=== PATIENT | male | born 1935 | race Caucasian/White ===

== ENCOUNTER 2016-10-05 11:59 | Inpatient (IN) | payer MEDICARE, BC ==
[2016-10-05] MEDS ORDERED: Albuterol 0.083% 2.5 MG/3 ML Neb Soln NEB ONE (13:28)
--- NOTE | 2016-10-05 13:48 | EDM.PDOC ---
ED HISTORY OF PRESENT ILLNESS - General Chief Complaint: Respiratory Problem Stated Complaint: SHORTNESS OF BREATH Time Seen by Provider: 10/05/16 12:15 Source: Reports: Patient, Family History Limitations: Reports: No limitations, Respiratory distress - History of Present Illness INITIAL COMMENTS - FREE TEXT/NARRATIVE: pt has been very sob with ambulation. He walked accross the back yard and he was bent over with sob. . He has not had chest pain. # days ago he had an episode where he had a brief episode of sob. Timing/Duration: Reports: Getting worse, Other ( Pt saw Dr wilcox a few days ago and a cardiology appt was set up. ) Severity: moderate Location, General: Reports: chest, other ( Marked sob. ) Associated Symptoms: Reports: shortness of breath - Related Data Allergies/ADRs: Allergies Allergy/AdvReac Type Severity Reaction Status Date / Time dye Allergy Hives Uncoded 07/25/16 10:58 Home Meds: Home Meds Aspirin [Alvin Chewable] 81 mg PO DAILY 10/22/13 [History] Hydrochlorothiazide 25 mg PO DAILY 10/22/13 [History] Omeprazole [Prilosec] 20 mg PO DAILY 10/22/13 [History] Potassium Citrate 20 meq PO TID 10/22/13 [History] Pravastatin [Pravachol] 80 mg PO DAILY 10/22/13 [History] Terazosin [Hytrin] 15 mg PO BEDTIME 10/22/13 [History] amLODIPine [Norvasc] 10 mg PO DAILY 10/22/13 [History] Etodolac 400 mg PO BID 04/11/16 [History] oxyCODONE HCl/Acetaminophen [Percocet 5-325 mg Tablet] 2 tab PO Q4H PRN [History] Clopidogrel [Plavix] 75 mg PO DAILY 10/05/16 [History] Isosorbide Mononitrate [Imdur] 30 mg PO BID 10/06/16 [History] Metoprolol Tartrate [Lopressor] 25 mg PO Q12HR 10/06/16 [History] Past Medical History HEENT History: Reports: Hard of hearing, Impaired vision Cardiovascular History: Reports: High cholesterol, Hypertension Respiratory History: Reports: COPD, SOB Gastrointestinal History: Reports: GERD Genitourinary History: Reports: Renal calculus Other Genitourinary History: 6 times Musculoskeletal History: Reports: Arthritis - Infectious Disease History Infectious Disease History: Reports: Chicken pox, Measles, Mumps - Past Surgical History HEENT Surgical History: Reports: Adenoidectomy, Tonsillectomy Cardiovascular Surgical History: Reports: Coronary artery stent GI Surgical History: Reports: Colonoscopy Male Surgical History: Reports: Kidney stone extraction Musculoskeletal Surgical History: Reports: Other (see below) Other Musculoskeletal Surgeries/Procedures:: hand surgery, foot surgery Social & Family History - Tobacco Use Smoking Status *Q: Former Smoker Used Tobacco, but Quit: Yes Month Tobacco Last Used: long time ago Second Hand Smoke Exposure: No - Caffeine Use Caffeine Use: Reports: Coffee - Alcohol Use Days Per Week of Alcohol Use: 7 Number of Drinks Per Day: 2 Total Drinks Per Week: 14 - Recreational Drug Use Recreational Drug Use: No ED ROS GENERAL - Review of Systems Review Of Systems: See Below Constitutional: Reports: no symptoms HEENT: Reports: No symptoms Respiratory: Reports: Shortness of Breath, Other ( Pt is not able to walk any distance. ) Cardiovascular: Reports: Other (pt is feeling very sob but he is not experiencing and chest pain. ) Endocrine: Reports: no symptoms GI/Abdominal: Reports: No symptoms : Reports: no symptoms Musculoskeletal: Reports: no symptoms Skin: Reports: no symptoms Neurological: Reports: No Symptoms ED EXAM, GENERAL - Physical Exam Exam: See Below Free Text/Narrative:: pt has been having episodes of sob with activity. He walked a few feet and he could not go any further. Exam Limited By: No limitations General Appearance: alert, mild distress Ears: normal TMs Nose: normal inspection Throat/Mouth: Normal inspection Head: atraumatic Neck: normal inspection Respiratory/Chest: decreased breath sounds Cardiovascular: regular rate, rhythm GI/Abdominal: soft, non tender (Male) Exam: Deferred Rectal (Males) Exam: Deferred Back Exam: normal inspection Extremities: other ( trace edema. ) Neurological: alert, oriented, normal cognition Psychiatric: normal affect Course - Vital Signs Last Recorded V/S: Last Vital Signs Temp 37.1 C 10/07/16 02:15 Pulse 80 10/07/16 07:15 Resp 20 10/07/16 02:15 BP 99/61 10/07/16 02:15 Pulse Ox 95 10/07/16 06:55 Orthostatic Blood Pressure [ 114/57 Standing] Orthostatic Blood Pressure [ 111/59 Sitting] Orthostatic Blood Pressure [ 129/63 Supine] - Orders/Labs/Meds Orders: Medication Orders Acetaminophen (Tylenol) 650 mg PO Q4H PRN PRN Reason: Pain (Mild 1-3)/fever Albuterol (Proventil Neb Soln) 2.5 mg NEB Q4H PRN PRN Reason: Shortness Of Breath/wheezing Albuterol/Ipratropium (Duoneb 3.0-0.5 Mg/3 Ml) 3 ml NEB QIDRT [facility] Last Admin: 10/07/16 07:14 Dose: 3 ml Admin: 10/06/16 20:02 Dose: 3 ml Admin: 10/06/16 14:56 Dose: 3 ml Admin: 10/06/16 10:49 Dose: 3 ml Admin: 10/06/16 08:37 Dose: Admin: 10/05/16 23:30 Dose: Not Given Admin: 10/05/16 15:59 Dose: 3 ml Amlodipine Besylate (Norvasc) 10 mg PO DAILY [facility] Last Admin: 10/06/16 09:32 Dose: 10 mg Aspirin (Halfprin) 81 mg PO BEDTIME [facility] Last Admin: 10/06/16 20:03 Dose: 81 mg Admin: 10/05/16 20:43 Dose: 81 mg Clopidogrel Bisulfate (Plavix) 75 mg PO DAILY [facility] Last Admin: 10/06/16 11:31 Dose: 75 mg Docusate Sodium (Colace) 100 mg PO BID PRN PRN Reason: Constipation Enoxaparin Sodium (Lovenox) 40 mg SUBCUT DAILY [facility] Last Admin: 10/06/16 14:14 Dose: 40 mg Furosemide (Lasix) 40 mg IVPUSH ONETIME ONE Stop: 10/07/16 08:01 Hydrochlorothiazide (Hydrochlorothiazide) 25 mg PO DAILY [facility] Last Admin: 10/06/16 09:32 Dose: 25 mg Isosorbide Mononitrate (Imdur) 30 mg PO BID@0900,1600 [facility] Last Admin: 10/06/16 17:11 Dose: 30 mg Admin: 10/06/16 11:29 Dose: 30 mg Lorazepam (Ativan) 0.5 mg IVPUSH Q4H PRN PRN Reason: Nausea/Vomiting Last Admin: 10/07/16 00:35 Dose: 0.5 mg Magnesium Hydroxide (Milk Of Magnesia) 30 ml PO Q12H PRN PRN Reason: Constipation Metoprolol Tartrate (Lopressor) 0 mg PO BID@0900,1700 [facility] Last Admin: 10/06/16 17:12 Dose: 25 mg Potassium Citrate [ Potassium Citrate] 10meq Tabs Own Med 20 meq PO TID [facility] Last Admin: 10/06/16 20:04 Dose: 20 meq Admin: 10/06/16 14:13 Dose: 20 meq Admin: 10/06/16 09:32 Dose: 20 meq Admin: 10/05/16 20:44 Dose: 20 meq Pravastatin 40mg (Tabs Own Med ) 0 each PO BEDTIME [facility] Last Admin: 10/06/16 20:05 Dose: 2 each Admin: 10/05/16 20:42 Dose: 2 each Ondansetron HCl (Zofran) 4 mg IV Q4H PRN PRN Reason: Nausea/Vomiting Last Admin: 10/06/16 23:38 Dose: 4 mg Oxycodone/Acetaminophen (Percocet 325-5 Mg) 2 tab PO Q4H PRN PRN Reason: Pain Omeprazole Capsule (20mgPom) 0 each PO ACBREAKFAST [facility] Polyethylene Glycol (Miralax) 17 gm PO DAILY PRN PRN Reason: Constipation Sodium Chloride (Saline Flush) 10 ml FLUSH ASDIRECTED PRN PRN Reason: Keep Vein Open Terazosin HCl (Hytrin) 15 mg PO BEDTIME [facility] Last Admin: 10/06/16 20:06 Dose: 15 mg Admin: 10/05/16 20:42 Dose: 15 mg Labs: Laboratory Tests 10/05/16 10/05/16 10/05/16 Range/Units 12:28 12:28 12:28 WBC 9.1 (4.5-11.0) K/uL RBC 4.33 (4.30-5.90) M/uL Hgb 13.1 (12.0-15.0) g/dL Hct 38.7 L (40.0-54.0) % MCV 89 (80-98) fL MCH 30 (27-31) pg MCHC 34 (32-36) % Plt Count 260 (150-400) K/uL Neut % (Auto) 65 (36-66) % Lymph % (Auto) 23 L (24-44) % [place] % (Auto) 11 H (2-6) % Eos % (Auto) 1 L (2-4) % Baso % (Auto) 0 (0-1) % D-Dimer, Quantitative (0.0-400.0) ng/mL Puncture Site ABG pH (7.350-7.450) ABG pCO2 (35.0-42.0) mmHg ABG pO2 (75.0-100.0) mmHg ABG HCO3 (22.0-26.0) mmol/L ABG Total CO2 (23.0-27.0) mmol/L ABG O2 Saturation (95.0-98.0) % ABG O2 Content (15.0-23.0) %vol ABG Base Excess mm/L ABG Hemoglobin (13.5-18.0) g/dL ABG Oxyhemoglobin % ABG Carboxyhemoglobin (0.0-1.6) % ABG Methemoglobin % Dung Test O2 Delivery Device Sodium 140 (140-148) mmol/L Potassium 4.0 (3.6-5.2) mmol/L Chloride 105 (100-108) mmol/L Carbon Dioxide 27 (21-32) mmol/L Anion Gap 8.4 (5.0-14.0) mmol/L BUN 27 H (7-18) mg/dL Creatinine 1.5 H (0.8-1.3) mg/dL Est Cr Clr Drug Dosing 38.00 mL/min Estimated GFR (MDRD) 45 L (>60) Glucose 93 (74-106) mg/dL Calcium 7.9 L (8.5-10.1) mg/dL Total Bilirubin 0.4 (0.2-1.0) mg/dL AST 17 (15-37) U/L ALT 13 (12-78) U/L Alkaline Phosphatase 69 (46-116) U/L Troponin I < 0.017 (0.000-0.056) ng/mL [id number] Pept (5-450) pg/mL Total Protein 6.2 L (6.4-8.2) g/dL Albumin 3.3 L (3.4-5.0) g/dL Globulin 2.9 (2.3-3.5) g/dL Albumin/Globulin Ratio 1.1 L (1.2-2.2) 10/05/16 10/05/16 10/05/16 Range/Units 12:28 13:08 14:09 WBC (4.5-11.0) K/uL RBC (4.30-5.90) M/uL Hgb (12.0-15.0) g/dL Hct (40.0-54.0) % MCV (80-98) fL MCH (27-31) pg MCHC (32-36) % Plt Count (150-400) K/uL Neut % (Auto) (36-66) % Lymph % (Auto) (24-44) % [place] % (Auto) (2-6) % Eos % (Auto) (2-4) % Baso % (Auto) (0-1) % D-Dimer, Quantitative 701 H (0.0-400.0) ng/mL Puncture Site Rt radial ABG pH 7.469 H (7.350-7.450) ABG pCO2 29.6 L (35.0-42.0) mmHg ABG pO2 55.4 L (75.0-100.0) mmHg ABG HCO3 21.2 L (22.0-26.0) mmol/L ABG Total CO2 18.7 L (23.0-27.0) mmol/L ABG O2 Saturation 89.8 L (95.0-98.0) % ABG O2 Content 16.3 (15.0-23.0) %vol ABG Base Excess -1.0 mm/L ABG Hemoglobin 13.1 L (13.5-18.0) g/dL ABG Oxyhemoglobin 88.2 % ABG Carboxyhemoglobin 1.0 (0.0-1.6) % ABG Methemoglobin 0.8 % Dung Test Passed O2 Delivery Device Room air Sodium (140-148) mmol/L Potassium (3.6-5.2) mmol/L Chloride (100-108) mmol/L Carbon Dioxide (21-32) mmol/L Anion Gap (5.0-14.0) mmol/L BUN (7-18) mg/dL Creatinine (0.8-1.3) mg/dL Est Cr Clr Drug Dosing mL/min Estimated GFR (MDRD) (>60) Glucose (74-106) mg/dL Calcium (8.5-10.1) mg/dL Total Bilirubin (0.2-1.0) mg/dL AST (15-37) U/L ALT (12-78) U/L Alkaline Phosphatase (46-116) U/L Troponin I (0.000-0.056) ng/mL [id number] Pept 338 (5-450) pg/mL Total Protein (6.4-8.2) g/dL Albumin (3.4-5.0) g/dL Globulin (2.3-3.5) g/dL Albumin/Globulin Ratio (1.2-2.2) Meds: Medications Generic Name Dose Route Start Last Admin Trade Name Freq PRN Reason Stop Dose Admin Acetaminophen 650 mg 10/05/16 15:30 Tylenol PO Q4H PRN Pain (Mild 1-3)/fever Albuterol 2.5 mg 10/05/16 15:30 Proventil Neb Soln NEB Q4H PRN Shortness Of Breath/wheezing Albuterol/Ipratropium 3 ml 10/05/16 15:00 10/07/16 07:14 Duoneb 3.0-0.5 Mg/3 Ml NEB 3 ml QIDRT [facility]YDER Administration Amlodipine Besylate 10 mg 10/06/16 09:00 10/06/16 09:32 Norvasc PO 10 mg DAILY R[facility]DER Administration Aspirin 81 mg 10/05/16 21:00 10/06/16 20:03 Halfprin PO 81 mg BEDTIME RYDER Administration Clopidogrel Bisulfate 75 mg 10/06/16 11:00 10/06/16 11:31 Plavix PO 75 mg DAILY R[facility]DER Administration Docusate Sodium 100 mg 10/05/16 15:30 Colace PO BID PRN Constipation Enoxaparin Sodium 40 mg 10/06/16 09:00 10/06/16 14:14 Lovenox SUBCUT 40 mg DAILY [facility]DER Administration Furosemide 40 mg 10/07/16 08:00 Lasix IVPUSH 10/07/16 08:01 ONETIME ONE Hydrochlorothiazide 25 mg 10/06/16 09:00 10/06/16 09:32 Hydrochlorothiazide PO 25 mg DAILY [facility]DER Administration Isosorbide Mononitrate 30 mg 10/06/16 11:00 10/06/16 17:11 Imdur PO 30 mg BID@0900,1600 [facility] Administration Lorazepam 0.5 mg 10/07/16 00:16 10/07/16 00:35 Ativan IVPUSH 0.5 mg Q4H PRN Administration Nausea/Vomiting Magnesium Hydroxide 30 ml 10/05/16 15:30 Milk Of Magnesia PO Q12H PRN Constipation Metoprolol Tartrate 0 mg 10/06/16 17:15 10/06/16 17:12 Lopressor PO 25 mg BID@0900,1700 R[facility]DER Administration Potassium Citrate [ 20 meq 10/05/16 21:00 10/06/16 20:04 Potassium Citrate] PO 20 meq 10meq Tabs Own TID RYDER Administration Med Pravastatin 40mg 0 each 10/05/16 21:00 10/06/16 20:05 Tabs Own Med PO 2 each BEDTIME RYDER Administration Ondansetron HCl 4 mg 10/05/16 15:30 10/06/16 23:38 Zofran IV 4 mg Q4H PRN Administration Nausea/Vomiting Oxycodone/Acetaminophen 2 tab 10/05/16 16:30 Percocet 325-5 Mg PO Q4H PRN Pain Omeprazole Capsule 0 each 10/07/16 07:30 20mgPom PO ACBREAKFAST R[facility]DER Polyethylene Glycol 17 gm 10/05/16 15:30 Miralax PO DAILY PRN Constipation Sodium Chloride 10 ml 10/05/16 15:30 Saline Flush FLUSH ASDIRECTED PRN Keep Vein Open Terazosin HCl 15 mg 10/05/16 21:00 10/06/16 20:06 Hytrin PO 15 mg BEDTIME [facility]DER Administration Discontinued Medications Generic Name Dose Route Start Last Admin Trade Name Freq PRN Reason Stop Dose Admin Albuterol 2.5 mg 10/05/16 13:28 10/05/16 13:43 Proventil Neb Soln NEB 10/05/16 13:29 2.5 mg ONETIME ONE Administration Diphenhydramine HCl 25 mg 10/06/16 08:00 10/06/16 07:26 Benadryl IVPUSH 10/06/16 08:01 25 mg ONETIME ONE Administration Furosemide 40 mg 10/06/16 11:00 10/06/16 11:35 Lasix IVPUSH 10/06/16 11:01 40 mg NOW ONE Administration Sodium Chloride 1,000 mls @ 400 mls/hr 10/05/16 14:00 10/05/16 14:08 Normal Saline IV 400 mls/hr ASDIRECTED RYDER Administration Sodium Chloride 1,000 mls @ 100 mls/hr 10/05/16 15:30 10/06/16 05:09 Normal Saline IV 100 mls/hr ASDIRECTED RYDER Administration Sodium Chloride 100 mls @ 4 mls/sec 10/06/16 07:15 10/06/16 07:59 Normal Saline IV 4 mls/sec ASDIRECTED RYDER Administration Magnesium Sulfate 2 gm/ Premix 50 mls @ 12.5 mls/hr 10/06/16 11:00 10/06/16 22:13 IV 10/07/16 02:59 12.5 mls/hr Q6H RYDER Administration Iopamidol 100 ml 10/06/16 07:15 10/06/16 07:59 Isovue-370 (76%) IV 100 ml . DIRECTED RYDER Administration Methylprednisolone Sodium Succinate 40 mg 10/06/16 08:00 10/06/16 07:26 Solu-Medrol IVPUSH 10/06/16 08:01 40 mg ONETIME ONE Administration Metoprolol Tartrate 0 mg 10/06/16 11:00 10/06/16 11:30 Lopressor PO 25 mg BID RYDER Administration Oxycodone/Acetaminophen 2 tab 10/05/16 15:30 10/05/16 16:44 Percocet 325-5 Mg PO Not Given Q4H RYDER Pantoprazole Sodium 40 mg 10/06/16 07:30 10/06/16 09:44 Protonix PO Not Given ACBREAKFAST RYDER Sodium Chloride 10 ml 10/06/16 07:08 10/06/16 07:59 Saline Flush FLUSH 10/06/16 07:09 10 ml ONETIME ONE Administration - Re-Assessments/Exams Free Text/Narrative Re-Assessment/Exam: 10/05/16 14:07 pt had a chest xray which did not reveal effusions or infiltrate, His blood gases show borderline oxgenation, . He had a normal bnp and a normal trop. He did not have acute changes on his ekg. Departure - Departure Time of Disposition: 02:15 Disposition: Admitted As Inpatient 66 Condition: fair Clinical Impression: Shortness of breath on exertion
[2016-10-05] MEDS ORDERED: Sodium Chloride 0.9% 1,000 ML IV SCH (14:00)
--- NOTE | 2016-10-05 15:18 | PCM.HP ---
H&P History of Present Illness - General Date of Service: 10/05/16 Admit Problem/Dx: Admission Diagnosis/Problem Admission Diagnosis/Problem Hypoxia Source of Information: Patient, Family, Old records, Provider, RN notes reviewed History Limitations: Reports: No limitations - History of Present Illness Initial Comments - Free Text/Narative: Mr. Damian is an 80-year-old gentleman who is admitted through the emergency department because of hypoxic respiratory failure. He has had progressive difficulty with shortness of breath over the past 6 months. To this point has undergone fairly extensive evaluation without specific etiology having been identified. Echocardiogram obtained in May showed preserved left ventricular function, no significant elevation in right-sided pressures or other significant abnormalities to explain symptoms of dyspnea. The of known history of coronary artery disease he did undergo an angiogram in May, he did have one area of significant blockage that was treated with angioplasty and a stent. He gives a history of previous pulmonary function studies but I am unable to find a report on review of records from both this facility as well as the clinic. Followup angiogram was performed 2 months ago because of persistent symptoms and showed no new areas of blockage or lesions that were felt to require intervention. At that time a CT angiogram of the chest was obtained, this did show some evidence of COPD, there were no other significant abnormalities appreciated including no pulmonary emboli. He is had recent sleep study, that showed no evidence of significant sleep apnea. Intensive become significantly worse over the past few days and he is noted to have hypoxia on initial presentation. Arterial blood gases document hypoxia and respiratory alkalosis. - Related Data Allergies/Adverse Reactions: Allergies Allergy/AdvReac Type Severity Reaction Status Date / Time dye Allergy Hives Uncoded 07/25/16 10:58 Home Medications: Home Meds Aspirin [Alvin Chewable] 81 mg PO DAILY 10/22/13 [History] Hydrochlorothiazide 25 mg PO DAILY 10/22/13 [History] Omeprazole [Prilosec] 20 mg PO DAILY 10/22/13 [History] Potassium Citrate 20 meq PO TID 10/22/13 [History] Pravastatin [Pravachol] 80 mg PO DAILY 10/22/13 [History] Terazosin [Hytrin] 15 mg PO BEDTIME 10/22/13 [History] amLODIPine [Norvasc] 10 mg PO DAILY 10/22/13 [History] Etodolac 400 mg PO BID 04/11/16 [History] oxyCODONE HCl/Acetaminophen [Percocet 5-325 mg Tablet] 2 tab PO Q4H 05/06/16 [ History] Past Medical History HEENT History: Reports: Hard of hearing, Impaired vision Cardiovascular History: Reports: High cholesterol, Hypertension Respiratory History: Reports: COPD, SOB Gastrointestinal History: Reports: GERD Genitourinary History: Reports: Renal calculus Other Genitourinary History: 6 times Musculoskeletal History: Reports: Arthritis - Infectious Disease History Infectious Disease History: Reports: Chicken pox, Measles, Mumps - Past Surgical History HEENT Surgical History: Reports: Adenoidectomy, Tonsillectomy Cardiovascular Surgical History: Reports: Coronary artery stent GI Surgical History: Reports: Colonoscopy Male Surgical History: Reports: Kidney stone extraction Musculoskeletal Surgical History: Reports: Other (see below) Other Musculoskeletal Surgeries/Procedures:: hand surgery, foot surgery Social & Family History - Tobacco Use Smoking Status *Q: Former Smoker Used Tobacco, but Quit: Yes Month Tobacco Last Used: long time ago Second Hand Smoke Exposure: No - Caffeine Use Caffeine Use: Reports: Coffee - Alcohol Use Days Per Week of Alcohol Use: 7 Number of Drinks Per Day: 2 Total Drinks Per Week: 14 - Recreational Drug Use Recreational Drug Use: No H&P Review of Systems - Review of Systems: Review Of Systems: See Below General: Reports: weakness, fatigue. Denies: fever, chills, night sweats, diaphoresis HEENT: Reports: no symptoms Pulmonary: Reports: Shortness of Breath, Cough. Denies: Wheezing, Pleuritic Chest Pain, Sputum, Hemoptysis Cardiovascular: Reports: dyspnea on exertion. Denies: chest pain, palpitations , orthopnea, PND, edema, lightheadedness, syncope Gastrointestinal: Reports: No symptoms Genitourinary: Reports: no symptoms Musculoskeletal: Reports: back pain Skin: Reports: no symptoms Psychiatric: Reports: no symptoms Neurological: Reports: No Symptoms Hematologic/Lymphatic: Reports: no symptoms Immunologic: Reports: no symptoms Exam - Exam Exam: See Below - Vital Signs Vital Signs: Last Vital Signs Temp 97.1 F 10/05/16 12:13 Pulse 78 10/05/16 14:27 Resp 20 10/05/16 12:13 BP 114/57 L 10/05/16 14:27 Pulse Ox 97 10/05/16 14:27 Orthostatic Blood Pressure [ 114/57 Standing] Orthostatic Blood Pressure [ 111/59 Sitting] Orthostatic Blood Pressure [ 129/63 Supine] Weight: 193 lb 12.581 oz - Exam Quality Assessment: supplemental oxygen, DVT prophylaxis General: alert, oriented, cooperative, moderate distress HEENT: Conjunctiva clear, Hearing intact, Mucosa moist & pink, Nares patent, Normal nasal septum, Posterior pharynx clear, Pupils equal, Pupils reactive, TMs clear Neck: supple, trachea midline, +2 carotid pulse wo bruit Lungs: Decreased breath sounds. No: Crackles, Rales, Rhonchi, Rub, Stridor, Wheezing Cardiovascular: regular rate, regular rhythm, normal S1, normal S2. No: irregular rhythm, bradycardia, tachycardia, systolic murmur, diastolic murmur Abdomen: normal bowel sounds, soft Back Exam: full range of motion, vertebral tenderness Extremities: normal inspection Skin: warm, dry, intact Neurological: cranial nerves intact, strength equal bilateral, normal speech, normal tone, sensation intact. No: focal deficit Neuro Extensive - Mental Status: alert, oriented x3, normal mood/affect, normal cognition, memory intact - Patient Data Lab Results last 24 hrs: Laboratory Results - last 24 hr 10/05/16 10/05/16 10/05/16 Range/Units 12:28 12:28 12:28 WBC 9.1 (4.5-11.0) K/uL RBC 4.33 (4.30-5.90) M/uL Hgb 13.1 (12.0-15.0) g/dL Hct 38.7 L (40.0-54.0) % MCV 89 (80-98) fL MCH 30 (27-31) pg MCHC 34 (32-36) % Plt Count 260 (150-400) K/uL Neut % (Auto) 65 (36-66) % Lymph % (Auto) 23 L (24-44) % [place] % (Auto) 11 H (2-6) % Eos % (Auto) 1 L (2-4) % Baso % (Auto) 0 (0-1) % Puncture Site ABG pH (7.350-7.450) ABG pCO2 (35.0-42.0) mmHg ABG pO2 (75.0-100.0) mmHg ABG HCO3 (22.0-26.0) mmol/L ABG Total CO2 (23.0-27.0) mmol/L ABG O2 Saturation (95.0-98.0) % ABG O2 Content (15.0-23.0) %vol ABG Base Excess mm/L ABG Hemoglobin (13.5-18.0) g/dL ABG Oxyhemoglobin % ABG Carboxyhemoglobin (0.0-1.6) % ABG Methemoglobin % Dung Test O2 Delivery Device Sodium 140 (140-148) mmol/L Potassium 4.0 (3.6-5.2) mmol/L Chloride 105 (100-108) mmol/L Carbon Dioxide 27 (21-32) mmol/L Anion Gap 8.4 (5.0-14.0) mmol/L BUN 27 H (7-18) mg/dL Creatinine 1.5 H (0.8-1.3) mg/dL Est Cr Clr Drug Dosing 38.00 mL/min Estimated GFR (MDRD) 45 L (>60) Glucose 93 (74-106) mg/dL Calcium 7.9 L (8.5-10.1) mg/dL Total Bilirubin 0.4 (0.2-1.0) mg/dL AST 17 (15-37) U/L ALT 13 (12-78) U/L Alkaline Phosphatase 69 (46-116) U/L Troponin I < 0.017 (0.000-0.056) ng/mL Cpb-X-Fucmwlmllpq Pept (5-450) pg/mL Total Protein 6.2 L (6.4-8.2) g/dL Albumin 3.3 L (3.4-5.0) g/dL Globulin 2.9 (2.3-3.5) g/dL Albumin/Globulin Ratio 1.1 L (1.2-2.2) 10/05/16 10/05/16 Range/Units 12:28 13:08 WBC (4.5-11.0) K/uL RBC (4.30-5.90) M/uL Hgb (12.0-15.0) g/dL Hct (40.0-54.0) % MCV (80-98) fL MCH (27-31) pg MCHC (32-36) % Plt Count (150-400) K/uL Neut % (Auto) (36-66) % Lymph % (Auto) (24-44) % [place] % (Auto) (2-6) % Eos % (Auto) (2-4) % Baso % (Auto) (0-1) % Puncture Site Rt radial ABG pH 7.469 H (7.350-7.450) ABG pCO2 29.6 L (35.0-42.0) mmHg ABG pO2 55.4 L (75.0-100.0) mmHg ABG HCO3 21.2 L (22.0-26.0) mmol/L ABG Total CO2 18.7 L (23.0-27.0) mmol/L ABG O2 Saturation 89.8 L (95.0-98.0) % ABG O2 Content 16.3 (15.0-23.0) %vol ABG Base Excess -1.0 mm/L ABG Hemoglobin 13.1 L (13.5-18.0) g/dL ABG Oxyhemoglobin 88.2 % ABG Carboxyhemoglobin 1.0 (0.0-1.6) % ABG Methemoglobin 0.8 % Dung Test Passed O2 Delivery Device Room air Sodium (140-148) mmol/L Potassium (3.6-5.2) mmol/L Chloride (100-108) mmol/L Carbon Dioxide (21-32) mmol/L Anion Gap (5.0-14.0) mmol/L BUN (7-18) mg/dL Creatinine (0.8-1.3) mg/dL Est Cr Clr Drug Dosing mL/min Estimated GFR (MDRD) (>60) Glucose (74-106) mg/dL Calcium (8.5-10.1) mg/dL Total Bilirubin (0.2-1.0) mg/dL AST (15-37) U/L ALT (12-78) U/L Alkaline Phosphatase (46-116) U/L Troponin I (0.000-0.056) ng/mL Wen-O-Fdypiamizfz Pept 338 (5-450) pg/mL Total Protein (6.4-8.2) g/dL Albumin (3.4-5.0) g/dL Globulin (2.3-3.5) g/dL Albumin/Globulin Ratio (1.2-2.2) Result Diagrams: 10/05/16 12:28 10/05/16 12:28 *Q Meaningful Use (ADM) - VTE *Q VTE Criteria *Q: - VTE Risk Assess *Q Each Risk Factor Represents 1 Point: Abnormal Pulmonary Function (COPD) Total Score 1 Point Risk Factors: 1 Each Risk Factor Represents 2 Points: None Total Score 2 Point Risk Factors: 0 Each Risk Factor Represents 3 Points: Age 75 Years or Greater Total Score 3 Point Risk Factors: 3 Each Risk Factor Represents 5 Points: None Total Score 5 Point Risk Factors: 0 Venous Thromboembolism Risk Factor Score *Q: 4 - Stroke *Q Stroke Criteria *Q: - AMI *Q AMI Criteria *Q: Problem List Initiated/Reviewed/Updated: Yes Orders Last 24hrs: Active Orders 24 hr Category Date Time Status Patient Status Manage Transfer [TRANSFER] Routine ADT 10/05/16 14:57 Ordered Cardiac Monitoring [RC] .As Directed Care 10/05/16 14:57 Ordered EKG Documentation Completion [RC] ASDIRECTED Care 10/05/16 12:23 Active Orthostatic Vital Signs [RC] ASDIRECTED Care 10/05/16 13:29 Active RT Aerosol Therapy [RC] ASDIRECTED Care 10/05/16 13:28 Active Chest 1V Frontal [CR] Stat Exams 10/05/16 12:23 Taken D Dimer [D-DIMER QUANTITATIVE] [COAG] Stat Lab 10/05/16 14:09 Ordered Sodium Chloride 0.9% [Normal Saline] 1,000 ml Med 10/05/16 14:00 Active IV ASDIRECTED Resuscitation Status Routine Resus Stat 10/05/16 14:59 Ordered EKG 12 Lead [EK] Routine Ther 10/05/16 12:23 Ordered Medication Orders Sodium Chloride (Normal Saline) 1,000 mls @ 400 mls/hr IV ASDIRECTED RYDER Last Admin: 10/05/16 14:08 Dose: 400 mls/hr Assessment/Plan Comment:: ASSESSMENT AND PLAN HYPOXIC RESPIRATORY FAILURE-symptoms have been present for 6 months, gradually worse, significantly worse over the past few days. Evaluation to this point has included echocardiogram, 2 cardiac angiograms, laboratory studies, CT angiogram of the chest, and a sleep study. He does have known COPD, I am unable to find documented pulmonary function studies as to the underlying severity of his lung disease. -IV fluids for hydration -CT scan PE protocol in a.m. after hydration -Premedicate prior to CT scan with Solu-Medrol and Benadryl -Pulmonary function studies with DLCO -Echocardiogram to reassess left ventricular function -Supplemental oxygen as needed -Nebulizer therapy with albuterol and duo nebs -Patient already has followup with cardiology scheduled for , October 09 -TSH in a.m. CORONARY ARTERY DISEASE-status post angiogram with angioplasty and stent placement in May, followup angiogram in July showed no new or acute findings -Continue outpatient medical management COPD -PFT's as above CHRONIC KIDNEY DISEASE STAGE III -Closely monitor urine output and renal function during hospital stay MAINTENANCE ISSUES -DVT prophylaxis; Lovenox 40 mg subcutaneous daily -GI prophylaxis; continue outpatient PPI therapy -Yeager catheter; not indicated -Nutrition; regular diet -Nicotine dependence; not required CODE STATUS-FULL CODE ADMISSION STATUS-patient will be admitted to inpatient status, expect at least a 2 night hospital stay for evaluation and management of problems as outlined above. At the time of this admission I do not reasonably expected evaluation and management of this problem will require more than a 96 hour hospital stay. DISPOSITION-anticipate discharge to home after the hospital stay. PRIMARY CARE PROVIDER-Dr. Jarquin
[2016-10-05] MEDS ORDERED: Polyethylene Glycol 3350 Powder 17 GM Packet PO PRN (15:30)
[2016-10-05] MEDS ORDERED: Ondansetron 4 MG/2 ML SDV IV PRN (15:30)
[2016-10-05] MEDS ORDERED: Sodium Chloride 0.9% 10 ML Syringe FLUSH PRN (15:30)
[2016-10-05] MEDS ORDERED: Albuterol 0.083% 2.5 MG/3 ML Neb Soln NEB PRN (15:30)
[2016-10-05] MEDS ORDERED: Acetaminophen/oxyCODONE 325-5 MG Tab PO SCH (15:30)
[2016-10-05] MEDS ORDERED: Magnesium Hydroxide 400 MG/5 ML Susp 30 ML Cup PO PRN (15:30)
[2016-10-05] MEDS ORDERED: Acetaminophen 325 MG Tab PO PRN (15:30)
[2016-10-05] MEDS: Albuterol/Ipratropium 3.0-0.5 MG/3 ML Neb Soln NEB SCH ×2 (15:59→23:30)
[2016-10-05] MEDS ORDERED: Acetaminophen/oxyCODONE 325-5 MG Tab PO PRN (16:30)
[2016-10-05] MEDS: Sodium Chloride 0.9% 1,000 ML IV SCH (19:29)
[2016-10-05] MEDS: PRAVASTATIN 40 MG PO SCH (20:42)
[2016-10-05] MEDS: TERAZOSIN 5 MG PO SCH (20:42)
[2016-10-05] MEDS: ASPIRIN 81 MG PO SCH (20:43)
[2016-10-05] MEDS: POTASSIUM CITRATE 10 MEQ PO SCH (20:44)
[2016-10-06] MEDS: Sodium Chloride 0.9% 1,000 ML IV SCH (05:09)
[2016-10-06] MEDS ORDERED: Sodium Chloride 0.9% 10 ML Syringe FLUSH ONE (07:08)
[2016-10-06] MEDS ORDERED: Iopamidol 755 Mg/ML 100 ML Bottle IV SCH (07:15)
[2016-10-06] MEDS ORDERED: Sodium Chloride 0.9% 100 ML IV SCH (07:15)
[2016-10-06] MEDS ORDERED: methylPREDNISolone Sodium Succinate 40 MG/1 ML SDV IVPUSH ONE (08:00)
[2016-10-06] MEDS ORDERED: diphenhydrAMINE 50 MG/ML SDV IVPUSH ONE (08:00)
[2016-10-06] MEDS: Albuterol/Ipratropium 3.0-0.5 MG/3 ML Neb Soln NEB SCH ×4 (08:37→20:02)
--- NOTE | 2016-10-06 09:26 | CT ---
Ang Chest HISTORY: Hypoxia COMPARISON: None TECHNIQUE: Intravenous contrast was administered, followed by axial imaging from the lung apices ext ending through the hemidiaphragms. 3D Coronal and/or sagittal MIP reconstructions were obtained and reviewed. Total DLP: 422. FINDINGS: The central and segmental pulmonary arteries are well-opacified. There are no filling defe cts. There is no vessel truncation. There are no findings of pulmonary embolism. There is cardiomegaly. There is a small pericardial effusion. There is pulmonary vascular engorgemen t. There is a mild prominence of the basilar interstitial markings. There are no significant effusio ns. Limited evaluation of the upper abdomen demonstrates no acute findings. There are degenerative findi ngs throughout the thoracic spine. Impression: 1. Mild CHF. 2. Negative pulmonary embolism.
[2016-10-06] MEDS: Pantoprazole 40 MG Tab.CR PO SCH ×3 (09:31→09:44)
[2016-10-06] MEDS: POTASSIUM CITRATE 10 MEQ PO SCH ×3 (09:32→20:04)
[2016-10-06] MEDS: Enoxaparin 40 MG/0.4 ML Syringe SUBCUT SCH ×2 (09:32→14:14)
[2016-10-06] MEDS: amLODIPine 10 MG Tab**POM PO SCH (09:32)
[2016-10-06] MEDS: HYDROCHLOROTHIAZIDE 25 MG PO SCH (09:32)
--- NOTE | 2016-10-06 10:16 | CR ---
Chest 1V Frontal FINDINGS: The heart and vascular structures are normal in appearance. No infiltrates or effusions ar e demonstrated. The skeletal structures are unremarkable. IMPRESSION: Negative exam.
[2016-10-06] MEDS ORDERED: METOPROLOL TARTRATE 50 MG PO SCH (11:00)
[2016-10-06] MEDS ORDERED: Furosemide 40 MG/4 ML VIAL IVPUSH ONE (11:00)
[2016-10-06] MEDS: ISOSORBIDE MONONITRATE 30 MG PO SCH ×2 (11:29→17:11)
[2016-10-06] MEDS: Clopidogrel 75 MG Tab**POM PO SCH (11:31)
[2016-10-06] MEDS: Magnesium Sulfate/Water 2 GM in Premix Bag 1 BAG IV SCH ×3 (11:43→22:13)
--- NOTE | 2016-10-06 11:57 | PCM.PN ---
- General Info Date of Service: 10/06/16 Functional Status: Reports: pain controlled, ambulating - Review of Systems Pulmonary: Reports: shortness of breath Cardiovascular: Denies: Chest Pain Systems Review Comment:: No acute events overnight. Doesn't feel much different today than yesterday. Mild shortness of breath at rest and moderate shortness of breath with any exertion. No complaints of chest pain or palpitations. No orthopnea. CT scan this morning did not show any evidence for pulmonary embolism but did show some pulmonary vascular congestion and pulmonary edema. This was relatively mild. No fevers. Nebulizers to make him feel any better. - Patient Data Vitals - most recent: Last Vital Signs Temp 36.7 C 10/06/16 11:12 Pulse 68 10/06/16 11:30 Resp 20 10/06/16 11:12 BP 120/64 10/06/16 11:35 Pulse Ox 95 10/06/16 11:12 Weight - most recent: 87.997 kg I&O - last 24 hours: Intake & Output 10/05/16 10/06/16 10/06/16 22:59 06:59 14:59 Intake Total 360 2092 470 Output Total 400 1675 525 Balance -40 417 -55 Lab Results last 24 hrs: Laboratory Results - last 24 hr 10/06/16 10/06/16 10/06/16 Range/Units 05:44 05:44 05:44 WBC 8.3 (4.5-11.0) K/uL RBC 4.10 L (4.30-5.90) M/uL Hgb 12.4 (12.0-15.0) g/dL Hct 37.0 L (40.0-54.0) % MCV 90 (80-98) fL MCH 30 (27-31) pg MCHC 34 (32-36) % Plt Count 246 (150-400) K/uL Neut % (Auto) 53 (36-66) % Lymph % (Auto) 32 (24-44) % [place] % (Auto) 14 H (2-6) % Eos % (Auto) 1 L (2-4) % Baso % (Auto) 1 (0-1) % Sodium 143 (140-148) mmol/L Potassium 4.1 (3.6-5.2) mmol/L Chloride 109 H (100-108) mmol/L Carbon Dioxide 26 (21-32) mmol/L Anion Gap 12.1 (5.0-14.0) mmol/L BUN 17 (7-18) mg/dL Creatinine 1.3 (0.8-1.3) mg/dL Est Cr Clr Drug Dosing 43.85 mL/min Estimated GFR (MDRD) 53 L (>60) Glucose 102 (74-106) mg/dL Calcium 7.7 L (8.5-10.1) mg/dL Magnesium 1.3 L (1.8-2.4) mg/dL TSH, Ultra Sensitive 1.255 (0.358-3.740) uIU/mL Med Orders - Current: Current Medications Acetaminophen (Tylenol) 650 mg PO Q4H PRN PRN Reason: Pain (Mild 1-3)/fever Albuterol (Proventil Neb Soln) 2.5 mg NEB Q4H PRN PRN Reason: Shortness Of Breath/wheezing Albuterol/Ipratropium (Duoneb 3.0-0.5 Mg/3 Ml) 3 ml NEB QIDRT [facility] Last Admin: 10/06/16 10:49 Dose: 3 ml Amlodipine Besylate (Norvasc) 10 mg PO DAILY [facility] Last Admin: 10/06/16 09:32 Dose: 10 mg Aspirin (Halfprin) 81 mg PO BEDTIME [facility] Last Admin: 10/05/16 20:43 Dose: 81 mg Clopidogrel Bisulfate (Plavix) 75 mg PO DAILY [facility] Last Admin: 10/06/16 11:31 Dose: 75 mg Docusate Sodium (Colace) 100 mg PO BID PRN PRN Reason: Constipation Enoxaparin Sodium (Lovenox) 40 mg SUBCUT DAILY [facility] Hydrochlorothiazide (Hydrochlorothiazide) 25 mg PO DAILY [facility] Last Admin: 10/06/16 09:32 Dose: 25 mg Sodium Chloride (Normal Saline) 1,000 mls @ 100 mls/hr IV ASDIRECTED [facility] Last Admin: 10/06/16 05:09 Dose: 100 mls/hr Magnesium Sulfate 2 gm/ Premix 50 mls @ 12.5 mls/hr IV Q6H [facility] Stop: 10/07/16 02:59 Last Admin: 10/06/16 11:43 Dose: 12.5 mls/hr Iopamidol (Isovue-370 (76%)) 100 ml IV . DIRECTED [facility] Last Admin: 10/06/16 07:59 Dose: 100 ml Isosorbide Mononitrate (Imdur) 30 mg PO BID@0900,1600 [facility] Last Admin: 10/06/16 11:29 Dose: 30 mg Magnesium Hydroxide (Milk Of Magnesia) 30 ml PO Q12H PRN PRN Reason: Constipation Metoprolol Tartrate (Lopressor) 0 mg PO BID [facility] Last Admin: 10/06/16 11:30 Dose: 25 mg Potassium Citrate [ Potassium Citrate] 10meq Tabs Own Med 20 meq PO TID [facility] Last Admin: 10/06/16 09:32 Dose: 20 meq Pravastatin 40mg (Tabs Own Med ) 0 each PO BEDTIME [facility] Last Admin: 10/05/16 20:42 Dose: 2 each Ondansetron HCl (Zofran) 4 mg IV Q4H PRN PRN Reason: Nausea/Vomiting Oxycodone/Acetaminophen (Percocet 325-5 Mg) 2 tab PO Q4H PRN PRN Reason: Pain Omeprazole Capsule (20mgPom) 0 each PO ACBREAKFAST [facility] Polyethylene Glycol (Miralax) 17 gm PO DAILY PRN PRN Reason: Constipation Sodium Chloride (Saline Flush) 10 ml FLUSH ASDIRECTED PRN PRN Reason: Keep Vein Open Terazosin HCl (Hytrin) 15 mg PO BEDTIME [facility] Last Admin: 10/05/16 20:42 Dose: 15 mg Discontinued Medications Albuterol (Proventil Neb Soln) 2.5 mg NEB ONETIME ONE Stop: 10/05/16 13:29 Last Admin: 10/05/16 13:43 Dose: 2.5 mg Diphenhydramine HCl (Benadryl) 25 mg IVPUSH ONETIME ONE Stop: 10/06/16 08:01 Last Admin: 10/06/16 07:26 Dose: 25 mg Furosemide (Lasix) 40 mg IVPUSH NOW ONE Stop: 10/06/16 11:01 Last Admin: 10/06/16 11:35 Dose: 40 mg Sodium Chloride (Normal Saline) 1,000 mls @ 400 mls/hr IV ASDIRECTED [facility] Last Admin: 10/05/16 14:08 Dose: 400 mls/hr Sodium Chloride (Normal Saline) 100 mls @ 4 mls/sec IV ASDIRECTED [facility] Last Admin: 10/06/16 07:59 Dose: 4 mls/sec Methylprednisolone Sodium Succinate (Solu-Medrol) 40 mg IVPUSH ONETIME ONE Stop: 10/06/16 08:01 Last Admin: 10/06/16 07:26 Dose: 40 mg Oxycodone/Acetaminophen (Percocet 325-5 Mg) 2 tab PO Q4H [facility] Last Admin: 10/05/16 16:44 Dose: Not Given Pantoprazole Sodium (Protonix) 40 mg PO ACBREAKFAST [facility] Last Admin: 10/06/16 09:44 Dose: Not Given Sodium Chloride (Saline Flush) 10 ml FLUSH ONETIME ONE Stop: 10/06/16 07:09 Last Admin: 10/06/16 07:59 Dose: 10 ml - Exam Quality Assessment: supplemental oxygen General: alert, oriented, cooperative, no acute distress Neck: supple Lungs: Normal respiratory effort, Decreased breath sounds (mild at bases), Wheezing (mild exp wheezing diffusely ) Cardiovascular: Regular Rate, Regular Rhythm. No: Murmurs Abdomen: soft, no distension Extremities: no edema, no cyanosis Skin: warm, dry Psy/Mental Status: alert, normal affect - Problem List Review Problem List Initiated/Reviewed/Updated: Yes - My Orders Last 24 Hours: My Active Orders 10/06/16 10:14 Convert IV to Saline Lock [OM.PC] Routine 10/06/16 11:00 Clopidogrel [Plavix] 75 mg PO DAILY Isosorbide Mononitrate [Imdur] 30 mg PO BID@0900,1600 Magnesium Sulfate/Water [Magnesium Sulfate 2 GM in Water 50 ML] 2 gm Premix Bag 1 bag IV Q6H Metoprolol Tartrate [Lopressor] 0 mg PO BID - Plan Plan:: ASSESSMENT AND PLAN HYPOXIC RESPIRATORY FAILURE - subacute symptoms with more rapid decline recently. CT scan this morning was suggestive of pulmonary edema and pulmonary vascular congestion. Most recent echocardiogram showed normal left ventricular function and only mild diastolic dysfunction. Formal echocardiogram read is pending at this time but I don't appreciate any wall motion abnormalities or valvular abnormalities and his function appears normal. -Trial of furosemide and reassess this afternoon -Followup Echocardiogram -Supplemental oxygen as needed -Nebulizer therapy with albuterol and duo nebs -Patient already has followup with cardiology scheduled for , October 09 CORONARY ARTERY DISEASE - status post angiogram with angioplasty and stent placement in May, followup angiogram in July showed no new findings and only mild to moderate disease. 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 -Followup PFT's CHRONIC KIDNEY DISEASE STAGE III -Closely monitor urine output and renal function during hospital stay MAINTENANCE ISSUES -DVT prophylaxis; Lovenox 40 mg subcutaneous daily -GI prophylaxis; continue outpatient PPI therapy -Yeager catheter; not indicated -Nutrition; regular diet -Nicotine dependence; not required since DISPOSITION - anticipate discharge to home after the hospital stay. Hayder Gutierrez M.D.
[2016-10-06] MEDS: METOPROLOL TARTRATE 50 MG PO SCH (17:12)
[2016-10-06] MEDS: ASPIRIN 81 MG PO SCH (20:03)
[2016-10-06] MEDS: PRAVASTATIN 40 MG PO SCH (20:05)
[2016-10-06] MEDS: TERAZOSIN 5 MG PO SCH (20:06)
[2016-10-07] MEDS ORDERED: LORazepam 2 MG/ML MDV IVPUSH PRN (00:16)
[2016-10-07] MEDS: Albuterol/Ipratropium 3.0-0.5 MG/3 ML Neb Soln NEB SCH ×4 (07:14→20:37)
[2016-10-07] MEDS: OMEPRAZOLE 20 MG PO SCH (07:54)
[2016-10-07] MEDS ORDERED: Furosemide 40 MG/4 ML VIAL IVPUSH ONE ×2 (08:00→14:01)
[2016-10-07] MEDS: Enoxaparin 40 MG/0.4 ML Syringe SUBCUT SCH (09:18)
[2016-10-07] MEDS: Clopidogrel 75 MG Tab**POM PO SCH (09:19)
[2016-10-07] MEDS: HYDROCHLOROTHIAZIDE 25 MG PO SCH (09:20)
[2016-10-07] MEDS: amLODIPine 10 MG Tab**POM PO SCH (09:21)
[2016-10-07] MEDS: ISOSORBIDE MONONITRATE 30 MG PO SCH ×2 (09:21→15:49)
[2016-10-07] MEDS: METOPROLOL TARTRATE 50 MG PO SCH ×2 (09:23→17:53)
[2016-10-07] MEDS: POTASSIUM CITRATE 10 MEQ PO SCH ×3 (09:27→20:43)
--- NOTE | 2016-10-07 11:44 | US ---
Renal ultrasound The right kidney measures 12.2 x 5.3 x 5.1 cm. The left kidney measures 13.4 x 5.5 x 4.8 cm. There i s no hydronephrosis. There is a complex septated cyst of the lateral mid right kidney. There are ass ociated calcifications with the lesion. This complex cyst is also demonstrated on a CT exam from . The cyst measures 3.5 x 3.7 cm. There is no color flow. There is a 2.0 cm cyst of the lower pole right kidney. There is a 2.2 cm cyst of the lower pole left kidney. There are no solid renal lesions . There is a echogenic focus in the lower pole left kidney which may reflect a 6 mm stone. The bladd er is unremarkable. Impression: 1. Bilateral renal cysts. No solid renal lesions. Partially calcified complex cyst of the right kidn ey is also demonstrated on a [address] CT.
[2016-10-07] MEDS: Docusate Sodium 100 MG Cap PO PRN (13:24)
[2016-10-07] MEDS ORDERED: Zolpidem 5 MG Tab PO PRN (14:02)
--- NOTE | 2016-10-07 17:30 | PCM.PN ---
- General Info Date of Service: 10/07/16 Functional Status: Reports: pain controlled, tolerating diet, ambulating - Review of Systems Pulmonary: Reports: shortness of breath Cardiovascular: Denies: Edema Systems Review Comment:: no acute events overnight. Had trouble falling asleep. Thinks his breathing is little better today. He is on supplemental oxygen. No episodes of chest pain. He did have some trouble with nausea yesterday evening that resolved after a dose of lorazepam. No nausea today. No fevers. - Patient Data Vitals - most recent: Last Vital Signs Temp 36.8 C 10/07/16 15:11 Pulse 79 10/07/16 15:11 Resp 18 10/07/16 10:34 BP 103/67 10/07/16 15:49 Pulse Ox 94 L 10/07/16 15:11 Weight - most recent: 88.677 kg I&O - last 24 hours: Intake & Output 10/07/16 10/07/16 10/07/16 06:59 14:59 22:59 Intake Total 600 360 Output Total 1325 525 Balance 600 -965 -525 Lab Results last 24 hrs: Laboratory Results - last 24 hr 10/07/16 Range/Units 11:47 Urine Color Yellow Urine Appearance Clear Urine pH 5.0 (4.5-8.0) Ur Specific [place] 1.015 (1.008-1.030) Urine Protein Negative (NEGATIVE) mg/dL Urine Glucose (UA) Normal (NEGATIVE) mg/dL Urine Ketones Negative (NEGATIVE) mg/dL Urine Occult Blood Negative (NEGATIVE) Urine Nitrite Negative (NEGAITVE) Urine Bilirubin Negative (NEGATIVE) Urine Urobilinogen Normal (NORMAL) mg/dL Ur Leukocyte Esterase Negative (NEGATIVE) Urine RBC Not seen (0-5) Urine WBC Not seen (0-5) Ur Epithelial Cells Rare Amorphous Sediment Not seen Urine Bacteria Not seen Urine Mucus Not seen Med Orders - Current: Current Medications Acetaminophen (Tylenol) 650 mg PO Q4H PRN PRN Reason: Pain (Mild 1-3)/fever Albuterol (Proventil Neb Soln) 2.5 mg NEB Q4H PRN PRN Reason: Shortness Of Breath/wheezing Albuterol/Ipratropium (Duoneb 3.0-0.5 Mg/3 Ml) 3 ml NEB QIDRT [facility] Last Admin: 10/07/16 14:35 Dose: 3 ml Amlodipine Besylate (Norvasc) 10 mg PO DAILY [facility] Last Admin: 10/07/16 09:21 Dose: 10 mg Aspirin (Halfprin) 81 mg PO BEDTIME [facility] Last Admin: 10/06/16 20:03 Dose: 81 mg Clopidogrel Bisulfate (Plavix) 75 mg PO DAILY [facility] Last Admin: 10/07/16 09:19 Dose: 75 mg Docusate Sodium (Colace) 100 mg PO BID PRN PRN Reason: Constipation Last Admin: 10/07/16 13:24 Dose: 100 mg Enoxaparin Sodium (Lovenox) 40 mg SUBCUT DAILY [facility] Last Admin: 10/07/16 09:18 Dose: 40 mg Furosemide (Lasix) 40 mg PO DAILY [facility] Hydrochlorothiazide (Hydrochlorothiazide) 25 mg PO DAILY [facility] Last Admin: 10/07/16 09:20 Dose: 25 mg Isosorbide Mononitrate (Imdur) 30 mg PO BID@0900,1600 [facility] Last Admin: 10/07/16 15:49 Dose: 30 mg Lorazepam (Ativan) 0.5 mg IVPUSH Q4H PRN PRN Reason: Nausea/Vomiting Last Admin: 10/07/16 00:35 Dose: 0.5 mg Magnesium Hydroxide (Milk Of Magnesia) 30 ml PO Q12H PRN PRN Reason: Constipation Metoprolol Tartrate (Lopressor) 0 mg PO BID@0900,1700 [facility] Last Admin: 10/07/16 09:23 Dose: 25 mg Potassium Citrate [ Potassium Citrate] 10meq Tabs Own Med 20 meq PO TID [facility] Last Admin: 10/07/16 13:41 Dose: Not Given Pravastatin 40mg (Tabs Own Med ) 0 each PO BEDTIME [facility] Last Admin: 10/06/16 20:05 Dose: 2 each Ondansetron HCl (Zofran) 4 mg IV Q4H PRN PRN Reason: Nausea/Vomiting Last Admin: 10/06/16 23:38 Dose: 4 mg Oxycodone/Acetaminophen (Percocet 325-5 Mg) 2 tab PO Q4H PRN PRN Reason: Pain Omeprazole Capsule (20mgPom) 0 each PO ACBREAKFAST [facility] Last Admin: 10/07/16 07:54 Dose: 1 each Polyethylene Glycol (Miralax) 17 gm PO DAILY PRN PRN Reason: Constipation Sodium Chloride (Saline Flush) 10 ml FLUSH ASDIRECTED PRN PRN Reason: Keep Vein Open Terazosin HCl (Hytrin) 15 mg PO BEDTIME [facility] Last Admin: 10/06/16 20:06 Dose: 15 mg Zolpidem Tartrate (Ambien) 5 mg PO BEDTIME PRN PRN Reason: Sleep Discontinued Medications Albuterol (Proventil Neb Soln) 2.5 mg NEB ONETIME ONE Stop: 10/05/16 13:29 Last Admin: 10/05/16 13:43 Dose: 2.5 mg Diphenhydramine HCl (Benadryl) 25 mg IVPUSH ONETIME ONE Stop: 10/06/16 08:01 Last Admin: 10/06/16 07:26 Dose: 25 mg Furosemide (Lasix) 40 mg IVPUSH NOW ONE Stop: 10/06/16 11:01 Last Admin: 10/06/16 11:35 Dose: 40 mg Furosemide (Lasix) 40 mg IVPUSH ONETIME ONE Stop: 10/07/16 08:01 Last Admin: 10/07/16 09:14 Dose: 40 mg Furosemide (Lasix) 40 mg IVPUSH ONETIME ONE Stop: 10/07/16 14:02 Last Admin: 10/07/16 14:14 Dose: 40 mg Sodium Chloride (Normal Saline) 1,000 mls @ 400 mls/hr IV ASDIRECTED [facility] Last Admin: 10/05/16 14:08 Dose: 400 mls/hr Sodium Chloride (Normal Saline) 1,000 mls @ 100 mls/hr IV ASDIRECTED [facility] Last Admin: 10/06/16 05:09 Dose: 100 mls/hr Sodium Chloride (Normal Saline) 100 mls @ 4 mls/sec IV ASDIRECTED [facility] Last Admin: 10/06/16 07:59 Dose: 4 mls/sec Magnesium Sulfate 2 gm/ Premix 50 mls @ 12.5 mls/hr IV Q6H [facility] Stop: 10/07/16 02:59 Last Admin: 10/06/16 22:13 Dose: 12.5 mls/hr Iopamidol (Isovue-370 (76%)) 100 ml IV . DIRECTED [facility] Last Admin: 10/06/16 07:59 Dose: 100 ml Methylprednisolone Sodium Succinate (Solu-Medrol) 40 mg IVPUSH ONETIME ONE Stop: 10/06/16 08:01 Last Admin: 10/06/16 07:26 Dose: 40 mg Metoprolol Tartrate (Lopressor) 0 mg PO BID [facility] Last Admin: 10/06/16 11:30 Dose: 25 mg Oxycodone/Acetaminophen (Percocet 325-5 Mg) 2 tab PO Q4H [facility] Last Admin: 10/05/16 16:44 Dose: Not Given Pantoprazole Sodium (Protonix) 40 mg PO ACBREAKFAST [facility] Last Admin: 10/06/16 09:44 Dose: Not Given Sodium Chloride (Saline Flush) 10 ml FLUSH ONETIME ONE Stop: 10/06/16 07:09 Last Admin: 10/06/16 07:59 Dose: 10 ml - Exam Quality Assessment: No: supplemental oxygen General: alert, oriented, cooperative, no acute distress Neck: supple Lungs: Clear to auscultation, Normal respiratory effort Cardiovascular: Regular Rate, Regular Rhythm. No: Murmurs, Gallops Abdomen: soft, no tenderness, no distension Extremities: no edema, no cyanosis Skin: warm, dry Psy/Mental Status: alert, normal affect - Problem List Review Problem List Initiated/Reviewed/Updated: Yes - My Orders Last 24 Hours: My Active Orders 10/06/16 17:15 Metoprolol Tartrate [Lopressor] 0 mg PO BID@0900,1700 10/07/16 00:16 LORazepam [Ativan] 0.5 mg IVPUSH Q4H PRN 10/07/16 14:02 Zolpidem [Ambien] 5 mg PO BEDTIME PRN 10/08/16 09:00 Furosemide [Lasix] 40 mg PO DAILY - Plan Plan:: ASSESSMENT AND PLAN HYPOXIC RESPIRATORY FAILURE - suspect slow progression of mild chronic diastolic congestive heart failure. Feeling better and clinically improving with diuresis. Echocardiogram showed only grade 1 diastolic dysfunction. -2 doses of IV furosemide today than start oral diuretics tomorrow -Supplemental oxygen as needed -Nebulizer therapy with albuterol and duo nebs CORONARY ARTERY DISEASE - status post angiogram with angioplasty and stent placement in May, followup angiogram in July showed no new findings and only mild to moderate disease. 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 It has not changed in size and appears similar to previous. This is very reassuring. 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 -Followup PFT's CHRONIC KIDNEY DISEASE STAGE III -Closely monitor urine output and renal function during hospital stay MAINTENANCE ISSUES -DVT prophylaxis; Lovenox 40 mg subcutaneous daily -GI prophylaxis; continue outpatient PPI therapy -Yeager catheter; not indicated -Nutrition; regular diet DISPOSITION - anticipate discharge to home after the hospital stay, probably tomorrow if stable overnight Hayder Gutierrez M.D.
[2016-10-07] MEDS: ASPIRIN 81 MG PO SCH (20:38)
[2016-10-07] MEDS: TERAZOSIN 5 MG PO SCH (20:42)
[2016-10-07] MEDS: PRAVASTATIN 40 MG PO SCH (20:42)
[2016-10-08] MEDS: Albuterol/Ipratropium 3.0-0.5 MG/3 ML Neb Soln NEB SCH ×2 (07:14→10:55)
[2016-10-08 07:33] VITALS: BP 98/73
[2016-10-08] MEDS: OMEPRAZOLE 20 MG PO SCH (07:34)
[2016-10-08] MEDS: Enoxaparin 40 MG/0.4 ML Syringe SUBCUT SCH (08:09)
[2016-10-08] MEDS: HYDROCHLOROTHIAZIDE 25 MG PO SCH (08:11)
[2016-10-08] MEDS: ISOSORBIDE MONONITRATE 30 MG PO SCH (08:11)
[2016-10-08] MEDS: amLODIPine 10 MG Tab**POM PO SCH (08:11)
[2016-10-08] MEDS: Docusate Sodium 100 MG Cap PO PRN (08:11)
[2016-10-08] MEDS: Clopidogrel 75 MG Tab**POM PO SCH (08:12)
[2016-10-08] MEDS: METOPROLOL TARTRATE 50 MG PO SCH (08:14)
[2016-10-08] MEDS: POTASSIUM CITRATE 10 MEQ PO SCH (08:15)
[2016-10-08] MEDS ORDERED: Furosemide 40 MG Tab PO SCH (09:00)
--- NOTE | 2016-10-08 11:04 | PCM.DCSUM1 ---
Discharge Summary - Hospital Course Brief History: 80-year-old male with history of very mild emphysema and coronary artery disease who presented with progressive dyspnea on exertion. He was admitted for expedited workup with mild hypoxia noted at presentation. - Discharge Data Discharge Date: 10/08/16 Discharge Disposition: Home, Self-Care 01 Condition: Fair - Discharge Diagnosis/Problem(s) (1) Diastolic congestive heart failure, NYHA class 2 SNOMED Code(s): 700936373, 054528223, 308959958 ICD Code: I50.30 - UNSPECIFIED DIASTOLIC (CONGESTIVE) HEART FAILURE Status : Acute (2) Shortness of breath on exertion SNOMED Code(s): 07879604 ICD Code: R06.02 - SHORTNESS OF BREATH Status: Acute (3) CAD (coronary artery disease) SNOMED Code(s): 85411895 ICD Code: I25.10 - ATHSCL HEART DISEASE OF [place] CORONARY ARTERY W/O ANG PCTRS Status: Chronic Qualifiers: Coronary Disease-Associated Artery/Lesion type: [place] artery [place] vs. transplanted heart: [place] heart Associated angina: without angina Qualified Code(s): I25.10 - Atherosclerotic heart disease of [place] coronary artery without angina pectoris - Patient Summary/Data Consults: Consultations 10/05/16 15:30 PT Evaluation and Treatment [CONS] Routine Please Evaluate and Treat. PT Reason for Consult: Strengthening This query below is only for informational purposes and is not editable. Hospital Course: Nguyễn presented to the emergency room with acute on chronic shortness of breath and dyspnea on exertion. Workup in the emergency room revealed hypoxia but no other obvious cause for his symptoms. He was admitted to the hospital and provided gentle hydration overnight with the hope that a repeat CT pulmonary angiogram can be completed. He required supplemental oxygen throughout the first part of the hospital stay. The morning after admission he did have a CT angiogram. This revealed no evidence for pulmonary embolism, infiltrate or mass. He did have some diffuse interstitial edema consistent with pulmonary edema. Pulmonary vascular congestion was also noted. At this point we elected to give him a trial of furosemide and he did show some albeit mild clinical improvement. An echocardiogram was completed the day after admission and this showed a normal ejection fraction normal valves and no significant wall motion abnormalities. He did have mild diastolic dysfunction noted but no evidence for pulmonary hypertension. Because he did show some improvement with the diuresis we elected to provide 2 more doses of IV diuresis. We're able to wean him off his supplemental oxygen following diuresis of more than 2 L. Clinically he is feeling better and able to walk further with less shortness of breath. He does still get short of breath with exertion but feels quite a bit better than he has in some time. Do not find any other explanation for his dyspnea on exertion other than what I suspect is a chronic and mildly progressive diastolic dysfunction with slow buildup of pulmonary edema. He has had recent cardiology evaluation and they did not feel that additional stenting would be beneficial based on his current level of stenosis. He does have very mild emphysema noted on imaging up pulmonary function tests were acceptable. With his clinical improvement following diuresis we have elected to leave him on long-term diuretics which she will be taking once a day. I did also switch his metoprolol from the tartrate to the succinate formulation. Because his inhalers are providing no relief I think it is reasonable for him to stop using them and monitor his respiratory status. We did review monitoring his weight at home to help CT is retaining fluid. He was instructed to utilize an extra dose of furosemide if he starts to gain weight. He'll need close clinical followup with Dr. Jarquin and would also benefit from repeat cardiology evaluation down the road. - Patient Instructions Diet: Heart Healthy Diet Activity: As Tolerated Driving: May Drive Today Showering/Bathing: May Shower Notify Provider of: Fever, Increased Pain, Nausea and/or Vomiting Other/Special Instructions: 1. You were in the hospital for management of presumed diastolic congestive heart failure that led to shortness of breath with exertion. This condition happens because your heart does not relax fully and does not fill efficiently with blood. We treat this condition by using a water pill called furosemide ( Lasix ). I would recommend that you keep track of your weight each morning. If you are gaining more than one to 2 pounds per day this is very likely fluid. If you are gaining weight you should take an extra dose of your furosemide in the afternoon. 2. Stop taking the isosorbide mononitrate (Imdur) and you could consider stopping your inhalers since they're likely providing minimal if any benefit at this time. 3. Please followup with Dr. Jarquin next week to reassess your respiratory status. 4. Please seek medical attention if you develop a fever greater than 101, have worsening of your shortness of breath, develop chest pain or have a weight gain of more than several pounds over a couple of days. - Discharge Plan Prescriptions/Med Rec: Furosemide [Lasix] 40 mg PO DAILY #30 tablet Metoprolol Succinate 50 mg PO DAILY #90 tab.er.24h Home Medications: Home Meds Aspirin [Alvin Chewable Aspirin] 81 mg PO DAILY 10/22/13 [History] Hydrochlorothiazide 25 mg PO DAILY 10/22/13 [History] Omeprazole [Prilosec] 20 mg PO DAILY 10/22/13 [History] Potassium Citrate 20 meq PO TID 10/22/13 [History] Pravastatin [Pravachol] 80 mg PO DAILY 10/22/13 [History] Terazosin [Hytrin] 15 mg PO BEDTIME 10/22/13 [History] amLODIPine [Norvasc] 10 mg PO DAILY 10/22/13 [History] Etodolac 400 mg PO BID 04/11/16 [History] oxyCODONE HCl/Acetaminophen [Percocet 5-325 mg Tablet] 2 tab PO Q4H PRN [History] Clopidogrel [Plavix] 75 mg PO DAILY 10/05/16 [History] Furosemide [Lasix] 40 mg PO DAILY #30 tablet 10/08/16 [Rx] Metoprolol Succinate 50 mg PO DAILY #90 tab.er.24h 10/08/16 [Rx] Patient Handouts: Heart Failure, Furosemide tablets Referrals: Low Jarquin MD [Physician] - (1 week - f/u next week - f/u hospital stay for probable diastolic heart failure ) - Discharge Summary/Plan Comment DC Time >30 min.: No (25) - Patient Data Vitals - Most Recent: Last Vital Signs Temp 37.4 C 10/08/16 07:31 Pulse 79 10/08/16 07:31 Resp 20 10/08/16 07:31 BP 98/73 10/08/16 08:11 Pulse Ox 93 L 10/08/16 07:31 Weight - Most Recent: 88.677 kg I&O - Last 24 hours: Intake & Output 10/07/16 10/08/16 10/08/16 22:59 06:59 14:59 Intake Total 300 720 Output Total 825 900 Balance -525 -180 Lab Results - Last 24 hrs: Laboratory Results - last 24 hr 10/07/16 Range/Units 11:47 Urine Color Yellow Urine Appearance Clear Urine pH 5.0 (4.5-8.0) Ur Specific [place] 1.015 (1.008-1.030) Urine Protein Negative (NEGATIVE) mg/dL Urine Glucose (UA) Normal (NEGATIVE) mg/dL Urine Ketones Negative (NEGATIVE) mg/dL Urine Occult Blood Negative (NEGATIVE) Urine Nitrite Negative (NEGAITVE) Urine Bilirubin Negative (NEGATIVE) Urine Urobilinogen Normal (NORMAL) mg/dL Ur Leukocyte Esterase Negative (NEGATIVE) Urine RBC Not seen (0-5) Urine WBC Not seen (0-5) Ur Epithelial Cells Rare Amorphous Sediment Not seen Urine Bacteria Not seen Urine Mucus Not seen Med Orders - Current: Current Medications Acetaminophen (Tylenol) 650 mg PO Q4H PRN PRN Reason: Pain (Mild 1-3)/fever Albuterol (Proventil Neb Soln) 2.5 mg NEB Q4H PRN PRN Reason: Shortness Of Breath/wheezing Albuterol/Ipratropium (Duoneb 3.0-0.5 Mg/3 Ml) 3 ml NEB QIDRT [facility] Last Admin: 10/08/16 10:55 Dose: Not Given Amlodipine Besylate (Norvasc) 10 mg PO DAILY [facility] Aspirin (Halfprin) 81 mg PO BEDTIME [facility] Clopidogrel Bisulfate (Plavix) 75 mg PO DAILY [facility] Docusate Sodium (Colace) 100 mg PO BID PRN PRN Reason: Constipation Last Admin: 10/08/16 08:11 Dose: 100 mg Enoxaparin Sodium (Lovenox) 40 mg SUBCUT DAILY [facility] Last Admin: 10/08/16 08:09 Dose: 40 mg Furosemide (Lasix) 40 mg PO DAILY [facility] Last Admin: 10/08/16 09:21 Dose: 40 mg Hydrochlorothiazide (Hydrochlorothiazide) 25 mg PO DAILY [facility] Isosorbide Mononitrate (Imdur) 30 mg PO BID@0900,1600 [facility] Last Admin: 10/08/16 08:11 Dose: 30 mg Lorazepam (Ativan) 0.5 mg IVPUSH Q4H PRN PRN Reason: Nausea/Vomiting Last Admin: 10/07/16 00:35 Dose: 0.5 mg Magnesium Hydroxide (Milk Of Magnesia) 30 ml PO Q12H PRN PRN Reason: Constipation Metoprolol Tartrate (Lopressor) 25 mg PO BID@0900,1700 [facility] Potassium Citrate [ Potassium Citrate] 10meq Tabs Own Med 20 meq PO TID [facility] Last Admin: 10/08/16 08:15 Dose: Not Given Ondansetron HCl (Zofran) 4 mg IV Q4H PRN PRN Reason: Nausea/Vomiting Last Admin: 10/06/16 23:38 Dose: 4 mg Oxycodone/Acetaminophen (Percocet 325-5 Mg) 2 tab PO Q4H PRN PRN Reason: Pain Omeprazole Capsule (20mgPom) 0 each PO ACBREAKFAST [facility] Last Admin: 10/08/16 07:34 Dose: 1 each Polyethylene Glycol (Miralax) 17 gm PO DAILY PRN PRN Reason: Constipation Pravastatin Sodium (Pravachol) 40 mg PO BEDTIME [facility] Sodium Chloride (Saline Flush) 10 ml FLUSH ASDIRECTED PRN PRN Reason: Keep Vein Open Terazosin HCl (Hytrin) 15 mg PO BEDTIME [facility] Zolpidem Tartrate (Ambien) 5 mg PO BEDTIME PRN PRN Reason: Sleep Last Admin: 10/07/16 20:43 Dose: 5 mg Discontinued Medications Albuterol (Proventil Neb Soln) 2.5 mg NEB ONETIME ONE Stop: 10/05/16 13:29 Last Admin: 10/05/16 13:43 Dose: 2.5 mg Amlodipine Besylate (Norvasc) 10 mg PO DAILY [facility] Last Admin: 10/08/16 08:11 Dose: 10 mg Aspirin (Halfprin) 81 mg PO BEDTIME [facility] Last Admin: 10/07/16 20:38 Dose: 81 mg Clopidogrel Bisulfate (Plavix) 75 mg PO DAILY [facility] Last Admin: 10/08/16 08:12 Dose: 75 mg Diphenhydramine HCl (Benadryl) 25 mg IVPUSH ONETIME ONE Stop: 10/06/16 08:01 Last Admin: 10/06/16 07:26 Dose: 25 mg Furosemide (Lasix) 40 mg IVPUSH NOW ONE Stop: 10/06/16 11:01 Last Admin: 10/06/16 11:35 Dose: 40 mg Furosemide (Lasix) 40 mg IVPUSH ONETIME ONE Stop: 10/07/16 08:01 Last Admin: 10/07/16 09:14 Dose: 40 mg Furosemide (Lasix) 40 mg IVPUSH ONETIME ONE Stop: 10/07/16 14:02 Last Admin: 10/07/16 14:14 Dose: 40 mg Hydrochlorothiazide (Hydrochlorothiazide) 25 mg PO DAILY [facility] Last Admin: 10/08/16 08:11 Dose: 25 mg Sodium Chloride (Normal Saline) 1,000 mls @ 400 mls/hr IV ASDIRECTED [facility] Last Admin: 10/05/16 14:08 Dose: 400 mls/hr Sodium Chloride (Normal Saline) 1,000 mls @ 100 mls/hr IV ASDIRECTED [facility] Last Admin: 10/06/16 05:09 Dose: 100 mls/hr Sodium Chloride (Normal Saline) 100 mls @ 4 mls/sec IV ASDIRECTED [facility] Last Admin: 10/06/16 07:59 Dose: 4 mls/sec Magnesium Sulfate 2 gm/ Premix 50 mls @ 12.5 mls/hr IV Q6H [facility] Stop: 10/07/16 02:59 Last Admin: 10/06/16 22:13 Dose: 12.5 mls/hr Iopamidol (Isovue-370 (76%)) 100 ml IV . DIRECTED [facility] Last Admin: 10/06/16 07:59 Dose: 100 ml Methylprednisolone Sodium Succinate (Solu-Medrol) 40 mg IVPUSH ONETIME ONE Stop: 10/06/16 08:01 Last Admin: 10/06/16 07:26 Dose: 40 mg Metoprolol Tartrate (Lopressor) 0 mg PO BID [facility] Last Admin: 10/06/16 11:30 Dose: 25 mg Metoprolol Tartrate (Lopressor) 0 mg PO BID@0900,1700 [facility] Last Admin: 10/08/16 08:14 Dose: 25 mg Pravastatin 40mg (Tabs Own Med ) 0 each PO BEDTIME [facility] Last Admin: 10/07/16 20:42 Dose: 2 each Oxycodone/Acetaminophen (Percocet 325-5 Mg) 2 tab PO Q4H [facility] Last Admin: 10/05/16 16:44 Dose: Not Given Pantoprazole Sodium (Protonix) 40 mg PO ACBREAKFAST [facility] Last Admin: 10/06/16 09:44 Dose: Not Given Sodium Chloride (Saline Flush) 10 ml FLUSH ONETIME ONE Stop: 10/06/16 07:09 Last Admin: 10/06/16 07:59 Dose: 10 ml Terazosin HCl (Hytrin) 15 mg PO BEDTIME [facility] Last Admin: 10/07/16 20:42 Dose: 15 mg *Q Meaningful Use (DIS) - VTE *Q VTE Criteria *Q: - Stroke *Q Stroke Criteria *Q: - AMI *Q AMI Criteria *Q:
[2016-10-08] MEDS ORDERED: Metoprolol Tartrate 25 MG Tab PO SCH (17:00)
[2016-10-08] MEDS ORDERED: Pravastatin 20 MG Tab PO SCH (21:00)
[2016-10-08] MEDS ORDERED: Terazosin 5 MG Cap PO SCH (21:00)
[2016-10-08] MEDS ORDERED: Aspirin 81 MG Tab.EC PO SCH (21:00)
[2016-10-09] MEDS ORDERED: Hydrochlorothiazide 25 MG Tab PO SCH (09:00)
[2016-10-09] MEDS ORDERED: Clopidogrel 75 MG Tab PO SCH (09:00)
[2016-10-09] MEDS ORDERED: amLODIPine 10 MG Tab PO SCH (09:00)
== END 2016-10-08 11:40 | disposition home or self-care (01) | DRG 291 ==
LOC: JP.ED 11:59 → JP.MS 14:57
PROVIDERS: ADMIT Hospitalist; ATTEND Internal Medicine
DX: I13.0 Hypertensive heart and chronic kidney disease with heart failure and stage 1 through stage 4 chronic kidney disease, or unspecified chronic kidney disease (principal); J96.21 Acute and chronic respiratory failure with hypoxia; I50.32 Chronic diastolic (congestive) heart failure; E87.3 Alkalosis; J44.9 Chronic obstructive pulmonary disease, unspecified; N18.3 Chronic kidney disease, stage 3 (moderate); Z87.891 Personal history of nicotine dependence; N28.89 Other specified disorders of kidney and ureter; I25.10 Atherosclerotic heart disease of native coronary artery without angina pectoris; M19.90 Unspecified osteoarthritis, unspecified site; K21.9 Gastro-esophageal reflux disease without esophagitis; E78.00 Pure hypercholesterolemia, unspecified; H54.7 Unspecified visual loss; H91.90 Unspecified hearing loss, unspecified ear; Z95.5 Presence of coronary angioplasty implant and graft; Z91.041 Radiographic dye allergy status; Z79.82 Long term (current) use of aspirin
CPT/HCPCS: 36415; 36600; 71010 ×2; 80053; 82803; 83880; 84484; 85025; 85379; 93005; 96360; 99285; J7040; 71275; 71275-26; 76775-26; 76775-50; 80048; 81001; 83735; 84443; 93010; 93306; 94060; 94640-76; 94729; 97110-GP; 97162-GP; 97530-GP; 99284; A9270-GY; J1200; J1650; J1940; J2060; J2405; J2920; J3475; J7030; J7050; J7620; Q9967

== ENCOUNTER 2017-01-02 12:08 | Observation (INO) | payer MEDICARE, BC ==
[2017-01-02] MEDS ORDERED: Aspirin 81 MG Tab.Chew ONE (12:13)
[2017-01-02] MEDS ORDERED: Aspirin 81 MG Tab.Chew PO ONE (12:18)
[2017-01-02] MEDS ORDERED: Nitroglycerin 0.4 MG Tab.SL SL ONE (12:44)
[2017-01-02] MEDS ORDERED: Nitroglycerin/D5W 25 MG/250 ML BOTTLE IV SCH ×2 (12:45→13:00)
--- NOTE | 2017-01-02 12:52 | CR ---
Mild cardiomegaly. Pulmonary vasculature within normal limits. No focal consolidation.
[2017-01-02] MEDS ORDERED: Sodium Chloride 0.9% 1,000 ML IV SCH (13:45)
--- NOTE | 2017-01-02 13:45 | EDM.PDOC ---
ED HPI GENERAL MEDICAL PROBLEM - General Chief Complaint: Chest Pain Stated Complaint: CHEST PAIN SHORTNESS OF BREATH Time Seen by Provider: 01/02/17 13:40 Source of Information: Reports: Patient, Family History Limitations: Reports: No Limitations - History of Present Illness INITIAL COMMENTS - FREE TEXT/NARRATIVE: pt arrived after having an episode of chest pain. He states the pain was a a 5. He took 2 nitros and by the time he got here he was pretty much pain free. Onset: Today Duration: Minutes:, Other (pt got relief with the 2 nitros. ) Location: Reports: Chest Associated Symptoms: Reports: Chest Pain, Shortness of Breath, Other ( Pt has ahistory of chronic sob. ) - Related Data Allergies Allergy/AdvReac Type Severity Reaction Status Date / Time dye Allergy Hives Uncoded 07/25/16 10:58 Home Meds: Home Meds Aspirin [Alvin Chewable Aspirin] 81 mg PO DAILY 10/22/13 [History] Omeprazole [Prilosec] 20 mg PO DAILY 10/22/13 [History] Potassium Citrate 20 meq PO TID 10/22/13 [History] Pravastatin [Pravachol] 80 mg PO DAILY 10/22/13 [History] Terazosin [Hytrin] 15 mg PO BEDTIME 10/22/13 [History] amLODIPine [Norvasc] 10 mg PO DAILY 10/22/13 [History] Clopidogrel [Plavix] 75 mg PO DAILY 10/05/16 [History] Furosemide [Lasix] 40 mg PO DAILY #30 tablet 10/08/16 [Rx] Metoprolol Succinate 50 mg PO DAILY #90 tab.er.24h 10/08/16 [Rx] Isosorbide Mononitrate [Imdur] 30 mg PO DAILY 01/02/17 [History] Past Medical History HEENT History: Reports: Hard of Hearing, Impaired Vision Cardiovascular History: Reports: High Cholesterol, Hypertension Other Cardiovascular History: stress test indicated stent placement Respiratory History: Reports: COPD, SOB Gastrointestinal History: Reports: GERD Genitourinary History: Reports: Renal Calculus Other Genitourinary History: 6 times Musculoskeletal History: Reports: Arthritis - Infectious Disease History Infectious Disease History: Reports: Chicken Pox, Measles, Mumps - Past Surgical History Cardiovascular Surgical History: Reports: Coronary Artery Stent GI Surgical History: Reports: Colonoscopy Male Surgical History: Reports: Kidney Stone Extraction Musculoskeletal Surgical History: Reports: Other (See Below) Social & Family History - Tobacco Use Smoking Status *Q: Never Smoker Years of Tobacco use: 30 Used Tobacco, but Quit: Yes Month Tobacco Last Used: long time ago Second Hand Smoke Exposure: No - Caffeine Use Caffeine Use: Reports: Coffee Caffeine Use Comment: 3 cups in am - Alcohol Use Days Per Week of Alcohol Use: 7 Number of Drinks Per Day: 2 Total Drinks Per Week: 14 - Recreational Drug Use Recreational Drug Use: No ED ROS GENERAL - Review of Systems Review Of Systems: See Below Constitutional: Reports: No Symptoms HEENT: Reports: No Symptoms Respiratory: Reports: No Symptoms Cardiovascular: Reports: Chest Pain Endocrine: Reports: No Symptoms GI/Abdominal: Reports: No Symptoms, Other (pt was not belch or nauseated. ) : Reports: No Symptoms Musculoskeletal: Reports: No Symptoms Skin: Reports: No Symptoms Neurological: Reports: No Symptoms Psychiatric: Reports: Anxiety, Other (pt was shaking like he had the chills but his temp was normal. ) ED EXAM, GENERAL - Physical Exam Exam: See Below Free Text/Narrative:: pt arrived with chest pain on the left. He had complete relief with 2 nitros. Exam Limited By: No Limitations General Appearance: Alert, Anxious, Other (pt was very shakey) Ears: Normal TMs Nose: Normal Inspection Throat/Mouth: Normal Inspection Head: Atraumatic Neck: Normal Inspection Respiratory/Chest: Other (pt was breathing rapidly on arrival and he was quite shakey) Cardiovascular: Regular Rate, Rhythm GI/Abdominal: Soft, Non-Tender (Male) Exam: Deferred Rectal (Males) Exam: Deferred Back Exam: Normal Inspection Extremities: Normal Inspection Neurological: Alert, Oriented, Normal Cognition Psychiatric: Normal Affect Course - Vital Signs Last Recorded V/S: Last Vital Signs Temp 36.6 C 01/03/17 08:00 Pulse 57 L 01/03/17 08:00 Resp 18 01/03/17 08:00 BP 110/70 01/03/17 09:11 Pulse Ox 94 L 01/03/17 08:00 - Orders/Labs/Meds Labs: Laboratory Tests 01/02/17 01/02/17 01/02/17 Range/Units 12:15 12:15 12:15 WBC 8.7 (4.5-11.0) K/uL RBC 4.60 (4.30-5.90) M/uL Hgb 13.9 (12.0-15.0) g/dL Hct 40.2 (40.0-54.0) % MCV 87 (80-98) fL MCH 30 (27-31) pg MCHC 35 (32-36) % Plt Count 279 (150-400) K/uL Neut % (Auto) 59 (36-66) % Lymph % (Auto) 27 (24-44) % [place] % (Auto) 12 H (2-6) % Eos % (Auto) 1 L (2-4) % Baso % (Auto) 1 (0-1) % APTT (27.0-36.0) sec Sodium 139 L (140-148) mmol/L Potassium 3.4 L (3.6-5.2) mmol/L Chloride 102 (100-108) mmol/L Carbon Dioxide 30 (21-32) mmol/L Anion Gap 10.4 (5.0-14.0) mmol/L BUN 29 H D (7-18) mg/dL Creatinine 1.9 H (0.8-1.3) mg/dL Est Cr Clr Drug Dosing 28.51 mL/min Estimated GFR (MDRD) 34 L (>60) Glucose 136 H (74-106) mg/dL Calcium 8.6 (8.5-10.1) mg/dL Total Bilirubin 0.5 (0.2-1.0) mg/dL AST 17 (15-37) U/L ALT 13 (12-78) U/L Alkaline Phosphatase 73 (46-116) U/L Creatine Kinase 37 L (39-308) U/L Troponin I < 0.017 (0.000-0.056) ng/mL Total Protein 6.7 (6.4-8.2) g/dL Albumin 3.3 L (3.4-5.0) g/dL Globulin 3.4 (2.3-3.5) g/dL Albumin/Globulin Ratio 1.0 L (1.2-2.2) 01/02/17 Range/Units 12:15 WBC (4.5-11.0) K/uL RBC (4.30-5.90) M/uL Hgb (12.0-15.0) g/dL Hct (40.0-54.0) % MCV (80-98) fL MCH (27-31) pg MCHC (32-36) % Plt Count (150-400) K/uL Neut % (Auto) (36-66) % Lymph % (Auto) (24-44) % [place] % (Auto) (2-6) % Eos % (Auto) (2-4) % Baso % (Auto) (0-1) % APTT 25.5 L (27.0-36.0) sec Sodium (140-148) mmol/L Potassium (3.6-5.2) mmol/L Chloride (100-108) mmol/L Carbon Dioxide (21-32) mmol/L Anion Gap (5.0-14.0) mmol/L BUN (7-18) mg/dL Creatinine (0.8-1.3) mg/dL Est Cr Clr Drug Dosing mL/min Estimated GFR (MDRD) (>60) Glucose (74-106) mg/dL Calcium (8.5-10.1) mg/dL Total Bilirubin (0.2-1.0) mg/dL AST (15-37) U/L ALT (12-78) U/L Alkaline Phosphatase (46-116) U/L Creatine Kinase (39-308) U/L Troponin I (0.000-0.056) ng/mL Total Protein (6.4-8.2) g/dL Albumin (3.4-5.0) g/dL Globulin (2.3-3.5) g/dL Albumin/Globulin Ratio (1.2-2.2) Meds: Medications Discontinued Medications Generic Name Dose Route Start Last Admin Trade Name Freq PRN Reason Stop Dose Admin Acetaminophen 650 mg 01/02/17 17:52 Tylenol PO Q4H PRN Pain (Mild 1-3)/fever Amlodipine Besylate 10 mg 01/03/17 09:00 01/03/17 09:11 Norvasc PO 10 mg DAILY RYDER Administration Aspirin 324 mg 01/02/17 12:18 01/02/17 12:14 Aspirin PO 01/02/17 12:19 324 mg ONETIME ONE Administration Aspirin 81 mg 01/03/17 09:00 01/03/17 09:08 Aspirin PO 81 mg DAILY RYDER Administration Aspirin Confirm 01/02/17 12:13 Aspirin Administered 01/02/17 12:14 Dose 324 mg .ROUTE .STK-MED ONE Clopidogrel Bisulfate 75 mg 01/03/17 09:00 01/03/17 09:12 Plavix PO 75 mg DAILY RYDER Administration Hydrochlorothiazide 25 mg 01/03/17 09:00 01/03/17 09:08 Hydrochlorothiazide PO 25 mg DAILY RYDER Administration Nitroglycerin/Dextrose 25 mg in 250 mls @ 6 mls/hr 01/02/17 13:00 Nitroglycerin 25 Mg/D5w 250 Ml IV TITRATE RYDER Protocol 10 MCG/MIN Sodium Chloride 1,000 mls @ 250 mls/hr 01/02/17 13:45 01/02/17 13:15 Normal Saline IV 250 mls/hr ASDIRECTED RYDER Administration Potassium Chloride/Sodium Chloride 1,000 mls @ 125 mls/hr 01/02/17 17:52 10/15 02:16 Normal Saline With 20 Meq Kcl IV 125 mls/hr ASDIRECTED RYDER Administration Isosorbide Mononitrate 30 mg 01/03/17 09:00 01/03/17 09:10 Imdur PO 30 mg DAILY RYDER Administration Nitroglycerin 0.4 mg 01/02/17 12:44 Nitrostat SL 01/02/17 12:45 ONETIME ONE Ondansetron HCl 4 mg 01/02/17 17:52 Zofran Odt PO Q6H PRN Nausea able to take PO Pravastatin 40mg ( 0 each 01/03/17 21:00 Ptom) PO BEDTIME RYDER Urocit-K 10meq Tab ( 0 each 01/03/17 08:45 01/03/17 09:06 Ptom) PO 1 each TIDMEALS RYDER Administration Metoprolol Xl 100mg 0 each 01/03/17 09:00 01/03/17 09:13 (Ptom) PO 1 each DAILY RYDER Administration Omeprazole 20mg ( 0 each 01/03/17 08:45 01/03/17 09:05 Ptom) PO 1 each ACBREAKFAST RYDER Administration Polyethylene Glycol 17 gm 01/02/17 17:52 Miralax PO DAILY PRN Constipation Potassium Chloride 40 meq 01/02/17 17:52 01/02/17 18:25 Klor-Con M20 PO 01/02/17 17:53 40 meq ONETIME ONE Administration Terazosin HCl 15 mg 01/02/17 21:00 01/02/17 21:56 Hytrin PO Not Given BEDTIME RYDER - Re-Assessments/Exams Free Text/Narrative Re-Assessment/Exam: 01/02/17 14:07 cardiac enzymes are normal. His ekg has poor R progression. He remains pain free. His bp was 104 on arrival and dropped to 88. His food bagging machine operator was contacted and felt he should be admitted, hydrated, a second set of enzymes should be obtained. His renal funtion should be followed. He is scheduled for a angiogram for Thursday. Departure - Departure Time of Disposition: 14:11 Disposition: Admitted As Inpatient 66 Reason for Transfer *Q: Primary PCI Indicated Condition: Fair Clinical Impression: Angina at rest, SOB (shortness of breath), Renal insufficiency
--- NOTE | 2017-01-02 17:08 | PCM.HP ---
H&P History of Present Illness - General Date of Service: 01/02/17 Admit Problem/Dx: Admission Diagnosis/Problem Admission Diagnosis/Problem Chest pain Source of Information: Patient, Family, Provider History Limitations: Reports: No Limitations - History of Present Illness Initial Comments - Free Text/Narative: Nguyễn presented to the emergency room substernal chest pressure that started this afternoon while he was watching television. This was moderate intensity pain that radiated to the left side of his chest into the arm but only for a few seconds. This was associated with shortness of breath though not dramatically worse than baseline. No associated nausea or diaphoresis. He is pain-free at this time. He has not had any recent difficulties with fevers or cough. No orthopnea or lower extremity edema. He does continue to struggle with dyspnea on more than minimal exertion. He doesn't think the dyspnea is any worse but it definitely is not getting better. He does note that his weight was up a couple of pounds yesterday and he took an extra dose of furosemide. No change in bowel or bladder habits. Appetite has been okay. Workup in the emergency room revealed a creatinine of 1.9 which is up from his baseline. EKG was unchanged from baseline and his troponin level was undetectable. Vital signs have been stable. His typewriter operator automatic was contacted and admission for hydration and chest pain rule out was recommended. - Related Data Allergies/Adverse Reactions: Allergies Allergy/AdvReac Type Severity Reaction Status Date / Time dye Allergy Hives Uncoded 07/25/16 10:58 Home Medications: Home Meds Aspirin [Alvin Chewable Aspirin] 81 mg PO DAILY 10/22/13 [History] Hydrochlorothiazide 25 mg PO DAILY 10/22/13 [History] Omeprazole [Prilosec] 20 mg PO DAILY 10/22/13 [History] Potassium Citrate 20 meq PO TID 10/22/13 [History] Pravastatin [Pravachol] 80 mg PO DAILY 10/22/13 [History] Terazosin [Hytrin] 15 mg PO BEDTIME 10/22/13 [History] amLODIPine [Norvasc] 10 mg PO DAILY 10/22/13 [History] Clopidogrel [Plavix] 75 mg PO DAILY 10/05/16 [History] Furosemide [Lasix] 40 mg PO DAILY #30 tablet 10/08/16 [Rx] Metoprolol Succinate 50 mg PO DAILY #90 tab.er.24h 10/08/16 [Rx] Isosorbide Mononitrate [Imdur] 30 mg PO DAILY 01/02/17 [History] Past Medical History HEENT History: Reports: Hard of Hearing, Impaired Vision Cardiovascular History: Reports: High Cholesterol, Hypertension Other Cardiovascular History: stress test indicated stent placement Respiratory History: Reports: COPD, SOB Gastrointestinal History: Reports: GERD Genitourinary History: Reports: Renal Calculus Other Genitourinary History: 6 times Musculoskeletal History: Reports: Arthritis - Infectious Disease History Infectious Disease History: Reports: Chicken Pox, Measles, Mumps - Past Surgical History Cardiovascular Surgical History: Reports: Coronary Artery Stent GI Surgical History: Reports: Colonoscopy Male Surgical History: Reports: Kidney Stone Extraction Musculoskeletal Surgical History: Reports: Other (See Below) Social & Family History - Family History Cardiac: Denies: CAD - Tobacco Use Smoking Status *Q: Never Smoker Years of Tobacco use: 30 Used Tobacco, but Quit: Yes Month Tobacco Last Used: long time ago Second Hand Smoke Exposure: No - Caffeine Use Caffeine Use: Reports: Coffee Caffeine Use Comment: 3 cups in am - Alcohol Use Days Per Week of Alcohol Use: 7 Number of Drinks Per Day: 2 Total Drinks Per Week: 14 - Recreational Drug Use Recreational Drug Use: No H&P Review of Systems - Review of Systems: Review Of Systems: See Below Free Text/Narrative: A complete 12 point review of systems was obtained. Pertinent positives and negatives are noted in the history of present illness. All other systems were reviewed and were negative except as noted. Exam - Exam Exam: See Below - Vital Signs Vital Signs: Last Vital Signs Temp 36.5 C 01/02/17 14:35 Pulse 58 L 01/02/17 14:35 Resp 14 01/02/17 14:35 BP 127/66 01/02/17 14:35 Pulse Ox 95 01/02/17 14:35 Weight: 86.183 kg - Exam Quality Assessment: No: Supplemental Oxygen General: Alert, Oriented, Cooperative. No: Mild Distress HEENT: Conjunctiva Clear. No: Mucosa Moist & [place] (dry), Scleral Icterus Neck: Supple, Trachea Midline. No: Lymphadenopathy Lungs: Clear to Auscultation, Normal Respiratory Effort. No: Rales, Wheezing Cardiovascular: Regular Rate, Regular Rhythm. No: Systolic Murmur GI/Abdominal Exam: Normal Bowel Sounds, Soft, Non-Tender, No Distention Back Exam: Normal Inspection, Full Range of Motion Extremities: Normal Inspection, No Pedal Edema. No: Increased Warmth Peripheral Pulses: 2+: Dorsalis Pedis (L), Dorsalis Pedis (R) Skin: Warm, Dry. No: Rash Neuro Extensive - Mental Status: Alert, Oriented x3, Nl Response to Commands Neuro Extensive - Motor, Sensory, Reflexes: CN II-XII Intact. No: Dysarthria, Abnormal Motor, Tremor Psychiatric: Alert, Normal Affect - Patient Data Lab Results Last 24 hrs: Laboratory Results - last 24 hr 01/02/17 01/02/17 01/02/17 Range/Units 12:15 12:15 12:15 WBC 8.7 (4.5-11.0) K/uL RBC 4.60 (4.30-5.90) M/uL Hgb 13.9 (12.0-15.0) g/dL Hct 40.2 (40.0-54.0) % MCV 87 (80-98) fL MCH 30 (27-31) pg MCHC 35 (32-36) % Plt Count 279 (150-400) K/uL Neut % (Auto) 59 (36-66) % Lymph % (Auto) 27 (24-44) % [place] % (Auto) 12 H (2-6) % Eos % (Auto) 1 L (2-4) % Baso % (Auto) 1 (0-1) % APTT (27.0-36.0) sec Sodium 139 L (140-148) mmol/L Potassium 3.4 L (3.6-5.2) mmol/L Chloride 102 (100-108) mmol/L Carbon Dioxide 30 (21-32) mmol/L Anion Gap 10.4 (5.0-14.0) mmol/L BUN 29 H D (7-18) mg/dL Creatinine 1.9 H (0.8-1.3) mg/dL Est Cr Clr Drug Dosing 28.51 mL/min Estimated GFR (MDRD) 34 L (>60) Glucose 136 H (74-106) mg/dL Calcium 8.6 (8.5-10.1) mg/dL Total Bilirubin 0.5 (0.2-1.0) mg/dL AST 17 (15-37) U/L ALT 13 (12-78) U/L Alkaline Phosphatase 73 (46-116) U/L Creatine Kinase 37 L (39-308) U/L Troponin I < 0.017 (0.000-0.056) ng/mL Total Protein 6.7 (6.4-8.2) g/dL Albumin 3.3 L (3.4-5.0) g/dL Globulin 3.4 (2.3-3.5) g/dL Albumin/Globulin Ratio 1.0 L (1.2-2.2) 01/02/17 Range/Units 12:15 WBC (4.5-11.0) K/uL RBC (4.30-5.90) M/uL Hgb (12.0-15.0) g/dL Hct (40.0-54.0) % MCV (80-98) fL MCH (27-31) pg MCHC (32-36) % Plt Count (150-400) K/uL Neut % (Auto) (36-66) % Lymph % (Auto) (24-44) % [place] % (Auto) (2-6) % Eos % (Auto) (2-4) % Baso % (Auto) (0-1) % APTT 25.5 L (27.0-36.0) sec Sodium (140-148) mmol/L Potassium (3.6-5.2) mmol/L Chloride (100-108) mmol/L Carbon Dioxide (21-32) mmol/L Anion Gap (5.0-14.0) mmol/L BUN (7-18) mg/dL Creatinine (0.8-1.3) mg/dL Est Cr Clr Drug Dosing mL/min Estimated GFR (MDRD) (>60) Glucose (74-106) mg/dL Calcium (8.5-10.1) mg/dL Total Bilirubin (0.2-1.0) mg/dL AST (15-37) U/L ALT (12-78) U/L Alkaline Phosphatase (46-116) U/L Creatine Kinase (39-308) U/L Troponin I (0.000-0.056) ng/mL Total Protein (6.4-8.2) g/dL Albumin (3.4-5.0) g/dL Globulin (2.3-3.5) g/dL Albumin/Globulin Ratio (1.2-2.2) Result Diagrams: 01/02/17 12:15 01/02/17 12:15 Imaging Impressions Last 24 hrs: CXR - images personally reviewed - lungs are clear with no mass, infiltrate or effusion. heart size is normal EKG INTERPRETATION EKG Date: 01/02/17 Rhythm: NSR Rate (Beats/Min): 65 [place]: Normal P-Wave: Present QRS: Normal ST-T: Normal QT: Normal WV/PQ Interval: 1st degree av block *Q Meaningful Use (ADM) - VTE *Q VTE Criteria *Q: - VTE Risk Assess *Q Each Risk Factor Represents 1 Point: Abnormal Pulmonary Function (COPD) Total Score 1 Point Risk Factors: 1 Each Risk Factor Represents 2 Points: None Total Score 2 Point Risk Factors: 0 Each Risk Factor Represents 3 Points: Age 75 Years or Greater Total Score 3 Point Risk Factors: 3 Each Risk Factor Represents 5 Points: None Total Score 5 Point Risk Factors: 0 Venous Thromboembolism Risk Factor Score *Q: 4 - Stroke *Q Stroke Criteria *Q: - AMI *Q AMI Criteria *Q: Problem List Initiated/Reviewed/Updated: Yes Orders Last 24hrs: Active Orders 24 hr Category Date Time Status Patient Status Manage Transfer [TRANSFER] Routine ADT 01/02/17 16:56 Ordered EKG Documentation Completion [RC] ASDIRECTED Care 01/02/17 12:18 Active UA W/MICROSCOPIC [URIN] Urgent Lab 01/02/17 12:17 Uncollected Nitroglycerin/D5W [Nitroglycerin 25 MG/D5W 250 ML] Med 01/02/17 13:00 Active 25 mg in 250 ml IV TITRATE Sodium Chloride 0.9% [Normal Saline] 1,000 ml Med 01/02/17 13:45 Active IV ASDIRECTED Resuscitation Status Routine Resus Stat 01/02/17 17:00 Ordered EKG 12 Lead [EK] Routine Ther 01/02/17 12:18 Ordered Medication Orders Nitroglycerin/Dextrose (Nitroglycerin 25 Mg/D5w 250 Ml) 25 mg in 250 mls @ 6 mls/hr IV TITRATE RYDER; 10 MCG/MIN PRN Reason: Protocol Sodium Chloride (Normal Saline) 1,000 mls @ 250 mls/hr IV ASDIRECTED RYDER Last Admin: 01/02/17 13:15 Dose: 250 mls/hr Assessment/Plan Comment:: Assessment and plan - Atypical chest pain - this occurred at rest, did not worsen with exertion but he does have a known history of coronary artery disease. I do not think this represents acute coronary syndrome with reassuring workup so far. exact cause for the pain is not entirely clear but clinically he feels well at this point. -Serial troponins -Cardiac monitoring -Medical management as below acute kidney injury - creatinine elevated from baseline, probably secondary to dehydration with excess diuretic intake. -IV fluids -Labs in the morning diastolic congestive heart failure - well compensated at this time and probably a little bit on the dry side with recent increase in his diuretics. -Hold furosemide -Continue other home medications chronic dyspnea on exertion - extensive workup and no definitive diagnosis has been reached. He does have mild COPD based on pulmonary function testing. He has some nonobstructive coronary disease based on his angiogram back in July. He continues to have symptoms that significantly limit his activities of daily life. No evidence for infection. Does have an upcoming consultation with the [facility]. Maintenance issues - - DVT prophylaxis - mechanical - GI prophylaxis - PPI - Nutrition - heart healthy diet - Yeager catheter - not indicated CODE STATUS - full code Admission justification - patient will be referred to observation status for serial troponins and hydration Disposition - anticipate discharge to home tomorrow Primary care - Dr Britton Gutierrez M.D.
[2017-01-02] MEDS ORDERED: Polyethylene Glycol 3350 Powder 17 GM Packet PO PRN (17:52)
[2017-01-02] MEDS ORDERED: Potassium Chloride 20 MEQ Tab.ER PO ONE (17:52)
[2017-01-02] MEDS ORDERED: Acetaminophen 325 MG Tab PO PRN (17:52)
[2017-01-02] MEDS ORDERED: Ondansetron 4 MG Tab.DIS PO PRN (17:52)
[2017-01-02] MEDS: NS + KCl 20mEq/L 1,000 ML IV SCH (18:31)
[2017-01-02] MEDS ORDERED: POTASSIUM CITRATE 20 MEQ PO SCH (21:00)
[2017-01-02] MEDS ORDERED: Terazosin 5 MG Cap (PTOM) PO SCH (21:00)
[2017-01-03] MEDS: NS + KCl 20mEq/L 1,000 ML IV SCH (02:16)
[2017-01-03] MEDS ORDERED: Pantoprazole 40 MG Tab.CR PO SCH ×2 (07:30→09:00)
[2017-01-03] MEDS ORDERED: Potassium Chloride 20 MEQ Tab.ER PO SCH (08:00)
[2017-01-03] MEDS ORDERED: UROCIT K 10 MEQ PO SCH (08:45)
[2017-01-03] MEDS ORDERED: OMEPRAZOLE 20MG (PTOM) PO SCH (08:45)
[2017-01-03] MEDS ORDERED: Metoprolol Succinate 50 MG Tab.ER PO SCH (09:00)
[2017-01-03] MEDS ORDERED: METOPROLOL 100 MG PO SCH (09:00)
[2017-01-03] MEDS ORDERED: Pravastatin 20 MG Tab PO SCH (09:00)
[2017-01-03] MEDS ORDERED: amLODIPine 10 MG Tab (PTOM) PO SCH (09:00)
[2017-01-03] MEDS ORDERED: Hydrochlorothiazide 25 MG Tab (PTOM) PO SCH (09:00)
[2017-01-03] MEDS ORDERED: Clopidogrel 75 MG Tab (PTOM) PO SCH (09:00)
[2017-01-03] MEDS ORDERED: Aspirin 81 MG Tab.Chew PO SCH (09:00)
[2017-01-03] MEDS ORDERED: Isosorbide Mononitrate 30 MG Tab.ER PO SCH (09:00)
--- NOTE | 2017-01-03 09:47 | PCM.DCSUM1 ---
Discharge Summary - Hospital Course Brief History: 81-year-old male with history of coronary artery disease, stage III chronic kidney disease and recent difficulty with dyspnea on exertion who presented with atypical chest pain. He was admitted for chest pain rule out and observation. - Discharge Data Discharge Date: 01/03/17 Discharge Disposition: Home, Self-Care 01 Condition: Good - Discharge Diagnosis/Problem(s) (1) Atypical chest pain SNOMED Code(s): 906163184 ICD Code: R07.89 - OTHER CHEST PAIN Status: Acute (2) Shortness of breath on exertion SNOMED Code(s): 29606483 ICD Code: R06.02 - SHORTNESS OF BREATH Status: Acute (3) Diastolic congestive heart failure, NYHA class 2 SNOMED Code(s): 601694330, 338369410, 448873436 ICD Code: I50.30 - UNSPECIFIED DIASTOLIC (CONGESTIVE) HEART FAILURE Status : Acute Qualifiers: Congestive heart failure chronicity: chronic Qualified Code(s): I50.32 - Chronic diastolic (congestive) heart failure (4) CKD (chronic kidney disease), stage III SNOMED Code(s): 735472187 ICD Code: N18.3 - CHRONIC KIDNEY DISEASE, STAGE 3 (MODERATE) Status: Chronic (5) CAD (coronary artery disease) SNOMED Code(s): 75131973 ICD Code: I25.10 - ATHSCL HEART DISEASE OF [place] CORONARY ARTERY W/O ANG PCTRS Status: Chronic Qualifiers: Coronary Disease-Associated Artery/Lesion type: [place] artery [place] vs. transplanted heart: [place] heart Associated angina: without angina Qualified Code(s): I25.10 - Atherosclerotic heart disease of [place] coronary artery without angina pectoris - Patient Summary/Data Hospital Course: Nguyễn presented to the emergency room yesterday with atypical chest pain. Workup in the emergency room was reassuring but he was admitted for serial troponins and some hydration after his creatinine was noted to be elevated from baseline. Overnight the were no abnormalities noted on telemetry. Serial troponin levels were undetectable. He has not had a recurrence of the chest pain. He continues to have some dyspnea on exertion which is his baseline as of late. His kidney function has improved but has not quite normalized with hydration overnight. I suspect that the elevated creatinine level is related to dual diuretic use. He has been running low normal blood pressures with systolic pressures around 100. I have elected to discontinue his hydrochlorothiazide. His furosemide will be changed to as needed for weight gain or lower extremity edema. He does not drink much water and I think that the risks of the diuretics outweigh the benefits at this point. He has had an extensive workup for his dyspnea and does have an upcoming evaluation with the [facility]. He did have an angiogram planned for Thursday but I think that the risks of this outweigh the potential benefits at this point, especially with an upcoming extensive evaluation at the [facility]. He feels like he is back to his usual self the morning after admission. The plan is for discharge home with his outpatient follow-up in 10 days. I did discontinue his hydrochlorothiazide and change the furosemide as above. We also moved his metoprolol from the morning to the evening and he will be taking his first evening dose tomorrow night. - Patient Instructions Diet: Heart Healthy Diet Activity: As Tolerated Driving: May Drive Today Showering/Bathing: May Shower Notify Provider of: Fever, Increased Pain, Nausea and/or Vomiting Other/Special Instructions: 1. You were in the hospital for evaluation and workup of atypical chest pain. The exact cause for this pain was not entirely clear but there is no evidence that you had a heart attack. Based on your description of the pain I do not think this pain is coming from your heart. We did see evidence for dehydration based on laboratory testing and I believe that you are on too many diuretic medications as discussed below. 2. Your blood pressure was on the low side of normal during the hospital stay so I recommend the following medication changes: -Stop taking hydrochlorothiazide. -Use furosemide only as needed if your weight rises or you develop lower extremity swelling. -Start taking isosorbide mononitrate (Imdur) on Thursday morning. - Start taking your metoprolol succinate at bedtime. You may do this by skipping tomorrow morning's dose and starting to take this medication at bedtime tomorrow night. 3. Continue your other medications as previously prescribed. 4. At this time I feel the potential benefits of the angiogram scheduled for Thursday are outweighed by the risks. I will contact the cardiology folks in [place] and let them know that they can cancel this procedure. 5. Please follow- up as scheduled with the [facility] for your evaluation. 6. Please seek medical attention if you develop fever greater than 101, have return of your chest pain or your shortness of breath worsens. - Discharge Plan Home Medications: Home Meds Aspirin [Alvin Chewable Aspirin] 81 mg PO DAILY 10/22/13 [History] Omeprazole [Prilosec] 20 mg PO DAILY 10/22/13 [History] Potassium Citrate 20 meq PO TID 10/22/13 [History] Pravastatin [Pravachol] 80 mg PO DAILY 10/22/13 [History] Terazosin [Hytrin] 15 mg PO BEDTIME 10/22/13 [History] amLODIPine [Norvasc] 10 mg PO DAILY 10/22/13 [History] Clopidogrel [Plavix] 75 mg PO DAILY 10/05/16 [History] Furosemide [Lasix] 40 mg PO DAILY #30 tablet 10/08/16 [Rx] Metoprolol Succinate 50 mg PO DAILY #90 tab.er.24h 10/08/16 [Rx] Isosorbide Mononitrate [Imdur] 30 mg PO DAILY 01/02/17 [History] Patient Handouts: Nonspecific Chest Pain, Isosorbide Mononitrate tablets Referrals: Low Jarquin MD [Primary Care Provider] - (Follow-up as needed after your evaluation at the [facility]) - Discharge Summary/Plan Comment DC Time >30 min.: No (25) - Patient Data Vitals - Most Recent: Last Vital Signs Temp 36.4 C 01/03/17 00:00 Pulse 58 L 01/02/17 17:52 Resp 14 01/03/17 06:00 BP 110/70 01/03/17 09:11 Pulse Ox 95 01/03/17 06:00 Weight - Most Recent: 86.183 kg I&O - Last 24 hours: Intake & Output 01/02/17 01/03/17 01/03/17 22:59 06:59 14:59 Intake Total 1472 Output Total 200 750 Balance -200 722 Lab Results - Last 24 hrs: Laboratory Results - last 24 hr 01/02/17 01/02/17 01/03/17 Range/Units 17:05 19:09 04:48 Sodium 141 (140-148) mmol/L Potassium 4.1 (3.6-5.2) mmol/L Chloride 108 (100-108) mmol/L Carbon Dioxide 28 (21-32) mmol/L Anion Gap 5.3 (5.0-14.0) mmol/L BUN 22 H (7-18) mg/dL Creatinine 1.6 H (0.8-1.3) mg/dL Est Cr Clr Drug Dosing 44.14 mL/min Estimated GFR (MDRD) 42 L (>60) Glucose 106 (74-106) mg/dL Calcium 7.9 L (8.5-10.1) mg/dL Troponin I < 0.017 (0.000-0.056) ng/mL Urine Color Yellow Urine Appearance Clear Urine pH 6.5 (4.5-8.0) Ur Specific [place] 1.010 (1.008-1.030) Urine Protein Negative (NEGATIVE) mg/dL Urine Glucose (UA) Normal (NEGATIVE) mg/dL Urine Ketones Negative (NEGATIVE) mg/dL Urine Occult Blood Negative (NEGATIVE) Urine Nitrite Negative (NEGAITVE) Urine Bilirubin Negative (NEGATIVE) Urine Urobilinogen Normal (NORMAL) mg/dL Ur Leukocyte Esterase Negative (NEGATIVE) Urine RBC 0-5 (0-5) Urine WBC 0-5 (0-5) Ur Epithelial Cells Not seen Amorphous Sediment Rare Urine Bacteria Not seen Urine Mucus Not seen Med Orders - Current: Current Medications Acetaminophen (Tylenol) 650 mg PO Q4H PRN PRN Reason: Pain (Mild 1-3)/fever Amlodipine Besylate (Norvasc) 10 mg PO DAILY [facility] Last Admin: 01/03/17 09:11 Dose: 10 mg Aspirin (Aspirin) 81 mg PO DAILY [facility] Last Admin: 01/03/17 09:08 Dose: 81 mg Clopidogrel Bisulfate (Plavix) 75 mg PO DAILY [facility] Last Admin: 01/03/17 09:12 Dose: 75 mg Hydrochlorothiazide (Hydrochlorothiazide) 25 mg PO DAILY [facility] Last Admin: 01/03/17 09:08 Dose: 25 mg Potassium Chloride/Sodium Chloride (Normal Saline With 20 Meq Kcl) 1,000 mls @ 125 mls/hr IV ASDIRECTED [facility] Last Admin: 01/03/17 02:16 Dose: 125 mls/hr Isosorbide Mononitrate (Imdur) 30 mg PO DAILY [facility] Last Admin: 01/03/17 09:10 Dose: 30 mg Ondansetron HCl (Zofran Odt) 4 mg PO Q6H PRN PRN Reason: Nausea able to take PO Pravastatin 40mg ( (Ptom)) 0 each PO BEDTIME RYDER Urocit-K 10meq Tab ( (Ptom)) 0 each PO TIDMEALS [facility] Last Admin: 01/03/17 09:06 Dose: 1 each Metoprolol Xl 100mg ((Ptom)) 0 each PO DAILY [facility] Last Admin: 01/03/17 09:13 Dose: 1 each Omeprazole 20mg ( (Ptom)) 0 each PO ACBREAKFAST [facility] Last Admin: 01/03/17 09:05 Dose: 1 each Polyethylene Glycol (Miralax) 17 gm PO DAILY PRN PRN Reason: Constipation Terazosin HCl (Hytrin) 15 mg PO BEDTIME [facility] Last Admin: 01/02/17 21:56 Dose: Not Given Discontinued Medications Aspirin (Aspirin) 324 mg PO ONETIME ONE Stop: 01/02/17 12:19 Last Admin: 01/02/17 12:14 Dose: 324 mg Aspirin (Aspirin) Confirm Administered Dose 324 mg .ROUTE .STK-MED ONE Stop: 01/02/17 12:14 Nitroglycerin/Dextrose (Nitroglycerin 25 Mg/D5w 250 Ml) 25 mg in 250 mls @ 6 mls/hr IV TITRATE RYDER; 10 MCG/MIN PRN Reason: Protocol Sodium Chloride (Normal Saline) 1,000 mls @ 250 mls/hr IV ASDIRECTED [facility] Last Admin: 01/02/17 13:15 Dose: 250 mls/hr Nitroglycerin (Nitrostat) 0.4 mg SL ONETIME ONE Stop: 01/02/17 12:45 Potassium Chloride (Klor-Con M20) 40 meq PO ONETIME ONE Stop: 01/02/17 17:53 Last Admin: 01/02/17 18:25 Dose: 40 meq *Q Meaningful Use (DIS) - VTE *Q VTE Criteria *Q: - Stroke *Q Stroke Criteria *Q: - AMI *Q AMI Criteria *Q:
[2017-01-03 10:02] VITALS: BP 129/81
[2017-01-03] MEDS ORDERED: PRAVASTATIN 40 MG PO SCH (21:00)
== END 2017-01-03 10:18 | disposition home or self-care (01) ==
LOC: JP.ED 12:08 → JP.ICU 16:56
PROVIDERS: ADMIT Internal Medicine; ATTEND Internal Medicine
DX: R07.89 Other chest pain (principal); R06.02 Shortness of breath; I25.10 Atherosclerotic heart disease of native coronary artery without angina pectoris; N17.9 Acute kidney failure, unspecified; I13.0 Hypertensive heart and chronic kidney disease with heart failure and stage 1 through stage 4 chronic kidney disease, or unspecified chronic kidney disease; I50.32 Chronic diastolic (congestive) heart failure; N18.3 Chronic kidney disease, stage 3 (moderate); E86.0 Dehydration; E78.00 Pure hypercholesterolemia, unspecified; J44.9 Chronic obstructive pulmonary disease, unspecified; K21.9 Gastro-esophageal reflux disease without esophagitis; Z95.5 Presence of coronary angioplasty implant and graft; Z98.890 Other specified postprocedural states; Z79.82 Long term (current) use of aspirin; Z79.899 Other long term (current) drug therapy; Z82.49 Family history of ischemic heart disease and other diseases of the circulatory system
CPT/HCPCS: 36415; 71010; 80048; 80053; 81001; 82550; 84484; 85025; 85730; 93005; 96360; 96361; 99285; A9270; J3480; J7040; 93010; G0378

== ENCOUNTER 2017-06-04 14:31 | Emergency (ER) | payer MEDICARE, BC ==
[2017-06-04 15:07] VITALS: BP 117/67
--- NOTE | 2017-06-04 16:13 | EDM.PDOC ---
ED HPI GENERAL MEDICAL PROBLEM - General Chief Complaint: Cardiovascular Problem Stated Complaint: DIZZINESS,CHF Time Seen by Provider: 06/04/17 15:30 Source of Information: Reports: Patient, Old Records, Provider, RN Notes Reviewed History Limitations: Reports: No Limitations - History of Present Illness INITIAL COMMENTS - FREE TEXT/NARRATIVE: Received a call from clinic provider Sarah Morris DNP. Stating she had a patient who was in heart failure needed be admitted to hospital, Mr. Damian'lorenzo complaints are dizziness when he stands up and fatigue he cannot recall any recent blood pressure medications he does have his pills with review of blood pressure medications since he is on care Hytrin 50 mg at night, amlodipine 10 mg daily metoprolol tartrate 50 mg once a day and Imdur 30 mg once a day he states he has no chest pain and is not short of breath he did have lab work done in the clinic which has a normal BNP CBC and CMP are unremarkable and chest x-ray showed no acute process. - Related Data Allergies Allergy/AdvReac Type Severity Reaction Status Date / Time dye Allergy Hives Uncoded 07/25/16 10:58 Home Meds: Home Meds Aspirin [Alvin Chewable Aspirin] 81 mg PO DAILY 10/22/13 [History] Omeprazole [Prilosec] 20 mg PO DAILY 10/22/13 [History] Potassium Citrate 20 meq PO TID 10/22/13 [History] Pravastatin [Pravachol] 80 mg PO DAILY 10/22/13 [History] Terazosin [Hytrin] 15 mg PO BEDTIME 10/22/13 [History] amLODIPine [Norvasc] 10 mg PO DAILY 10/22/13 [History] Clopidogrel [Plavix] 75 mg PO DAILY 10/05/16 [History] Isosorbide Mononitrate [Imdur] 30 mg PO DAILY 01/02/17 [History] Furosemide [Lasix] 80 mg PO DAILY 06/04/17 [History] Magnesium Oxide [Magnesium] 400 mg PO BID 06/04/17 [History] Metoprolol Succinate 25 mg PO BID 06/04/17 [History] Nitroglycerin [Nitrostat] 0.4 mg PO ASDIRECTED PRN 06/04/17 [History] Venlafaxine [Effexor XR] 75 mg PO DAILY 06/04/17 [History] Past Medical History HEENT History: Reports: Hard of Hearing, Impaired Vision Cardiovascular History: Reports: CAD, Heart Failure, High Cholesterol, Hypertension Other Cardiovascular History: stress test indicated stent placement Respiratory History: Reports: COPD, SOB Gastrointestinal History: Reports: GERD Genitourinary History: Reports: Renal Calculus Other Genitourinary History: 6 times Musculoskeletal History: Reports: Arthritis - Infectious Disease History Infectious Disease History: Reports: Chicken Pox, Measles, Mumps - Past Surgical History Cardiovascular Surgical History: Reports: Coronary Artery Stent GI Surgical History: Reports: Colonoscopy Male Surgical History: Reports: Kidney Stone Extraction Musculoskeletal Surgical History: Reports: Other (See Below) Social & Family History - Tobacco Use Smoking Status *Q: Never Smoker Years of Tobacco use: 30 Used Tobacco, but Quit: Yes Month Tobacco Last Used: long time ago Second Hand Smoke Exposure: No - Caffeine Use Caffeine Use: Reports: None Caffeine Use Comment: 3 cups in am - Alcohol Use Days Per Week of Alcohol Use: 7 Number of Drinks Per Day: 2 Total Drinks Per Week: 14 - Recreational Drug Use Recreational Drug Use: No ED ROS GENERAL - Review of Systems Review Of Systems: See Below Constitutional: Reports: Fatigue Respiratory: Reports: No Symptoms Cardiovascular: Reports: Lightheadedness. Denies: Chest Pain GI/Abdominal: Reports: No Symptoms : Reports: No Symptoms ED EXAM, GENERAL - Physical Exam Exam: See Below Free Text/Narrative:: General: Elderly male, not in any distress, alert and oriented x3 HEENT: head is atraumatic normocephalic, eyes pupils equal round reactive to light, sclera clear no conjunctivitis appreciated. Ears tympanic membranes clear and denise landmarks and light reflex are present bilaterally canals are clear. Nose no septal deviation, nares are clear, no blood present. Mouth mucosa is moist and pink no erythema or exudate noted in soft palate, tongue is midline uvula is midline, dentition is intact. Neck: Supple no thyromegaly no tracheal deviation. Nodes: Cervical nodes subclavicular nodes nontender no palpable lymphadenopathy noted. Lungs: clear to auscultation bilaterally with symmetrical respirations, no adventitious noise appreciated. CV: Regular rate and rhythm S1 and S2 appreciated no murmurs rubs or gallops noted. Abdomen: Soft, nontender, no palpable masses or organomegaly appreciated, no distention no guarding bowel sounds are present, . Neuro: Cranial nerves II through XII grossly intact Skin: Warm and dry, intact Extremities: No lower extremity edema appreciated, Course - Vital Signs Last Recorded V/S: Last Vital Signs Temp 96.1 F 06/04/17 15:11 Pulse 73 06/04/17 15:11 Resp 20 06/04/17 15:11 BP 117/67 06/04/17 15:11 Pulse Ox 96 06/04/17 15:11 Orthostatic Blood Pressure [ 78/48 Standing] Orthostatic Blood Pressure [ 91/53 Sitting] Orthostatic Blood Pressure [ 111/64 Supine] Departure - Departure Time of Disposition: 16:12 Disposition: Home, Self-Care 01 Condition: Good Clinical Impression: Hypotension Qualifiers: Hypotension type: hypotension due to drug Qualified Code(s): I95.2 - Hypotension due to drugs Referrals: Low Jarquin MD [Primary Care Provider] - Additional Instructions: Reduce your Hytrin from 15 mg at night to 10 mg at night, if your urinary symptoms and your blood pressure are stable recommend decrease your amlodipine from 10 mg daily to 5 mg daily, keep your follow-up appointment with your primary care provider on the of this month, call return to the emergency department worsening of symptoms - Assessment/Plan Plan: Assessment Acuity = acute Site and laterality = dizziness, again the patient with known history of congestive heart failure as well as coronary artery disease hypotension on for blood pressure medications Etiology = probably related to blood pressure medications Manifestations = none Location of injury = Home Lab values = none Plan Elected to cut his Hytrin back from 15 mg at night to 10 mg at night he states he is most dizzy in the morning suspicion this is the contributing cause, next is going to cut his amlodipine down from 10 mg to 5 mg daily to help increase his blood pressure he does have orthostatic changes combination of low blood pressures probably contributing to that fact as well as his symptomatic feeling. He has a follow-up appointments primary care provider on the for reevaluation of medications This note was dictated using [employer] voice recognition software please call with any questions on syntax or laury.
== END 2017-06-04 16:31 | disposition home or self-care (01) ==
LOC: JP.ED 14:31
DX: I95.2 Hypotension due to drugs (principal); T44.6X5A Adverse effect of alpha-adrenoreceptor antagonists, initial encounter; T46.1X5A Adverse effect of calcium-channel blockers, initial encounter; I11.0 Hypertensive heart disease with heart failure; I50.9 Heart failure, unspecified; I25.10 Atherosclerotic heart disease of native coronary artery without angina pectoris; E78.00 Pure hypercholesterolemia, unspecified; Z95.5 Presence of coronary angioplasty implant and graft; Z79.82 Long term (current) use of aspirin; Z79.899 Other long term (current) drug therapy; Z91.048 Other nonmedicinal substance allergy status
CPT/HCPCS: 99284

== ENCOUNTER 2017-06-28 18:33 | Inpatient (IN) | payer MEDICARE, BC ==
[2017-06-28] MEDS ORDERED: Sodium Chloride 0.9% 10 ML Syringe FLUSH PRN (19:11)
--- NOTE | 2017-06-28 20:20 | EDM.PDOC ---
ED HPI GENERAL MEDICAL PROBLEM - General Chief Complaint: Syncope Stated Complaint: DIZZINESS, PASSED OUT Time Seen by Provider: 06/28/17 18:50 Source of Information: Reports: Patient, Family History Limitations: Reports: No Limitations - History of Present Illness INITIAL COMMENTS - FREE TEXT/NARRATIVE: pt fell and was not reponding for a period of time. He was confused on the way in to the hosp. This incident happened about 45 minutes prior to arrival. He is answering questions at this time. He had a recent urology procedure. Onset: Today Duration: Other ( The incident where he hit the back of his head was about 1 hour ago. ) Location: Reports: Head, Other (Pt has been passing out frequently. He passed out in [facility] yesterday. ) Associated Symptoms: Reports: Confusion, Syncope - Related Data Allergies Allergy/AdvReac Type Severity Reaction Status Date / Time dye Allergy Hives Uncoded 06/28/17 18:46 Home Meds: Home Meds Aspirin [Alvin Chewable Aspirin] 81 mg PO DAILY 10/22/13 [History] Omeprazole [Prilosec] 20 mg PO DAILY 10/22/13 [History] Potassium Citrate 20 meq PO TID 10/22/13 [History] Pravastatin [Pravachol] 80 mg PO DAILY 10/22/13 [History] Terazosin [Hytrin] 15 mg PO BEDTIME 10/22/13 [History] Clopidogrel [Plavix] 75 mg PO DAILY 10/05/16 [History] Isosorbide Mononitrate [Imdur] 30 mg PO DAILY 01/02/17 [History] Furosemide [Lasix] 80 mg PO DAILY 06/04/17 [History] Magnesium Oxide [Magnesium] 400 mg PO BID 06/04/17 [History] Metoprolol Succinate 25 mg PO BID 06/04/17 [History] Nitroglycerin [Nitrostat] 0.4 mg PO ASDIRECTED PRN 06/04/17 [History] Venlafaxine [Effexor XR] 75 mg PO DAILY 06/04/17 [History] Past Medical History HEENT History: Reports: Hard of Hearing, Impaired Vision Cardiovascular History: Reports: CAD, Heart Failure, High Cholesterol, Hypertension, Stents Other Cardiovascular History: stress test indicated stent placement Respiratory History: Reports: COPD, SOB Gastrointestinal History: Reports: Colon Polyp, GERD Genitourinary History: Reports: Prostate Disorder, Renal Calculus Other Genitourinary History: 6 times Musculoskeletal History: Reports: Arthritis Psychiatric History: Reports: Depression - Infectious Disease History Infectious Disease History: Reports: Chicken Pox, Measles, Mumps - Past Surgical History Cardiovascular Surgical History: Reports: Coronary Artery Stent GI Surgical History: Reports: Colonoscopy, Polypectomy Male Surgical History: Reports: Kidney Stone Extraction Musculoskeletal Surgical History: Reports: Other (See Below) Other Musculoskeletal Surgeries/Procedures:: left foot surgery Social & Family History - Tobacco Use Smoking Status *Q: Never Smoker Years of Tobacco use: 30 Used Tobacco, but Quit: Yes Month Tobacco Last Used: long time ago Second Hand Smoke Exposure: No - Caffeine Use Caffeine Use: Reports: None Caffeine Use Comment: 3 cups in am - Alcohol Use Days Per Week of Alcohol Use: 7 Number of Drinks Per Day: 2 Total Drinks Per Week: 14 Date of Last Drink: 06/28/17 - Recreational Drug Use Recreational Drug Use: No ED ROS GENERAL - Review of Systems Review Of Systems: See Below Constitutional: Reports: Other ( syncope. Sleepy after a blow to the back of the head) HEENT: Reports: No Symptoms Respiratory: Reports: No Symptoms Cardiovascular: Reports: Syncope Endocrine: Reports: No Symptoms GI/Abdominal: Reports: No Symptoms : Reports: No Symptoms - Physical Exam Exam: See Below Text/Narrative:: pt has had 3 syncopal episodes this week and the last 2 in less than 24 hours. Exam Limited By: No Limitations General Appearance: Alert, Anxious, Other (pupils are equal and reactive. ) Ears: Normal TMs Nose: Normal Inspection Throat/Mouth: Normal Inspection Head Exam: Atraumatic Neck: Other (pt has no tenderness. ) Respiratory/Chest: No Respiratory Distress Cardiovascular: Regular Rate, Rhythm GI/Abdominal: Soft, Non-Tender (Male) Exam: Deferred Rectal (Males) Exam: Deferred Neuro Exam (Abbreviated): Alert, Oriented Back Exam: Normal Inspection Extremities: Normal Inspection Psychiatric: Anxious Course - Vital Signs Last Recorded V/S: Last Vital Signs Temp 35.3 C 06/28/17 18:48 Pulse 67 06/28/17 21:30 Resp 14 06/28/17 21:30 BP 111/65 06/28/17 21:30 Pulse Ox 97 06/28/17 21:30 Orthostatic Blood Pressure [ 114/67 Supine] Orthostatic Blood Pressure [ 114/68 Sitting] Orthostatic Blood Pressure [ 96/58 Standing] - Orders/Labs/Meds Orders: Active Orders 24 hr Category Date Time Status Cardiac Monitoring [RC] .As Directed Care 06/28/17 20:14 Active EKG Documentation Completion [RC] ASDIRECTED Care 06/28/17 20:13 Active Orthostatic Vital Signs [RC] ASDIRECTED Care 06/28/17 19:55 Active Head wo Cont [CT] Stat Exams 06/28/17 19:09 Ordered TROPONIN I [CHEM] Stat Lab 06/28/17 21:46 Ordered Sodium Chloride 0.9% [Normal Saline] 1,000 ml Med 06/28/17 20:30 Active IV ASDIRECTED Sodium Chloride 0.9% [Saline Flush] Med 06/28/17 19:11 Active 10 ml FLUSH ASDIRECTED PRN Saline Lock Insert [OM.PC] Routine Oth 06/28/17 19:11 Ordered EKG 12 Lead [EK] Routine Ther 06/28/17 20:13 Ordered Medication Orders Sodium Chloride (Normal Saline) 1,000 mls @ 250 mls/hr IV ASDIRECTED RYDER Last Admin: 06/28/17 20:50 Dose: 250 mls/hr Sodium Chloride (Saline Flush) 10 ml FLUSH ASDIRECTED PRN PRN Reason: Keep Vein Open Last Admin: 06/28/17 20:49 Dose: 10 ml Labs: Laboratory Tests 06/28/17 06/28/17 06/28/17 Range/Units 19:40 19:40 20:40 WBC 9.2 (4.5-11.0) K/uL RBC 4.53 (4.30-5.90) M/uL Hgb 13.8 (12.0-15.0) g/dL Hct 40.9 (40.0-54.0) % MCV 90 (80-98) fL MCH 31 (27-31) pg MCHC 34 (32-36) % Plt Count 282 (150-400) K/uL Neut % (Auto) 59 (36-66) % Lymph % (Auto) 27 (24-44) % [place] % (Auto) 12 H (2-6) % Eos % (Auto) 1 L (2-4) % Baso % (Auto) 0 (0-1) % Sodium 140 (140-148) mmol/L Potassium 3.4 L (3.6-5.2) mmol/L Chloride 105 (100-108) mmol/L Carbon Dioxide 24 (21-32) mmol/L Anion Gap 14.4 H (5.0-14.0) mmol/L BUN 22 H (7-18) mg/dL Creatinine 1.7 H (0.8-1.3) mg/dL Est Cr Clr Drug Dosing 32.97 mL/min Estimated GFR (MDRD) 39 L (>60) Glucose 105 (74-106) mg/dL Calcium 8.6 (8.5-10.1) mg/dL Total Bilirubin 0.4 (0.2-1.0) mg/dL AST 16 (15-37) U/L ALT 13 (12-78) U/L Alkaline Phosphatase 67 (46-116) U/L Total Protein 5.7 L (6.4-8.2) g/dL Albumin 3.2 L (3.4-5.0) g/dL Globulin 2.5 (2.3-3.5) g/dL Albumin/Globulin Ratio 1.3 (1.2-2.2) Urine Color Yellow Urine Appearance Clear Urine pH 5.0 (4.5-8.0) Ur Specific [place] 1.010 (1.008-1.030) Urine Protein Negative (NEGATIVE) mg/dL Urine Glucose (UA) Normal (NEGATIVE) mg/dL Urine Ketones Negative (NEGATIVE) mg/dL Urine Occult Blood Negative (NEGATIVE) Urine Nitrite Negative (NEGAITVE) Urine Bilirubin Negative (NEGATIVE) Urine Urobilinogen Normal (NORMAL) mg/dL Ur Leukocyte Esterase Negative (NEGATIVE) Urine RBC 0-5 (0-5) Urine WBC 0-5 (0-5) Ur Epithelial Cells Rare Amorphous Sediment Few Urine Bacteria Not seen Urine Mucus Few Meds: Medications Generic Name Dose Route Start Last Admin Trade Name Freq PRN Reason Stop Dose Admin Sodium Chloride 1,000 mls @ 250 mls/hr 06/28/17 20:30 06/28/17 20:50 Normal Saline IV 250 mls/hr ASDIRECTED RYDER Administration Sodium Chloride 10 ml 06/28/17 19:11 06/28/17 20:49 Saline Flush FLUSH 10 ml ASDIRECTED PRN Administration Keep Vein Open - Re-Assessments/Exams Free Text/Narrative Re-Assessment/Exam: 06/28/17 21:48 pt had normal cat scan of the head. His labs indicate he is mildly dry. He iis being switched to flomax. His bp has dropped sig when he stands up. Departure - Departure Time of Disposition: 21:50 Disposition: Admitted As Inpatient 66 Condition: Fair Clinical Impression: Syncope - Discharge Information Referrals: PCP,None [Primary Care Provider] - Forms: ED Department Discharge Care Plan Goals: admit to Dr Islas - My Orders Last 24 Hours: My Active Orders 06/28/17 19:09 Head wo Cont [CT] Stat 06/28/17 19:11 Sodium Chloride 0.9% [Saline Flush] 10 ml FLUSH ASDIRECTED PRN Saline Lock Insert [OM.PC] Routine 06/28/17 19:55 Orthostatic Vital Signs [RC] ASDIRECTED 06/28/17 20:13 EKG Documentation Completion [RC] ASDIRECTED EKG 12 Lead [EK] Routine 06/28/17 20:14 Cardiac Monitoring [RC] .As Directed 06/28/17 20:30 Sodium Chloride 0.9% [Normal Saline] 1,000 ml IV ASDIRECTED 06/28/17 21:46 TROPONIN I [CHEM] Stat - Assessment/Plan Last 24 Hours: My Active Orders 06/28/17 19:09 Head wo Cont [CT] Stat 06/28/17 19:11 Sodium Chloride 0.9% [Saline Flush] 10 ml FLUSH ASDIRECTED PRN Saline Lock Insert [OM.PC] Routine 06/28/17 19:55 Orthostatic Vital Signs [RC] ASDIRECTED 06/28/17 20:13 EKG Documentation Completion [RC] ASDIRECTED EKG 12 Lead [EK] Routine 06/28/17 20:14 Cardiac Monitoring [RC] .As Directed 06/28/17 20:30 Sodium Chloride 0.9% [Normal Saline] 1,000 ml IV ASDIRECTED 06/28/17 21:46 TROPONIN I [CHEM] Stat
[2017-06-28] MEDS ORDERED: Sodium Chloride 0.9% 1,000 ML IV SCH ×2 (20:30→22:15)
[2017-06-28] MEDS ORDERED: Acetaminophen 325 MG Tab PO PRN (22:59)
[2017-06-29] MEDS: Magnesium Oxide 400 MG Tab PO SCH ×2 (00:35→09:16)
[2017-06-29] MEDS: Potassium Chloride 20 MEQ Tab.ER PO SCH ×2 (00:36→09:16)
--- NOTE | 2017-06-29 05:48 | HP ---
IDENTIFYING DATA: Ray Damian is an 81-year-old male from [place]. CHIEF COMPLAINT: Syncope. HISTORY OF PRESENT ILLNESS: This elderly gentleman notes that he had just finished supper this evening. He was rising and walking through the kitchen when he had sudden syncopal episode witnessed by his . She assisted him to the floor. He had a several minute period of unresponsiveness followed by gradual arousal and general confusion and listlessness with mentation generally clearing. On arrival in the emergency room, he remains somewhat sluggish though had continued improvement in his sensorium and has now had clearing of his memory with the exception of amnesia surrounding the events of his episode. On questioning, he has had 2 other similar episodes including an episode while walking through [employer] yesterday. This episode was brief of a few seconds duration. He was assisted to a chair and had rapid recovery. He had a similar transient episode at home within the last 2 weeks. He has had no chest pain, palpitations, or seizure-like activity. He does have noted history of ischemic heart disease with previous interventional therapy and stent placement. He remains on anti-platelet therapies. He has no history of stroke. Denies diabetes. He does have hypertension, currently managed with use of metoprolol and previously had been on amlodipine. This medication was discontinued for reasons of recurring complaints of dizziness. Additionally, he has noted history of BPH, had been on terazosin. He was weaned from this product and recently placed on tamsulosin. PREVIOUS SURGERIES: Include angioplasty and cardiac stenting. He has had a previous colonoscopy, cystoscopic renal stone extraction and left bunion surgery. HABITS: Remote history of tobacco use abstaining for 30 years time. Infrequent use of caffeinated beverages, less than 1 drink per day. Alcohol use is a predictable 2 drinks per day. IMMUNIZATIONS: Notes influenza pneumococcal vaccines are current, having been received at the [facility]. ALLERGIES: REPORTED TO CONTRAST DYE. MEDICATIONS: 1. Aspirin 81 mg daily. 2. Omeprazole 20 mg daily. 3. Potassium citrate 20 mEq t.i.d. 4. Pravastatin 80 mg daily. 5. Terazosin now discontinued. 6. Tamsulosin 0.4 mg daily. 7. Clopidogrel 75 mg daily. 8. Isosorbide mononitrate 30 mg daily. 9. Furosemide 80 mg daily. 10.Magnesium oxide 400 mg b.i.d. 11.Metoprolol succinate 25 mg b.i.d. 12.Sublingual nitroglycerin p.r.n. angina. 13.Venlafaxine extended release 75 mg daily. SOCIAL HISTORY: Retired, largely sedentary. Does attempt to walk about the house routinely and performs ADLs independently. Does drive. FAMILY HISTORY: No recent acute upper respiratory infections. REVIEW OF SYSTEMS: NEUROLOGIC: No history of stroke, seizures, or focal weakness. Has had some recent gradual slowly progressive visual deterioration. Follow up with eye care provider is pending. Additionally, he has bilateral hearing loss with hearing aids. CARDIAC: As above. No history of rheumatic fever, congenital heart disease or murmurs. RESPIRATORY: Notes a history of mild underlying obstructive pulmonary disease, not requiring pharmacologic therapy. Remote history of tobacco use. No recent acute URIs. GASTROINTESTINAL: Dyspeptic symptoms managed with omeprazole. No history of hepatitis, jaundice, gallbladder disease, constipation, diarrhea, melena, or hematochezia. : Chronic renal insufficiency, history of ureteral stones, recent cystoscopy for reasons of gross hematuria. Did not reveal evidence of urethral or bladder pathology. MUSCULOSKELETAL: Mild arthralgias of the hands, otherwise unremarkable. PHYSICAL EXAMINATION: GENERAL: Appearance is that of an adult male in no acute distress. VITAL SIGNS: On admission, temperature 35.3 degrees centigrade, pulse 67 sinus rhythm, respiratory rate 14, blood pressure 111/65, O2 saturations 97% on room air. HEENT: Diminished auditory acuity. Canals and TMs are normal. Pupils reactive. Extraocular eye movements are intact without nystagmus. No diplopia or visual field losses. No facial asymmetry. Speech is clear. No oropharyngeal lesions. NECK: Brisk carotid pulses. No bruits or JVD. LUNGS: Symmetrical, clear, resonant, non-tachypneic. HEART: Regular in rhythm and rate. Sinus rhythm by cardiac monitoring, prolonged [place] interval, first-degree block. ABDOMEN: Benign. No organomegaly. Active sounds. Good femoral pulses. No abdominal bruits. No CVA pain. AND RECTAL: Omitted. EXTREMITIES: Good radial and posterior tibial pulses. No pitting edema. No ischemic skin changes. Brisk capillary refill. Symmetrical strength. DIAGNOSTIC DATA: Labs on admission; hemoglobin 13.8, hematocrit 40.9, WBC 9.2, platelet count 282,000. Sodium 140, potassium 3.4, BUN 22, creatinine 1.7, glucose 105, calcium 8.6, alkaline phosphatase 67, AST 16. CT of the head obtained in the emergency department showed no evidence of acute intracranial changes. IMPRESSION: 1. Recurrent syncopal episodes. Consider orthostasis versus cardiac dysrhythmia. 2. History of ischemic heart disease, status post single-vessel stenting. 3. Hypertension. 4. Hyperlipidemia. 5. Mild obstructive pulmonary disease. 6. Stage III renal insufficiency. 7. Benign prostatic hyperplasia with bladder outlet obstruction. PLAN: The patient was admitted to telemetry for continued monitoring. Followup studies will include cardiac telemetry and echocardiography to assess the patient's overall cardiac function. Consider need for 30 day event recorder if no abnormalities are identified. We will maintain on antianginal therapies including low-dose metoprolol and isosorbide as well as clopidogrel and aspirin. If recurrent orthostasis is noted, may need to consider holding tamsulosin. Recently, it is noted that amlodipine and terazosin were discontinued. Full code status will be implemented. Allow activity as tolerated with standby assistance to monitor for recurrent orthostasis or loss of consciousness. Cardiac diet will be provided. Anticipate stay of less than 48 hours. Solitario Islas MD /[id number]
[2017-06-29] MEDS ORDERED: Pantoprazole 40 MG Tab.CR PO SCH (07:30)
[2017-06-29] MEDS ORDERED: Magnesium Oxide 400 MG Tab PO SCH (09:00)
[2017-06-29] MEDS ORDERED: Clopidogrel 75 MG Tab PO SCH (09:00)
[2017-06-29] MEDS ORDERED: Isosorbide Mononitrate 30 MG Tab.ER PO SCH (09:00)
[2017-06-29] MEDS ORDERED: Venlafaxine 75 MG Cap.ER PO SCH (09:00)
[2017-06-29] MEDS ORDERED: Metoprolol Succinate 25 MG Tab.ER PO SCH ×3 (09:00)
[2017-06-29] MEDS ORDERED: Aspirin 81 MG Tab.EC PO SCH (09:00)
[2017-06-29] MEDS ORDERED: POTASSIUM CITRATE 20 MEQ PO SCH ×2 (09:00)
[2017-06-29 11:23] VITALS: BP 126/59
[2017-06-29] MEDS ORDERED: Pravastatin 20 MG Tab PO SCH ×2 (21:00)
--- NOTE | 2017-06-30 03:47 | DISCH ---
REASON FOR ADMISSION: An 81-year-old adult male with a history of ischemic heart disease with previous cardiac coronary artery stenting was admitted following a syncopal episode witnessed by his at home with a several minute period of unresponsiveness. He has had 3 recent episodes of syncope within the last 2 weeks. The initial 2 of brief duration. He has had no seizure-like activity. No history of documented stroke. He does have an accompanying history of hypertension and prostatic hypertrophy managed with pharmacologic therapy though with complaints of dizziness. His antihypertensive medications have recently been decreased in dosing schedules. PHYSICAL EXAMINATION: VITAL SIGNS: On admission, temperature 35.3 degrees centigrade, pulse 67, with sinus rhythm by cardiac monitoring, respiratory rate 14, blood pressure 111/65, O2 sats 97% on room air. GENERAL: Currently comfortable and oriented. HEENT: Diminished hearing, chronic in nature, otherwise remarkable. No facial asymmetries. NECK: Brisk carotid pulses without bruits or JVD. LUNGS: Symmetrical and clear. HEART: Regular in rhythm and rate. First degree AV block noted by a 12-lead EKG. No other concerning dysrhythmias. ABDOMEN: Benign extremities intact pulses symmetrical strength. LABORATORY DATA: On admission, hemoglobin 13.8, hematocrit 40.9, WBC 9.2. Sodium 140, potassium 3.4, BUN 22, creatinine 1.7, glucose 105, calcium 8.6, alkaline phosphatase 67, AST 16. CT of the head obtained during hospital ER evaluation revealed no acute changes. HOSPITAL COURSE: Mr. Damian was admitted with syncopal episode of unknown etiology thought to be potentially secondary to cardiac dysrhythmia versus orthostasis. He did have orthostatic drops in blood pressure documented by nursing staff during hospital stay with systolics falling from 114 when seated in supine to 96 when standing. He had no recurrent episodes of dizziness, lightheadedness, or syncope noted during hospital stay and maintained a cardiac rhythm of normal sinus with first-degree block with occasional PACs. He had no evidence of sustained dysrhythmias. The following morning, his cardiac status was stable. Plans for discharge in outpatient followup were made. DISCHARGE INSTRUCTIONS: Discharge to home on 06/29/2017. CONDITION: Stable. ACTIVITY: 1. Up as tolerated. Advised against driving until cardiac evaluation is completed. 2. Cardiac diet. 3. Follow up with primary caregiver in 1 to 2 weeks time. 4. Echocardiogram to be obtained prior to hospital discharge. Request 30-day event recorder to be completed in the near future as an outpatient. DISCHARGE MEDICATIONS: Aspirin 81 mg daily, omeprazole 20 mg daily, potassium citrate 20 mEq t.i.d., pravastatin 80 mg daily, Clopidogrel 75 mg daily, isosorbide mononitrate 30 mg daily, magnesium oxide 400 mg b.i.d., metoprolol succinate decreased to 25 mg once daily, sublingual nitroglycerin p.r.n. angina, venlafaxine extended release 75 mg daily. Previously prescribed terazosin, tamsulosin, and furosemide are currently held in light of his orthostatic symptoms. ADMITTING DIAGNOSES: 1. Syncope with orthostasis identified during hospital stay. 2. Chronic ischemic heart disease with previous coronary artery stenting. 3. Hypertension. 4. Hyperlipidemia. 5. Reported mild obstructive pulmonary disease. 6. Stage III renal insufficiency. 7. Benign prostatic hyperplasia. DISCHARGE DIAGNOSES: 1. Syncope with orthostasis identified during hospital stay. 2. Chronic ischemic heart disease with previous coronary artery stenting. 3. Hypertension. 4. Hyperlipidemia. 5. Reported mild obstructive pulmonary disease. 6. Stage III renal insufficiency. 7. Benign prostatic hyperplasia.
== END 2017-06-29 13:25 | disposition home or self-care (01) | DRG 312 ==
LOC: JP.ED 18:33 → JP.MS 21:50
PROVIDERS: ADMIT Family Medicine; ATTEND Family Medicine
DX: R55 Syncope and collapse (principal); I95.1 Orthostatic hypotension; I12.9 Hypertensive chronic kidney disease with stage 1 through stage 4 chronic kidney disease, or unspecified chronic kidney disease; N18.3 Chronic kidney disease, stage 3 (moderate); I25.9 Chronic ischemic heart disease, unspecified; Z87.891 Personal history of nicotine dependence; Z91.81 History of falling; R41.0 Disorientation, unspecified; W19.XXXD Unspecified fall, subsequent encounter; J44.9 Chronic obstructive pulmonary disease, unspecified; N40.0 Benign prostatic hyperplasia without lower urinary tract symptoms; M19.90 Unspecified osteoarthritis, unspecified site; F32.9 Major depressive disorder, single episode, unspecified; K21.9 Gastro-esophageal reflux disease without esophagitis; Z95.5 Presence of coronary angioplasty implant and graft; E78.5 Hyperlipidemia, unspecified; H54.7 Unspecified visual loss; H91.90 Unspecified hearing loss, unspecified ear; Z79.82 Long term (current) use of aspirin; Z91.041 Radiographic dye allergy status
CPT/HCPCS: 36415; 70450; 80053; 81001; 84484; 85025; 93005; J7040; J7050; 80048; 83735; 93010; 93270; 93271; 93306; 96360; 99285; 99285-25; A9270-GY; J7030

== ENCOUNTER 2017-07-08 14:14 | Emergency (ER) | payer MEDICARE, BC ==
[2017-07-08 14:29] VITALS: BP 118/64
--- NOTE | 2017-07-08 15:10 | EDM.PDOC ---
ED HPI GENERAL MEDICAL PROBLEM - General Chief Complaint: Cardiovascular Problem Stated Complaint: SHORT OF BREATH HAS HEART MONITOR ON Time Seen by Provider: 07/08/17 14:45 Source of Information: Reports: Patient, Family History Limitations: Reports: No Limitations - History of Present Illness INITIAL COMMENTS - FREE TEXT/NARRATIVE: 81-year-old male was having difficulty spells, is on an event monitor that recorded frequent PVCs. They called him and told him to come and get checked. He feels fine. No chest pain or significant shortness of breath, he's had a few episodes of mild dizziness where he pushed his event monitor but no syncope. He was hospitalized overnight 7 days ago for syncope where workup was obtained including a head CT. He was on cardiac monitoring overnight. He has an appointment tomorrow with his primary provider. Onset: Unknown/Unsure Severity: Mild Associated Symptoms: Reports: Malaise, Syncope, Weakness - Related Data Allergies Allergy/AdvReac Type Severity Reaction Status Date / Time dye Allergy Hives Uncoded 07/08/17 14:29 Home Meds: Home Meds Aspirin [Alvin Chewable Aspirin] 81 mg PO DAILY 10/22/13 [History] Omeprazole [Prilosec] 20 mg PO DAILY 10/22/13 [History] Potassium Citrate 20 meq PO BID 10/22/13 [History] Pravastatin [Pravachol] 80 mg PO DAILY 10/22/13 [History] Clopidogrel [Plavix] 75 mg PO DAILY 10/05/16 [History] Isosorbide Mononitrate [Imdur] 30 mg PO DAILY 01/02/17 [History] Furosemide [Lasix] 80 mg PO DAILY 06/04/17 [History] Magnesium Oxide [Magnesium] 400 mg PO BID 06/04/17 [History] Nitroglycerin [Nitrostat] 0.4 mg PO ASDIRECTED PRN 06/04/17 [History] Venlafaxine [Effexor XR] 75 mg PO DAILY 06/04/17 [History] Acetaminophen [Tylenol] 650 mg PO Q4H PRN tablet 06/29/17 [Rx] Metoprolol Succinate [Toprol XL] 25 mg PO DAILY tab.er 06/29/17 [Rx] amLODIPine Besylate [Amlodipine Besylate] 10 mg PO DAILY 07/08/17 [History] Past Medical History HEENT History: Reports: Cataract, Hard of Hearing, Impaired Vision Cardiovascular History: Reports: Angina, CAD, Heart Failure, High Cholesterol, Hypertension, SOB on Exertion, Stents Other Cardiovascular History: stress test indicated stent placement Respiratory History: Reports: COPD, SOB Gastrointestinal History: Reports: Colon Polyp, GERD Genitourinary History: Reports: BPH, Prostate Disorder, Renal Calculus Other Genitourinary History: 6 times Musculoskeletal History: Reports: Arthritis Neurological History: Reports: TIA Psychiatric History: Reports: Depression Endocrine/Metabolic History: Reports: Other (See Below) Other Endocrine/Metabolic History: prediabetic Hematologic History: Reports: Anticoagulation Therapy - Infectious Disease History Infectious Disease History: Reports: Chicken Pox, Measles, Mumps - Past Surgical History HEENT Surgical History: Reports: None Cardiovascular Surgical History: Reports: Coronary Artery Stent Other Cardiovascular Surgeries/Procedures: 2016 stent Respiratory Surgical History: Reports: None GI Surgical History: Reports: Colonoscopy, Polypectomy Male Surgical History: Reports: Kidney Stone Extraction Endocrine Surgical History: Reports: None Neurological Surgical History: Reports: None Musculoskeletal Surgical History: Reports: Other (See Below) Other Musculoskeletal Surgeries/Procedures:: left foot surgery Dermatological Surgical History: Reports: Skin Biopsy Social & Family History - Tobacco Use Smoking Status *Q: Former Smoker Years of Tobacco use: 30 Used Tobacco, but Quit: Yes Month Tobacco Last Used: 30 years ago Second Hand Smoke Exposure: No - Caffeine Use Caffeine Use: Reports: Coffee Caffeine Use Comment: rare coffee use - Alcohol Use Days Per Week of Alcohol Use: 7 Number of Drinks Per Day: 2 Total Drinks Per Week: 14 - Recreational Drug Use Recreational Drug Use: No ED ROS GENERAL - Review of Systems Review Of Systems: See Below Constitutional: Reports: Malaise, Weakness. Denies: Fever, Chills HEENT: Reports: No Symptoms Respiratory: Denies: Shortness of Breath Cardiovascular: Reports: Lightheadedness. Denies: Chest Pain GI/Abdominal: Denies: Nausea, Vomiting Neurological: Reports: Dizziness, Weakness. Denies: Headache ED EXAM, GENERAL - Physical Exam Exam: See Below Exam Limited By: No Limitations General Appearance: Alert, No Apparent Distress Eye Exam: Bilateral Eye: Normal Inspection Respiratory/Chest: No Respiratory Distress, Lungs Clear Cardiovascular: Regular Rate, Rhythm, Extra Beats (Occasional ectopics are heard ) Extremities: Normal Inspection. No: Pedal Edema Neurological: Alert, Oriented Psychiatric: Normal Affect, Normal Mood Skin Exam: Warm, Dry Course - Vital Signs Last Recorded V/S: Last Vital Signs Temp 96.4 F 07/08/17 14:27 Pulse 65 07/08/17 14:27 Resp 18 07/08/17 14:27 BP 118/64 07/08/17 14:27 Pulse Ox 96 07/08/17 14:27 - Re-Assessments/Exams Free Text/Narrative Re-Assessment/Exam: 07/08/17 15:08 Patient was monitored for over 30 minutes and displaying very rare PVCs. His vitals remained stable. We reviewed his recent hospitalization and a thorough evaluation and workup was done at that time. I discussed his situation with Dr. Jarquin, his primary provider who he has an appointment with tomorrow and we agreed that no treatment needs to be done until he speaks with Dr. Jarquin tomorrow. Patient can return if worsening such as full syncope episode, chest pain, shortness of breath or worsening symptoms. Departure - Departure Time of Disposition: 15:28 Disposition: Home, Self-Care 01 Condition: Good Clinical Impression: Frequent PVCs, Orthostatic dizziness Instructions: Premature Ventricular Contraction Referrals: Low Jarquin MD [Primary Care Provider] - Forms: ED Department Discharge Care Plan Goals: Continue your current medications and event monitor as instructed. See Dr. Jarquin tomorrow as planned. Return to the emergency room if worsening such as chest pain, shortness of breath or fainting.
== END 2017-07-08 15:29 | disposition home or self-care (01) ==
LOC: JP.ED 14:14
DX: I49.3 Ventricular premature depolarization (principal); I11.0 Hypertensive heart disease with heart failure; I50.9 Heart failure, unspecified; I25.10 Atherosclerotic heart disease of native coronary artery without angina pectoris; J44.9 Chronic obstructive pulmonary disease, unspecified; K21.9 Gastro-esophageal reflux disease without esophagitis; F32.9 Major depressive disorder, single episode, unspecified; Z95.5 Presence of coronary angioplasty implant and graft; Z79.01 Long term (current) use of anticoagulants; Z87.891 Personal history of nicotine dependence; Z79.82 Long term (current) use of aspirin; Z79.02 Long term (current) use of antithrombotics/antiplatelets; Z91.09 Other allergy status, other than to drugs and biological substances; Z79.899 Other long term (current) drug therapy
CPT/HCPCS: 99283; 99284

== ENCOUNTER 2017-07-11 13:01 | Emergency (ER) | payer MEDICARE, BC ==
[2017-07-11] MEDS ORDERED: Aspirin 81 MG Tab.Chew PO ONE (13:20)
[2017-07-11 13:28] VITALS: BP 111/63
--- NOTE | 2017-07-11 15:04 | EDM.PDOC ---
ED HPI GENERAL MEDICAL PROBLEM - General Chief Complaint: Cardiovascular Problem Stated Complaint: CHEST PAIN TAKEN TWO NIRTO Time Seen by Provider: 07/11/17 13:20 Source of Information: Reports: Patient, Family History Limitations: Reports: No Limitations - History of Present Illness INITIAL COMMENTS - FREE TEXT/NARRATIVE: pt had 2 or 3 sharp stabbing chest pain. These were brief no lasting more than a minute. He Did not get sweaty. He was not sob. He has had a monitor which has a battery and he is concerned about that. Onset: Today Duration: Minutes:, Other (pt was pain free on arrival. ) Location: Reports: Chest Associated Symptoms: Reports: Chest Pain, Other (Pt has had syncope in the recent past. ) - Related Data Allergies Allergy/AdvReac Type Severity Reaction Status Date / Time dye Allergy Hives Uncoded 07/08/17 14:29 Home Meds: Home Meds Aspirin [Alvin Chewable Aspirin] 81 mg PO DAILY 10/22/13 [History] Omeprazole [Prilosec] 20 mg PO DAILY 10/22/13 [History] Potassium Citrate 20 meq PO BID 10/22/13 [History] Pravastatin [Pravachol] 80 mg PO DAILY 10/22/13 [History] Clopidogrel [Plavix] 75 mg PO DAILY 10/05/16 [History] Isosorbide Mononitrate [Imdur] 30 mg PO DAILY 01/02/17 [History] Furosemide [Lasix] 80 mg PO DAILY 06/04/17 [History] Magnesium Oxide [Magnesium] 400 mg PO BID 06/04/17 [History] Nitroglycerin [Nitrostat] 0.4 mg PO ASDIRECTED PRN 06/04/17 [History] Venlafaxine [Effexor XR] 75 mg PO DAILY 06/04/17 [History] Acetaminophen [Tylenol] 650 mg PO Q4H PRN tablet 06/29/17 [Rx] Metoprolol Succinate [Toprol XL] 25 mg PO DAILY tab.er 06/29/17 [Rx] amLODIPine Besylate [Amlodipine Besylate] 10 mg PO DAILY 07/08/17 [History] Past Medical History HEENT History: Reports: Cataract, Hard of Hearing, Impaired Vision Cardiovascular History: Reports: Angina, CAD, Heart Failure, High Cholesterol, Hypertension, SOB on Exertion, Stents Other Cardiovascular History: stress test indicated stent placement Respiratory History: Reports: COPD, SOB Gastrointestinal History: Reports: Colon Polyp, GERD Genitourinary History: Reports: BPH, Prostate Disorder, Renal Calculus Other Genitourinary History: 6 times Musculoskeletal History: Reports: Arthritis Neurological History: Reports: TIA Psychiatric History: Reports: Depression Endocrine/Metabolic History: Reports: Other (See Below) Other Endocrine/Metabolic History: prediabetic Hematologic History: Reports: Anticoagulation Therapy - Infectious Disease History Infectious Disease History: Reports: Chicken Pox, Measles, Mumps - Past Surgical History HEENT Surgical History: Reports: None Cardiovascular Surgical History: Reports: Coronary Artery Stent Other Cardiovascular Surgeries/Procedures: 2016 stent Respiratory Surgical History: Reports: None GI Surgical History: Reports: Colonoscopy, Polypectomy Male Surgical History: Reports: Kidney Stone Extraction Endocrine Surgical History: Reports: None Neurological Surgical History: Reports: None Musculoskeletal Surgical History: Reports: Other (See Below) Other Musculoskeletal Surgeries/Procedures:: left foot surgery Dermatological Surgical History: Reports: Skin Biopsy Social & Family History - Tobacco Use Smoking Status *Q: Former Smoker Years of Tobacco use: 30 Used Tobacco, but Quit: Yes Month Tobacco Last Used: 30 years ago Second Hand Smoke Exposure: No - Caffeine Use Caffeine Use: Reports: Coffee Caffeine Use Comment: rare coffee use - Alcohol Use Days Per Week of Alcohol Use: 7 Number of Drinks Per Day: 2 Total Drinks Per Week: 14 - Recreational Drug Use Recreational Drug Use: No ED ROS GENERAL - Review of Systems Review Of Systems: See Below Constitutional: Reports: No Symptoms HEENT: Reports: No Symptoms Respiratory: Reports: No Symptoms Cardiovascular: Reports: Chest Pain, Other (pt has had some syncope in the distant past. ) Endocrine: Reports: No Symptoms GI/Abdominal: Reports: No Symptoms : Reports: No Symptoms ED EXAM, GENERAL - Physical Exam Exam: See Below Free Text/Narrative:: pt arrived after having 2 episodes of sharp chest pain that last less than a minute. Exam Limited By: No Limitations General Appearance: Alert, No Apparent Distress, Anxious Ears: Normal TMs Nose: Normal Inspection Throat/Mouth: Normal Inspection Head: Atraumatic Neck: Normal Inspection Respiratory/Chest: No Respiratory Distress Cardiovascular: Regular Rate, Rhythm GI/Abdominal: Soft, Non-Tender (Male) Exam: Normal Inspection Rectal (Males) Exam: Deferred Back Exam: Normal Inspection Extremities: Normal Inspection, Other (no sig edema. ) Course - Vital Signs Last Recorded V/S: Last Vital Signs Temp 35.9 C 07/11/17 13:11 Pulse 62 07/11/17 13:11 Resp 20 07/11/17 13:11 BP 111/63 07/11/17 13:11 Pulse Ox 98 07/11/17 13:11 - Orders/Labs/Meds Labs: Laboratory Tests 07/11/17 07/11/17 07/11/17 Range/Units 13:32 13:32 13:32 WBC 9.4 (4.5-11.0) K/uL RBC 4.51 (4.30-5.90) M/uL Hgb 13.8 (12.0-15.0) g/dL Hct 41.3 (40.0-54.0) % MCV 92 (80-98) fL MCH 31 (27-31) pg MCHC 33 (32-36) % Plt Count 306 (150-400) K/uL Neut % (Auto) 65 (36-66) % Lymph % (Auto) 24 (24-44) % Garza % (Auto) 9 H (2-6) % Eos % (Auto) 2 (2-4) % Baso % (Auto) 0 (0-1) % Sodium 143 (140-148) mmol/L Potassium 4.4 (3.6-5.2) mmol/L Chloride 106 (100-108) mmol/L Carbon Dioxide 29 (21-32) mmol/L Anion Gap 7.6 (5.0-14.0) mmol/L BUN 23 H (7-18) mg/dL Creatinine 1.6 H (0.8-1.3) mg/dL Est Cr Clr Drug Dosing 35.03 mL/min Estimated GFR (MDRD) 42 L (>60) Glucose 146 H (74-106) mg/dL Calcium 8.6 (8.5-10.1) mg/dL Total Bilirubin 0.5 (0.2-1.0) mg/dL AST 15 (15-37) U/L ALT 16 (12-78) U/L Alkaline Phosphatase 67 (46-116) U/L Creatine Kinase 24 L (39-308) U/L Troponin I < 0.017 (0.000-0.056) ng/mL Total Protein 5.8 L (6.4-8.2) g/dL Albumin 3.3 L (3.4-5.0) g/dL Globulin 2.5 (2.3-3.5) g/dL Albumin/Globulin Ratio 1.3 (1.2-2.2) Urine Color Urine Appearance Urine pH (4.5-8.0) Ur Specific [place] (1.008-1.030) Urine Protein (NEGATIVE) mg/dL Urine Glucose (UA) (NEGATIVE) mg/dL Urine Ketones (NEGATIVE) mg/dL Urine Occult Blood (NEGATIVE) Urine Nitrite (NEGAITVE) Urine Bilirubin (NEGATIVE) Urine Urobilinogen (NORMAL) mg/dL Ur Leukocyte Esterase (NEGATIVE) Urine RBC (0-5) Urine WBC (0-5) Ur Epithelial Cells Amorphous Sediment Urine Bacteria Urine Mucus Urine Other 07/11/17 Range/Units 14:32 WBC (4.5-11.0) K/uL RBC (4.30-5.90) M/uL Hgb (12.0-15.0) g/dL Hct (40.0-54.0) % MCV (80-98) fL MCH (27-31) pg MCHC (32-36) % Plt Count (150-400) K/uL Neut % (Auto) (36-66) % Lymph % (Auto) (24-44) % Garza % (Auto) (2-6) % Eos % (Auto) (2-4) % Baso % (Auto) (0-1) % Sodium (140-148) mmol/L Potassium (3.6-5.2) mmol/L Chloride (100-108) mmol/L Carbon Dioxide (21-32) mmol/L Anion Gap (5.0-14.0) mmol/L BUN (7-18) mg/dL Creatinine (0.8-1.3) mg/dL Est Cr Clr Drug Dosing mL/min Estimated GFR (MDRD) (>60) Glucose (74-106) mg/dL Calcium (8.5-10.1) mg/dL Total Bilirubin (0.2-1.0) mg/dL AST (15-37) U/L ALT (12-78) U/L Alkaline Phosphatase (46-116) U/L Creatine Kinase (39-308) U/L Troponin I (0.000-0.056) ng/mL Total Protein (6.4-8.2) g/dL Albumin (3.4-5.0) g/dL Globulin (2.3-3.5) g/dL Albumin/Globulin Ratio (1.2-2.2) Urine Color Yellow Urine Appearance Clear Urine pH 6.5 (4.5-8.0) Ur Specific [place] 1.010 (1.008-1.030) Urine Protein Negative (NEGATIVE) mg/dL Urine Glucose (UA) Normal (NEGATIVE) mg/dL Urine Ketones Negative (NEGATIVE) mg/dL Urine Occult Blood Negative (NEGATIVE) Urine Nitrite Negative (NEGAITVE) Urine Bilirubin Negative (NEGATIVE) Urine Urobilinogen Normal (NORMAL) mg/dL Ur Leukocyte Esterase Small (NEGATIVE) Urine RBC 0-5 (0-5) Urine WBC 0-5 (0-5) Ur Epithelial Cells Rare Amorphous Sediment Few Urine Bacteria Not seen Urine Mucus Few Urine Other See note Meds: Medications Discontinued Medications Generic Name Dose Route Start Last Admin Trade Name Freq PRN Reason Stop Dose Admin Aspirin 324 mg 07/11/17 13:20 07/11/17 13:24 Aspirin PO 07/11/17 13:21 324 mg ONETIME ONE Administration - Re-Assessments/Exams Free Text/Narrative Re-Assessment/Exam: 07/11/17 15:03 resp therapy did come up and did get a new battery for his monitor he is wearing. 07/11/17 15:04 lab work was normal except the borderline renal funtion He does have sig tenderness in the chest wall. He is struggling when he gets up and down so the muscles may be strained. We did talk about a lift chair as a possibility. He will continue to wear the monitor. 07/12/17 07:35 Departure - Departure Time of Disposition: 15:05 Disposition: Home, Self-Care 01 Condition: Fair Clinical Impression: Atypical chest pain, History of syncope Instructions: Nonspecific Chest Pain, [id number], Syncope, [id number] Referrals: Low Jarquin MD [Primary Care Provider] - Forms: ED Department Discharge Care Plan Goals: cont monitor rtc if further sig chest pain. keep working on getting the appt with Dr Meeks in [place].
== END 2017-07-11 15:14 | disposition home or self-care (01) ==
LOC: JP.ED 13:01
DX: R07.89 Other chest pain (principal); R55 Syncope and collapse; Z91.041 Radiographic dye allergy status; Z79.82 Long term (current) use of aspirin; Z79.899 Other long term (current) drug therapy; I11.0 Hypertensive heart disease with heart failure; I50.9 Heart failure, unspecified; I25.10 Atherosclerotic heart disease of native coronary artery without angina pectoris; Z87.891 Personal history of nicotine dependence; Z95.5 Presence of coronary angioplasty implant and graft
CPT/HCPCS: 36415; 80053; 81001; 82550; 84484; 85025; 99285; A9270; 99284

== ENCOUNTER 2017-07-13 11:54 | Emergency (ER) | payer MEDICARE, BC ==
[2017-07-13 12:39] VITALS: BP 135/75
--- NOTE | 2017-07-13 12:50 | EDM.PDOC ---
ED HPI GENERAL MEDICAL PROBLEM - General Chief Complaint: ENT Problem Stated Complaint: BLOODY NOSE Time Seen by Provider: 07/13/17 12:30 Source of Information: Reports: Patient History Limitations: Reports: No Limitations - History of Present Illness INITIAL COMMENTS - FREE TEXT/NARRATIVE: 81-year-old male with 2 episodes of epistaxis on the right side in the last 12 hours. He was having trouble getting it stopped this last episode, it was bleeding for almost one hour so he came in. There is no active bleeding at this time. Location: Reports: Other (Right nares) Associated Symptoms: Reports: No Other Symptoms - Related Data Allergies Allergy/AdvReac Type Severity Reaction Status Date / Time dye Allergy Hives Uncoded 07/13/17 12:44 Home Meds: Home Meds Aspirin [Alvin Chewable Aspirin] 81 mg PO DAILY 10/22/13 [History] Omeprazole [Prilosec] 20 mg PO DAILY 10/22/13 [History] Potassium Citrate 20 meq PO BID 10/22/13 [History] Pravastatin [Pravachol] 80 mg PO DAILY 10/22/13 [History] Clopidogrel [Plavix] 75 mg PO DAILY 10/05/16 [History] Isosorbide Mononitrate [Imdur] 30 mg PO DAILY 01/02/17 [History] Furosemide [Lasix] 80 mg PO DAILY 06/04/17 [History] Magnesium Oxide [Magnesium] 400 mg PO BID 06/04/17 [History] Nitroglycerin [Nitrostat] 0.4 mg PO ASDIRECTED PRN 06/04/17 [History] Venlafaxine [Effexor XR] 75 mg PO DAILY 06/04/17 [History] Acetaminophen [Tylenol] 650 mg PO Q4H PRN tablet 06/29/17 [Rx] Metoprolol Succinate [Toprol XL] 25 mg PO DAILY tab.er 06/29/17 [Rx] amLODIPine Besylate [Amlodipine Besylate] 10 mg PO DAILY 07/08/17 [History] Past Medical History HEENT History: Reports: Cataract, Hard of Hearing, Impaired Vision Cardiovascular History: Reports: Angina, CAD, Heart Failure, High Cholesterol, Hypertension, SOB on Exertion, Stents Other Cardiovascular History: stress test indicated stent placement Respiratory History: Reports: COPD, SOB Gastrointestinal History: Reports: Colon Polyp, GERD Genitourinary History: Reports: BPH, Prostate Disorder, Renal Calculus Other Genitourinary History: 6 times Musculoskeletal History: Reports: Arthritis Neurological History: Reports: TIA Psychiatric History: Reports: Depression Endocrine/Metabolic History: Reports: Other (See Below) Other Endocrine/Metabolic History: prediabetic Hematologic History: Reports: Anticoagulation Therapy - Infectious Disease History Infectious Disease History: Reports: Chicken Pox, Measles, Mumps - Past Surgical History HEENT Surgical History: Reports: None Cardiovascular Surgical History: Reports: Coronary Artery Stent Other Cardiovascular Surgeries/Procedures: 2016 stent Respiratory Surgical History: Reports: None GI Surgical History: Reports: Colonoscopy, Polypectomy Male Surgical History: Reports: Kidney Stone Extraction Endocrine Surgical History: Reports: None Neurological Surgical History: Reports: None Musculoskeletal Surgical History: Reports: Other (See Below) Other Musculoskeletal Surgeries/Procedures:: left foot surgery Dermatological Surgical History: Reports: Skin Biopsy Social & Family History - Tobacco Use Smoking Status *Q: Former Smoker Years of Tobacco use: 30 Used Tobacco, but Quit: Yes Month Tobacco Last Used: 30 years ago Second Hand Smoke Exposure: No - Caffeine Use Caffeine Use: Reports: Coffee Caffeine Use Comment: rare coffee use - Alcohol Use Days Per Week of Alcohol Use: 7 Number of Drinks Per Day: 2 Total Drinks Per Week: 14 - Recreational Drug Use Recreational Drug Use: No ED ROS ENT - Review of Systems Review Of Systems: See Below Constitutional: Denies: Fever HEENT: Denies: Rhinitis Respiratory: Denies: Shortness of Breath, Cough Cardiovascular: Denies: Chest Pain GI/Abdominal: Denies: Nausea, Vomiting Skin: Reports: No Symptoms Neurological: Denies: Headache ED EXAM, ENT - Physical Exam Exam: See Below Exam Limited By: No Limitations General Appearance: Alert, No Apparent Distress Nose: Other (Some dried blood in the nares but no active bleeding) Respiratory/Chest: No Respiratory Distress Course - Vital Signs Last Recorded V/S: Last Vital Signs Temp 97.5 F 07/13/17 12:37 Pulse 56 L 07/13/17 12:37 Resp 18 07/13/17 12:37 BP 135/75 07/13/17 12:37 Pulse Ox 96 07/13/17 12:37 - Re-Assessments/Exams Free Text/Narrative Re-Assessment/Exam: 07/13/17 12:48 Patient elected to just conservatively watch for any recurring bleeding, and was given an external nasal pincer for pressure. We will place a rapid Rhino if he has to return if bleeding recurs. Departure - Departure Time of Disposition: 12:57 Disposition: Home, Self-Care 01 Condition: Good Clinical Impression: Epistaxis - Discharge Information Instructions: Nosebleed, [id number] Referrals: Low Jarquin MD [Primary Care Provider] - Forms: ED Department Discharge Care Plan Goals: If bleeding recurs try external pressure, and return to ER if you cannot get bleeding controlled.
== END 2017-07-13 13:06 | disposition home or self-care (01) ==
LOC: JP.ED 11:54
DX: R04.0 Epistaxis (principal); I11.0 Hypertensive heart disease with heart failure; I50.9 Heart failure, unspecified; K21.9 Gastro-esophageal reflux disease without esophagitis; Z91.041 Radiographic dye allergy status; Z79.82 Long term (current) use of aspirin; Z79.899 Other long term (current) drug therapy; Z87.891 Personal history of nicotine dependence
CPT/HCPCS: 99283

== ENCOUNTER 2017-08-06 06:01 | Emergency (ER) | payer MEDICARE, BC ==
[2017-08-06] MEDS ORDERED: Sodium Chloride 0.9% 10 ML Syringe FLUSH PRN (06:13)
[2017-08-06] MEDS ORDERED: Aspirin 81 MG Tab.Chew PO ONE (06:13)
[2017-08-06] MEDS ORDERED: Nitroglycerin/D5W 25 MG/250 ML BOTTLE IV SCH (06:15)
--- NOTE | 2017-08-06 06:18 | EDM.PDOC ---
ED HPI GENERAL MEDICAL PROBLEM - General Chief Complaint: Chest Pain Stated Complaint: JAW/CHEST PAIN Time Seen by Provider: 08/06/17 06:12 Source of Information: Reports: Patient, Family, RN Notes Reviewed History Limitations: Reports: No Limitations - History of Present Illness INITIAL COMMENTS - FREE TEXT/NARRATIVE: 81-year-old gentleman presents to the emergency department today with complaint of chest pain, he states his had chest pain for the last 3 hours rates it 5 out of 10 it does radiate up into his jaw he feels short of breath no nausea no diaphoresis does have a history of coronary artery disease with stenting last 3 years ago Chest Pain Score (Numeric/FACES): 2 - Related Data Allergies Allergy/AdvReac Type Severity Reaction Status Date / Time dye Allergy Hives Uncoded 08/06/17 06:19 Home Meds: Home Meds Aspirin [Alvin Chewable Aspirin] 81 mg PO DAILY 10/22/13 [History] Omeprazole [Prilosec] 20 mg PO DAILY 10/22/13 [History] Potassium Citrate 20 meq PO BID 10/22/13 [History] Pravastatin [Pravachol] 80 mg PO DAILY 10/22/13 [History] Clopidogrel [Plavix] 75 mg PO DAILY 10/05/16 [History] Furosemide [Lasix] 80 mg PO DAILY 06/04/17 [History] Magnesium Oxide [Magnesium] 400 mg PO BID 06/04/17 [History] Nitroglycerin [Nitrostat] 0.4 mg PO ASDIRECTED PRN 06/04/17 [History] Venlafaxine [Effexor XR] 75 mg PO DAILY 06/04/17 [History] Acetaminophen [Tylenol] 650 mg PO Q4H PRN tablet 06/29/17 [Rx] Metoprolol Succinate [Toprol XL] 25 mg PO BID 08/06/17 [History] Past Medical History HEENT History: Reports: Cataract, Hard of Hearing, Impaired Vision Cardiovascular History: Reports: Angina, CAD, Heart Failure, High Cholesterol, Hypertension, SOB on Exertion, Stents Other Cardiovascular History: stress test indicated stent placement Respiratory History: Reports: COPD, SOB Gastrointestinal History: Reports: Colon Polyp, GERD Genitourinary History: Reports: BPH, Prostate Disorder, Renal Calculus Other Genitourinary History: 6 times Musculoskeletal History: Reports: Arthritis Neurological History: Reports: TIA Psychiatric History: Reports: Depression Endocrine/Metabolic History: Reports: Other (See Below) Other Endocrine/Metabolic History: prediabetic Hematologic History: Reports: Anticoagulation Therapy - Infectious Disease History Infectious Disease History: Reports: Chicken Pox, Measles, Mumps - Past Surgical History HEENT Surgical History: Reports: None Cardiovascular Surgical History: Reports: Coronary Artery Stent Other Cardiovascular Surgeries/Procedures: 2016 stent Respiratory Surgical History: Reports: None GI Surgical History: Reports: Colonoscopy, Polypectomy Male Surgical History: Reports: Kidney Stone Extraction Endocrine Surgical History: Reports: None Neurological Surgical History: Reports: None Musculoskeletal Surgical History: Reports: Other (See Below) Other Musculoskeletal Surgeries/Procedures:: left foot surgery Dermatological Surgical History: Reports: Skin Biopsy Social & Family History - Tobacco Use Smoking Status *Q: Former Smoker Years of Tobacco use: 30 Used Tobacco, but Quit: Yes Month Tobacco Last Used: 30 years ago Second Hand Smoke Exposure: No - Caffeine Use Caffeine Use: Reports: Coffee Caffeine Use Comment: rare coffee use - Alcohol Use Days Per Week of Alcohol Use: 7 Number of Drinks Per Day: 2 Total Drinks Per Week: 14 - Recreational Drug Use Recreational Drug Use: No ED ROS GENERAL - Review of Systems Review Of Systems: See Below Constitutional: Reports: No Symptoms HEENT: Reports: No Symptoms Respiratory: Reports: Shortness of Breath Cardiovascular: Reports: Chest Pain GI/Abdominal: Reports: No Symptoms : Reports: No Symptoms Musculoskeletal: Reports: No Symptoms Skin: Reports: No Symptoms Neurological: Reports: No Symptoms ED EXAM, GENERAL - Physical Exam Exam: See Below Exam Limited By: No Limitations General Appearance: Alert, WD/WN, No Apparent Distress Neck: Normal Inspection, Supple, Non-Tender, Full Range of Motion Respiratory/Chest: No Respiratory Distress, Lungs Clear, Normal Breath Sounds, No Accessory Muscle Use Cardiovascular: Regular Rate, Rhythm, No Murmur GI/Abdominal: Soft, Non-Tender Extremities: Normal Inspection, Non-Tender, No Pedal Edema Course - Vital Signs Last Recorded V/S: Last Vital Signs Temp 97.6 F 08/06/17 06:05 Pulse 96 08/06/17 06:05 Resp 18 08/06/17 06:05 BP 153/79 H 08/06/17 06:46 Pulse Ox 96 08/06/17 06:05 - Orders/Labs/Meds Orders: Active Orders 24 hr Category Date Time Status Cardiac Monitoring [RC] .As Directed Care 08/06/17 06:13 Active EKG Documentation Completion [RC] ASDIRECTED Care 08/06/17 06:15 Active Peripheral IV Care [RC] . DIRECTED Care 08/06/17 06:14 Active Chest 1V Frontal [CR] Stat Exams 08/06/17 06:15 Taken Heparin Sodium/D5W [Heparin 25,000 Units in D5W 500 ML] Med 08/06/17 07:30 Ordered 25,000 units in 500 ml IV TITRATE Morphine Med 08/06/17 06:13 Active 4 mg IVPUSH Q10M PRN Nitroglycerin/D5W [Nitroglycerin 25 MG/D5W 250 ML] Med 08/06/17 06:15 Active 25 mg in 250 ml IV TITRATE Sodium Chloride 0.9% [Saline Flush] Med 08/06/17 06:13 Active 10 ml FLUSH ASDIRECTED PRN Peripheral IV Insertion Adult [OM.PC] Stat Oth 08/06/17 06:13 Ordered Saline Lock Insert [OM.PC] Stat Oth 08/06/17 06:13 Ordered EKG 12 Lead [EK] Stat Ther 08/06/17 06:14 Ordered Medication Orders Nitroglycerin/Dextrose (Nitroglycerin 25 Mg/D5w 250 Ml) 25 mg in 250 mls @ 6 mls/hr IV TITRATE RYDER; 10 MCG/MIN PRN Reason: Protocol Last Titration: 08/06/17 07:28 Dose: 15 mcg/min, 9 mls/hr Admin: 08/06/17 06:46 Dose: 10 mcg/min, 6 mls/hr Heparin Sodium/Dextrose (Heparin 25,000 Units In D5w 500 Ml) 25,000 units in 500 mls @ 19.595 mls/hr IV TITRATE RYDER; 12 UNITS/KG/HR PRN Reason: Protocol Morphine Sulfate (Morphine) 4 mg IVPUSH Q10M PRN PRN Reason: Chest Pain Stop: 08/07/17 06:14 Last Admin: 08/06/17 06:47 Dose: 4 mg Admin: 08/06/17 06:19 Dose: 4 mg Sodium Chloride (Saline Flush) 10 ml FLUSH ASDIRECTED PRN PRN Reason: Keep Vein Open Labs: Laboratory Tests 08/06/17 08/06/17 08/06/17 Range/Units 06:27 06:27 06:27 WBC 9.8 (4.5-11.0) K/uL RBC 4.56 (4.30-5.90) M/uL Hgb 14.2 (12.0-15.0) g/dL Hct 41.6 (40.0-54.0) % MCV 91 (80-98) fL MCH 31 (27-31) pg MCHC 34 (32-36) % Plt Count 262 (150-400) K/uL Neut % (Auto) 56 (36-66) % Lymph % (Auto) 29 (24-44) % [place] % (Auto) 13 H (2-6) % Eos % (Auto) 2 (2-4) % Baso % (Auto) 0 (0-1) % PT 10.5 (9.5-12.0) sec INR 0.98 (0.80-1.20) Sodium 145 (140-148) mmol/L Potassium 3.9 (3.6-5.2) mmol/L Chloride 106 (100-108) mmol/L Carbon Dioxide 30 (21-32) mmol/L Anion Gap 9.5 (5.0-14.0) mmol/L BUN 28 H (7-18) mg/dL Creatinine 1.6 H (0.8-1.3) mg/dL Est Cr Clr Drug Dosing 35.03 mL/min Estimated GFR (MDRD) 42 L (>60) Glucose 123 H (74-106) mg/dL Calcium 8.7 (8.5-10.1) mg/dL Total Bilirubin 0.4 (0.2-1.0) mg/dL AST 19 (15-37) U/L ALT 15 (12-78) U/L Alkaline Phosphatase 71 (46-116) U/L CK-MB (CK-2) 0.6 (0-3.6) mg/mL Troponin I < 0.017 (0.000-0.056) ng/mL NT-Pro-B Natriuret Pep 293 (5-450) pg/mL Total Protein 6.1 L (6.4-8.2) g/dL Albumin 3.3 L (3.4-5.0) g/dL Globulin 2.8 (2.3-3.5) g/dL Albumin/Globulin Ratio 1.2 (1.2-2.2) Meds: Medications Generic Name Dose Route Start Last Admin Trade Name Freq PRN Reason Stop Dose Admin Nitroglycerin/Dextrose 25 mg in 250 mls @ 6 mls/hr 08/06/17 06:15 08/06/17 07 :28 Nitroglycerin 25 Mg/D5w 250 Ml IV 15 mcg/min TITRATE RYDER 9 mls/hr Protocol Titration 10 MCG/MIN Heparin Sodium/Dextrose 25,000 units in 500 mls @ 19.595 mls/hr 08/06/17 07: 30 Heparin 25,000 Units In D5w 500 Ml IV TITRATE RYDER Protocol 12 UNITS/KG/HR Morphine Sulfate 4 mg 08/06/17 06:13 08/06/17 06:47 Morphine IVPUSH 08/07/17 06:14 4 mg Q10M PRN Administration Chest Pain Sodium Chloride 10 ml 08/06/17 06:13 Saline Flush FLUSH ASDIRECTED PRN Keep Vein Open Discontinued Medications Generic Name Dose Route Start Last Admin Trade Name Freq PRN Reason Stop Dose Admin Aspirin 324 mg 08/06/17 06:13 08/06/17 06:19 Aspirin PO 08/06/17 06:14 324 mg ONETIME ONE Administration Heparin Sodium (Porcine) 4,000 units 08/06/17 07:29 Heparin Sodium IVPUSH 08/06/17 07:30 ONETIME ONE Departure - Departure Time of Disposition: 07:36 Disposition: DC/Tfer to Acute Hospital 02 Reason for Transfer *Q: Other Condition: Fair Clinical Impression: Chest pain Qualifiers: Chest pain type: unspecified Qualified Code(s): R07.9 - Chest pain, unspecified Referrals: Low Jarquin MD [Primary Care Provider] - Forms: ED Department Discharge - My Orders Last 24 Hours: My Active Orders 08/06/17 06:13 Cardiac Monitoring [RC] .As Directed Morphine 4 mg IVPUSH Q10M PRN Sodium Chloride 0.9% [Saline Flush] 10 ml FLUSH ASDIRECTED PRN Peripheral IV Insertion Adult [OM.PC] Stat Saline Lock Insert [OM.PC] Stat 08/06/17 06:14 Peripheral IV Care [RC] . DIRECTED EKG 12 Lead [EK] Stat 08/06/17 06:15 EKG Documentation Completion [RC] ASDIRECTED Chest 1V Frontal [CR] Stat Nitroglycerin/D5W [Nitroglycerin 25 MG/D5W 250 ML] 25 mg in 250 ml IV TITRATE 08/06/17 07:30 Heparin Sodium/D5W [Heparin 25,000 Units in D5W 500 ML] 25,000 units in 500 ml IV TITRATE - Assessment/Plan Last 24 Hours: My Active Orders 08/06/17 06:13 Cardiac Monitoring [RC] .As Directed Morphine 4 mg IVPUSH Q10M PRN Sodium Chloride 0.9% [Saline Flush] 10 ml FLUSH ASDIRECTED PRN Peripheral IV Insertion Adult [OM.PC] Stat Saline Lock Insert [OM.PC] Stat 08/06/17 06:14 Peripheral IV Care [RC] . DIRECTED EKG 12 Lead [EK] Stat 08/06/17 06:15 EKG Documentation Completion [RC] ASDIRECTED Chest 1V Frontal [CR] Stat Nitroglycerin/D5W [Nitroglycerin 25 MG/D5W 250 ML] 25 mg in 250 ml IV TITRATE 08/06/17 07:30 Heparin Sodium/D5W [Heparin 25,000 Units in D5W 500 ML] 25,000 units in 500 ml IV TITRATE Plan: Assessment Acuity = acute Site and laterality = chest pain complicated patient with known history of coronary artery disease and chronic obstructive pulmonary disease on Plavix with a heart score of 6 Etiology = concern for cardiac involvement Manifestations = none Location of injury = Home Lab values = creatinine elevated at 1.6 consistent with chronic renal failure stage G IIIB albumin low at 2.3 consistent with hypoalbuminemia, CBC unremarkable chest x-ray I did review films myself I cannot appreciate any acute process, the official read from radiology is pending, EKG demonstrates sinus rhythm there are Q waves in the inferior leads no ST elevations or depressions are appreciated when necessary umbrellas prolonged Plan Called discussed case with Dr. Bill hospitalist financial institution president at kindly accepted the patient in transport he continues to have chest pain despite the nitro drip and morphine will add heparin in route he did receive 4000 unit bolus of heparin while in the emergency department as well as appropriate aspirin dosage. This note was dictated using [email or web address] voice recognition software please call with any questions on syntax or laury.
[2017-08-06] MEDS: Morphine 4 MG/ML Syringe IVPUSH PRN ×3 (06:19→07:36)
[2017-08-06] MEDS ORDERED: Heparin Sodium 5,000 Units/ML Vial IVPUSH ONE (07:29)
[2017-08-06] MEDS ORDERED: Heparin Sodium/D5W 25,000 UNITS/500 ML BAG IV SCH (07:30)
[2017-08-06 07:47] VITALS: BP 123/81
--- NOTE | 2017-08-06 09:02 | CR ---
CHEST: AP portable CLINICAL HISTORY:Chest pain and syncope COMPARISON:2017 FINDINGS: The heart is mildly enlarged. There are atherosclerotic changes in the aorta. Lung buck are free of infiltrates. Pulmonary vascularity is normal . IMPRESSION: Mild cardiomegaly. No acute cardiopulmonary process or significant interval change
== END 2017-08-06 08:06 ==
LOC: JP.ED 06:01
DX: R07.9 Chest pain, unspecified (principal); I50.9 Heart failure, unspecified; I11.0 Hypertensive heart disease with heart failure; K21.9 Gastro-esophageal reflux disease without esophagitis; J44.9 Chronic obstructive pulmonary disease, unspecified; Z91.041 Radiographic dye allergy status; Z79.82 Long term (current) use of aspirin; Z79.899 Other long term (current) drug therapy; Z87.891 Personal history of nicotine dependence
CPT/HCPCS: 36415; 71045; 80053; 82553; 83880; 84484; 85025; 85610; 93005; 96374; 96375; 99285; A9270; J1644; J2270; 93010

== ENCOUNTER 2017-08-18 13:23 | Emergency (ER) | payer MEDICARE, BC ==
[2017-08-18] MEDS ORDERED: Acetaminophen 325 MG Tab PO ONE (14:40)
--- NOTE | 2017-08-18 14:45 | EDM.PDOC ---
ED HPI GENERAL MEDICAL PROBLEM - General Chief Complaint: Neurological Problem Stated Complaint: CONFUSED/HEACHACHE Time Seen by Provider: 08/18/17 14:31 Source of Information: Reports: Patient, Family, RN Notes Reviewed History Limitations: Reports: No Limitations - History of Present Illness INITIAL COMMENTS - FREE TEXT/NARRATIVE: 81-year-old gentleman presents to the emergency department today complaint of headache and confusion he states that really over the last 12 hours or so he is gotten more confused he knows ways that week recall details he just is having problems with the date and some orientation aspects. He also admits to problems with urination some of his medications have been changed so he has some decrease in flow and hesitancy. Denies any dysuria or frequency. No shortness of breath or chest pain, this is not the worst headache of his life, he is not taking any medications for it. - Related Data Allergies Allergy/AdvReac Type Severity Reaction Status Date / Time dye Allergy Hives Uncoded 08/18/17 14:25 Home Meds: Home Meds Aspirin [Alvin Chewable Aspirin] 81 mg PO DAILY 10/22/13 [History] Omeprazole [Prilosec] 20 mg PO DAILY 10/22/13 [History] Potassium Citrate 20 meq PO BID 10/22/13 [History] Pravastatin [Pravachol] 80 mg PO DAILY 10/22/13 [History] Clopidogrel [Plavix] 75 mg PO DAILY 10/05/16 [History] Furosemide [Lasix] 80 mg PO DAILY 06/04/17 [History] Magnesium Oxide [Magnesium] 400 mg PO BID 06/04/17 [History] Nitroglycerin [Nitrostat] 0.4 mg PO ASDIRECTED PRN 06/04/17 [History] Venlafaxine [Effexor XR] 75 mg PO DAILY 06/04/17 [History] Acetaminophen [Tylenol] 650 mg PO Q4H PRN tablet 06/29/17 [Rx] Metoprolol Succinate [Toprol XL] 25 mg PO BID 08/06/17 [History] Past Medical History HEENT History: Reports: Cataract, Hard of Hearing, Impaired Vision Cardiovascular History: Reports: Angina, CAD, Heart Failure, High Cholesterol, Hypertension, SOB on Exertion, Stents Other Cardiovascular History: stress test indicated stent placement Respiratory History: Reports: COPD, SOB Gastrointestinal History: Reports: Colon Polyp, GERD Genitourinary History: Reports: BPH, Prostate Disorder, Renal Calculus Other Genitourinary History: 6 times Musculoskeletal History: Reports: Arthritis Neurological History: Reports: TIA Psychiatric History: Reports: Depression Endocrine/Metabolic History: Reports: Other (See Below) Other Endocrine/Metabolic History: prediabetic Hematologic History: Reports: Anticoagulation Therapy - Infectious Disease History Infectious Disease History: Reports: Chicken Pox, Measles, Mumps - Past Surgical History Cardiovascular Surgical History: Reports: Coronary Artery Stent Other Cardiovascular Surgeries/Procedures: 2016 stent GI Surgical History: Reports: Colonoscopy, Polypectomy Male Surgical History: Reports: Kidney Stone Extraction Musculoskeletal Surgical History: Reports: Other (See Below) Other Musculoskeletal Surgeries/Procedures:: left foot surgery Dermatological Surgical History: Reports: Skin Biopsy Social & Family History - Tobacco Use Smoking Status *Q: Never Smoker Years of Tobacco use: 30 Used Tobacco, but Quit: Yes Month/Year Tobacco Last Used: 30 years ago Second Hand Smoke Exposure: No - Caffeine Use Caffeine Use: Reports: Coffee Caffeine Use Comment: rare coffee use - Alcohol Use Days Per Week of Alcohol Use: 7 Number of Drinks Per Day: 2 Total Drinks Per Week: 14 - Recreational Drug Use Recreational Drug Use: No ED ROS GENERAL - Review of Systems Review Of Systems: See Below Constitutional: Reports: Weakness, Other (Confusion). Denies: Fever, Chills HEENT: Reports: No Symptoms Respiratory: Reports: No Symptoms Cardiovascular: Reports: No Symptoms GI/Abdominal: Reports: No Symptoms : Reports: Urinary Retention Musculoskeletal: Reports: No Symptoms Skin: Reports: No Symptoms Neurological: Reports: No Symptoms ED EXAM, GENERAL - Physical Exam Exam: See Below Free Text/Narrative:: General: Male, not in any distress, alert and oriented x3 HEENT: head is atraumatic normocephalic, eyes pupils equal round reactive to light, sclera clear no conjunctivitis appreciated, extraocular eye movements intact. Ears hearing aids in place bilaterally. Nose no septal deviation, nares are clear, no blood present. Mouth mucosa is moist and pink no erythema or exudate noted in soft palate, tongue is midline uvula is midline, dentition is intact. Neck: Supple no thyromegaly no tracheal deviation. Nodes: Cervical nodes subclavicular nodes nontender no palpable lymphadenopathy noted. Lungs: clear to auscultation bilaterally with symmetrical respirations, no adventitious noise appreciated. CV: Regular rate and rhythm S1 and S2 appreciated no murmurs rubs or gallops noted. Abdomen: Soft, nontender, no palpable masses or organomegaly appreciated, no distention no guarding bowel sounds are present, . Neuro: Cranial nerves II through XII grossly intact Skin: Warm and dry, intact Extremities: No lower extremity edema appreciated, Course - Vital Signs Last Recorded V/S: Last Vital Signs Temp 94.8 F L 08/18/17 15:36 Pulse 67 08/18/17 15:36 Resp 18 08/18/17 15:36 BP 145/76 H 08/18/17 15:36 Pulse Ox 96 08/18/17 15:36 - Orders/Labs/Meds Labs: Laboratory Tests 08/18/17 08/18/17 08/18/17 Range/Units 14:47 14:47 14:47 WBC 9.1 (4.5-11.0) K/uL RBC 4.30 (4.30-5.90) M/uL Hgb 13.2 (12.0-15.0) g/dL Hct 39.6 L (40.0-54.0) % MCV 92 (80-98) fL MCH 31 (27-31) pg MCHC 33 (32-36) % Plt Count 330 (150-400) K/uL Neut % (Auto) 66 (36-66) % Lymph % (Auto) 22 L (24-44) % [place] % (Auto) 10 H (2-6) % Eos % (Auto) 1 L (2-4) % Baso % (Auto) 0 (0-1) % Sodium 141 (140-148) mmol/L Potassium 4.3 (3.6-5.2) mmol/L Chloride 104 (100-108) mmol/L Carbon Dioxide 28 (21-32) mmol/L Anion Gap 8.6 (5.0-14.0) mmol/L BUN 27 H (7-18) mg/dL Creatinine 1.7 H (0.8-1.3) mg/dL Est Cr Clr Drug Dosing 32.97 mL/min Estimated GFR (MDRD) 39 L (>60) Glucose 97 (74-106) mg/dL Lactic Acid 1.5 (0.4-2.0) mmol/L Calcium 8.6 (8.5-10.1) mg/dL Total Bilirubin 0.6 (0.2-1.0) mg/dL AST 16 (15-37) U/L ALT 18 (12-78) U/L Alkaline Phosphatase 67 (46-116) U/L Troponin I < 0.017 (0.000-0.056) ng/mL C-Reactive Protein (0.0-0.3) mg/dL Total Protein 6.0 L (6.4-8.2) g/dL Albumin 2.7 L (3.4-5.0) g/dL Globulin 3.3 (2.3-3.5) g/dL Albumin/Globulin Ratio 0.8 L (1.2-2.2) Urine Color Urine Appearance Urine pH (4.5-8.0) Ur Specific [place] (1.008-1.030) Urine Protein (NEGATIVE) mg/dL Urine Glucose (UA) (NEGATIVE) mg/dL Urine Ketones (NEGATIVE) mg/dL Urine Occult Blood (NEGATIVE) Urine Nitrite (NEGAITVE) Urine Bilirubin (NEGATIVE) Urine Urobilinogen (NORMAL) mg/dL Ur Leukocyte Esterase (NEGATIVE) Urine RBC (0-5) Urine WBC (0-5) Ur Epithelial Cells Amorphous Sediment Urine Bacteria Urine Mucus 08/18/17 08/18/17 Range/Units 14:47 15:36 WBC (4.5-11.0) K/uL RBC (4.30-5.90) M/uL Hgb (12.0-15.0) g/dL Hct (40.0-54.0) % MCV (80-98) fL MCH (27-31) pg MCHC (32-36) % Plt Count (150-400) K/uL Neut % (Auto) (36-66) % Lymph % (Auto) (24-44) % [place] % (Auto) (2-6) % Eos % (Auto) (2-4) % Baso % (Auto) (0-1) % Sodium (140-148) mmol/L Potassium (3.6-5.2) mmol/L Chloride (100-108) mmol/L Carbon Dioxide (21-32) mmol/L Anion Gap (5.0-14.0) mmol/L BUN (7-18) mg/dL Creatinine (0.8-1.3) mg/dL Est Cr Clr Drug Dosing mL/min Estimated GFR (MDRD) (>60) Glucose (74-106) mg/dL Lactic Acid (0.4-2.0) mmol/L Calcium (8.5-10.1) mg/dL Total Bilirubin (0.2-1.0) mg/dL AST (15-37) U/L ALT (12-78) U/L Alkaline Phosphatase (46-116) U/L Troponin I (0.000-0.056) ng/mL C-Reactive Protein 0.17 (0.0-0.3) mg/dL Total Protein (6.4-8.2) g/dL Albumin (3.4-5.0) g/dL Globulin (2.3-3.5) g/dL Albumin/Globulin Ratio (1.2-2.2) Urine Color Yellow Urine Appearance Slightly cloudy Urine pH 7.0 (4.5-8.0) Ur Specific [place] 1.005 L (1.008-1.030) Urine Protein Negative (NEGATIVE) mg/dL Urine Glucose (UA) Normal (NEGATIVE) mg/dL Urine Ketones Negative (NEGATIVE) mg/dL Urine Occult Blood Negative (NEGATIVE) Urine Nitrite Negative (NEGAITVE) Urine Bilirubin Negative (NEGATIVE) Urine Urobilinogen Normal (NORMAL) mg/dL Ur Leukocyte Esterase Small (NEGATIVE) Urine RBC Not seen (0-5) Urine WBC 0-5 (0-5) Ur Epithelial Cells Rare Amorphous Sediment Not seen Urine Bacteria Rare Urine Mucus Not seen Meds: Medications Discontinued Medications Generic Name Dose Route Start Last Admin Trade Name Vj PRN Reason Stop Dose Admin Acetaminophen 650 mg 08/18/17 14:40 08/18/17 15:21 Tylenol PO 08/18/17 14:41 650 mg NOW ONE Administration Departure - Departure Time of Disposition: 16:25 Disposition: Home, Self-Care 01 Condition: Good Clinical Impression: Confusion - Discharge Information Referrals: Low Jarquin MD [Primary Care Provider] - Forms: ED Department Discharge Additional Instructions: Continue your regular medications, keep your follow-up appointment with your primary care tomorrow - Assessment/Plan Plan: Assessment Acuity = acute Site and laterality = confusion headache now resolved Etiology = unclear etiology Manifestations = none Location of injury = Home Lab values = CBC unremarkable, creatinine elevated 1.7 consistent chronic renal failure stage G IIIB, troponin negative, lactic acid normal 1.5 CRP normal at 0.17 albumin low at 2.7 consistent hypoalbuminemia, urinalysis unremarkable Plan He was provided 650 mg Tylenol 1 had good resolution of his headache no symptoms of confusion at this time he does have follow-up appointment with his primary care tomorrow This note was dictated using [employer] voice recognition software please call with any questions on syntax or laury.
[2017-08-18 15:36] VITALS: BP 145/76
== END 2017-08-18 16:35 | disposition home or self-care (01) ==
LOC: JP.ED 13:23
DX: R41.0 Disorientation, unspecified (principal); R51 Headache; Z87.891 Personal history of nicotine dependence; I11.0 Hypertensive heart disease with heart failure; I50.9 Heart failure, unspecified; J44.9 Chronic obstructive pulmonary disease, unspecified; I25.10 Atherosclerotic heart disease of native coronary artery without angina pectoris; Z79.899 Other long term (current) drug therapy; Z79.01 Long term (current) use of anticoagulants; Z79.82 Long term (current) use of aspirin
CPT/HCPCS: 36415; 80053; 81001; 83605; 84484; 85025; 86140; 99284; A9270; 99282

== ENCOUNTER 2017-09-09 10:04 | Emergency (ER) | payer MEDICARE, BC ==
--- NOTE | 2017-09-09 10:43 | EDM.PDOC ---
ED HPI GENERAL MEDICAL PROBLEM - General Chief Complaint: Chest Pain Stated Complaint: CHEST PAIN Time Seen by Provider: 09/09/17 10:43 Source of Information: Reports: Patient History Limitations: Reports: No Limitations - History of Present Illness INITIAL COMMENTS - FREE TEXT/NARRATIVE: yesterday pt had blurred vision for about 1 hr. During the nite he had some chest pain which lasted a few seconds and this am he had a similar episode. He is painfree at this time. He is not sweaty. He does not have a headache. He was supposed to be in cardiac rehap. He has recently had a coronary stent placed. Onset: Today, Other ( Pt had a very brief episode last nite. ) Duration: Minutes: Location: Reports: Chest, Other (pt also had blurred vision) Associated Symptoms: Reports: Chest Pain, Other ( blurred vision. ) - Related Data Allergies Allergy/AdvReac Type Severity Reaction Status Date / Time Iodinated Contrast- Oral and Allergy Hives Verified 09/09/17 10:48 IV Dye Home Meds: Home Meds Aspirin [Alvin Chewable Aspirin] 81 mg PO DAILY 10/22/13 [History] Omeprazole [Prilosec] 20 mg PO DAILY 10/22/13 [History] Potassium Citrate 20 meq PO BID 10/22/13 [History] Pravastatin [Pravachol] 80 mg PO DAILY 10/22/13 [History] Clopidogrel [Plavix] 75 mg PO DAILY 10/05/16 [History] Furosemide [Lasix] 80 mg PO DAILY 06/04/17 [History] Magnesium Oxide [Magnesium] 400 mg PO BID 06/04/17 [History] Nitroglycerin [Nitrostat] 0.4 mg PO ASDIRECTED PRN 06/04/17 [History] Venlafaxine [Effexor XR] 75 mg PO DAILY 06/04/17 [History] Acetaminophen [Tylenol] 650 mg PO Q4H PRN tablet 06/29/17 [Rx] Metoprolol Succinate [Toprol XL] 25 mg PO BID 08/06/17 [History] Past Medical History HEENT History: Reports: Cataract, Hard of Hearing, Impaired Vision Cardiovascular History: Reports: Angina, CAD, Heart Failure, High Cholesterol, Hypertension, SOB on Exertion, Stents Other Cardiovascular History: stress test indicated stent placement Respiratory History: Reports: COPD, SOB Gastrointestinal History: Reports: Colon Polyp, GERD Genitourinary History: Reports: BPH, Prostate Disorder, Renal Calculus Other Genitourinary History: 6 times Musculoskeletal History: Reports: Arthritis Neurological History: Reports: TIA Psychiatric History: Reports: Depression Endocrine/Metabolic History: Reports: Other (See Below) Other Endocrine/Metabolic History: prediabetic Hematologic History: Reports: Anticoagulation Therapy - Infectious Disease History Infectious Disease History: Reports: Chicken Pox, Measles, Mumps - Past Surgical History Cardiovascular Surgical History: Reports: Coronary Artery Stent Other Cardiovascular Surgeries/Procedures: 2016 stent GI Surgical History: Reports: Colonoscopy, Polypectomy Male Surgical History: Reports: Kidney Stone Extraction Musculoskeletal Surgical History: Reports: Other (See Below) Other Musculoskeletal Surgeries/Procedures:: left foot surgery Dermatological Surgical History: Reports: Skin Biopsy Social & Family History - Tobacco Use Smoking Status *Q: Never Smoker Years of Tobacco use: 30 Used Tobacco, but Quit: Yes Month/Year Tobacco Last Used: 30 years ago Second Hand Smoke Exposure: No - Caffeine Use Caffeine Use: Reports: Coffee Caffeine Use Comment: rare coffee use - Alcohol Use Days Per Week of Alcohol Use: 7 Number of Drinks Per Day: 1 Total Drinks Per Week: 7 - Recreational Drug Use Recreational Drug Use: No ED ROS GENERAL - Review of Systems Review Of Systems: See Below Constitutional: Reports: No Symptoms HEENT: Reports: Vision Change Respiratory: Reports: No Symptoms Cardiovascular: Reports: No Symptoms Endocrine: Reports: No Symptoms GI/Abdominal: Reports: No Symptoms : Reports: No Symptoms Musculoskeletal: Reports: No Symptoms Skin: Reports: No Symptoms ED EXAM, GENERAL - Physical Exam Exam: See Below Free Text/Narrative:: pt had blurred vision yesterday. He had a very brief episode of chest pain. The pain was during the nite and a few seconds this am. l Exam Limited By: No Limitations General Appearance: Alert, No Apparent Distress, Anxious Ears: Normal TMs Nose: Normal Inspection Throat/Mouth: Normal Inspection Head: Atraumatic Neck: Normal Inspection Respiratory/Chest: No Respiratory Distress Cardiovascular: Regular Rate, Rhythm, Other (pt is painfree at this time. ) GI/Abdominal: Soft, Non-Tender (Male) Exam: Deferred Rectal (Males) Exam: Deferred Back Exam: Normal Inspection Extremities: Normal Inspection Neurological: Alert, Oriented, Normal Cognition Psychiatric: Normal Affect Course - Vital Signs Last Recorded V/S: Last Vital Signs Temp 36.1 C 04/11/18 10:28 Pulse 59 L 09/09/17 10:28 Resp 15 09/09/17 11:30 BP 137/74 09/09/17 11:30 Pulse Ox 95 09/09/17 11:30 - Orders/Labs/Meds Orders: Active Orders 24 hr Category Date Time Status EKG Documentation Completion [RC] ASDIRECTED Care 09/09/17 10:43 Active EKG 12 Lead [EK] Routine Ther 09/09/17 10:43 Ordered Labs: Laboratory Tests 09/09/17 09/09/17 09/09/17 Range/Units 10:50 10:50 10:50 WBC 8.8 (4.5-11.0) K/uL RBC 4.65 (4.30-5.90) M/uL Hgb 14.0 (12.0-15.0) g/dL Hct 42.6 (40.0-54.0) % MCV 92 (80-98) fL MCH 30 (27-31) pg MCHC 33 (32-36) % Plt Count 287 (150-400) K/uL Neut % (Auto) 65 (36-66) % Lymph % (Auto) 23 L (24-44) % [place] % (Auto) 11 H (2-6) % Eos % (Auto) 1 L (2-4) % Baso % (Auto) 0 (0-1) % Sodium 144 (140-148) mmol/L Potassium 4.5 (3.6-5.2) mmol/L Chloride 106 (100-108) mmol/L Carbon Dioxide 31 (21-32) mmol/L Anion Gap 6.8 (5.0-14.0) mmol/L BUN 22 H (7-18) mg/dL Creatinine 1.6 H (0.8-1.3) mg/dL Est Cr Clr Drug Dosing 35.03 mL/min Estimated GFR (MDRD) 42 L (>60) Glucose 99 (74-106) mg/dL Calcium 8.7 (8.5-10.1) mg/dL Total Bilirubin 0.4 (0.2-1.0) mg/dL AST 16 (15-37) U/L ALT 15 (12-78) U/L Alkaline Phosphatase 77 (46-116) U/L Creatine Kinase 22 L (39-308) U/L Troponin I < 0.017 (0.000-0.056) ng/mL Total Protein 6.3 L (6.4-8.2) g/dL Albumin 3.3 L (3.4-5.0) g/dL Globulin 3.0 (2.3-3.5) g/dL Albumin/Globulin Ratio 1.1 L (1.2-2.2) Meds: Medications Discontinued Medications Generic Name Dose Route Start Last Admin Trade Name Vj PRN Reason Stop Dose Admin Aspirin 243 mg 09/09/17 10:44 09/09/17 10:51 Aspirin PO 09/09/17 10:45 243 mg ONETIME ONE Administration - Re-Assessments/Exams Free Text/Narrative Re-Assessment/Exam: 09/09/17 12:28 pt had a normal cat scan of the head and he will have a eye exam the first part of the week. He had a normal trop and a unchanged ekg. Departure - Departure Time of Disposition: 12:28 Disposition: Home, Self-Care 01 Condition: Fair Clinical Impression: Chest wall pain, Visual changes, History of coronary artery stent placement Referrals: Low Jarquin MD [Primary Care Provider] - Forms: ED Department Discharge Care Plan Goals: pt may resume cardiac rehab. cont same meds, keep appt for eye exam. - My Orders Last 24 Hours: My Active Orders 09/09/17 10:43 EKG Documentation Completion [RC] ASDIRECTED EKG 12 Lead [EK] Routine - Assessment/Plan Last 24 Hours: My Active Orders 09/09/17 10:43 EKG Documentation Completion [RC] ASDIRECTED EKG 12 Lead [EK] Routine
[2017-09-09] MEDS ORDERED: Aspirin 81 MG Tab.Chew PO ONE (10:44)
--- NOTE | 2017-09-09 11:20 | CT ---
Head wo Cont INDICATION: blurred vision for about 1 hr yesterday. Total DLP 777 COMPARISON: CT head 06/28/2017. FINDINGS: No acute intracranial hemorrhage, mass, or edema. Generalized cerebral and cerebellar volum e loss. Patchy low attenuation in the periventricular and subcortical deep white matter is nonspecifi c, but most compatible with chronic small-vessel ischemic changes. Incomplete fusion of the posterior ring of C1, normal variant. Stable tiny lucencies in the calvaria, nonspecific. Remainder unremarkab le. IMPRESSION: No acute intracranial abnormality.
[2017-09-09 12:20] VITALS: BP 115/80
== END 2017-09-09 12:43 | disposition home or self-care (01) ==
LOC: JP.ED 10:04
DX: R07.89 Other chest pain (principal); H53.9 Unspecified visual disturbance; I11.0 Hypertensive heart disease with heart failure; I50.9 Heart failure, unspecified; J44.9 Chronic obstructive pulmonary disease, unspecified; K21.9 Gastro-esophageal reflux disease without esophagitis; Z91.041 Radiographic dye allergy status; Z79.899 Other long term (current) drug therapy; Z79.82 Long term (current) use of aspirin; Z87.891 Personal history of nicotine dependence; Z95.5 Presence of coronary angioplasty implant and graft
CPT/HCPCS: 36415; 70450; 80053; 82550; 84484; 85025; 93005; 99285; A9270

== ENCOUNTER 2017-11-03 18:58 | Emergency (ER) | payer MEDICARE, BC ==
[2017-11-03] MEDS ORDERED: HYDROmorphone 0.5 MG/0.5 ML Syringe IVPUSH ONE (20:15)
[2017-11-03] MEDS ORDERED: Ondansetron 4 MG/2 ML SDV ONE (20:24)
--- NOTE | 2017-11-03 20:36 | EDM.PDOC ---
ED HPI GENERAL MEDICAL PROBLEM - General Chief Complaint: Neurological Problem Stated Complaint: HEADACHE COULD NOT GET UP Time Seen by Provider: 11/03/17 19:05 Source of Information: Reports: Patient History Limitations: Reports: No Limitations - History of Present Illness INITIAL COMMENTS - FREE TEXT/NARRATIVE: Pt arrived with a history of increased confusion and a very severe frontal headache, He developed the headache at about 5 thirty. He is also feeling sick to his stomach. He does not have a fever. He has not had a tick exposure. He was recently seen by neurology at [facility]--Dr Cherry. Onset: Today, Sudden Duration: Hour(s): Location: Reports: Head, Generalized, Other (Pt was not able to walk this pm. ) Associated Symptoms: Reports: Loss of Appetite, Nausea/Vomiting Anterior Headache Pain Score (Numeric/FACES): 8 - Related Data Allergies Allergy/AdvReac Type Severity Reaction Status Date / Time Iodinated Contrast- Oral and Allergy Hives Verified 09/09/17 10:48 IV Dye Home Meds: Home Meds Aspirin [Alvin Chewable Aspirin] 81 mg PO DAILY 10/22/13 [History] Potassium Citrate 20 meq PO BID 10/22/13 [History] Clopidogrel [Plavix] 75 mg PO DAILY 10/05/16 [History] Furosemide [Lasix] 40 mg PO DAILY 06/04/17 [History] Magnesium Oxide [Magnesium] 400 mg PO BID 06/04/17 [History] Nitroglycerin [Nitrostat] 0.4 mg PO ASDIRECTED PRN 06/04/17 [History] Venlafaxine [Effexor XR] 75 mg PO DAILY 06/04/17 [History] Acetaminophen [Tylenol] 650 mg PO Q4H PRN tablet 06/29/17 [Rx] Metoprolol Tartrate 25 mg PO BID 11/03/17 [History] Pantoprazole Sodium [Protonix] 40 mg PO DAILY 11/03/17 [History] Tamsulosin [Flomax] 0.4 mg PO DAILY 11/03/17 [History] Past Medical History HEENT History: Reports: Cataract, Hard of Hearing, Impaired Vision Cardiovascular History: Reports: Angina, CAD, Heart Failure, High Cholesterol, Hypertension, SOB on Exertion, Stents Other Cardiovascular History: stress test indicated stent placement Respiratory History: Reports: COPD, SOB Gastrointestinal History: Reports: Colon Polyp, GERD Genitourinary History: Reports: BPH, Prostate Disorder, Renal Calculus Other Genitourinary History: 6 times Musculoskeletal History: Reports: Arthritis Neurological History: Reports: TIA Psychiatric History: Reports: Depression Endocrine/Metabolic History: Reports: Other (See Below) Other Endocrine/Metabolic History: prediabetic Hematologic History: Reports: Anticoagulation Therapy - Infectious Disease History Infectious Disease History: Reports: Chicken Pox, Measles, Mumps - Past Surgical History Cardiovascular Surgical History: Reports: Coronary Artery Stent Other Cardiovascular Surgeries/Procedures: 2016 stent GI Surgical History: Reports: Colonoscopy, Polypectomy Male Surgical History: Reports: Kidney Stone Extraction Musculoskeletal Surgical History: Reports: Other (See Below) Other Musculoskeletal Surgeries/Procedures:: left foot surgery Dermatological Surgical History: Reports: Skin Biopsy Social & Family History - Tobacco Use Smoking Status *Q: Never Smoker - Caffeine Use Caffeine Use: Reports: Coffee, Soda Caffeine Use Comment: rare coffee use - Recreational Drug Use Recreational Drug Use: No ED ROS GENERAL - Review of Systems Review Of Systems: See Below Constitutional: Reports: Weakness, Other ( confusion) HEENT: Reports: No Symptoms Respiratory: Reports: No Symptoms Cardiovascular: Reports: No Symptoms Endocrine: Reports: No Symptoms GI/Abdominal: Reports: No Symptoms : Reports: No Symptoms Musculoskeletal: Reports: Other (marked weakness, he was not able to walk. ) Skin: Reports: No Symptoms ED EXAM, NEURO - Physical Exam Exam: See Below Text/Narrative:: Pt arrived with a severe frontal headache and nausea. He states this started about 5 thirty and he became very confused. He had an episode at aboutt 10 am when he was very confused and he cleared and was ok the rest of the day. Exam Limited By: Altered Mental Status General Appearance: Alert, Other (confused. pupils are reactive and equal. ) Ears: Normal TMs Nose: Normal Inspection Throat/Mouth: Normal Inspection Head Exam: Atraumatic Neck: Normal Inspection Respiratory/Chest: No Respiratory Distress Cardiovascular: Regular Rate, Rhythm GI/Abdominal: Soft, Non-Tender (Male) Exam: Deferred Rectal (Males) Exam: Deferred Neurological: Alert, Other (not oriented at first . Pt was not able to walk at home. He could stand but did not know what to do with his feet. ) Back Exam: Normal Inspection Extremities: Normal Inspection Psychiatric: Anxious Course - Vital Signs Last Recorded V/S: Last Vital Signs Temp 36.4 C 11/03/17 20:32 Pulse 64 11/03/17 20:39 Resp 12 11/03/17 20:39 BP 157/78 H 11/03/17 20:39 Pulse Ox 96 11/03/17 20:39 - Orders/Labs/Meds Orders: Active Orders 24 hr Category Date Time Status EKG Documentation Completion [RC] ASDIRECTED Care 11/03/17 19:18 Active Chest 1V Frontal [CR] Stat Exams 11/03/17 20:32 Ordered Head wo Cont [CT] Stat Exams 11/03/17 19:17 Taken UA W/MICROSCOPIC [URIN] Urgent Lab 11/03/17 19:33 Ordered Ondansetron [Zofran] Med 11/03/17 20:49 Once 4 mg IVPUSH ONETIME ONE Sodium Chloride 0.9% [Normal Saline] 1,000 ml Med 11/03/17 21:00 Ordered IV ASDIRECTED EKG 12 Lead [EK] Routine Ther 11/03/17 19:18 Ordered Medication Orders Sodium Chloride (Normal Saline) 1,000 mls @ 100 mls/hr IV ASDIRECTED RYDER Labs: Laboratory Tests 11/03/17 11/03/17 11/03/17 Range/Units 19:00 19:00 19:33 WBC 9.0 (4.5-11.0) K/uL RBC 4.51 (4.30-5.90) M/uL Hgb 13.5 (12.0-15.0) g/dL Hct 40.1 (40.0-54.0) % MCV 89 (80-98) fL MCH 30 (27-31) pg MCHC 34 (32-36) % Plt Count 322 (150-400) K/uL Neut % (Auto) 55 (36-66) % Lymph % (Auto) 30 (24-44) % [place] % (Auto) 13 H (2-6) % Eos % (Auto) 1 L (2-4) % Baso % (Auto) 0 (0-1) % Sodium 136 L (140-148) mmol/L Potassium 4.0 (3.6-5.2) mmol/L Chloride 102 (100-108) mmol/L Carbon Dioxide 26 (21-32) mmol/L Anion Gap 12.0 (5.0-14.0) mmol/L BUN 24 H (7-18) mg/dL Creatinine 1.6 H (0.8-1.3) mg/dL Est Cr Clr Drug Dosing 35.03 mL/min Estimated GFR (MDRD) 42 L (>60) Glucose 92 (74-106) mg/dL Calcium 8.4 L (8.5-10.1) mg/dL Total Bilirubin 0.4 (0.2-1.0) mg/dL AST 16 (15-37) U/L ALT 15 (12-78) U/L Alkaline Phosphatase 71 (46-116) U/L Total Protein 6.1 L (6.4-8.2) g/dL Albumin 3.0 L (3.4-5.0) g/dL Globulin 3.1 (2.3-3.5) g/dL Albumin/Globulin Ratio 1.0 L (1.2-2.2) Urine Color Yellow Urine Appearance Clear Urine pH 8.0 (4.5-8.0) Ur Specific [place] 1.015 (1.008-1.030) Urine Protein Negative (NEGATIVE) mg/dL Urine Glucose (UA) Normal (NEGATIVE) mg/dL Urine Ketones Negative (NEGATIVE) mg/dL Urine Occult Blood Negative (NEGATIVE) Urine Nitrite Negative (NEGAITVE) Urine Bilirubin Negative (NEGATIVE) Urine Urobilinogen Normal (NORMAL) mg/dL Ur Leukocyte Esterase Negative (NEGATIVE) Urine RBC Not seen (0-5) Urine WBC 0-5 (0-5) Ur Epithelial Cells Rare Amorphous Sediment Not seen Urine Bacteria Rare Urine Mucus Not seen Meds: Medications Generic Name Dose Route Start Last Admin Trade Name Freq PRN Reason Stop Dose Admin Sodium Chloride 1,000 mls @ 100 mls/hr 11/03/17 21:00 Normal Saline IV ASDIRECTED RYDER Discontinued Medications Generic Name Dose Route Start Last Admin Trade Name Freq PRN Reason Stop Dose Admin Hydromorphone HCl 0.5 mg 11/03/17 20:15 11/03/17 20:21 Dilaudid IVPUSH 11/03/17 20:16 0.5 mg ONETIME ONE Administration Ondansetron HCl Confirm 11/03/17 20:24 Zofran Administered 11/03/17 20:25 Dose 4 mg .ROUTE .STK-MED ONE - Re-Assessments/Exams Free Text/Narrative Re-Assessment/Exam: 11/03/17 20:47 Pt did become more oriented oin er. He continued to have a severe headache. He had a cat scan of the head which was normal. His lab work looked good except for borderline renal funtion which is chronic for him. His urine is clear. Departure - Departure Time of Disposition: 20:50 Disposition: Home, Self-Care 01 Condition: Fair Clinical Impression: Severe headache, Confusion - Discharge Information Referrals: Low Jarquin MD [Primary Care Provider] - Forms: ED Department Discharge Care Plan Goals: transfer to [facility] ER. - My Orders Last 24 Hours: My Active Orders 11/03/17 19:17 Head wo Cont [CT] Stat 11/03/17 19:18 EKG Documentation Completion [RC] ASDIRECTED EKG 12 Lead [EK] Routine 11/03/17 19:33 UA W/MICROSCOPIC [URIN] Urgent 11/03/17 20:32 Chest 1V Frontal [CR] Stat 11/03/17 20:49 Ondansetron [Zofran] 4 mg IVPUSH ONETIME ONE 11/03/17 21:00 Sodium Chloride 0.9% [Normal Saline] 1,000 ml IV ASDIRECTED - Assessment/Plan Last 24 Hours: My Active Orders 11/03/17 19:17 Head wo Cont [CT] Stat 11/03/17 19:18 EKG Documentation Completion [RC] ASDIRECTED EKG 12 Lead [EK] Routine 11/03/17 19:33 UA W/MICROSCOPIC [URIN] Urgent 11/03/17 20:32 Chest 1V Frontal [CR] Stat 11/03/17 20:49 Ondansetron [Zofran] 4 mg IVPUSH ONETIME ONE 11/03/17 21:00 Sodium Chloride 0.9% [Normal Saline] 1,000 ml IV ASDIRECTED
[2017-11-03] MEDS ORDERED: Ondansetron 4 MG/2 ML SDV IVPUSH ONE (20:49)
[2017-11-03] MEDS ORDERED: Sodium Chloride 0.9% 1,000 ML IV SCH (21:00)
[2017-11-03 21:09] VITALS: BP 152/78
--- NOTE | 2017-11-04 08:56 | CR ---
CHEST: Portable CLINICAL HISTORY:Confusion COMPARISON:08/06/2017 FINDINGS: The heart is mildly enlarged. Pulmonary vascularity is normal. There are atherosclerotic c hanges in the aorta.. IMPRESSION: Mild cardiomegaly No acute cardiopulmonary process or significant change from prior study
== END 2017-11-03 22:09 | disposition home or self-care (01) ==
LOC: JP.ED 18:58
DX: R51 Headache (principal); R41.0 Disorientation, unspecified; I11.0 Hypertensive heart disease with heart failure; I50.9 Heart failure, unspecified; K21.9 Gastro-esophageal reflux disease without esophagitis; E78.00 Pure hypercholesterolemia, unspecified; Z91.041 Radiographic dye allergy status; Z79.82 Long term (current) use of aspirin; Z79.899 Other long term (current) drug therapy
CPT/HCPCS: 36415; 70450; 71045; 71045-26; 80053; 81001; 85025; 93005; 96361; 96374; 96375; 99285-25; J1170; J2405; J7030

== ENCOUNTER 2018-06-11 07:40 | Inpatient (IN) | payer MEDICARE, BC ==
[2018-06-11] MEDS: Dextrose 5%-Lactated Ringers 1,000 ML IV SCH (08:21)
[2018-06-11] MEDS ORDERED: fentaNYL 100 MCG/2 ML SDV ONE (09:33)
[2018-06-11] MEDS ORDERED: Propofol 200 MG/20 ML SDV ONE (09:33)
[2018-06-11] MEDS ORDERED: Dextrose 5%-Lactated Ringers 1,000 ML IV SCH (11:15)
[2018-06-11] MEDS ORDERED: Acetaminophen 325 MG Tab PO PRN (11:17)
--- NOTE | 2018-06-11 16:21 | PCM.CONS ---
H&P History of Present Illness - General Date of Service: 06/11/18 Admit Problem/Dx: Admission Diagnosis/Problem Admission Diagnosis/Problem Bleeding from anus Source of Information: Patient, Family, Provider, RN Notes Reviewed History Limitations: Reports: No Limitations - History of Present Illness Initial Comments - Free Text/Narative: Mr. Damian is an 82-year-old gentleman who I been asked to see by Dr. Carter for a hospitalist consult and preoperative assessment prior to undergoing general anesthesia and partial colon resection tomorrow. He reports a history of generalized weakness over the past year with change in his bowel habits over the last 6 months. More recently he has noted blood in the stool which he reported to Dr. Jarquin. Colonoscopy was scheduled today with Dr. Carter and he was found to have a left colon mass consistent with colon cancer. He has been admitted to the hospital for IV hydration and monitoring prior to undergoing surgery. He does have a known history of coronary artery disease and is status post angioplasty and stent placement almost 1 year ago. He remains on antiplatelet therapy with Plavix, which he takes daily. He denies any recent symptoms of anginal pain or increased shortness of breath. There is been no fevers, chills, or sweats. He has had general anesthetic on one previous occasion and denies any adverse events, there is no family history of adverse reaction to general anesthetic. He denies any previous history of deep vein thrombosis or pulmonary embolism. - Related Data Allergies/Adverse Reactions: Allergies Allergy/AdvReac Type Severity Reaction Status Date / Time Iodinated Contrast- Oral and Allergy Hives Verified 09/09/17 10:48 IV Dye Home Medications: Home Meds Aspirin [Alvin Chewable Aspirin] 81 mg PO DAILY 10/22/13 [History] Clopidogrel [Plavix] 75 mg PO DAILY 10/05/16 [History] Furosemide [Lasix] 40 mg PO ASDIRECTED PRN 06/04/17 [History] Magnesium Oxide [Magnesium] 400 mg PO BID 06/04/17 [History] Nitroglycerin [Nitrostat] 0.4 mg PO ASDIRECTED PRN 06/04/17 [History] Acetaminophen [Tylenol] 650 mg PO Q4H PRN tablet 06/29/17 [Rx] Metoprolol Tartrate 12.5 mg PO BID 11/03/17 [History] Pantoprazole Sodium [Protonix] 80 mg PO BEDTIME 11/03/17 [History] Tamsulosin [Flomax] 0.4 mg PO DAILY 11/03/17 [History] Past Medical History HEENT History: Reports: Cataract, Hard of Hearing, Impaired Vision Cardiovascular History: Reports: Angina, CAD, Heart Failure, High Cholesterol, Hypertension, SOB on Exertion, Stents Other Cardiovascular History: stress test indicated stent placement Respiratory History: Reports: COPD, SOB Gastrointestinal History: Reports: Colon Polyp, GERD Genitourinary History: Reports: BPH, Prostate Disorder, Renal Calculus Other Genitourinary History: 6 times Musculoskeletal History: Reports: Arthritis, Back Pain, Chronic Neurological History: Reports: TIA, Vertigo Psychiatric History: Reports: Depression Endocrine/Metabolic History: Reports: Other (See Below) Other Endocrine/Metabolic History: prediabetic Hematologic History: Reports: Anticoagulation Therapy - Infectious Disease History Infectious Disease History: Reports: Chicken Pox, Measles, Mumps - Past Surgical History HEENT Surgical History: Reports: Cataract Surgery, Tonsillectomy Cardiovascular Surgical History: Reports: Coronary Artery Stent Other Cardiovascular Surgeries/Procedures: 2016 stent Respiratory Surgical History: Reports: None GI Surgical History: Reports: Colonoscopy, Polypectomy Male Surgical History: Reports: Kidney Stone Extraction Neurological Surgical History: Reports: None Musculoskeletal Surgical History: Reports: Other (See Below) Other Musculoskeletal Surgeries/Procedures:: left foot surgery Dermatological Surgical History: Reports: Skin Biopsy Social & Family History - Family History Family Medical History: Noncontributory - Tobacco Use Smoking Status *Q: Former Smoker Used Tobacco, but Quit: Yes Month/Year Tobacco Last Used: 30 years ago - Caffeine Use Caffeine Use: Reports: Coffee Caffeine Use Comment: rare coffee use - Alcohol Use Days Per Week of Alcohol Use: 7 Number of Drinks Per Day: 1 Total Drinks Per Week: 7 Date of Last Drink: 06/09/18 - Recreational Drug Use Recreational Drug Use: No H&P Review of Systems - Review of Systems: Review Of Systems: See Below General: Reports: Weakness. Denies: Fever, Chills HEENT: Reports: No Symptoms Pulmonary: Reports: No Symptoms Cardiovascular: Reports: No Symptoms Gastrointestinal: Reports: Bloody Stool, Diarrhea. Denies: Abdominal Pain, Constipation, Difficulty Swallowing, Distension, Nausea, Vomiting Genitourinary: Reports: No Symptoms Musculoskeletal: Reports: No Symptoms Skin: Reports: No Symptoms Psychiatric: Reports: No Symptoms Neurological: Reports: No Symptoms Hematologic/Lymphatic: Reports: No Symptoms Immunologic: Reports: No Symptoms Exam - Exam Exam: See Below - Vital Signs Vital Signs: Last Vital Signs Temp 97.7 F 06/11/18 10:53 Pulse 56 L 06/11/18 11:23 Resp 16 06/11/18 11:23 BP 158/81 H 06/11/18 11:23 Pulse Ox 94 L 06/11/18 10:30 Weight: 185 lb - Exam Quality Assessment: DVT Prophylaxis General: Alert, Oriented, Cooperative HEENT: Conjunctiva Clear, Hearing Intact, Mucosa Moist & [place], Normal Nasal Septum, Posterior Pharynx Clear, Pupils Equal Neck: Supple, Trachea Midline, +2 Carotid Pulse wo Bruit Lungs: Clear to Auscultation, Normal Respiratory Effort, Decreased Breath Sounds. No: Rales, Rhonchi, Wheezing Cardiovascular: Regular Rate, Regular Rhythm, Normal S1, Normal S2. No: Systolic Murmur, Diastolic Murmur GI/Abdominal Exam: Soft, Non-Tender, No Organomegaly, No Distention Back Exam: Normal Inspection, Full Range of Motion Extremities: Non-Tender, No Pedal Edema Skin: Warm, Dry, Intact Neurological: Cranial Nerves Intact, Strength Equal Bilateral, Normal Speech, Normal Tone, Sensation Intact. No: Focal Deficit Neuro Extensive - Mental Status: Alert, Oriented x3, Normal Mood/Affect, Normal Cognition, Memory Intact - Patient Data Lab Results Last 24 hrs: Laboratory Results - last 24 hr 06/10/18 06/11/18 06/11/18 Range/Units 08:04 08:04 11:00 WBC 7.5 (4.5-11.0) K/uL RBC 4.85 (4.30-5.90) M/uL Hgb 14.2 (12.0-15.0) g/dL Hct 43.0 (40.0-54.0) % MCV 89 (80-98) fL MCH 29 (27-31) pg MCHC 33 (32-36) % Plt Count 314 (150-400) K/uL PT 10.7 (9.5-12.0) sec INR 0.97 (0.80-1.20) APTT Cancelled Sodium (140-148) mmol/L Potassium (3.6-5.2) mmol/L Chloride (100-108) mmol/L Carbon Dioxide (21-32) mmol/L Anion Gap (5.0-14.0) mmol/L BUN (7-18) mg/dL Creatinine (0.8-1.3) mg/dL Est Cr Clr Drug Dosing mL/min Estimated GFR (MDRD) (>60) Glucose (74-106) mg/dL Calcium (8.5-10.1) mg/dL Phosphorus (2.5-4.9) mg/dL Magnesium (1.8-2.4) mg/dL Total Bilirubin (0.2-1.0) mg/dL AST (15-37) U/L ALT (12-78) U/L Alkaline Phosphatase (46-116) U/L NT-Pro-B Natriuret Pep (5-450) pg/mL Total Protein (6.4-8.2) g/dL Albumin (3.4-5.0) g/dL Globulin (2.3-3.5) g/dL Albumin/Globulin Ratio (1.2-2.2) Blood Type Gel Antibody Screen Crossmatch 06/11/18 06/11/18 06/11/18 Range/Units 11:00 11:00 11:05 WBC (4.5-11.0) K/uL RBC (4.30-5.90) M/uL Hgb (12.0-15.0) g/dL Hct (40.0-54.0) % MCV (80-98) fL MCH (27-31) pg MCHC (32-36) % Plt Count (150-400) K/uL PT (9.5-12.0) sec INR (0.80-1.20) APTT 28.7 Sodium 143 (140-148) mmol/L Potassium 4.1 (3.6-5.2) mmol/L Chloride 106 (100-108) mmol/L Carbon Dioxide 27 (21-32) mmol/L Anion Gap 9.9 (5.0-14.0) mmol/L BUN 12 (7-18) mg/dL Creatinine 1.3 (0.8-1.3) mg/dL Est Cr Clr Drug Dosing 42.38 mL/min Estimated GFR (MDRD) 53 L (>60) Glucose 116 H (74-106) mg/dL Calcium 9.1 (8.5-10.1) mg/dL Phosphorus 3.6 (2.5-4.9) mg/dL Magnesium 1.9 (1.8-2.4) mg/dL Total Bilirubin 0.5 (0.2-1.0) mg/dL AST 18 (15-37) U/L ALT 16 (12-78) U/L Alkaline Phosphatase 78 (46-116) U/L NT-Pro-B Natriuret Pep 709 H (5-450) pg/mL Total Protein 6.2 L (6.4-8.2) g/dL Albumin 3.4 (3.4-5.0) g/dL Globulin 2.8 (2.3-3.5) g/dL Albumin/Globulin Ratio 1.2 (1.2-2.2) Blood Type A POSITIVE Gel Antibody Screen Negative Crossmatch See Detail Result Diagrams: 06/11/18 08:04 06/11/18 11:00 Consult PN Assessment/Plan Procedures: Procedures AIRWAY INHALATION TREATMENT (10/05/16) ASSAY OF CK (CPK) (09/09/17) ASSAY OF LACTIC ACID (08/18/17) ASSAY OF MAGNESIUM (06/28/17) ASSAY OF NATRIURETIC PEPTIDE (08/06/17) ASSAY OF TROPONIN QUANT (03/30/18) ASSAY THYROID STIM HORMONE (10/05/16) BLOOD GASES ANY COMBINATION (10/05/16) C-REACTIVE PROTEIN (08/18/17) CARDIAC REHAB/MONITOR (11/02/17) CARDIOVASCULAR STRESS TEST (04/14/16) CARDIOVASCULAR STRESS TEST (04/14/16) CHEST X-RAY 1 VIEW FRONTAL (01/02/17) CHEST X-RAY 2VW FRONTAL&LATL (02/02/16) CO/MEMBANE DIFFUSE CAPACITY (10/05/16) COMPLETE CBC AUTOMATED (04/26/18) COMPLETE CBC W/AUTO DIFF WBC (11/03/17) COMPREHEN METABOLIC PANEL (11/03/17) CREATINE MB FRACTION (08/06/17) CT ABD & PELVIS W/O CONTRAST (05/03/16) CT ANGIOGRAPHY CHEST (10/05/16) CT HEAD/BRAIN W/O DYE (11/03/17) ECG/MONITORING AND ANALYSIS (06/28/17) ELECTROCARDIOGRAM REPORT (10/22/13) ELECTROCARDIOGRAM TRACING (11/03/17) EMERGENCY DEPT VISIT (04/26/18) EMERGENCY DEPT VISIT (11/03/17) EMERGENCY DEPT VISIT (08/18/17) EMERGENCY DEPT VISIT (08/06/17) EMERGENCY DEPT VISIT (07/13/17) EMERGENCY DEPT VISIT (07/11/17) EMERGENCY DEPT VISIT (07/08/17) EMERGENCY DEPT VISIT (07/08/17) EMERGENCY DEPT VISIT (01/02/17) EMERGENCY DEPT VISIT (05/06/16) EMERGENCY DEPT VISIT (09/15/15) EMERGENCY DEPT VISIT (09/15/15) EMERGENCY DEPT VISIT (10/22/13) EMERGENCY DEPT VISIT (10/22/13) EVALUATION OF WHEEZING (10/05/16) FIBRIN DEGRADATION QUANT (10/05/16) HT MUSCLE IMAGE SPECT MULT (04/14/16) HYDRATE IV INFUSION ADD-ON (11/03/17) HYDRATION IV INFUSION INIT (01/02/17) METABOLIC PANEL TOTAL CA (04/26/18) MRI BRAIN STEM W/O DYE (10/21/17) MRI LOWER EXTREMITY W/O DYE (03/13/15) POLYSOM 6/> YRS 4/> CORNELIUS (09/21/16) PROTHROMBIN TIME (08/06/17) PT EVAL MOD COMPLEX 30 MIN (10/05/16) RBC SED RATE NONAUTOMATED (10/22/13) REMOTE 30 DAY ECG REV/REPORT (06/28/17) ROUTINE VENIPUNCTURE (04/26/18) THER/PROPH/DIAG INJ IV PUSH (11/03/17) THER/PROPH/DIAG INJ SC/IM (05/06/16) THER/PROPH/DIAG IV INF INIT (10/22/13) THERAPEUTIC ACTIVITIES (10/05/16) THERAPEUTIC EXERCISES (10/05/16) THROMBOPLASTIN TIME PARTIAL (01/02/17) TTE W/DOPPLER COMPLETE (06/28/17) TX/PRO/DX INJ NEW DRUG ADDON (11/03/17) URINALYSIS AUTO W/SCOPE (11/03/17) US EXAM ABDO BACK WALL COMP (01/29/18) US EXAM ABDO BACK WALL RICO (10/05/16) WITHDRAWAL OF ARTERIAL BLOOD (10/05/16) X-RAY EXAM CHEST 1 VIEW (11/03/17) Problem List Initiated/Reviewed/Updated: Yes Plan: ASSESSMENT AND RECOMMENDATIONS LEFT COLON MASS-history of red blood in stool over the past month or 2, identified to have a left colon mass on colonoscopy today. Plan is to proceed with surgical resection in a.m. He does have multiple other underlying medical problems which at the present time seem to be well controlled and compensated. He is currently treated with Plavix and is only 12 months out from angioplasty and stent placement in the coronary artery. He understands that ongoing therapy with Plavix does place him at increased risk for bleeding with surgery. Because of his underlying medical problems he is at moderately increased risk for general anesthesia and surgery. -Surgical management per Dr. Carter CORONARY ARTERY DISEASE-denies current symptoms of angina at rest or with exertion -Resume oral medications as soon as possible after surgery -Beta shorty before surgery in a.m. CHRONIC KIDNEY DISEASE STAGE III -Closely monitor renal function and urine output during the postoperative course CONGESTIVE HEART FAILURE-well compensated on current therapy -Monitor closely for fluid overload during the postoperative course -Resume oral medications as soon as possible after surgery COPD-mild, no evidence of current exacerbation -Monitor closely for evidence of respiratory compromise after surgery -Consider early use of noninvasive positive pressure ventilation -Scheduled duo nebs 4 times daily -As needed albuterol nebs -Vigorous pulmonary toilet after surgery Requesting Provider: JENN Date Consult Requested: 06/11/18 Reason for Consult: Preoperative assessment, management of medical problems Patient History Reviewed: Yes
[2018-06-11] MEDS ORDERED: Albuterol 0.083% 2.5 MG/3 ML Neb Soln NEB PRN (16:32)
[2018-06-11] MEDS ORDERED: Metoprolol Tartrate 25 MG Tab PO SCH (21:00)
[2018-06-11] MEDS ORDERED: Melatonin 3 MG Tab PO SCH (21:00)
[2018-06-11] MEDS: Albuterol/Ipratropium 3.0-0.5 MG/3 ML Neb Soln NEB SCH (21:21)
[2018-06-11] MEDS: Tamsulosin 0.4 MG Cap.ER PO SCH (21:22)
[2018-06-11] MEDS: Pantoprazole 40 MG Tab.CR PO SCH (21:22)
[2018-06-12] MEDS: Dextrose 5%-Lactated Ringers 1,000 ML IV SCH (01:08)
[2018-06-12] MEDS ORDERED: Metoprolol Tartrate 25 MG Tab PO ONE (06:00)
[2018-06-12] MEDS ORDERED: Naloxone 0.4 MG/ML SDV IVPUSH PRN (06:41)
[2018-06-12] MEDS: Albuterol/Ipratropium 3.0-0.5 MG/3 ML Neb Soln NEB SCH (07:13)
[2018-06-12] MEDS: HYDROmorphone/Normal Saline 15 MG/30 ML PCA IV PRN ×2 (07:19→11:16)
[2018-06-12] MEDS ORDERED: Succinylcholine 200 MG/10 ML MDV ONE (07:44)
[2018-06-12] MEDS ORDERED: fentaNYL 250 MCG/5 ML SDV ONE ×3 (07:44→09:26)
[2018-06-12] MEDS ORDERED: Neostigmine Methylsulfate 1 MG/ML 5 ML Syringe ONE (07:44)
[2018-06-12] MEDS ORDERED: Glycopyrrolate 0.2 MG/ML 5 ML MDV ONE (07:44)
[2018-06-12] MEDS ORDERED: Ondansetron 4 MG/2 ML SDV ONE (07:44)
[2018-06-12] MEDS ORDERED: Rocuronium 50 MG/5 ML Vial ONE ×2 (07:44→08:18)
[2018-06-12] MEDS ORDERED: Propofol 200 MG/20 ML SDV ONE (07:44)
[2018-06-12] MEDS ORDERED: Dexamethasone 4 MG/ML SDV ONE (07:44)
[2018-06-12] MEDS ORDERED: cefOXitin 2 GM in Sodium Chloride 0.9% 50 ML IV ONE (08:00)
[2018-06-12] MEDS ORDERED: Ropivacaine 41 ML, Dexamethasone 8 MG, EPINEPHrine 0.4 MG, Sodium Chloride 0.9% 36.6 ML NERVRT SCH ×4 (08:00)
[2018-06-12] MEDS ORDERED: Labetalol 20 MG/4 ML Syringe ONE (08:24)
[2018-06-12] MEDS: Meropenem 500 MG SDV ONE ×2 (09:00→09:20)
[2018-06-12] MEDS: Metoprolol Tartrate 5 MG/5 ML SDV IV SCH ×2 (10:44→18:21)
[2018-06-12] MEDS ORDERED: Dextrose 5%-Lactated Ringers 1,000 ML IV SCH ×2 (10:45→22:30)
[2018-06-12] MEDS ORDERED: hydrOXYzine HCl 100 MG/2 ML SDV IM PRN (10:50)
[2018-06-12] MEDS ORDERED: Scopolamine 1.5 MG Transdermal Patch TOP SCH (11:00)
[2018-06-12] MEDS: Ampicillin/Sulbactam Na 3 GM in Sodium Chloride 0.9% 100 ML IV SCH ×2 (11:15→17:35)
[2018-06-12] MEDS: Clopidogrel 75 MG Tab PO SCH (12:13)
[2018-06-12] MEDS: Acetaminophen 500 MG Tab PO SCH ×2 (12:16→18:22)
[2018-06-12] MEDS: Aspirin 81 MG Tab.EC PO SCH (12:16)
[2018-06-12] MEDS: Pantoprazole 40 MG Tab.CR PO SCH (12:19)
--- NOTE | 2018-06-12 12:25 | PCM.CONSN ---
- General Info Date of Service: 06/12/18 Subjective Update: Mr. Damian is status post partial colon resection done this morning by Dr. Carter. He has been stable during the initial postoperative period with good vital signs and adequate oxygenation on supplemental oxygen. - Review of Systems General: Denies: Fever, Chills Pulmonary: Reports: No Symptoms Cardiovascular: Reports: No Symptoms Gastrointestinal: Reports: Abdominal Pain. Denies: Nausea, Vomiting - Patient Data Vitals - Most Recent: Last Vital Signs Temp 98.1 F 06/12/18 12:00 Pulse 62 06/12/18 11:00 Resp 8 L 06/12/18 12:15 BP 171/80 H 06/12/18 12:15 Pulse Ox 96 06/12/18 12:15 Weight - Most Recent: 185 lb I&O - Last 24 Hours: Intake & Output 06/11/18 06/12/18 06/12/18 22:59 06:59 14:59 Intake Total 1830 Output Total 400 230 Balance 1430 -230 Lab Results Last 24 Hours: Laboratory Results - last 24 hr 06/10/18 06/11/18 06/11/18 Range/Units 08:04 11:00 11:13 APTT Cancelled 28.7 Carcinoembryonic Ag 2.2 (0.0-4.7) ng/mL Med Orders - Current: Current Medications Acetaminophen (Tylenol Extra Strength) 1,000 mg PO Q6H [facility] Last Admin: 06/12/18 12:16 Dose: 1,000 mg Alvimopan (Entereg) 12 mg PO Q12H [facility] Stop: 06/19/18 11:01 Last Admin: 06/12/18 12:16 Dose: 12 mg Aspirin (Halfprin) 81 mg PO DAILY [facility] Last Admin: 06/12/18 12:16 Dose: 81 mg Clopidogrel Bisulfate (Plavix) 75 mg PO DAILY [facility] Last Admin: 06/12/18 12:13 Dose: Not Given Hydromorphone HCl (Dilaudid Operations Forester 15 Mg In Ns 30 Ml) 0 mg IV ASDIRECTED PRN; Protocol PRN Reason: Pain Last Admin: 06/12/18 07:19 Dose: 15 mg Hydroxyzine HCl (Vistaril) 100 mg IM Q4H PRN PRN Reason: PAIN Dextrose/Lactated Ringer's (Dextrose 5%-Lactated Ringers) 1,000 mls @ 150 mls/ hr IV ASDIRECTED [facility] Last Admin: 06/12/18 11:05 Dose: 150 mls/hr Ampicillin Sodium/Sulbactam (Sodium 3 gm/ Sodium Chloride) 100 mls @ 200 mls/ hr IV Q6H [facility] Stop: 06/14/18 06:29 Last Admin: 06/12/18 11:15 Dose: 200 mls/hr Aztreonam/Dextrose 1 gm/ (Premix) 50 mls @ 100 mls/hr IV Q8H [facility] Stop: 06/14/18 06:29 Metoclopramide HCl (Reglan) 10 mg IVPUSH Q8H [facility] Metoprolol Tartrate (Lopressor) 5 mg IV Q8H [facility] Last Admin: 06/12/18 10:44 Dose: 5 mg Naloxone HCl (Narcan) 0.4 mg IVPUSH Q2M PRN PRN Reason: Respiratory Distress Transderm Patch (Check Daily) 0 each TOP DAILY [facility] Ondansetron HCl (Zofran) 4 mg IVPUSH Q4H PRN PRN Reason: Nausea Pantoprazole Sodium (Protonix Iv) 40 mg IVPUSH BID [facility] Scopolamine (Transderm-Scop) 1.5 mg TOP Q72H [facility] Last Admin: 06/12/18 10:59 Dose: 1.5 mg Tamsulosin HCl (Flomax) 0.4 mg PO BEDTIME [facility] Last Admin: 06/11/18 21:22 Dose: 0.4 mg Discontinued Medications Acetaminophen (Tylenol) 650 mg PO Q4H PRN PRN Reason: MILD PAIN Albuterol (Proventil Neb Soln) 2.5 mg NEB Q4H PRN PRN Reason: Dyspnea Albuterol/Ipratropium (Duoneb 3.0-0.5 Mg/3 Ml) 3 ml NEB QIDRT [facility] Last Admin: 06/12/18 07:13 Dose: 3 ml Alvimopan (Entereg) 12 mg PO ONETIME ONE Stop: 06/12/18 06:01 Last Admin: 06/12/18 06:09 Dose: 12 mg Ropivacaine 41 ml/Dexamethasone 8 mg/Epinephrine HCl 0.4 mg/ Sodium Chloride 36.6 ml 0 ml NERVRT ASDIRECTED [facility] Last Admin: 06/12/18 08:30 Dose: 80 syringe Dexamethasone (Dexamethasone) Confirm Administered Dose 4 mg .ROUTE .[facility] ONE Stop: 06/12/18 07:45 Fentanyl (Sublimaze) Confirm Administered Dose 100 mcg .ROUTE .[facility] ONE Stop: 06/11/18 09:34 Fentanyl (Sublimaze) Confirm Administered Dose 250 mcg .ROUTE .[facility] ONE Stop: 06/12/18 07:45 Fentanyl (Sublimaze) Confirm Administered Dose 250 mcg .ROUTE .[facility] ONE Stop: 06/12/18 08:19 Fentanyl (Sublimaze) Confirm Administered Dose 250 mcg .ROUTE .[facility] ONE Stop: 06/12/18 09:27 Glycopyrrolate (Robinul) Confirm Administered Dose 1 mg .ROUTE .[facility] ONE Stop: 06/12/18 07:45 Dextrose/Lactated Ringer's (Dextrose 5%-Lactated Ringers) 1,000 mls @ 100 mls/ hr IV ASDIRECTED [facility] Last Admin: 06/12/18 01:08 Dose: 100 mls/hr Cefoxitin Sodium 2 gm/ Sodium (Chloride) 50 mls @ 100 mls/hr IV ONETIME ONE Stop: 06/12/18 08:29 Last Admin: 06/12/18 07:40 Dose: 100 mls/hr Labetalol HCl (Normodyne) Confirm Administered Dose 20 mg .ROUTE .[facility] ONE Stop: 06/12/18 08:25 Melatonin (Melatonin) 9 mg PO BEDTIME [facility] Last Admin: 06/11/18 21:21 Dose: 9 mg Meropenem (Merrem) Confirm Administered Dose 500 mg .ROUTE .[facility] ONE Stop: 06/12/18 07:06 Last Admin: 06/12/18 09:20 Dose: 500 mg Metoprolol Tartrate (Lopressor) 12.5 mg PO BID [facility] Stop: 06/11/18 23:59 Last Admin: 06/11/18 21:21 Dose: 12.5 mg Metoprolol Tartrate (Lopressor) 12.5 mg PO ONETIME ONE Stop: 06/12/18 06:01 Last Admin: 06/12/18 06:08 Dose: 12.5 mg Neostigmine Methylsulfate (Neostigmine) Confirm Administered Dose 5 mg .ROUTE .[facility] ONE Stop: 06/12/18 07:45 Ondansetron HCl (Zofran) Confirm Administered Dose 4 mg .ROUTE .[facility] ONE Stop: 06/12/18 07:45 Pantoprazole Sodium (Protonix) 40 mg PO BID [facility] Last Admin: 06/12/18 12:19 Dose: Not Given Propofol (Diprivan 20 Ml) Confirm Administered Dose 200 mg .ROUTE .[facility]-MED ONE Stop: 06/11/18 09:34 Propofol (Diprivan 20 Ml) Confirm Administered Dose 200 mg .ROUTE .[facility]-MED ONE Stop: 06/12/18 07:45 Rocuronium [place] (Zemuron) Confirm Administered Dose 50 mg .ROUTE .[facility]-MED ONE Stop: 06/12/18 07:45 Rocuronium [place] (Zemuron) Confirm Administered Dose 50 mg .ROUTE .[facility]-MED ONE Stop: 06/12/18 08:19 Succinylcholine Chloride (Quelicin) Confirm Administered Dose 200 mg .ROUTE .[facility] -MED ONE Stop: 06/12/18 07:45 - Exam General: Cooperative, Moderate Distress, Sedated, Lethargic Lungs: Clear to Auscultation, Normal Respiratory Effort Cardiovascular: Regular Rate, Regular Rhythm, No Murmurs GI/Abdominal Exam: Soft, No Organomegaly, Tender. No: Distended, Guarding, Rigid, Rebound Extremities: Non-Tender, No Pedal Edema Consult PN Assessment/Plan Procedures: Procedures AIRWAY INHALATION TREATMENT (10/05/16) ASSAY OF CK (CPK) (09/09/17) ASSAY OF LACTIC ACID (08/18/17) ASSAY OF MAGNESIUM (06/28/17) ASSAY OF NATRIURETIC PEPTIDE (08/06/17) ASSAY OF TROPONIN QUANT (03/30/18) ASSAY THYROID STIM HORMONE (10/05/16) BLOOD GASES ANY COMBINATION (10/05/16) C-REACTIVE PROTEIN (08/18/17) CARDIAC REHAB/MONITOR (11/02/17) CARDIOVASCULAR STRESS TEST (04/14/16) CARDIOVASCULAR STRESS TEST (04/14/16) CHEST X-RAY 1 VIEW FRONTAL (01/02/17) CHEST X-RAY 2VW FRONTAL&LATL (02/02/16) CO/MEMBANE DIFFUSE CAPACITY (10/05/16) COMPLETE CBC AUTOMATED (04/26/18) COMPLETE CBC W/AUTO DIFF WBC (11/03/17) COMPREHEN METABOLIC PANEL (11/03/17) CREATINE MB FRACTION (08/06/17) CT ABD & PELVIS W/O CONTRAST (05/03/16) CT ANGIOGRAPHY CHEST (10/05/16) CT HEAD/BRAIN W/O DYE (11/03/17) ECG/MONITORING AND ANALYSIS (06/28/17) ELECTROCARDIOGRAM REPORT (10/22/13) ELECTROCARDIOGRAM TRACING (11/03/17) EMERGENCY DEPT VISIT (04/26/18) EMERGENCY DEPT VISIT (11/03/17) EMERGENCY DEPT VISIT (08/18/17) EMERGENCY DEPT VISIT (08/06/17) EMERGENCY DEPT VISIT (07/13/17) EMERGENCY DEPT VISIT (07/11/17) EMERGENCY DEPT VISIT (07/08/17) EMERGENCY DEPT VISIT (07/08/17) EMERGENCY DEPT VISIT (01/02/17) EMERGENCY DEPT VISIT (05/06/16) EMERGENCY DEPT VISIT (09/15/15) EMERGENCY DEPT VISIT (09/15/15) EMERGENCY DEPT VISIT (10/22/13) EMERGENCY DEPT VISIT (10/22/13) EVALUATION OF WHEEZING (10/05/16) FIBRIN DEGRADATION QUANT (10/05/16) HT MUSCLE IMAGE SPECT MULT (04/14/16) HYDRATE IV INFUSION ADD-ON (11/03/17) HYDRATION IV INFUSION INIT (01/02/17) METABOLIC PANEL TOTAL CA (04/26/18) MRI BRAIN STEM W/O DYE (10/21/17) MRI LOWER EXTREMITY W/O DYE (03/13/15) POLYSOM 6/> YRS 4/> CORNELIUS (09/21/16) PROTHROMBIN TIME (08/06/17) PT EVAL MOD COMPLEX 30 MIN (10/05/16) RBC SED RATE NONAUTOMATED (10/22/13) REMOTE 30 DAY ECG REV/REPORT (06/28/17) ROUTINE VENIPUNCTURE (04/26/18) THER/PROPH/DIAG INJ IV PUSH (11/03/17) THER/PROPH/DIAG INJ SC/IM (05/06/16) THER/PROPH/DIAG IV INF INIT (10/22/13) THERAPEUTIC ACTIVITIES (10/05/16) THERAPEUTIC EXERCISES (10/05/16) THROMBOPLASTIN TIME PARTIAL (01/02/17) TTE W/DOPPLER COMPLETE (06/28/17) TX/PRO/DX INJ NEW DRUG ADDON (11/03/17) URINALYSIS AUTO W/SCOPE (11/03/17) US EXAM ABDO BACK WALL COMP (01/29/18) US EXAM ABDO BACK WALL RICO (10/05/16) WITHDRAWAL OF ARTERIAL BLOOD (10/05/16) X-RAY EXAM CHEST 1 VIEW (11/03/17) Problem List Initiated/Reviewed/Updated: Yes My Orders Last 24 Hours: My Active Orders 06/11/18 16:32 RT Aerosol Therapy [RC] ASDIRECTED Plan: ASSESSMENT AND RECOMMENDATIONS STATUS POST PARTIAL COLECTOMY AND RESECTION OF LEFT COLON MASS-stable during the initial postoperative period -Surgical management per Dr. Carter CORONARY ARTERY DISEASE-denies current symptoms of angina at rest or with exertion -Resume oral medications as soon as possible after surgery -Beta shorty before surgery in a.m. CHRONIC KIDNEY DISEASE STAGE III -Closely monitor renal function and urine output during the postoperative course CONGESTIVE HEART FAILURE-well compensated on current therapy -Monitor closely for fluid overload during the postoperative course -Resume oral medications as soon as possible after surgery COPD-mild, no evidence of current exacerbation -Monitor closely for evidence of respiratory compromise after surgery -Consider early use of noninvasive positive pressure ventilation -Scheduled duo nebs 4 times daily -As needed albuterol nebs -Vigorous pulmonary toilet after surgery
[2018-06-12] MEDS: Aztreonam/Dextrose-Water 1 GM in Premix Bag 1 BAG IV SCH ×2 (14:09→21:44)
[2018-06-12] MEDS: Metoclopramide 10 MG/2 ML SDV IVPUSH SCH ×2 (14:13→21:44)
[2018-06-12] MEDS ORDERED: Labetalol 100 MG/20 ML MDV IVPUSH PRN (17:11)
[2018-06-12] MEDS ORDERED: Lactated Ringers 500 ML IV SCH (17:30)
[2018-06-12] MEDS ORDERED: Metoprolol Tartrate 25 MG Tab PO SCH (21:00)
[2018-06-12] MEDS: Pantoprazole 40 MG Vial IVPUSH SCH (21:04)
[2018-06-12] MEDS: Labetalol 20 MG/4 ML Syringe IVPUSH PRN (21:04)
[2018-06-12] MEDS: Tamsulosin 0.4 MG Cap.ER PO SCH (21:04)
[2018-06-12] MEDS ORDERED: Sodium Chloride 0.9% 500 ML IV ONE (21:24)
[2018-06-12] MEDS: Albuterol/Ipratropium 3.0-0.5 MG/3 ML Neb Soln NEB PRN (22:40)
[2018-06-13] MEDS: Ampicillin/Sulbactam Na 3 GM in Sodium Chloride 0.9% 100 ML IV SCH ×5 (00:05→23:55)
[2018-06-13] MEDS: Acetaminophen 500 MG Tab PO SCH ×5 (00:06→23:08)
[2018-06-13] MEDS: Ondansetron 4 MG/2 ML SDV IVPUSH PRN (02:39)
[2018-06-13] MEDS: Metoprolol Tartrate 5 MG/5 ML SDV IV SCH ×3 (02:46→19:23)
[2018-06-13] MEDS: Dextrose 5%-Lactated Ringers 1,000 ML IV SCH ×3 (03:19→23:06)
[2018-06-13] MEDS: Labetalol 20 MG/4 ML Syringe IVPUSH PRN ×2 (03:24→20:43)
[2018-06-13] MEDS: Aztreonam/Dextrose-Water 1 GM in Premix Bag 1 BAG IV SCH ×3 (06:04→21:31)
[2018-06-13] MEDS: Metoclopramide 10 MG/2 ML SDV IVPUSH SCH ×3 (07:28→21:31)
[2018-06-13] MEDS: Furosemide 20 MG/2 ML VIAL IVPUSH SCH ×2 (08:00→19:23)
[2018-06-13] MEDS: Aspirin 81 MG Tab.EC PO SCH (08:01)
[2018-06-13] MEDS: [UNRECOGNIZED DRUG - REMARK] TOP SCH (08:10)
--- NOTE | 2018-06-13 09:41 | PCM.CONSN ---
- General Info Date of Service: 06/13/18 Subjective Update: Mr. Damian has been fairly stable since surgery yesterday. He did require increased fluids through the night because of diminished urine output. Urine output has improved after he received the extra fluids. He is sedated and fairly lethargic this morning. Respiratory status has been stable thus far. - Review of Systems General: Reports: Weakness. Denies: Fever, Chills Pulmonary: Reports: No Symptoms Cardiovascular: Reports: No Symptoms Gastrointestinal: Reports: Abdominal Pain. Denies: Difficulty Swallowing, Nausea, Vomiting - Patient Data Vitals - Most Recent: Last Vital Signs Temp 98.4 F 06/13/18 09:00 Pulse 75 06/13/18 09:00 Resp 16 06/13/18 09:00 BP 175/76 H 06/13/18 09:00 Pulse Ox 96 06/13/18 09:00 Weight - Most Recent: 185 lb I&O - Last 24 Hours: Intake & Output 06/12/18 06/13/18 06/13/18 22:59 06:59 14:59 Intake Total 2258 2086 Output Total 327 532 100 Balance 1931 1554 -100 Lab Results Last 24 Hours: Laboratory Results - last 24 hr 06/13/18 06/13/18 Range/Units 04:34 04:34 WBC 16.6 H (4.5-11.0) K/uL RBC 4.25 L (4.30-5.90) M/uL Hgb 12.8 (12.0-15.0) g/dL Hct 38.2 L (40.0-54.0) % MCV 90 (80-98) fL MCH 30 (27-31) pg MCHC 34 (32-36) % Plt Count 280 (150-400) K/uL Sodium 140 (140-148) mmol/L Potassium 4.1 (3.6-5.2) mmol/L Chloride 105 (100-108) mmol/L Carbon Dioxide 24 (21-32) mmol/L Anion Gap 10.8 (5.0-14.0) mmol/L BUN 11 (7-18) mg/dL Creatinine 1.4 H (0.8-1.3) mg/dL Est Cr Clr Drug Dosing 39.36 mL/min Estimated GFR (MDRD) 49 L (>60) Glucose 212 H (74-106) mg/dL Calcium 8.5 (8.5-10.1) mg/dL Phosphorus 2.5 (2.5-4.9) mg/dL Magnesium 1.5 L (1.8-2.4) mg/dL Total Bilirubin 0.5 (0.2-1.0) mg/dL AST 16 (15-37) U/L ALT 13 (12-78) U/L Alkaline Phosphatase 58 (46-116) U/L NT-Pro-B Natriuret Pep 1899 H (5-450) pg/mL Total Protein 5.6 L (6.4-8.2) g/dL Albumin 2.7 L (3.4-5.0) g/dL Globulin 2.9 (2.3-3.5) g/dL Albumin/Globulin Ratio 0.9 L (1.2-2.2) Med Orders - Current: Current Medications Acetaminophen (Tylenol Extra Strength) 1,000 mg PO Q6H [facility] Last Admin: 06/13/18 06:04 Dose: 1,000 mg Albuterol/Ipratropium (Duoneb 3.0-0.5 Mg/3 Ml) 3 ml NEB Q4H PRN PRN Reason: Shortness of Breath Last Admin: 06/12/18 22:40 Dose: 3 ml Alvimopan (Entereg) 12 mg PO Q12H [facility] Stop: 06/19/18 11:01 Last Admin: 06/12/18 22:53 Dose: 12 mg Aspirin (Halfprin) 81 mg PO DAILY [facility] Last Admin: 06/13/18 08:01 Dose: 81 mg Clopidogrel Bisulfate (Plavix) 75 mg PO DAILY [facility] Last Admin: 06/12/18 12:13 Dose: Not Given Ropivacaine 42 ml/Dexamethasone 8 mg/Epinephrine HCl 0.4 mg/ Sodium Chloride 35.6 ml 0 ml NERVRT ASDIRECTED [facility] Furosemide (Lasix) 10 mg IVPUSH Q12H [facility] Stop: 06/13/18 20:01 Last Admin: 06/13/18 08:00 Dose: 10 mg Hydromorphone HCl (Dilaudid Panel Flow Machine Operator 15 Mg In Ns 30 Ml) 0 mg IV ASDIRECTED PRN; Protocol PRN Reason: Pain Last Admin: 06/12/18 07:19 Dose: 15 mg Hydroxyzine HCl (Vistaril) 100 mg IM Q4H PRN PRN Reason: PAIN Last Admin: 06/13/18 02:42 Dose: 100 mg Ampicillin Sodium/Sulbactam (Sodium 3 gm/ Sodium Chloride) 100 mls @ 200 mls/ hr IV Q6H [facility] Stop: 06/14/18 06:29 Last Admin: 06/13/18 05:33 Dose: 200 mls/hr Aztreonam/Dextrose 1 gm/ (Premix) 50 mls @ 100 mls/hr IV Q8H [facility] Stop: 06/14/18 06:29 Last Admin: 06/13/18 06:04 Dose: 100 mls/hr Dextrose/Lactated Ringer's (Dextrose 5%-Lactated Ringers) 1,000 mls @ 125 mls/ hr IV ASDIRECTED [facility] Last Admin: 06/13/18 03:19 Dose: 125 mls/hr Magnesium Sulfate 2 gm/ Premix 50 mls @ 25 mls/hr IV Q6H [facility] Stop: 06/13/18 23:44 Labetalol HCl (Normodyne) 10 mg IVPUSH Q4H PRN; Protocol PRN Reason: Hypertension Last Admin: 06/13/18 03:24 Dose: 10 mg Metoclopramide HCl (Reglan) 10 mg IVPUSH Q8H [facility] Last Admin: 06/13/18 07:28 Dose: 10 mg Metoprolol Tartrate (Lopressor) 5 mg IV Q8H [facility] Last Admin: 06/13/18 02:46 Dose: 5 mg Naloxone HCl (Narcan) 0.4 mg IVPUSH Q2M PRN PRN Reason: Respiratory Distress Transderm Patch (Check Daily) 0 each TOP DAILY [facility] Last Admin: 06/13/18 08:10 Dose: Not Given Ondansetron HCl (Zofran) 4 mg IVPUSH Q4H PRN PRN Reason: Nausea Last Admin: 06/13/18 02:39 Dose: 4 mg Pantoprazole Sodium (Protonix Iv) 40 mg IVPUSH BID [facility] Last Admin: 06/12/18 21:04 Dose: 40 mg Scopolamine (Transderm-Scop) 1.5 mg TOP Q72H [facility] Last Admin: 06/12/18 10:59 Dose: 1.5 mg Tamsulosin HCl (Flomax) 0.4 mg PO BEDTIME [facility] Last Admin: 06/12/18 21:04 Dose: 0.4 mg Discontinued Medications Acetaminophen (Tylenol) 650 mg PO Q4H PRN PRN Reason: MILD PAIN Albuterol (Proventil Neb Soln) 2.5 mg NEB Q4H PRN PRN Reason: Dyspnea Albuterol/Ipratropium (Duoneb 3.0-0.5 Mg/3 Ml) 3 ml NEB QIDRT [facility] Last Admin: 06/12/18 07:13 Dose: 3 ml Alvimopan (Entereg) 12 mg PO ONETIME ONE Stop: 06/12/18 06:01 Last Admin: 06/12/18 06:09 Dose: 12 mg Ropivacaine 41 ml/Dexamethasone 8 mg/Epinephrine HCl 0.4 mg/ Sodium Chloride 36.6 ml 0 ml [facility] Last Admin: 06/12/18 08:30 Dose: 80 syringe Dexamethasone (Dexamethasone) Confirm Administered Dose 4 mg .ROUTE .STK-MED ONE Stop: 06/12/18 07:45 Fentanyl (Sublimaze) Confirm Administered Dose 100 mcg .ROUTE .STK-MED ONE Stop: 06/11/18 09:34 Fentanyl (Sublimaze) Confirm Administered Dose 250 mcg .ROUTE .STK-MED ONE Stop: 06/12/18 07:45 Fentanyl (Sublimaze) Confirm Administered Dose 250 mcg .ROUTE .STK-MED ONE Stop: 06/12/18 08:19 Fentanyl (Sublimaze) Confirm Administered Dose 250 mcg .ROUTE .STK-MED ONE Stop: 06/12/18 09:27 Glycopyrrolate (Robinul) Confirm Administered Dose 1 mg .ROUTE .STK-MED ONE Stop: 06/12/18 07:45 Dextrose/Lactated Ringer's (Dextrose 5%-Lactated Ringers) 1,000 mls @ 100 mls/ hr [facility] Last Admin: 06/12/18 01:08 Dose: 100 mls/hr Cefoxitin Sodium 2 gm/ Sodium (Chloride) 50 mls @ 100 mls/hr IV ONETIME ONE Stop: 06/12/18 08:29 Last Admin: 06/12/18 07:40 Dose: 100 mls/hr Dextrose/Lactated Ringer's (Dextrose 5%-Lactated Ringers) 1,000 mls @ 150 mls/ hr IV ASDIRECTED [facility] Last Admin: 06/12/18 11:05 Dose: 150 mls/hr Lactated Ringer's (Ringers, Lactated) 500 mls @ 500 mls/hr IV .BOLUS [facility] Last Admin: 06/12/18 17:33 Dose: 500 mls/hr Sodium Chloride (Normal Saline) 500 mls @ 500 mls/hr IV ONETIME ONE Stop: 06/12/18 22:23 Last Admin: 06/12/18 21:45 Dose: 500 mls/hr Dextrose/Lactated Ringer's (Dextrose 5%-Lactated Ringers) 1,000 mls @ 250 mls/ hr IV ASDIRECTED [facility] Stop: 06/13/18 02:29 Last Admin: 06/12/18 22:42 Dose: 250 mls/hr Labetalol HCl (Normodyne) Confirm Administered Dose 20 mg .ROUTE .STK-MED ONE Stop: 06/12/18 08:25 Labetalol HCl (Normodyne) 10 mg IVPUSH Q4H PRN; Protocol PRN Reason: Hypertension Melatonin (Melatonin) 9 mg PO BEDTIME [facility] Last Admin: 06/11/18 21:21 Dose: 9 mg Meropenem (Merrem) Confirm Administered Dose 500 mg .ROUTE .[facility]-MED ONE Stop: 06/12/18 07:06 Last Admin: 06/12/18 09:20 Dose: 500 mg Metoprolol Tartrate (Lopressor) 12.5 mg PO BID [facility] Stop: 06/11/18 23:59 Last Admin: 06/11/18 21:21 Dose: 12.5 mg Metoprolol Tartrate (Lopressor) 12.5 mg PO ONETIME ONE Stop: 06/12/18 06:01 Last Admin: 06/12/18 06:08 Dose: 12.5 mg Neostigmine Methylsulfate (Neostigmine) Confirm Administered Dose 5 mg .ROUTE .[facility]-MED ONE Stop: 06/12/18 07:45 Ondansetron HCl (Zofran) Confirm Administered Dose 4 mg .ROUTE .STK-MED ONE Stop: 06/12/18 07:45 Pantoprazole Sodium (Protonix) 40 mg PO BID [facility] Last Admin: 06/12/18 12:19 Dose: Not Given Propofol (Diprivan 20 Ml) Confirm Administered Dose 200 mg .ROUTE .STK-MED ONE Stop: 06/11/18 09:34 Propofol (Diprivan 20 Ml) Confirm Administered Dose 200 mg .ROUTE .STK-MED ONE Stop: 06/12/18 07:45 Rocuronium [place] (Zemuron) Confirm Administered Dose 50 mg .ROUTE .STK-MED ONE Stop: 06/12/18 07:45 Rocuronium [place] (Zemuron) Confirm Administered Dose 50 mg .ROUTE .STK-MED ONE Stop: 06/12/18 08:19 Succinylcholine Chloride (Quelicin) Confirm Administered Dose 200 mg .ROUTE .STK -MED ONE Stop: 06/12/18 07:45 - Exam Quality Assessment: Urine Catheter, DVT Prophylaxis General: Moderate Distress, Sedated, Lethargic Lungs: Clear to Auscultation, Normal Respiratory Effort, Decreased Breath Sounds Cardiovascular: Regular Rate, Regular Rhythm, No Murmurs GI/Abdominal Exam: Soft, No Organomegaly, Tender. No: Distended, Guarding, Rigid, Rebound Consult PN Assessment/Plan Procedures: Procedures AIRWAY INHALATION TREATMENT (10/05/16) ASSAY OF CK (CPK) (09/09/17) ASSAY OF LACTIC ACID (08/18/17) ASSAY OF MAGNESIUM (06/28/17) ASSAY OF NATRIURETIC PEPTIDE (08/06/17) ASSAY OF TROPONIN QUANT (03/30/18) ASSAY THYROID STIM HORMONE (10/05/16) BLOOD GASES ANY COMBINATION (10/05/16) C-REACTIVE PROTEIN (08/18/17) CARDIAC REHAB/MONITOR (11/02/17) CARDIOVASCULAR STRESS TEST (04/14/16) CARDIOVASCULAR STRESS TEST (04/14/16) CHEST X-RAY 1 VIEW FRONTAL (01/02/17) CHEST X-RAY 2VW FRONTAL&LATL (02/02/16) CO/MEMBANE DIFFUSE CAPACITY (10/05/16) COMPLETE CBC AUTOMATED (04/26/18) COMPLETE CBC W/AUTO DIFF WBC (11/03/17) COMPREHEN METABOLIC PANEL (11/03/17) CREATINE MB FRACTION (08/06/17) CT ABD & PELVIS W/O CONTRAST (05/03/16) CT ANGIOGRAPHY CHEST (10/05/16) CT HEAD/BRAIN W/O DYE (11/03/17) ECG/MONITORING AND ANALYSIS (06/28/17) ELECTROCARDIOGRAM REPORT (10/22/13) ELECTROCARDIOGRAM TRACING (11/03/17) EMERGENCY DEPT VISIT (04/26/18) EMERGENCY DEPT VISIT (11/03/17) EMERGENCY DEPT VISIT (08/18/17) EMERGENCY DEPT VISIT (08/06/17) EMERGENCY DEPT VISIT (07/13/17) EMERGENCY DEPT VISIT (07/11/17) EMERGENCY DEPT VISIT (07/08/17) EMERGENCY DEPT VISIT (07/08/17) EMERGENCY DEPT VISIT (01/02/17) EMERGENCY DEPT VISIT (05/06/16) EMERGENCY DEPT VISIT (09/15/15) EMERGENCY DEPT VISIT (09/15/15) EMERGENCY DEPT VISIT (10/22/13) EMERGENCY DEPT VISIT (10/22/13) EVALUATION OF WHEEZING (10/05/16) FIBRIN DEGRADATION QUANT (10/05/16) HT MUSCLE IMAGE SPECT MULT (04/14/16) HYDRATE IV INFUSION ADD-ON (11/03/17) HYDRATION IV INFUSION INIT (01/02/17) METABOLIC PANEL TOTAL CA (04/26/18) MRI BRAIN STEM W/O DYE (10/21/17) MRI LOWER EXTREMITY W/O DYE (03/13/15) POLYSOM 6/> YRS 4/> CORNELIUS (09/21/16) PROTHROMBIN TIME (08/06/17) PT EVAL MOD COMPLEX 30 MIN (10/05/16) RBC SED RATE NONAUTOMATED (10/22/13) REMOTE 30 DAY ECG REV/REPORT (06/28/17) ROUTINE VENIPUNCTURE (04/26/18) THER/PROPH/DIAG INJ IV PUSH (11/03/17) THER/PROPH/DIAG INJ SC/IM (05/06/16) THER/PROPH/DIAG IV INF INIT (10/22/13) THERAPEUTIC ACTIVITIES (10/05/16) THERAPEUTIC EXERCISES (10/05/16) THROMBOPLASTIN TIME PARTIAL (01/02/17) TTE W/DOPPLER COMPLETE (06/28/17) TX/PRO/DX INJ NEW DRUG ADDON (11/03/17) URINALYSIS AUTO W/SCOPE (11/03/17) US EXAM ABDO BACK WALL COMP (01/29/18) US EXAM ABDO BACK WALL RICO (10/05/16) WITHDRAWAL OF ARTERIAL BLOOD (10/05/16) X-RAY EXAM CHEST 1 VIEW (11/03/17) Problem List Initiated/Reviewed/Updated: Yes My Orders Last 24 Hours: My Active Orders 06/12/18 18:41 Labetalol [Normodyne] 10 mg IVPUSH Q4H PRN 06/12/18 21:50 Albuterol/Ipratropium [DuoNeb 3.0-0.5 MG/3 ML] 3 ml NEB Q4H PRN 06/12/18 21:52 RT Aerosol Therapy [RC] ASDIRECTED 06/13/18 02:30 Dextrose 5%-Lactated Ringers 1,000 ml IV ASDIRECTED 06/13/18 09:45 Magnesium Sulfate/Water [Magnesium Sulfate 2 GM in Water 50 ML] 2 gm Premix Bag 1 bag IV Q6H Plan: ASSESSMENT AND RECOMMENDATIONS STATUS 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 Carter CORONARY ARTERY DISEASE -Resume oral medications as soon as possible after surgery CHRONIC KIDNEY DISEASE STAGE III -Closely monitor renal function and urine output during the postoperative course CONGESTIVE HEART FAILURE-well compensated on current therapy -Monitor closely for fluid overload during the postoperative course -Resume oral medications as soon as possible after surgery COPD-mild, no evidence of current exacerbation -Monitor closely for evidence of respiratory compromise after surgery -Consider early use of noninvasive positive pressure ventilation -Scheduled duo nebs 4 times daily -As needed albuterol nebs -Vigorous pulmonary toilet after surgery
[2018-06-13] MEDS: Clopidogrel 75 MG Tab PO SCH ×2 (09:43→11:16)
[2018-06-13] MEDS: Pantoprazole 40 MG Vial IVPUSH SCH ×2 (09:46→20:47)
[2018-06-13] MEDS: Magnesium Sulfate/Water 2 GM in Premix Bag 1 BAG IV SCH ×3 (10:01→22:10)
[2018-06-13] MEDS ORDERED: Labetalol 20 MG/4 ML Syringe ONE ×2 (20:41→23:24)
[2018-06-13] MEDS: Tamsulosin 0.4 MG Cap.ER PO SCH (20:47)
[2018-06-13] MEDS ORDERED: Labetalol 20 MG/4 ML Syringe IVPUSH ONE (23:32)
[2018-06-14] MEDS ORDERED: hydrALAZINE 20 MG/ML SDV ONE (00:32)
[2018-06-14] MEDS: hydrALAZINE 20 MG/ML SDV IVPUSH PRN ×2 (00:36→04:51)
[2018-06-14] MEDS ORDERED: Labetalol 20 MG/4 ML Syringe ONE ×2 (02:06→06:03)
[2018-06-14] MEDS ORDERED: Albuterol/Ipratropium 3.0-0.5 MG/3 ML Neb Soln ONE ×2 (02:06→06:03)
[2018-06-14] MEDS: Albuterol/Ipratropium 3.0-0.5 MG/3 ML Neb Soln NEB PRN ×2 (02:06→06:10)
[2018-06-14] MEDS: Labetalol 20 MG/4 ML Syringe IVPUSH PRN ×2 (02:07→06:08)
[2018-06-14] MEDS: Metoprolol Tartrate 5 MG/5 ML SDV IV SCH (04:02)
[2018-06-14] MEDS: Metoclopramide 10 MG/2 ML SDV IVPUSH SCH ×3 (05:21→21:59)
[2018-06-14] MEDS: Ampicillin/Sulbactam Na 3 GM in Sodium Chloride 0.9% 100 ML IV SCH (05:23)
[2018-06-14] MEDS: Aztreonam/Dextrose-Water 1 GM in Premix Bag 1 BAG IV SCH (06:08)
[2018-06-14] MEDS: Acetaminophen 500 MG Tab PO SCH ×4 (06:27→23:12)
[2018-06-14] MEDS ORDERED: Bupivacaine 0.5% 30 ML SDV ONE (06:50)
[2018-06-14] MEDS ORDERED: Meropenem 500 MG SDV ONE (06:50)
[2018-06-14] MEDS ORDERED: Lidocaine 1% with EPINEPHrine 1:100,000 50 ML MDV ONE (06:50)
[2018-06-14] MEDS ORDERED: Propofol 200 MG/20 ML SDV ONE ×2 (07:06→07:44)
[2018-06-14] MEDS ORDERED: fentaNYL 100 MCG/2 ML SDV ONE (07:06)
[2018-06-14] MEDS ORDERED: Ropivacaine 42 ML, Dexamethasone 8 MG, EPINEPHrine 0.4 MG, Sodium Chloride 0.9% 35.6 ML NERVRT SCH ×4 (07:15)
[2018-06-14] MEDS ORDERED: Lactated Ringers 1,000 ML ONE (07:19)
[2018-06-14] MEDS ORDERED: Dextrose 5%-Lactated Ringers 1,000 ML IV SCH ×2 (09:15→09:45)
--- NOTE | 2018-06-14 09:30 | US ---
Abdomen Ltd CLINICAL HISTORY: Colon carcinoma COMPARISON: CT abdomen 2016. FINDINGS: The liver is free of mass or biliary dilatation. There is normal parenchymal echogenicity. There are scattered cysts in the right and left lobes. These are seen on prior CT.There is calcification in the upper right lobe which may be granulomatous The gallbladder contains a small filling defect in the dependent portion. It is nonmobile and nonshadowing. This may represent some minimal debris or a tiny calculus. Tiny polyp is not excluded The common duct measures 5 mm. The pancreas is obscured. Right kidney is echogenic. There is a 2.3 x 2.0 x 2.7 cm complex cyst in the upper pole.The aorta is not aneurysmal. The inferior vena cava is unremarkable. IMPRESSION: Scattered hepatic cysts Complex right renal cysts No mass or biliary dilatation Pancreas is obscured
--- NOTE | 2018-06-14 09:31 | CR ---
Abdomen 1V Upright CLINICAL HISTORY: Gastric distention FINDINGS: There is gas in the transverse colon. There are a few scattered air-filled loops of small bowel in a nonspecific pattern. No free air is seen. There is a surgical drain in the lower abdomen IMPRESSION: Nonspecific intestinal gas pattern. No significant gastric distention
[2018-06-14] MEDS ORDERED: Metoprolol Tartrate 25 MG Tab PO SCH (09:45)
--- NOTE | 2018-06-14 09:47 | PCM.CONSN ---
- General Info Date of Service: 06/14/18 Subjective Update: There were no acute events overnight. Patient has had significant elevations of his blood pressure with systolic readings greater than 200. He has had some mild intermittent agitation and confusion. He is very weak. He had a delayed primary closure this morning and is currently complaining of severe abdominal pain. He has not had any fevers. Yeager catheter was removed this morning. Functional Status: Denies: Pain Controlled - Review of Systems General: Denies: Fever Pulmonary: Denies: Shortness of Breath Cardiovascular: Denies: Edema Gastrointestinal: Reports: Abdominal Pain - Patient Data Vitals - Most Recent: Last Vital Signs Temp 36.6 C 06/14/18 08:56 Pulse 102 H 06/14/18 08:56 Resp 16 06/14/18 08:56 BP 202/87 H 06/14/18 08:56 Pulse Ox 91 L 06/14/18 09:13 Weight - Most Recent: 83.915 kg I&O - Last 24 Hours: Intake & Output 06/13/18 06/14/18 06/14/18 22:59 06:59 14:59 Intake Total 1745 1442 Output Total 1050 1520 Balance 695 -78 Lab Results Last 24 Hours: Laboratory Results - last 24 hr 06/14/18 06/14/18 Range/Units 04:35 04:35 WBC 16.1 H (4.5-11.0) K/uL RBC 4.16 L (4.30-5.90) M/uL Hgb 12.5 (12.0-15.0) g/dL Hct 37.6 L (40.0-54.0) % MCV 90 (80-98) fL MCH 30 (27-31) pg MCHC 33 (32-36) % Plt Count 260 (150-400) K/uL Neut % (Auto) 75 H (36-66) % Lymph % (Auto) 13 L (24-44) % Towns % (Auto) 11 H (2-6) % Eos % (Auto) 1 L (2-4) % Baso % (Auto) 0 (0-1) % Sodium 142 (140-148) mmol/L Potassium 4.1 (3.6-5.2) mmol/L Chloride 105 (100-108) mmol/L Carbon Dioxide 28 (21-32) mmol/L Anion Gap 8.9 (5.0-14.0) mmol/L BUN 12 (7-18) mg/dL Creatinine 1.5 H (0.8-1.3) mg/dL Est Cr Clr Drug Dosing 36.73 mL/min Estimated GFR (MDRD) 45 L (>60) Glucose 126 H (74-106) mg/dL Calcium 8.7 (8.5-10.1) mg/dL Phosphorus 2.5 (2.5-4.9) mg/dL Magnesium 2.5 H (1.8-2.4) mg/dL Total Bilirubin 0.6 (0.2-1.0) mg/dL AST 21 (15-37) U/L ALT 14 (12-78) U/L Alkaline Phosphatase 58 (46-116) U/L NT-Pro-B Natriuret Pep 1268 H (5-450) pg/mL Total Protein 5.8 L (6.4-8.2) g/dL Albumin 2.7 L (3.4-5.0) g/dL Globulin 3.1 (2.3-3.5) g/dL Albumin/Globulin Ratio 0.9 L (1.2-2.2) Med Orders - Current: Current Medications Acetaminophen (Tylenol Extra Strength) 1,000 mg PO Q6H [facility] Last Admin: 06/14/18 06:27 Dose: Not Given Albuterol/Ipratropium (Duoneb 3.0-0.5 Mg/3 Ml) 3 ml NEB Q4H PRN PRN Reason: Shortness of Breath Last Admin: 06/14/18 06:10 Dose: 3 ml Alvimopan (Entereg) 12 mg PO Q12H [facility] Stop: 06/19/18 11:01 Last Admin: 06/13/18 23:08 Dose: 12 mg Aspirin (Halfprin) 81 mg PO DAILY [facility] Last Admin: 06/13/18 08:01 Dose: 81 mg Bisacodyl (Dulcolax) 2 mg PO BID [facility] Clopidogrel Bisulfate (Plavix) 75 mg PO DAILY [facility] Last Admin: 06/13/18 11:16 Dose: 75 mg Ropivacaine 42 ml/Dexamethasone 8 mg/Epinephrine HCl 0.4 mg/ Sodium Chloride 35.6 ml 0 ml NERVRT ASDIRECTED [facility] Furosemide (Lasix) 20 mg IVPUSH NOW ONE Stop: 06/14/18 09:45 Hydralazine HCl (Apresoline) 5 mg IVPUSH Q4H PRN PRN Reason: Hypertension Last Admin: 06/14/18 04:51 Dose: 5 mg Hydromorphone HCl (Dilaudid Pecan Cleaner 15 Mg In Ns 30 Ml) 0 mg IV ASDIRECTED PRN; Protocol PRN Reason: Pain Last Admin: 06/12/18 07:19 Dose: 15 mg Hydroxyzine HCl (Vistaril) 100 mg IM Q4H PRN PRN Reason: PAIN Last Admin: 06/13/18 02:42 Dose: 100 mg Dextrose/Lactated Ringer's (Dextrose 5%-Lactated Ringers) 1,000 mls @ 25 mls/ hr IV ASDIRECTED [facility] Labetalol HCl (Normodyne) 10 mg IVPUSH Q4H PRN; Protocol PRN Reason: Hypertension Last Admin: 06/14/18 06:08 Dose: 10 mg Metoclopramide HCl (Reglan) 10 mg IVPUSH Q8H [facility] Last Admin: 06/14/18 05:21 Dose: 10 mg Metoprolol Tartrate (Lopressor) 12.5 mg PO BID [facility] Naloxone HCl (Narcan) 0.4 mg IVPUSH Q2M PRN PRN Reason: Respiratory Distress Transderm Patch (Check Daily) 0 each TOP DAILY [facility] Last Admin: 06/13/18 08:10 Dose: Not Given Ondansetron HCl (Zofran) 4 mg IVPUSH Q4H PRN PRN Reason: Nausea Last Admin: 06/13/18 02:39 Dose: 4 mg Pantoprazole Sodium (Protonix Iv) 40 mg IVPUSH BID [facility] Last Admin: 06/13/18 20:47 Dose: 40 mg Scopolamine (Transderm-Scop) 1.5 mg TOP Q72H [facility] Last Admin: 06/12/18 10:59 Dose: 1.5 mg Senna/Docusate Sodium (Senna Plus) 2 tab PO BID [facility] Tamsulosin HCl (Flomax) 0.4 mg PO BEDTIME [facility] Last Admin: 06/13/18 20:47 Dose: 0.4 mg Discontinued Medications Acetaminophen (Tylenol) 650 mg PO Q4H PRN PRN Reason: MILD PAIN Albuterol (Proventil Neb Soln) 2.5 mg NEB Q4H PRN PRN Reason: Dyspnea Albuterol/Ipratropium (Duoneb 3.0-0.5 Mg/3 Ml) 3 ml NEB QIDRT [facility] Last Admin: 06/12/18 07:13 Dose: 3 ml Alvimopan (Entereg) 12 mg PO ONETIME ONE Stop: 06/12/18 06:01 Last Admin: 06/12/18 06:09 Dose: 12 mg Bupivacaine HCl (Marcaine 0.5%) Confirm Administered Dose 30 ml .ROUTE .K-MED ONE Stop: 06/14/18 06:51 Ropivacaine 41 ml/Dexamethasone 8 mg/Epinephrine HCl 0.4 mg/ Sodium Chloride 36.6 ml 0 [facility] Last Admin: 06/12/18 08:30 Dose: 80 syringe Dexamethasone (Dexamethasone) Confirm Administered Dose 4 mg .ROUTE .[facility] ONE Stop: 06/12/18 07:45 Fentanyl (Sublimaze) Confirm Administered Dose 100 mcg .ROUTE .[facility] ONE Stop: 06/11/18 09:34 Fentanyl (Sublimaze) Confirm Administered Dose 250 mcg .ROUTE .[facility] ONE Stop: 06/12/18 07:45 Fentanyl (Sublimaze) Confirm Administered Dose 250 mcg .ROUTE .[facility] ONE Stop: 06/12/18 08:19 Fentanyl (Sublimaze) Confirm Administered Dose 250 mcg .ROUTE .[facility] ONE Stop: 06/12/18 09:27 Fentanyl (Sublimaze) Confirm Administered Dose 100 mcg .ROUTE .[facility] ONE Stop: 06/14/18 07:07 Furosemide (Lasix) 10 mg IVPUSH Q12H [facility] Stop: 06/13/18 20:01 Last Admin: 06/13/18 19:23 Dose: 10 mg Glycopyrrolate (Robinul) Confirm Administered Dose 1 mg .ROUTE .[facility] ONE Stop: 06/12/18 07:45 Dextrose/Lactated Ringer's (Dextrose 5%-Lactated Ringers) 1,000 mls @ 100 mls/ [facility] Last Admin: 06/12/18 01:08 Dose: 100 mls/hr Cefoxitin Sodium 2 gm/ Sodium (Chloride) 50 mls @ 100 mls/hr IV ONETIME ONE Stop: 06/12/18 08:29 Last Admin: 06/12/18 07:40 Dose: 100 mls/hr Dextrose/Lactated Ringer's (Dextrose 5%-Lactated Ringers) 1,000 mls @ 150 mls/ hr IV ASDIRECTED [facility] Last Admin: 06/12/18 11:05 Dose: 150 mls/hr Ampicillin Sodium/Sulbactam (Sodium 3 gm/ Sodium Chloride) 100 mls @ 200 mls/ hr IV Q6H [facility] Stop: 06/14/18 06:29 Last Admin: 06/14/18 05:23 Dose: 200 mls/hr Aztreonam/Dextrose 1 gm/ (Premix) 50 mls @ 100 mls/hr IV Q8H [facility] Stop: 06/14/18 06:29 Last Admin: 06/14/18 06:08 Dose: 100 mls/hr Lactated Ringer's (Ringers, Lactated) 500 mls @ 500 mls/hr IV .BOLUS [facility] Last Admin: 06/12/18 17:33 Dose: 500 mls/hr Sodium Chloride (Normal Saline) 500 mls @ 500 mls/hr IV ONETIME ONE Stop: 06/12/18 22:23 Last Admin: 06/12/18 21:45 Dose: 500 mls/hr Dextrose/Lactated Ringer's (Dextrose 5%-Lactated Ringers) 1,000 mls @ 250 mls/ hr IV ASDIRECTED [facility] Stop: 06/13/18 02:29 Last Admin: 06/12/18 22:42 Dose: 250 mls/hr Dextrose/Lactated Ringer's (Dextrose 5%-Lactated Ringers) 1,000 mls @ 125 mls/ hr IV ASDIRECTED [facility] Last Admin: 06/13/18 23:06 Dose: 125 mls/hr Magnesium Sulfate 2 gm/ Premix 50 mls @ 25 mls/hr IV Q6H [facility] Stop: 06/13/18 23:59 Last Admin: 06/13/18 22:10 Dose: 25 mls/hr Lactated Ringer's (Ringers, Lactated) Confirm Administered Dose 1,000 mls @ as directed .ROUTE .STK-MED ONE Stop: 06/14/18 07:20 Dextrose/Lactated Ringer's (Dextrose 5%-Lactated Ringers) 1,000 mls @ 100 mls/ hr IV ASDIRECTED [facility] Labetalol HCl (Normodyne) Confirm Administered Dose 20 mg .ROUTE .STK-MED ONE Stop: 06/12/18 08:25 Labetalol HCl (Normodyne) 10 mg IVPUSH Q4H PRN; Protocol PRN Reason: Hypertension Labetalol HCl (Normodyne) 10 mg IVPUSH ONETIME ONE; Protocol Stop: 06/13/18 23:33 Last Admin: 06/13/18 23:42 Dose: 10 mg Lidocaine/Epinephrine (Xylocaine 1% With Epinephrine 1:100,000) Confirm Administered Dose 50 ml .ROUTE .[facility] Stop: 06/14/18 06:51 Melatonin (Melatonin) 9 mg PO BEDTIME [facility] Last Admin: 06/11/18 21:21 Dose: 9 mg Meropenem (Merrem) Confirm Administered Dose 500 mg .ROUTE .[facility] Stop: 06/12/18 07:06 Last Admin: 06/12/18 09:20 Dose: 500 mg Meropenem (Merrem) Confirm Administered Dose 500 mg .ROUTE .[facility] Stop: 06/14/18 06:51 Metoprolol Tartrate (Lopressor) 12.5 mg PO BID [facility] Stop: 06/11/18 23:59 Last Admin: 06/11/18 21:21 Dose: 12.5 mg Metoprolol Tartrate (Lopressor) 12.5 mg PO ONETIME ONE Stop: 06/12/18 06:01 Last Admin: 06/12/18 06:08 Dose: 12.5 mg Metoprolol Tartrate (Lopressor) 5 mg IV Q8H [facility] Last Admin: 06/14/18 04:02 Dose: 5 mg Neostigmine Methylsulfate (Neostigmine) Confirm Administered Dose 5 mg .ROUTE .STK-MED ONE Stop: 06/12/18 07:45 Ondansetron HCl (Zofran) Confirm Administered Dose 4 mg .ROUTE .K-MED ONE Stop: 06/12/18 07:45 Pantoprazole Sodium (Protonix) 40 mg PO BID [facility] Last Admin: 06/12/18 12:19 Dose: Not Given Propofol (Diprivan 20 Ml) Confirm Administered Dose 200 mg .ROUTE .STK-MED ONE Stop: 06/11/18 09:34 Propofol (Diprivan 20 Ml) Confirm Administered Dose 200 mg .ROUTE .STK-MED ONE Stop: 06/12/18 07:45 Propofol (Diprivan 20 Ml) Confirm Administered Dose 200 mg .ROUTE .STK-MED ONE Stop: 06/14/18 07:07 Propofol (Diprivan 20 Ml) Confirm Administered Dose 200 mg .ROUTE .STK-MED ONE Stop: 06/14/18 07:45 Rocuronium [place] (Zemuron) Confirm Administered Dose 50 mg .ROUTE .STK-MED ONE Stop: 06/12/18 07:45 Rocuronium [place] (Zemuron) Confirm Administered Dose 50 mg .ROUTE .STK-MED ONE Stop: 06/12/18 08:19 Succinylcholine Chloride (Quelicin) Confirm Administered Dose 200 mg .ROUTE .STK -MED ONE Stop: 06/12/18 07:45 - Exam Quality Assessment: No: Supplemental Oxygen General: Alert, Oriented, Cooperative, Mild Distress Neck: JVD Lungs: Clear to Auscultation, Normal Respiratory Effort Cardiovascular: Regular Rhythm, Tachycardia GI/Abdominal Exam: Soft, No Distention Extremities: No Pedal Edema. No: Increased Warmth Skin: Warm, Dry Psy/Mental Status: Alert, Normal Affect Consult PN Assessment/Plan POD#: 2 Procedures: Procedures AIRWAY INHALATION TREATMENT (10/05/16) ASSAY OF CK (CPK) (09/09/17) ASSAY OF LACTIC ACID (08/18/17) ASSAY OF MAGNESIUM (06/28/17) ASSAY OF NATRIURETIC PEPTIDE (08/06/17) ASSAY OF TROPONIN QUANT (03/30/18) ASSAY THYROID STIM HORMONE (10/05/16) BLOOD GASES ANY COMBINATION (10/05/16) C-REACTIVE PROTEIN (08/18/17) CARDIAC REHAB/MONITOR (11/02/17) CARDIOVASCULAR STRESS TEST (04/14/16) CARDIOVASCULAR STRESS TEST (04/14/16) CHEST X-RAY 1 VIEW FRONTAL (01/02/17) CHEST X-RAY 2VW FRONTAL&LATL (02/02/16) CO/MEMBANE DIFFUSE CAPACITY (10/05/16) COMPLETE CBC AUTOMATED (04/26/18) COMPLETE CBC W/AUTO DIFF WBC (11/03/17) COMPREHEN METABOLIC PANEL (11/03/17) CREATINE MB FRACTION (08/06/17) CT ABD & PELVIS W/O CONTRAST (05/03/16) CT ANGIOGRAPHY CHEST (10/05/16) CT HEAD/BRAIN W/O DYE (11/03/17) ECG/MONITORING AND ANALYSIS (06/28/17) ELECTROCARDIOGRAM REPORT (10/22/13) ELECTROCARDIOGRAM TRACING (11/03/17) EMERGENCY DEPT VISIT (04/26/18) EMERGENCY DEPT VISIT (11/03/17) EMERGENCY DEPT VISIT (08/18/17) EMERGENCY DEPT VISIT (08/06/17) EMERGENCY DEPT VISIT (07/13/17) EMERGENCY DEPT VISIT (07/11/17) EMERGENCY DEPT VISIT (07/08/17) EMERGENCY DEPT VISIT (07/08/17) EMERGENCY DEPT VISIT (01/02/17) EMERGENCY DEPT VISIT (05/06/16) EMERGENCY DEPT VISIT (09/15/15) EMERGENCY DEPT VISIT (09/15/15) EMERGENCY DEPT VISIT (10/22/13) EMERGENCY DEPT VISIT (10/22/13) EVALUATION OF WHEEZING (10/05/16) FIBRIN DEGRADATION QUANT (10/05/16) HT MUSCLE IMAGE SPECT MULT (04/14/16) HYDRATE IV INFUSION ADD-ON (11/03/17) HYDRATION IV INFUSION INIT (01/02/17) METABOLIC PANEL TOTAL CA (04/26/18) MRI BRAIN STEM W/O DYE (10/21/17) MRI LOWER EXTREMITY W/O DYE (03/13/15) POLYSOM 6/> YRS 4/> CORNELIUS (09/21/16) PROTHROMBIN TIME (08/06/17) PT EVAL MOD COMPLEX 30 MIN (10/05/16) RBC SED RATE NONAUTOMATED (10/22/13) REMOTE 30 DAY ECG REV/REPORT (06/28/17) ROUTINE VENIPUNCTURE (04/26/18) THER/PROPH/DIAG INJ IV PUSH (11/03/17) THER/PROPH/DIAG INJ SC/IM (05/06/16) THER/PROPH/DIAG IV INF INIT (10/22/13) THERAPEUTIC ACTIVITIES (10/05/16) THERAPEUTIC EXERCISES (10/05/16) THROMBOPLASTIN TIME PARTIAL (01/02/17) TTE W/DOPPLER COMPLETE (06/28/17) TX/PRO/DX INJ NEW DRUG ADDON (11/03/17) URINALYSIS AUTO W/SCOPE (11/03/17) US EXAM ABDO BACK WALL COMP (01/29/18) US EXAM ABDO BACK WALL RICO (10/05/16) WITHDRAWAL OF ARTERIAL BLOOD (10/05/16) X-RAY EXAM CHEST 1 VIEW (11/03/17) Problem List Initiated/Reviewed/Updated: Yes My Orders Last 24 Hours: My Active Orders 06/14/18 09:44 Furosemide [Lasix] 20 mg IVPUSH NOW ONE 06/14/18 09:45 Dextrose 5%-Lactated Ringers 1,000 ml IV ASDIRECTED Metoprolol Tartrate [Lopressor] 12.5 mg PO BID Plan: ASSESSMENT AND RECOMMENDATIONS STATUS 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 Significant pain reported at this time. -Surgical management per Dr. Carter ACCELERATED HYPERTENSION - reports more difficulty with borderline low blood pressures recently. He has been receiving IV metoprolol and occasionally additional IV blood pressure lowering medications. I suspect volume is driving some of his hypertension and pain is probably contributing as well. -Single dose of furosemide this morning and reassess -Restart oral beta shorty -Hydralazine as needed for severe hypertension MILD CONFUSION - could be related to pain medications versus potentially scopolamine patch. There is some concern about alcohol withdrawal but I don't think that's the case here. -Optimize blood pressure -Remove scopolamine patch CORONARY ARTERY DISEASE - no chest pain at this time. -Restarting beta shorty and antiplatelet medications CHRONIC KIDNEY DISEASE STAGE III - kidney function stable. -Closely monitor renal function and urine output during the postoperative course CONGESTIVE HEART FAILURE - no significant edema or crackles on pulmonary exam but he does have JVD noted today and I suspect he has some excess volume on board. -Furosemide as mentioned above Restart beta shorty- COPD - mild, no evidence of current exacerbation -Monitor closely for evidence of respiratory compromise after surgery -Consider early use of noninvasive positive pressure ventilation -Scheduled duo nebs 4 times daily -As needed albuterol nebs -Vigorous pulmonary toilet after surgery Hayder Gutierrez M.D.
[2018-06-14] MEDS ORDERED: Furosemide 20 MG/2 ML VIAL IVPUSH ONE (10:00)
[2018-06-14] MEDS: HYDROmorphone/Normal Saline 15 MG/30 ML PCA IV PRN (10:05)
[2018-06-14] MEDS: Clopidogrel 75 MG Tab PO SCH (10:08)
[2018-06-14] MEDS: Aspirin 81 MG Tab.EC PO SCH (10:08)
[2018-06-14] MEDS: [UNRECOGNIZED DRUG - REMARK] TOP SCH (10:08)
[2018-06-14] MEDS: Pantoprazole 40 MG Vial IVPUSH SCH ×2 (10:08→20:55)
[2018-06-14] MEDS ORDERED: BRANDY PO PRN (12:10)
--- NOTE | 2018-06-14 14:21 | PN ---
DATE OF SERVICE: 06/14/2018 The patient has been afebrile. He is having some elevated blood pressures in the 190 to 200 systolic range and we will ask the hospitalist to follow on that issue. There is also some question of possible alcohol withdrawal, although conversation this morning with myself was fairly lucid. Otherwise, we will plan to close the wound up today. The abdominal x-ray shows no significant gastric distention, and most of the areas in the large bowel, the concern yesterday regarding ileus appeared to be abating. We will restart diet when he gets back and then Yeager catheter will come out today as well. Labs show white count 16,000, slightly lower than yesterday; hemoglobin 12.5. Electrolytes show no major problems other than the creatinine did creep up a little bit from 1.4 to 1.5, and 1.3 baseline at the time of admission. His BNP is down somewhat at 1268, so I think from the fluid overload standpoint, it is not an issue, and we will continue the IV rate running at 100 an hour to have fair bit of urine output ongoing as this will be in addition to some oral intake. We will have the hospitalist check the patient regarding blood pressure issues. Kyle Carter MD /[id number]
[2018-06-14] MEDS ORDERED: hydrALAZINE 20 MG/ML SDV IVPUSH PRN (20:29)
[2018-06-14] MEDS: Metoprolol Tartrate 25 MG Tab PO SCH (20:58)
[2018-06-14] MEDS: Bisacodyl 5 MG Tab PO SCH (20:58)
[2018-06-14] MEDS: Tamsulosin 0.4 MG Cap.ER PO SCH (20:59)
[2018-06-14] MEDS ORDERED: Bisacodyl 5 MG Tab PO SCH (21:00)
[2018-06-15] MEDS: Metoclopramide 10 MG/2 ML SDV IVPUSH SCH ×3 (05:51→21:27)
[2018-06-15] MEDS: Acetaminophen 500 MG Tab PO SCH ×3 (05:51→17:50)
[2018-06-15] MEDS ORDERED: Furosemide 20 MG/2 ML VIAL IVPUSH ONE (06:39)
[2018-06-15] MEDS: Bisacodyl 5 MG Tab PO SCH ×2 (09:09→21:26)
[2018-06-15] MEDS: Metoprolol Tartrate 25 MG Tab PO SCH ×2 (09:10→21:27)
[2018-06-15] MEDS: Aspirin 81 MG Tab.EC PO SCH (09:10)
[2018-06-15] MEDS: Clopidogrel 75 MG Tab PO SCH (09:10)
[2018-06-15] MEDS: Pantoprazole 40 MG Vial IVPUSH SCH (09:11)
--- NOTE | 2018-06-15 13:33 | PCM.CONSN ---
- General Info Date of Service: 06/15/18 Subjective Update: There were no acute events overnight. Patient did have a low-grade fever. He is much more clear and interactive after the scopolamine patch was removed. Blood pressures improved with the use of furosemide yesterday. He reports moderate abdominal pain but much better than yesterday. He is unsteady on his feet with a shuffling gait. Functional Status: Reports: Pain Controlled, Tolerating Diet - Review of Systems General: Reports: Fever - Patient Data Vitals - Most Recent: Last Vital Signs Temp 36.6 C 06/15/18 10:54 Pulse 83 06/15/18 10:54 Resp 18 06/15/18 10:54 BP 159/72 H 06/15/18 10:54 Pulse Ox 97 06/15/18 10:54 Weight - Most Recent: 83.915 kg I&O - Last 24 Hours: Intake & Output 06/14/18 06/15/18 06/15/18 22:59 06:59 14:59 Intake Total 837 349 240 Output Total 700 500 325 Balance 137 -151 -85 Lab Results Last 24 Hours: Laboratory Results - last 24 hr 06/11/18 06/15/18 06/15/18 Range/Units 11:05 04:00 04:00 WBC 13.9 H (4.5-11.0) K/uL RBC 4.05 L (4.30-5.90) M/uL Hgb 11.9 L (12.0-15.0) g/dL Hct 36.2 L (40.0-54.0) % MCV 89 (80-98) fL MCH 29 (27-31) pg MCHC 33 (32-36) % Plt Count 271 (150-400) K/uL Sodium 140 (140-148) mmol/L Potassium 3.7 (3.6-5.2) mmol/L Chloride 104 (100-108) mmol/L Carbon Dioxide 28 (21-32) mmol/L Anion Gap 8.4 (5.0-14.0) mmol/L BUN 14 (7-18) mg/dL Creatinine 1.2 (0.8-1.3) mg/dL Est Cr Clr Drug Dosing 46.09 mL/min Estimated GFR (MDRD) 58 L (>60) Glucose 151 H (74-106) mg/dL Calcium 8.8 (8.5-10.1) mg/dL Phosphorus 2.2 L (2.5-4.9) mg/dL Magnesium 1.9 D (1.8-2.4) mg/dL Total Bilirubin 0.7 (0.2-1.0) mg/dL AST 21 (15-37) U/L ALT 14 (12-78) U/L Alkaline Phosphatase 54 (46-116) U/L NT-Pro-B Natriuret Pep 4873 H (5-450) pg/mL Total Protein 5.6 L (6.4-8.2) g/dL Albumin 2.5 L (3.4-5.0) g/dL Globulin 3.1 (2.3-3.5) g/dL Albumin/Globulin Ratio 0.8 L (1.2-2.2) Crossmatch See Detail Med Orders - Current: Current Medications Acetaminophen (Tylenol Extra Strength) 1,000 mg PO Q6H [facility] Last Admin: 06/15/18 11:33 Dose: 1,000 mg Albuterol/Ipratropium (Duoneb 3.0-0.5 Mg/3 Ml) 3 ml NEB Q4H PRN PRN Reason: Shortness of Breath Last Admin: 06/14/18 06:10 Dose: 3 ml Alvimopan (Entereg) 12 mg PO Q12H [facility] Stop: 06/19/18 11:01 Last Admin: 06/15/18 11:33 Dose: 12 mg Aspirin (Halfprin) 81 mg PO DAILY [facility] Last Admin: 06/15/18 09:10 Dose: 81 mg Bisacodyl (Dulcolax) 10 mg PO BID [facility] Last Admin: 06/15/18 09:09 Dose: 10 mg Clopidogrel Bisulfate (Plavix) 75 mg PO DAILY [facility] Last Admin: 06/15/18 09:10 Dose: 75 mg Hydroxyzine HCl (Vistaril) 100 mg IM Q4H PRN PRN Reason: PAIN Last Admin: 06/13/18 02:42 Dose: 100 mg Dextrose/Lactated Ringer's (Dextrose 5%-Lactated Ringers) 1,000 mls @ 25 mls/ hr IV ASDIRECTED [facility] Last Admin: 06/14/18 22:14 Dose: 25 mls/hr Labetalol HCl (Normodyne) 10 mg IVPUSH Q4H PRN; Protocol PRN Reason: Hypertension Last Admin: 06/14/18 06:08 Dose: 10 mg Metoclopramide HCl (Reglan) 10 mg IVPUSH Q8H [facility] Last Admin: 06/15/18 05:51 Dose: 10 mg Metoprolol Tartrate (Lopressor) 25 mg PO BID [facility] Last Admin: 06/15/18 09:10 Dose: 25 mg Ondansetron HCl (Zofran) 4 mg IVPUSH Q4H PRN PRN Reason: Nausea Last Admin: 06/13/18 02:39 Dose: 4 mg Oxycodone HCl (Oxycodone) 5 mg PO Q4H PRN PRN Reason: PAIN [facility] Senna/Docusate Sodium (Senna Plus) 2 tab PO BID [facility] Last Admin: 06/15/18 09:10 Dose: 2 tab Tamsulosin HCl (Flomax) 0.4 mg PO BEDTIME [facility] Last Admin: 06/14/18 20:59 Dose: 0.4 mg Discontinued Medications Acetaminophen (Tylenol) 650 mg PO Q4H PRN PRN Reason: MILD PAIN Albuterol (Proventil Neb Soln) 2.5 mg NEB Q4H PRN PRN Reason: Dyspnea Albuterol/Ipratropium (Duoneb 3.0-0.5 Mg/3 Ml) 3 ml NEB QIDRT [facility] Last Admin: 06/12/18 07:13 Dose: 3 ml Alvimopan (Entereg) 12 mg PO ONETIME ONE Stop: 06/12/18 06:01 Last Admin: 06/12/18 06:09 Dose: 12 mg Bupivacaine HCl (Marcaine 0.5%) Confirm Administered Dose 30 ml .ROUTE .STK-MED ONE Stop: 06/14/18 06:51 Last Admin: 06/14/18 07:50 Dose: 10 ml Ropivacaine 41 ml/Dexamethasone 8 mg/Epinephrine HCl 0.4 mg/ Sodium Chloride 36.6 ml 0 ml NERVRT ASDIRECTED [facility] Last Admin: 06/12/18 08:30 Dose: 80 syringe Ropivacaine 42 ml/Dexamethasone 8 mg/Epinephrine HCl 0.4 mg/ Sodium Chloride 35.6 ml 0 ml NERVRT ASDIRECTED [facility] Last Admin: 06/14/18 07:25 Dose: 80 syringe Dexamethasone (Dexamethasone) Confirm Administered Dose 4 mg .ROUTE .STK-MED ONE Stop: 06/12/18 07:45 Fentanyl (Sublimaze) Confirm Administered Dose 100 mcg .ROUTE .STK-MED ONE Stop: 06/11/18 09:34 Fentanyl (Sublimaze) Confirm Administered Dose 250 mcg .ROUTE .STK-MED ONE Stop: 06/12/18 07:45 Fentanyl (Sublimaze) Confirm Administered Dose 250 mcg .ROUTE .STK-MED ONE Stop: 06/12/18 08:19 Fentanyl (Sublimaze) Confirm Administered Dose 250 mcg .ROUTE .STK-MED ONE Stop: 06/12/18 09:27 Fentanyl (Sublimaze) Confirm Administered Dose 100 mcg .ROUTE .STK-MED ONE Stop: 06/14/18 07:07 Furosemide (Lasix) 10 mg IVPUSH Q12H [facility] Stop: 06/13/18 20:01 Last Admin: 06/13/18 19:23 Dose: 10 mg Furosemide (Lasix) 20 mg IVPUSH NOW ONE Stop: 06/14/18 10:01 Last Admin: 06/14/18 10:04 Dose: 20 mg Furosemide (Lasix) 20 mg IVPUSH ONETIME ONE Stop: 06/15/18 06:40 Last Admin: 06/15/18 06:53 Dose: 20 mg Furosemide (Lasix) 20 mg IV ONETIME ONE Stop: 06/15/18 16:01 Glycopyrrolate (Robinul) Confirm Administered Dose 1 mg .ROUTE .STK-MED ONE Stop: 06/12/18 07:45 Hydralazine HCl (Apresoline) 5 mg IVPUSH Q4H PRN PRN Reason: Hypertension Last Admin: 06/14/18 04:51 Dose: 5 mg Hydralazine HCl (Apresoline) 10 mg IVPUSH Q4H PRN PRN Reason: hypertension Last Admin: 06/14/18 23:19 Dose: 10 mg Hydromorphone HCl (Dilaudid [employer] 15 Mg In Ns 30 Ml) 0 mg IV ASDIRECTED PRN; Protocol PRN Reason: Pain Last Admin: 06/14/18 10:05 Dose: 15 mg Dextrose/Lactated Ringer's (Dextrose 5%-Lactated Ringers) 1,000 mls @ 100 mls/ hr IV ASDIRECTED [facility] Last Admin: 06/12/18 01:08 Dose: 100 mls/hr Cefoxitin Sodium 2 gm/ Sodium (Chloride) 50 mls @ 100 mls/hr IV ONETIME ONE Stop: 06/12/18 08:29 Last Admin: 06/12/18 07:40 Dose: 100 mls/hr Dextrose/Lactated Ringer's (Dextrose 5%-Lactated Ringers) 1,000 mls @ 150 mls/ hr IV ASDIRECTED [facility] Last Admin: 06/12/18 11:05 Dose: 150 mls/hr Ampicillin Sodium/Sulbactam (Sodium 3 gm/ Sodium Chloride) 100 mls @ 200 mls/ hr IV Q6H [facility] Stop: 06/14/18 06:29 Last Admin: 06/14/18 05:23 Dose: 200 mls/hr Aztreonam/Dextrose 1 gm/ (Premix) 50 mls @ 100 mls/hr IV Q8H [facility] Stop: 06/14/18 06:29 Last Admin: 06/14/18 06:08 Dose: 100 mls/hr Lactated Ringer's (Ringers, Lactated) 500 mls @ 500 mls/hr IV .BOLUS [facility] Last Admin: 06/12/18 17:33 Dose: 500 mls/hr Sodium Chloride (Normal Saline) 500 mls @ 500 mls/hr IV ONETIME ONE Stop: 06/12/18 22:23 Last Admin: 06/12/18 21:45 Dose: 500 mls/hr Dextrose/Lactated Ringer's (Dextrose 5%-Lactated Ringers) 1,000 mls @ 250 mls/ hr IV ASDIRECTED [facility] Stop: 06/13/18 02:29 Last Admin: 06/12/18 22:42 Dose: 250 mls/hr Dextrose/Lactated Ringer's (Dextrose 5%-Lactated Ringers) 1,000 mls @ 125 mls/ hr IV ASDIRECTED [facility] Last Admin: 06/13/18 23:06 Dose: 125 mls/hr Magnesium Sulfate 2 gm/ Premix 50 mls @ 25 mls/hr IV Q6H [facility] Stop: 06/13/18 23:59 Last Admin: 06/13/18 22:10 Dose: 25 mls/hr Lactated Ringer's (Ringers, Lactated) Confirm Administered Dose 1,000 mls @ as directed .ROUTE .STK-MED ONE Stop: 06/14/18 07:20 Dextrose/Lactated Ringer's (Dextrose 5%-Lactated Ringers) 1,000 mls @ 100 mls/ hr IV ASDIRECTED [facility] Labetalol HCl (Normodyne) Confirm Administered Dose 20 mg .ROUTE .STK-MED ONE Stop: 06/12/18 08:25 Labetalol HCl (Normodyne) 10 mg IVPUSH Q4H PRN; Protocol PRN Reason: Hypertension Labetalol HCl (Normodyne) 10 mg IVPUSH ONETIME ONE; Protocol Stop: 06/13/18 23:33 Last Admin: 06/13/18 23:42 Dose: 10 mg Lidocaine/Epinephrine (Xylocaine 1% With Epinephrine 1:100,000) Confirm Administered Dose 50 ml .ROUTE .STK-MED ONE Stop: 06/14/18 06:51 Last Admin: 06/14/18 07:50 Dose: 10 ml Melatonin (Melatonin) 9 mg PO BEDTIME [facility] Last Admin: 06/11/18 21:21 Dose: 9 mg Meropenem (Merrem) Confirm Administered Dose 500 mg .ROUTE .STK-MED ONE Stop: 06/12/18 07:06 Last Admin: 06/12/18 09:20 Dose: 500 mg Meropenem (Merrem) Confirm Administered Dose 500 mg .ROUTE .STK-MED ONE Stop: 06/14/18 06:51 Last Admin: 06/14/18 07:40 Dose: 500 mg Metoprolol Tartrate (Lopressor) 12.5 mg PO BID [facility] Stop: 06/11/18 23:59 Last Admin: 06/11/18 21:21 Dose: 12.5 mg Metoprolol Tartrate (Lopressor) 12.5 mg PO ONETIME ONE Stop: 06/12/18 06:01 Last Admin: 06/12/18 06:08 Dose: 12.5 mg Metoprolol Tartrate (Lopressor) 5 mg IV Q8H [facility] Last Admin: 06/14/18 04:02 Dose: 5 mg Metoprolol Tartrate (Lopressor) 12.5 mg PO BID [facility] Last Admin: 06/14/18 10:04 Dose: 12.5 mg Naloxone HCl (Narcan) 0.4 mg IVPUSH Q2M PRN PRN Reason: Respiratory Distress Neostigmine Methylsulfate (Neostigmine) Confirm Administered Dose 5 mg .ROUTE .[facility]-MED ONE Stop: 06/12/18 07:45 Transderm Patch (Check Daily) 0 each TOP DAILY [facility] Last Admin: 06/14/18 10:08 Dose: Not Given Brittany 0 each PO Q4H PRN PRN Reason: WITHDRAWAL SYMPTOMS Ondansetron HCl (Zofran) Confirm Administered Dose 4 mg .ROUTE .[facility] ONE Stop: 06/12/18 07:45 Pantoprazole Sodium (Protonix) 40 mg PO BID [facility] Last Admin: 06/12/18 12:19 Dose: Not Given Pantoprazole Sodium (Protonix Iv) 40 mg IVPUSH BID [facility] Last Admin: 06/15/18 09:11 Dose: 40 mg Propofol (Diprivan 20 Ml) Confirm Administered Dose 200 mg .ROUTE .[facility]-MED ONE Stop: 06/11/18 09:34 Propofol (Diprivan 20 Ml) Confirm Administered Dose 200 mg .ROUTE .[facility] ONE Stop: 06/12/18 07:45 Propofol (Diprivan 20 Ml) Confirm Administered Dose 200 mg .ROUTE .[facility] ONE Stop: 06/14/18 07:07 Propofol (Diprivan 20 Ml) Confirm Administered Dose 200 mg .ROUTE .[facility] ONE Stop: 06/14/18 07:45 Rocuronium [place] (Zemuron) Confirm Administered Dose 50 mg .ROUTE .[facility]-MED ONE Stop: 06/12/18 07:45 Rocuronium [place] (Zemuron) Confirm Administered Dose 50 mg .ROUTE .[facility] ONE Stop: 06/12/18 08:19 Scopolamine (Transderm-Scop) 1.5 mg TOP Q72H [facility] Last Admin: 06/12/18 10:59 Dose: 1.5 mg Succinylcholine Chloride (Quelicin) Confirm Administered Dose 200 mg .ROUTE .[facility] ONE Stop: 06/12/18 07:45 - Exam Quality Assessment: No: Supplemental Oxygen General: Alert, Oriented, Cooperative, No Acute Distress Lungs: Clear to Auscultation, Normal Respiratory Effort Cardiovascular: Regular Rate, Regular Rhythm GI/Abdominal Exam: Soft, No Distention, Tender Extremities: No Pedal Edema Skin: Warm, Dry Psy/Mental Status: Alert, Normal Affect Consult PN Assessment/Plan Procedures: Procedures AIRWAY INHALATION TREATMENT (10/05/16) ASSAY OF CK (CPK) (09/09/17) ASSAY OF LACTIC ACID (08/18/17) ASSAY OF MAGNESIUM (06/28/17) ASSAY OF NATRIURETIC PEPTIDE (08/06/17) ASSAY OF TROPONIN QUANT (03/30/18) ASSAY THYROID STIM HORMONE (10/05/16) BLOOD GASES ANY COMBINATION (10/05/16) C-REACTIVE PROTEIN (08/18/17) CARDIAC REHAB/MONITOR (11/02/17) CARDIOVASCULAR STRESS TEST (04/14/16) CARDIOVASCULAR STRESS TEST (04/14/16) CHEST X-RAY 1 VIEW FRONTAL (01/02/17) CHEST X-RAY 2VW FRONTAL&LATL (02/02/16) CO/MEMBANE DIFFUSE CAPACITY (10/05/16) COMPLETE CBC AUTOMATED (04/26/18) COMPLETE CBC W/AUTO DIFF WBC (11/03/17) COMPREHEN METABOLIC PANEL (11/03/17) CREATINE MB FRACTION (08/06/17) CT ABD & PELVIS W/O CONTRAST (05/03/16) CT ANGIOGRAPHY CHEST (10/05/16) CT HEAD/BRAIN W/O DYE (11/03/17) ECG/MONITORING AND ANALYSIS (06/28/17) ELECTROCARDIOGRAM REPORT (10/22/13) ELECTROCARDIOGRAM TRACING (11/03/17) EMERGENCY DEPT VISIT (04/26/18) EMERGENCY DEPT VISIT (11/03/17) EMERGENCY DEPT VISIT (08/18/17) EMERGENCY DEPT VISIT (08/06/17) EMERGENCY DEPT VISIT (07/13/17) EMERGENCY DEPT VISIT (07/11/17) EMERGENCY DEPT VISIT (07/08/17) EMERGENCY DEPT VISIT (07/08/17) EMERGENCY DEPT VISIT (01/02/17) EMERGENCY DEPT VISIT (05/06/16) EMERGENCY DEPT VISIT (09/15/15) EMERGENCY DEPT VISIT (09/15/15) EMERGENCY DEPT VISIT (10/22/13) EMERGENCY DEPT VISIT (10/22/13) EVALUATION OF WHEEZING (10/05/16) FIBRIN DEGRADATION QUANT (10/05/16) HT MUSCLE IMAGE SPECT MULT (04/14/16) HYDRATE IV INFUSION ADD-ON (11/03/17) HYDRATION IV INFUSION INIT (01/02/17) METABOLIC PANEL TOTAL CA (04/26/18) MRI BRAIN STEM W/O DYE (10/21/17) MRI LOWER EXTREMITY W/O DYE (03/13/15) POLYSOM 6/> YRS 4/> CORNELIUS (09/21/16) PROTHROMBIN TIME (08/06/17) PT EVAL MOD COMPLEX 30 MIN (10/05/16) RBC SED RATE NONAUTOMATED (10/22/13) REMOTE 30 DAY ECG REV/REPORT (06/28/17) ROUTINE VENIPUNCTURE (04/26/18) THER/PROPH/DIAG INJ IV PUSH (11/03/17) THER/PROPH/DIAG INJ SC/IM (05/06/16) THER/PROPH/DIAG IV INF INIT (10/22/13) THERAPEUTIC ACTIVITIES (10/05/16) THERAPEUTIC EXERCISES (10/05/16) THROMBOPLASTIN TIME PARTIAL (01/02/17) TTE W/DOPPLER COMPLETE (06/28/17) TX/PRO/DX INJ NEW DRUG ADDON (11/03/17) URINALYSIS AUTO W/SCOPE (11/03/17) US EXAM ABDO BACK WALL COMP (01/29/18) US EXAM ABDO BACK WALL RICO (10/05/16) WITHDRAWAL OF ARTERIAL BLOOD (10/05/16) X-RAY EXAM CHEST 1 VIEW (11/03/17) Problem List Initiated/Reviewed/Updated: Yes My Orders Last 24 Hours: My Active Orders 06/14/18 21:00 Metoprolol Tartrate [Lopressor] 25 mg PO BID 06/15/18 07:00 PT Evaluation and Treatment [CONS] Routine 06/15/18 16:30 Pantoprazole [ProTONIX] 40 mg PO BIDAC Plan: ASSESSMENT AND RECOMMENDATIONS STATUS 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 Pain control much better the past 24 hours. -Surgical management per Dr. aCrter ACCELERATED HYPERTENSION - blood pressure has improved with increased dose of metoprolol and diuresis. -Single dose of furosemide this morning and reassess (minimal JVD this morning) -Continue metoprolol at increased dose -Hydralazine as needed for severe hypertension MILD CONFUSION - doing much better after the scopolamine patch was removed yesterday. Seems to be back to baseline at this time. -Optimize blood pressure -Remove scopolamine patch CORONARY ARTERY DISEASE - no chest pain at this time. -Continue beta shorty and antiplatelet medications CHRONIC KIDNEY DISEASE STAGE III - kidney function stable. -Closely monitor renal function and urine output during the postoperative course CONGESTIVE HEART FAILURE - no significant edema or crackles on pulmonary exam but he does still have some JVD though it's much better today. -Furosemide as mentioned above -Continue beta shorty COPD - mild, no evidence of current exacerbation -Monitor closely for evidence of respiratory compromise after surgery -Consider early use of noninvasive positive pressure ventilation if respiratory decline -Scheduled duo nebs 4 times daily -As needed albuterol nebs -Vigorous pulmonary toilet Hayder Gutierrez M.D.
[2018-06-15] MEDS ORDERED: Furosemide 20 MG/2 ML VIAL IV ONE (16:00)
[2018-06-15] MEDS: Pantoprazole 40 MG Tab.CR PO SCH (16:26)
[2018-06-15] MEDS: Ondansetron 4 MG/2 ML SDV IVPUSH PRN (17:50)
[2018-06-15] MEDS: Tamsulosin 0.4 MG Cap.ER PO SCH (21:27)
[2018-06-15] MEDS: Melatonin 3 MG Tab PO SCH (21:30)
[2018-06-15] MEDS: oxyCODONE 5 MG Tab PO PRN (21:33)
[2018-06-16] MEDS: Acetaminophen 500 MG Tab PO SCH ×4 (00:27→06:09)
[2018-06-16] MEDS: oxyCODONE 5 MG Tab PO PRN (06:09)
[2018-06-16] MEDS: Metoclopramide 10 MG/2 ML SDV IVPUSH SCH (06:10)
[2018-06-16] MEDS: Pantoprazole 40 MG Tab.CR PO SCH ×2 (07:27→17:00)
[2018-06-16] MEDS: Metoprolol Tartrate 25 MG Tab PO SCH ×2 (09:17→20:39)
[2018-06-16] MEDS: Clopidogrel 75 MG Tab PO SCH (09:17)
[2018-06-16] MEDS: Aspirin 81 MG Tab.EC PO SCH (09:18)
--- NOTE | 2018-06-16 09:52 | PN ---
DATE OF SERVICE: 06/16/2018 SUBJECTIVE: Ray has had 3 bowel movements. Oral intake is adequate at 1340. Pain has been well managed. Vital signs have been stable. Has had some confusion that clears during the day. Quite sleepy this morning. Pain medication will be changed. REVIEW OF SYSTEMS: Remainder of review of systems negative for any pertinent positives and negatives. OBJECTIVE: GENERAL: Ray Damian is an 82-year-old male. VITAL SIGNS: TPR is 97.6, 98, 16, blood pressure 142/79. HEENT: Negative. NECK: Supple. HEART: Regular rate and rhythm. LUNGS: Clear. ABDOMEN: Negative. EXTREMITIES: Negative. ASSESSMENT: 1. Exploratory laparotomy with: a. Rectosigmoid colon resection with coloproctostomy. b. Repair of umbilical and epigastric hernia, and mobilization of omentum into pelvis for mass in distal sigmoid colon, incarcerated umbilical and epigastric hernia. Date of surgery: 06/12/2018. 2. Delayed primary closure for open abdominal incision on 06/14/2018. PLAN: 1. Discontinue Dulcolax tablets. 2. Discharge planning for home health care. 3. Discontinue telemetry and continuous pulse ox. 4. Discontinue oxycodone. 5. [place] 5/325 mg one every 3 hours p.r.n. pain. 6. Plan discharge in a.m. 7. We will evaluate p.r.n. or in a.m. Edel Peguero PA-C /[id number]
[2018-06-16] MEDS ORDERED: Potassium Chloride 20 MEQ Tab.ER PO ONE ×2 (10:00→17:00)
[2018-06-16] MEDS: Magnesium Oxide 400 MG Tab PO SCH (10:32)
[2018-06-16] MEDS: Acetaminophen/HYDROcodone 325-5 MG Tab PO PRN ×5 (10:35→23:44)
--- NOTE | 2018-06-16 10:49 | PN ---
DATE OF SERVICE: 06/13/2018 The patient has been afebrile other than the single temp of 100.4. Vital signs are otherwise stable. Respiratory status appears to be fairly good. His BNP is up a little bit at 1900 and creatinine is down to 1.3 to 1.4. Urine output has generally been satisfactory. He is complaining of some slight nausea and does appear to be somewhat more distended than previously. If he does have significantly increased nausea or has emesis, we will place an NG tube and give him suction otherwise, we will check abdominal x-ray tomorrow morning prior to wound closure. At this time, if it looks distended we'll place an NG tube prior to that procedure, otherwise we will keep him n.p.o. except for ice chips and meds today. Maximize activity and work with pulmonary toilet. Plan for the delayed primary closure of abdominal incision tomorrow. Kyle Carter MD /[id number]
--- NOTE | 2018-06-16 12:13 | PN ---
DATE OF SERVICE: 06/15/2018 The patient has been afebrile with stable vital signs. Blood pressures have come down better. We switched over to oral Lopressor with a slightly higher dose at 25 mg b.i.d. Urine output has been satisfactory and appears to be getting decent volumes given point of urinating. The BNP is up, so we will give him some IV Lasix now and then repeat that at 4:00 p.m.. Switch over exclusively to oral pain medication today, and transfer to 2nd floor on telemetry and continuous pulse oximetry. We will continue the bowel stimulation. Kyle Carter MD /[id number]
--- NOTE | 2018-06-16 12:13 | PCM.CONSN ---
- General Info Date of Service: 06/16/18 Subjective Update: Patient had some confusion last night consistent with ing. Slept well and appears to be doing quite well this morning. Minimal abdominal pain which has been improving steadily throughout the hospital stay. Blood pressures and heart rate have been stable though he does still have some tachycardia when he is up and moving. Tolerating diet. He has had some loose stools after bowel stimulation yesterday. He has not had any fevers. Functional Status: Reports: Pain Controlled, Tolerating Diet - Review of Systems General: Reports: Weakness. Denies: Fever Cardiovascular: Denies: Chest Pain Gastrointestinal: Reports: Abdominal Pain (mild) - Patient Data Vitals - Most Recent: Last Vital Signs Temp 36.4 C 06/16/18 11:00 Pulse 58 L 06/16/18 11:00 Resp 18 06/16/18 11:00 BP 130/65 06/16/18 11:00 Pulse Ox 91 L 06/16/18 11:00 Weight - Most Recent: 83.915 kg I&O - Last 24 Hours: Intake & Output 06/15/18 06/16/18 06/16/18 22:59 06:59 14:59 Intake Total 700 300 250 Output Total 800 250 700 Balance -100 50 -450 Lab Results Last 24 Hours: Laboratory Results - last 24 hr 06/16/18 06/16/18 Range/Units 04:00 04:00 WBC 12.1 H (4.5-11.0) K/uL RBC 3.88 L (4.30-5.90) M/uL Hgb 11.4 L (12.0-15.0) g/dL Hct 35.0 L (40.0-54.0) % MCV 90 (80-98) fL MCH 29 (27-31) pg MCHC 33 (32-36) % Plt Count 255 (150-400) K/uL Sodium 143 (140-148) mmol/L Potassium 3.2 L (3.6-5.2) mmol/L Chloride 107 (100-108) mmol/L Carbon Dioxide 28 (21-32) mmol/L Anion Gap 11.2 (5.0-14.0) mmol/L BUN 16 (7-18) mg/dL Creatinine 1.3 (0.8-1.3) mg/dL Est Cr Clr Drug Dosing 42.54 mL/min Estimated GFR (MDRD) 53 L (>60) Glucose 102 (74-106) mg/dL Calcium 8.2 L (8.5-10.1) mg/dL Phosphorus 2.8 (2.5-4.9) mg/dL Magnesium 1.6 L (1.8-2.4) mg/dL Total Bilirubin 0.7 (0.2-1.0) mg/dL AST 23 (15-37) U/L ALT 12 (12-78) U/L Alkaline Phosphatase 47 (46-116) U/L NT-Pro-B Natriuret Pep 5013 H (5-450) pg/mL Total Protein 5.1 L (6.4-8.2) g/dL Albumin 2.3 L (3.4-5.0) g/dL Globulin 2.8 (2.3-3.5) g/dL Albumin/Globulin Ratio 0.8 L (1.2-2.2) Med Orders - Current: Current Medications Hydrocodone Bitart/Acetaminophen (Glasco 325-5 Mg) 1 tab PO Q3H PRN PRN Reason: Pain Last Admin: 06/16/18 10:35 Dose: 1 tab Albuterol/Ipratropium (Duoneb 3.0-0.5 Mg/3 Ml) 3 ml NEB Q4H PRN PRN Reason: Shortness of Breath Last Admin: 06/14/18 06:10 Dose: 3 ml Aspirin (Halfprin) 81 mg PO DAILY [facility] Last Admin: 06/16/18 09:18 Dose: 81 mg Clopidogrel Bisulfate (Plavix) 75 mg PO DAILY [facility] Last Admin: 06/16/18 09:17 Dose: 75 mg Furosemide (Lasix) 20 mg IVPUSH ONETIME ONE Stop: 06/16/18 12:12 Hydroxyzine HCl (Vistaril) 100 mg IM Q4H PRN PRN Reason: PAIN Last Admin: 06/13/18 02:42 Dose: 100 mg Labetalol HCl (Normodyne) 10 mg IVPUSH Q4H PRN; Protocol PRN Reason: Hypertension Last Admin: 06/14/18 06:08 Dose: 10 mg Magnesium Oxide (Magnesium Oxide) 400 mg PO DAILY [facility] Last Admin: 06/16/18 10:32 Dose: 400 mg Melatonin (Melatonin) 9 mg PO BEDTIME [facility] Last Admin: 06/15/18 21:30 Dose: 9 mg Metoclopramide HCl (Reglan) 10 mg IVPUSH Q8H [facility] Last Admin: 06/16/18 06:10 Dose: 10 mg Metoprolol Tartrate (Lopressor) 25 mg PO BID [facility] Last Admin: 06/16/18 09:17 Dose: 25 mg Ondansetron HCl (Zofran) 4 mg IVPUSH Q4H PRN PRN Reason: Nausea Last Admin: 06/15/18 17:50 Dose: 4 mg [facility] Last Admin: 06/16/18 07:27 Dose: 40 mg Potassium Chloride (Klor-Con M20) 40 meq PO ONETIME ONE Stop: 06/16/18 17:01 Senna/Docusate Sodium (Senna Plus) 2 tab PO BID [facility] Last Admin: 06/16/18 09:34 Dose: Not Given Tamsulosin HCl (Flomax) 0.4 mg PO BEDTIME [facility] Last Admin: 06/15/18 21:27 Dose: 0.4 mg Discontinued Medications Acetaminophen (Tylenol) 650 mg PO Q4H PRN PRN Reason: MILD PAIN Acetaminophen (Tylenol Extra Strength) 1,000 mg PO Q6H [facility] Last Admin: 06/16/18 06:09 Dose: Not Given Albuterol (Proventil Neb Soln) 2.5 mg NEB Q4H PRN PRN Reason: Dyspnea Albuterol/Ipratropium (Duoneb 3.0-0.5 Mg/3 Ml) 3 ml NEB QIDRT [facility] Last Admin: 06/12/18 07:13 Dose: 3 ml Alvimopan (Entereg) 12 mg PO ONETIME ONE Stop: 06/12/18 06:01 Last Admin: 06/12/18 06:09 Dose: 12 mg Alvimopan (Entereg) 12 mg PO Q12H [facility] Stop: 06/19/18 11:01 Last Admin: 06/15/18 22:11 Dose: Not Given Bisacodyl (Dulcolax) 10 mg PO BID [facility] Last Admin: 06/15/18 21:26 Dose: Not Given Bupivacaine HCl (Marcaine 0.5%) Confirm Administered Dose 30 ml .ROUTE .STK-MED ONE Stop: 06/14/18 06:51 Last Admin: 06/14/18 07:50 Dose: 10 ml Ropivacaine 41 ml/Dexamethasone 8 mg/Epinephrine HCl 0.4 mg/ Sodium Chloride 36.6 ml 0 ml NERVRT ASDIRECTED [facility] Last Admin: 06/12/18 08:30 Dose: 80 syringe Ropivacaine 42 ml/Dexamethasone 8 mg/Epinephrine HCl 0.4 mg/ Sodium Chloride 35.6 ml 0 ml NERVRT ASDIRECTED [facility] Last Admin: 06/14/18 07:25 Dose: 80 syringe Dexamethasone (Dexamethasone) Confirm Administered Dose 4 mg .ROUTE .STK-MED ONE Stop: 06/12/18 07:45 Fentanyl (Sublimaze) Confirm Administered Dose 100 mcg .ROUTE .STK-MED ONE Stop: 06/11/18 09:34 Fentanyl (Sublimaze) Confirm Administered Dose 250 mcg .ROUTE .STK-MED ONE Stop: 06/12/18 07:45 Fentanyl (Sublimaze) Confirm Administered Dose 250 mcg .ROUTE .STK-MED ONE Stop: 06/12/18 08:19 Fentanyl (Sublimaze) Confirm Administered Dose 250 mcg .ROUTE .STK-MED ONE Stop: 06/12/18 09:27 Fentanyl (Sublimaze) Confirm Administered Dose 100 mcg .ROUTE .STK-MED ONE Stop: 06/14/18 07:07 Furosemide (Lasix) 10 mg IVPUSH Q12H [facility] Stop: 06/13/18 20:01 Last Admin: 06/13/18 19:23 Dose: 10 mg Furosemide (Lasix) 20 mg IVPUSH NOW ONE Stop: 06/14/18 10:01 Last Admin: 06/14/18 10:04 Dose: 20 mg Furosemide (Lasix) 20 mg IVPUSH ONETIME ONE Stop: 06/15/18 06:40 Last Admin: 06/15/18 06:53 Dose: 20 mg Furosemide (Lasix) 20 mg IV ONETIME ONE Stop: 06/15/18 16:01 Glycopyrrolate (Robinul) Confirm Administered Dose 1 mg .ROUTE .STK-MED ONE Stop: 06/12/18 07:45 Hydralazine HCl (Apresoline) 5 mg IVPUSH Q4H PRN PRN Reason: Hypertension Last Admin: 06/14/18 04:51 Dose: 5 mg Hydralazine HCl (Apresoline) 10 mg IVPUSH Q4H PRN PRN Reason: hypertension Last Admin: 06/14/18 23:19 Dose: 10 mg Hydromorphone HCl (Dilaudid Manager Cardiology 15 Mg In Ns 30 Ml) 0 mg IV ASDIRECTED PRN; Protocol PRN Reason: Pain Last Admin: 06/14/18 10:05 Dose: 15 mg Dextrose/Lactated Ringer's (Dextrose 5%-Lactated Ringers) 1,000 mls @ 100 mls/ hr IV ASDIRECTED [facility] Last Admin: 06/12/18 01:08 Dose: 100 mls/hr Cefoxitin Sodium 2 gm/ Sodium (Chloride) 50 mls @ 100 mls/hr IV ONETIME ONE Stop: 06/12/18 08:29 Last Admin: 06/12/18 07:40 Dose: 100 mls/hr Dextrose/Lactated Ringer's (Dextrose 5%-Lactated Ringers) 1,000 mls @ 150 mls/ hr IV ASDIRECTED [facility] Last Admin: 06/12/18 11:05 Dose: 150 mls/hr Ampicillin Sodium/Sulbactam (Sodium 3 gm/ Sodium Chloride) 100 mls @ 200 mls/ hr IV Q6H [facility] Stop: 06/14/18 06:29 Last Admin: 06/14/18 05:23 Dose: 200 mls/hr Aztreonam/Dextrose 1 gm/ (Premix) 50 mls @ 100 mls/hr IV Q8H [facility] Stop: 06/14/18 06:29 Last Admin: 06/14/18 06:08 Dose: 100 mls/hr Lactated Ringer's (Ringers, Lactated) 500 mls @ 500 mls/hr IV .BOLUS [facility] Last Admin: 06/12/18 17:33 Dose: 500 mls/hr Sodium Chloride (Normal Saline) 500 mls @ 500 mls/hr IV ONETIME ONE Stop: 06/12/18 22:23 Last Admin: 06/12/18 21:45 Dose: 500 mls/hr Dextrose/Lactated Ringer's (Dextrose 5%-Lactated Ringers) 1,000 mls @ 250 mls/ hr IV ASDIRECTED [facility] Stop: 06/13/18 02:29 Last Admin: 06/12/18 22:42 Dose: 250 mls/hr Dextrose/Lactated Ringer's (Dextrose 5%-Lactated Ringers) 1,000 mls @ 125 mls/ hr IV ASDIRECTED [facility] Last Admin: 06/13/18 23:06 Dose: 125 mls/hr Magnesium Sulfate 2 gm/ Premix 50 mls @ 25 mls/hr IV Q6H [facility] Stop: 06/13/18 23:59 Last Admin: 06/13/18 22:10 Dose: 25 mls/hr Lactated Ringer's (Ringers, Lactated) Confirm Administered Dose 1,000 mls @ as directed .ROUTE .STK-MED ONE Stop: 06/14/18 07:20 Dextrose/Lactated Ringer's (Dextrose 5%-Lactated Ringers) 1,000 mls @ 100 mls/ hr IV ASDIRECTED [facility] Dextrose/Lactated Ringer's (Dextrose 5%-Lactated Ringers) 1,000 mls @ 25 mls/ hr IV ASDIRECTED [facility] Last Admin: 06/14/18 22:14 Dose: 25 mls/hr Labetalol HCl (Normodyne) Confirm Administered Dose 20 mg .ROUTE .STK-MED ONE Stop: 06/12/18 08:25 Labetalol HCl (Normodyne) 10 mg IVPUSH Q4H PRN; Protocol PRN Reason: Hypertension Labetalol HCl (Normodyne) 10 mg IVPUSH ONETIME ONE; Protocol Stop: 06/13/18 23:33 Last Admin: 06/13/18 23:42 Dose: 10 mg Lidocaine/Epinephrine (Xylocaine 1% With Epinephrine 1:100,000) Confirm Administered Dose 50 ml .ROUTE .STK-MED ONE Stop: 06/14/18 06:51 Last Admin: 06/14/18 07:50 Dose: 10 ml Melatonin (Melatonin) 9 mg PO BEDTIME [facility] Last Admin: 06/11/18 21:21 Dose: 9 mg Meropenem (Merrem) Confirm Administered Dose 500 mg .ROUTE .STK-MED ONE Stop: 06/12/18 07:06 Last Admin: 06/12/18 09:20 Dose: 500 mg Meropenem (Merrem) Confirm Administered Dose 500 mg .ROUTE .STK-MED ONE Stop: 06/14/18 06:51 Last Admin: 06/14/18 07:40 Dose: 500 mg Metoprolol Tartrate (Lopressor) 12.5 mg PO BID [facility] Stop: 06/11/18 23:59 Last Admin: 06/11/18 21:21 Dose: 12.5 mg Metoprolol Tartrate (Lopressor) 12.5 mg PO ONETIME ONE Stop: 06/12/18 06:01 Last Admin: 06/12/18 06:08 Dose: 12.5 mg Metoprolol Tartrate (Lopressor) 5 mg IV Q8H [facility] Last Admin: 06/14/18 04:02 Dose: 5 mg Metoprolol Tartrate (Lopressor) 12.5 mg PO BID [facility] Last Admin: 06/14/18 10:04 Dose: 12.5 mg Naloxone HCl (Narcan) 0.4 mg IVPUSH Q2M PRN PRN Reason: Respiratory Distress Neostigmine Methylsulfate (Neostigmine) Confirm Administered Dose 5 mg .ROUTE .STK-MED ONE Stop: 06/12/18 07:45 Transderm Patch (Check Daily) 0 each TOP DAILY [facility] Last Admin: 06/14/18 10:08 Dose: Not Given Brittany 0 each PO Q4H PRN PRN Reason: WITHDRAWAL SYMPTOMS Ondansetron HCl (Zofran) Confirm Administered Dose 4 mg .ROUTE .STK-MED ONE Stop: 06/12/18 07:45 Oxycodone HCl (Oxycodone) 5 mg PO Q4H PRN PRN Reason: PAIN Last Admin: 06/16/18 06:09 Dose: 5 mg Pantoprazole Sodium (Protonix) 40 mg PO BID [facility] Last Admin: 06/12/18 12:19 Dose: Not Given Pantoprazole Sodium (Protonix Iv) 40 mg IVPUSH BID [facility] Last Admin: 06/15/18 09:11 Dose: 40 mg Potassium Chloride (Klor-Con M20) 40 meq PO ONETIME ONE Stop: 06/16/18 10:01 Last Admin: 06/16/18 10:31 Dose: 40 meq Propofol (Diprivan 20 Ml) Confirm Administered Dose 200 mg .ROUTE .STK-MED ONE Stop: 06/11/18 09:34 Propofol (Diprivan 20 Ml) Confirm Administered Dose 200 mg .ROUTE .STK-MED ONE Stop: 06/12/18 07:45 Propofol (Diprivan 20 Ml) Confirm Administered Dose 200 mg .ROUTE .STK-MED ONE Stop: 06/14/18 07:07 Propofol (Diprivan 20 Ml) Confirm Administered Dose 200 mg .ROUTE .STK-MED ONE Stop: 06/14/18 07:45 Rocuronium Valier (Zemuron) Confirm Administered Dose 50 mg .ROUTE .STK-MED ONE Stop: 06/12/18 07:45 Rocuronium Valier (Zemuron) Confirm Administered Dose 50 mg .ROUTE .STK-MED ONE Stop: 06/12/18 08:19 Scopolamine (Transderm-Scop) 1.5 mg TOP Q72H [facility] Last Admin: 06/12/18 10:59 Dose: 1.5 mg Succinylcholine Chloride (Quelicin) Confirm Administered Dose 200 mg .ROUTE .STK -MED ONE Stop: 06/12/18 07:45 - Exam Quality Assessment: No: Supplemental Oxygen General: Alert, Oriented, Cooperative, No Acute Distress Neck: JVD Lungs: Clear to Auscultation, Normal Respiratory Effort Cardiovascular: Regular Rate, Regular Rhythm GI/Abdominal Exam: Soft, No Distention Extremities: Pedal Edema (trace bilateral ) Psy/Mental Status: Alert, Normal Affect Consult PN Assessment/Plan Procedures: Procedures AIRWAY INHALATION TREATMENT (10/05/16) ASSAY OF CK (CPK) (09/09/17) ASSAY OF LACTIC ACID (08/18/17) ASSAY OF MAGNESIUM (06/28/17) ASSAY OF NATRIURETIC PEPTIDE (08/06/17) ASSAY OF TROPONIN QUANT (03/30/18) ASSAY THYROID STIM HORMONE (10/05/16) BLOOD GASES ANY COMBINATION (10/05/16) C-REACTIVE PROTEIN (08/18/17) CARDIAC REHAB/MONITOR (11/02/17) CARDIOVASCULAR STRESS TEST (04/14/16) CARDIOVASCULAR STRESS TEST (04/14/16) CHEST X-RAY 1 VIEW FRONTAL (01/02/17) CHEST X-RAY 2VW FRONTAL&LATL (02/02/16) CO/MEMBANE DIFFUSE CAPACITY (10/05/16) COMPLETE CBC AUTOMATED (04/26/18) COMPLETE CBC W/AUTO DIFF WBC (11/03/17) COMPREHEN METABOLIC PANEL (11/03/17) CREATINE MB FRACTION (08/06/17) CT ABD & PELVIS W/O CONTRAST (05/03/16) CT ANGIOGRAPHY CHEST (10/05/16) CT HEAD/BRAIN W/O DYE (11/03/17) ECG/MONITORING AND ANALYSIS (06/28/17) ELECTROCARDIOGRAM REPORT (10/22/13) ELECTROCARDIOGRAM TRACING (11/03/17) EMERGENCY DEPT VISIT (04/26/18) EMERGENCY DEPT VISIT (11/03/17) EMERGENCY DEPT VISIT (08/18/17) EMERGENCY DEPT VISIT (08/06/17) EMERGENCY DEPT VISIT (07/13/17) EMERGENCY DEPT VISIT (07/11/17) EMERGENCY DEPT VISIT (07/08/17) EMERGENCY DEPT VISIT (07/08/17) EMERGENCY DEPT VISIT (01/02/17) EMERGENCY DEPT VISIT (05/06/16) EMERGENCY DEPT VISIT (09/15/15) EMERGENCY DEPT VISIT (09/15/15) EMERGENCY DEPT VISIT (10/22/13) EMERGENCY DEPT VISIT (10/22/13) EVALUATION OF WHEEZING (10/05/16) FIBRIN DEGRADATION QUANT (10/05/16) HT MUSCLE IMAGE SPECT MULT (04/14/16) HYDRATE IV INFUSION ADD-ON (11/03/17) HYDRATION IV INFUSION INIT (01/02/17) METABOLIC PANEL TOTAL CA (04/26/18) MRI BRAIN STEM W/O DYE (10/21/17) MRI LOWER EXTREMITY W/O DYE (03/13/15) POLYSOM 6/> YRS 4/> CORNELIUS (09/21/16) PROTHROMBIN TIME (08/06/17) PT EVAL MOD COMPLEX 30 MIN (10/05/16) RBC SED RATE NONAUTOMATED (10/22/13) REMOTE 30 DAY ECG REV/REPORT (06/28/17) ROUTINE VENIPUNCTURE (04/26/18) THER/PROPH/DIAG INJ IV PUSH (11/03/17) THER/PROPH/DIAG INJ SC/IM (05/06/16) THER/PROPH/DIAG IV INF INIT (10/22/13) THERAPEUTIC ACTIVITIES (10/05/16) THERAPEUTIC EXERCISES (10/05/16) THROMBOPLASTIN TIME PARTIAL (01/02/17) TTE W/DOPPLER COMPLETE (06/28/17) TX/PRO/DX INJ NEW DRUG ADDON (11/03/17) URINALYSIS AUTO W/SCOPE (11/03/17) US EXAM ABDO BACK WALL COMP (01/29/18) US EXAM ABDO BACK WALL RICO (10/05/16) WITHDRAWAL OF ARTERIAL BLOOD (10/05/16) X-RAY EXAM CHEST 1 VIEW (11/03/17) Problem List Initiated/Reviewed/Updated: Yes My Orders Last 24 Hours: My Active Orders 06/15/18 16:30 Pantoprazole [ProTONIX] 40 mg PO BIDAC 06/15/18 21:00 Melatonin 9 mg PO BEDTIME 06/16/18 12:11 Furosemide [Lasix] 20 mg IVPUSH ONETIME ONE Plan: ASSESSMENT AND RECOMMENDATIONS STATUS 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 Pain control has been very acceptable and seems to be doing well from a surgical standpoint. -Surgical management per Dr. Carter ACCELERATED HYPERTENSION - blood pressure has improved greatly with diuresis and increase metoprolol. He does have some mild evidence for volume overload this morning with JVD noted again. -Single dose of furosemide this morning and reassess (minimal JVD this morning) -Continue metoprolol at increased dose -Hydralazine as needed for severe hypertension MILD CONFUSION - doing much better in the past couple of days. He did have behaviors consistent with sundowning last night and may have some very early dementia. He is doing very well this morning with no evidence for ongoing confusion. -Melatonin at bedtime CORONARY ARTERY DISEASE - stable with no symptoms. -Continue beta shorty and antiplatelet medications CHRONIC KIDNEY DISEASE STAGE III - kidney function stable. -Closely monitor renal function and urine output during the postoperative course CONGESTIVE HEART FAILURE - mild JVD at this time but otherwise seems to be fairly well compensated. -Furosemide as mentioned above -Continue beta shorty COPD - mild, and doing well for the most part. He did require a small amount of oxygen overnight but is doing well off oxygen this morning. -Monitor closely for evidence of respiratory compromise after surgery -Consider early use of noninvasive positive pressure ventilation if respiratory decline -Scheduled duo nebs 4 times daily -As needed albuterol nebs -Vigorous pulmonary toilet Hayder Gutierrez M.D.
[2018-06-16] MEDS ORDERED: Furosemide 20 MG/2 ML VIAL IVPUSH ONE (12:15)
[2018-06-16] MEDS ORDERED: Metoclopramide 10 MG Tab PO PRN (12:39)
--- NOTE | 2018-06-16 12:40 | OR ---
DATE OF PROCEDURE: 06/14/2018 PREOPERATIVE DIAGNOSIS: Open abdominal incision. POSTOPERATIVE DIAGNOSIS: Open abdominal incision. OPERATIVE PROCEDURE: Delayed primary closure of open abdominal incision. ANESTHESIA: Local plus IV sedation. KIDNEY PULLER: TARSHA Martinez student. INDICATIONS FOR PROCEDURE: The patient is 48 hours status post a rectosigmoid resection with some inherent contamination of the subcutaneous tissue. Given this, the patient was felt to be at high risk for wound infection if primary closure was undertaken, and the skin and subcutaneous tissue were packed open for a planned delayed primary closure at this time. Potential risks including bleeding and infection were reviewed, and the patient wishes to proceed. DETAILS OF PROCEDURE: The patient was taken to the operating room and placed in a supine position, sitting at roughly 30 degrees upward to minimize aspiration risk. The operative dressing was taken down, and the wound was inspected and found to be clean. The abdomen was then prepped and draped. Bilateral transversus abdominis plane blocks affecting the mid and lower abdomen were then placed, and the wound edges anesthetized with 1% lidocaine mixed with Marcaine. The incision then irrigated with a meropenem-containing saline solution. The incision was closed with a layer of 3-0 Vicryl stitch deep. This was a lower midline incision extending from roughly 3 fingerbreadths above the umbilicus to the pubis, and following the irrigation and subcutaneous closure, the skin was closed with abhishek. Dressing was applied. The patient was taken to the recovery room in satisfactory condition. There were no evident complications. Kyle Carter MD /[id number]
--- NOTE | 2018-06-16 13:16 | OR ---
DATE OF PROCEDURE: 06/11/2018 PREOPERATIVE DIAGNOSIS: Ongoing rectal bleeding. POSTOPERATIVE DIAGNOSIS: Ongoing rectal bleeding associated with near obstructing mass in the distal sigmoid colon. PROCEDURE: Flexible sigmoidoscopy with biopsies of the mass involving the distal sigmoid colon (02670). ANESTHESIA: IV sedation. INDICATION FOR PROCEDURE: This is an 82-year-old male presenting with some ongoing GI bleeding. Plan is to proceed with a flexible colonoscopy as indicated. Potential risks including bleeding and perforation were discussed, and the patient wishes to proceed. DETAILS OF PROCEDURE: The patient was taken to the operating room and placed in a left lateral decubitus position. IV sedation was administered, after which the digital rectal exam was performed and was unremarkable. The colonoscope was then passed into the rectum with retroflexion revealing uncomplicated hemorrhoidal columns. The scope was eventually passed to the level of roughly 25 cm. At that level, a large polypoid mass was identified. This resulted in an area which could not be passed with the colonoscope with nearly obstructing lesion and multiple biopsies were then obtained. Minimal bleeding from the biopsy sites was seen and the procedure then concluded. The patient was taken to the recovery room in satisfactory condition. Based on the extent of the examination, this would be classified as a flexible sigmoidoscopy with biopsy. The plan as discussed with the patient and family will be to admit the patient for a planned sigmoid resection tomorrow. Kyle Carter MD /[id number]
[2018-06-16] MEDS: Melatonin 3 MG Tab PO SCH (20:33)
[2018-06-16] MEDS: Tamsulosin 0.4 MG Cap.ER PO SCH (20:33)
[2018-06-17] MEDS: Acetaminophen/HYDROcodone 325-5 MG Tab PO PRN ×6 (03:03→22:35)
--- NOTE | 2018-06-17 07:52 | PN ---
DATE OF SERVICE: 06/17/2018 SUBJECTIVE: [facility]. Potassium is 3.8 and creatinine is 1.4. He is getting magnesium oxide 400 mg daily for a magnesium of 1.6. OBJECTIVE: GENERAL: He is alert, orientated and resting comfortably in bed this morning. VITAL SIGNS: Ray Damian is an 82-year-old male. TPR is 98.3, 57, 16, and blood pressure 160/68. HEENT: Negative. NECK: Supple. HEART: Regular rate and rhythm. LUNGS: Clear. ABDOMEN: Dressings dry and intact. Abdominal binder is on. EXTREMITIES: Without peripheral edema. ASSESSMENT: 1. Exploratory laparotomy: a. Rectosigmoid colon resection with coloproctostomy. b. Repair of umbilical and epigastric hernia and mobilization of omentum into pelvis for mass in distal sigmoid colon, incarcerated umbilical and epigastric hernia. Date of surgery 06/12/2018. 2. Delayed primary closure for open abdominal incision on 06/14/2018. PLAN: 1. Plan to discharge in a.m. 2. We will evaluate p.r.n. or in a.m. Last bowel movement was 06/17/2018 and stool was loose. Edel Peguero PA-C /[id number]
[2018-06-17] MEDS: Pantoprazole 40 MG Tab.CR PO SCH ×2 (08:01→16:25)
[2018-06-17] MEDS: Magnesium Oxide 400 MG Tab PO SCH (08:02)
[2018-06-17] MEDS: Metoprolol Tartrate 25 MG Tab PO SCH ×2 (08:02→21:13)
[2018-06-17] MEDS: Aspirin 81 MG Tab.EC PO SCH (08:02)
[2018-06-17] MEDS: Clopidogrel 75 MG Tab PO SCH (08:02)
--- NOTE | 2018-06-17 10:48 | PCM.CONSN ---
- General Info Date of Service: 06/17/18 Subjective Update: there were no acute events overnight. Patient reports he did not sleep well. He continues to have loose stools. He does not feel short of breath. Abdominal pain is mild to moderate and tolerable. Tolerating his diet. - Review of Systems General: Denies: Fever Gastrointestinal: Reports: Abdominal Pain - Patient Data Vitals - Most Recent: Last Vital Signs Temp 36.6 C 06/17/18 10:41 Pulse 66 06/17/18 10:41 Resp 18 06/17/18 10:41 BP 130/70 06/17/18 10:41 Pulse Ox 95 06/17/18 10:41 Weight - Most Recent: 86.545 kg I&O - Last 24 Hours: Intake & Output 06/16/18 06/17/18 06/17/18 22:59 06:59 14:59 Intake Total 420 236 Output Total 1100 200 200 Balance -680 -200 36 Lab Results Last 24 Hours: Laboratory Results - last 24 hr 06/17/18 Range/Units 04:30 Sodium 143 (140-148) mmol/L Potassium 3.8 (3.6-5.2) mmol/L Chloride 106 (100-108) mmol/L Carbon Dioxide 28 (21-32) mmol/L Anion Gap 12.8 (5.0-14.0) mmol/L BUN 18 (7-18) mg/dL Creatinine 1.4 H (0.8-1.3) mg/dL Est Cr Clr Drug Dosing 39.50 mL/min Estimated GFR (MDRD) 49 L (>60) Glucose 110 H (74-106) mg/dL Calcium 8.5 (8.5-10.1) mg/dL Med Orders - Current: Current Medications Hydrocodone Bitart/Acetaminophen (Galien 325-5 Mg) 1 tab PO Q3H PRN PRN Reason: Pain Last Admin: 06/17/18 09:11 Dose: 1 tab Albuterol/Ipratropium (Duoneb 3.0-0.5 Mg/3 Ml) 3 ml NEB Q4H PRN PRN Reason: Shortness of Breath Last Admin: 06/14/18 06:10 Dose: 3 ml Aspirin (Halfprin) 81 mg PO DAILY [facility]YDER Last Admin: 06/17/18 08:02 Dose: 81 mg Clopidogrel Bisulfate (Plavix) 75 mg PO DAILY RYDER Last Admin: 06/17/18 08:02 Dose: 75 mg Hydroxyzine HCl (Vistaril) 100 mg IM Q4H PRN PRN Reason: PAIN Last Admin: 06/13/18 02:42 Dose: 100 mg Labetalol HCl (Normodyne) 10 mg IVPUSH Q4H PRN; Protocol PRN Reason: Hypertension Last Admin: 06/14/18 06:08 Dose: 10 mg Magnesium Oxide (Magnesium Oxide) 400 mg PO DAILY [facility] Last Admin: 06/17/18 08:02 Dose: 400 mg Melatonin (Melatonin) 9 mg PO BEDTIME [facility] Last Admin: 06/16/18 20:33 Dose: 9 mg Metoclopramide HCl (Reglan) 10 mg PO Q6H PRN PRN Reason: Nausea/Vomiting Metoprolol Tartrate (Lopressor) 25 mg PO BID [facility] Last Admin: 06/17/18 08:02 Dose: 25 mg Ondansetron HCl (Zofran) 4 mg IVPUSH Q4H PRN PRN Reason: Nausea Last Admin: 06/15/18 17:50 Dose: 4 mg Pantoprazole Sodium (Protonix) 40 mg PO BIDAC [facility] Last Admin: 06/17/18 08:01 Dose: 40 mg Tamsulosin HCl (Flomax) 0.4 mg PO BEDTIME [facility] Last Admin: 06/16/18 20:33 Dose: 0.4 mg Discontinued Medications Acetaminophen (Tylenol) 650 mg PO Q4H PRN PRN Reason: MILD PAIN Acetaminophen (Tylenol Extra Strength) 1,000 mg PO Q6H [facility] Last Admin: 06/16/18 06:09 Dose: Not Given Albuterol (Proventil Neb Soln) 2.5 mg NEB Q4H PRN PRN Reason: Dyspnea Albuterol/Ipratropium (Duoneb 3.0-0.5 Mg/3 Ml) 3 ml NEB QIDRT [facility] Last Admin: 06/12/18 07:13 Dose: 3 ml Alvimopan (Entereg) 12 mg PO ONETIME ONE Stop: 06/12/18 06:01 Last Admin: 06/12/18 06:09 Dose: 12 mg Alvimopan (Entereg) 12 mg PO Q12H [facility] Stop: 06/19/18 11:01 Last Admin: 06/15/18 22:11 Dose: Not Given Bisacodyl (Dulcolax) 10 mg PO BID [facility] Last Admin: 06/15/18 21:26 Dose: Not Given Bupivacaine HCl (Marcaine 0.5%) Confirm Administered Dose 30 ml .ROUTE .STK-MED ONE Stop: 06/14/18 06:51 Last Admin: 06/14/18 07:50 Dose: 10 ml Ropivacaine 41 ml/Dexamethasone 8 mg/Epinephrine HCl 0.4 mg/ Sodium Chloride 36.6 ml 0 ml NERVRT ASDIRECTED [facility] Last Admin: 06/12/18 08:30 Dose: 80 syringe Ropivacaine 42 ml/Dexamethasone 8 mg/Epinephrine HCl 0.4 mg/ Sodium Chloride 35.6 ml 0 ml NERVRT ASDIRECTED [facility] Last Admin: 06/14/18 07:25 Dose: 80 syringe Dexamethasone (Dexamethasone) Confirm Administered Dose 4 mg .ROUTE .STK-MED ONE Stop: 06/12/18 07:45 Fentanyl (Sublimaze) Confirm Administered Dose 100 mcg .ROUTE .STK-MED ONE Stop: 06/11/18 09:34 Fentanyl (Sublimaze) Confirm Administered Dose 250 mcg .ROUTE .STK-MED ONE Stop: 06/12/18 07:45 Fentanyl (Sublimaze) Confirm Administered Dose 250 mcg .ROUTE .STK-MED ONE Stop: 06/12/18 08:19 Fentanyl (Sublimaze) Confirm Administered Dose 250 mcg .ROUTE .STK-MED ONE Stop: 06/12/18 09:27 Fentanyl (Sublimaze) Confirm Administered Dose 100 mcg .ROUTE .STK-MED ONE Stop: 06/14/18 07:07 Furosemide (Lasix) 10 mg IVPUSH Q12H [facility] Stop: 06/13/18 20:01 Last Admin: 06/13/18 19:23 Dose: 10 mg Furosemide (Lasix) 20 mg IVPUSH NOW ONE Stop: 06/14/18 10:01 Last Admin: 06/14/18 10:04 Dose: 20 mg Furosemide (Lasix) 20 mg IVPUSH ONETIME ONE Stop: 06/15/18 06:40 Last Admin: 06/15/18 06:53 Dose: 20 mg Furosemide (Lasix) 20 mg IV ONETIME ONE Stop: 06/15/18 16:01 Furosemide (Lasix) 20 mg IVPUSH ONETIME ONE Stop: 06/16/18 12:16 Last Admin: 06/16/18 12:47 Dose: 20 mg Glycopyrrolate (Robinul) Confirm Administered Dose 1 mg .ROUTE .STK-MED ONE Stop: 06/12/18 07:45 Hydralazine HCl (Apresoline) 5 mg IVPUSH Q4H PRN PRN Reason: Hypertension Last Admin: 06/14/18 04:51 Dose: 5 mg Hydralazine HCl (Apresoline) 10 mg IVPUSH Q4H PRN PRN Reason: hypertension Last Admin: 06/14/18 23:19 Dose: 10 mg Hydromorphone HCl (Dilaudid [employer] 15 Mg In Ns 30 Ml) 0 mg IV ASDIRECTED PRN; Protocol PRN Reason: Pain Last Admin: 06/14/18 10:05 Dose: 15 mg Dextrose/Lactated Ringer's (Dextrose 5%-Lactated Ringers) 1,000 mls @ 100 mls/ hr IV ASDIRECTED [facility] Last Admin: 06/12/18 01:08 Dose: 100 mls/hr Cefoxitin Sodium 2 gm/ Sodium (Chloride) 50 mls @ 100 mls/hr IV ONETIME ONE Stop: 06/12/18 08:29 Last Admin: 06/12/18 07:40 Dose: 100 mls/hr Dextrose/Lactated Ringer's (Dextrose 5%-Lactated Ringers) 1,000 mls @ 150 mls/ hr IV ASDIRECTED [facility] Last Admin: 06/12/18 11:05 Dose: 150 mls/hr Ampicillin Sodium/Sulbactam (Sodium 3 gm/ Sodium Chloride) 100 mls @ 200 mls/ hr IV Q6H [facility] Stop: 06/14/18 06:29 Last Admin: 06/14/18 05:23 Dose: 200 mls/hr Aztreonam/Dextrose 1 gm/ (Premix) 50 mls @ 100 mls/hr IV Q8H [facility] Stop: 06/14/18 06:29 Last Admin: 06/14/18 06:08 Dose: 100 mls/hr Lactated Ringer's (Ringers, Lactated) 500 mls @ 500 mls/hr IV .BOLUS [facility] Last Admin: 06/12/18 17:33 Dose: 500 mls/hr Sodium Chloride (Normal Saline) 500 mls @ 500 mls/hr IV ONETIME ONE Stop: 06/12/18 22:23 Last Admin: 06/12/18 21:45 Dose: 500 mls/hr Dextrose/Lactated Ringer's (Dextrose 5%-Lactated Ringers) 1,000 mls @ 250 mls/ hr IV ASDIRECTED [facility] Stop: 06/13/18 02:29 Last Admin: 06/12/18 22:42 Dose: 250 mls/hr Dextrose/Lactated Ringer's (Dextrose 5%-Lactated Ringers) 1,000 mls @ 125 mls/ hr IV ASDIRECTED [facility] Last Admin: 06/13/18 23:06 Dose: 125 mls/hr Magnesium Sulfate 2 gm/ Premix 50 mls @ 25 mls/hr IV Q6H [facility] Stop: 06/13/18 23:59 Last Admin: 06/13/18 22:10 Dose: 25 mls/hr Lactated Ringer's (Ringers, Lactated) Confirm Administered Dose 1,000 mls @ as directed .ROUTE .STK-MED ONE Stop: 06/14/18 07:20 Dextrose/Lactated Ringer's (Dextrose 5%-Lactated Ringers) 1,000 mls @ 100 mls/ hr IV ASDIRECTED [facility] Dextrose/Lactated Ringer's (Dextrose 5%-Lactated Ringers) 1,000 mls @ 25 mls/ hr IV ASDIRECTED [facility] Last Admin: 06/14/18 22:14 Dose: 25 mls/hr Labetalol HCl (Normodyne) Confirm Administered Dose 20 mg .ROUTE .STK-MED ONE Stop: 06/12/18 08:25 Labetalol HCl (Normodyne) 10 mg IVPUSH Q4H PRN; Protocol PRN Reason: Hypertension Labetalol HCl (Normodyne) 10 mg IVPUSH ONETIME ONE; Protocol Stop: 06/13/18 23:33 Last Admin: 06/13/18 23:42 Dose: 10 mg Lidocaine/Epinephrine (Xylocaine 1% With Epinephrine 1:100,000) Confirm Administered Dose 50 ml .ROUTE .STK-MED ONE Stop: 06/14/18 06:51 Last Admin: 06/14/18 07:50 Dose: 10 ml Melatonin (Melatonin) 9 mg PO BEDTIME [facility] Last Admin: 06/11/18 21:21 Dose: 9 mg Meropenem (Merrem) Confirm Administered Dose 500 mg .ROUTE .STK-MED ONE Stop: 06/12/18 07:06 Last Admin: 06/12/18 09:20 Dose: 500 mg Meropenem (Merrem) Confirm Administered Dose 500 mg .ROUTE .K-MED ONE Stop: 06/14/18 06:51 Last Admin: 06/14/18 07:40 Dose: 500 mg Metoclopramide HCl (Reglan) 10 mg IVPUSH Q8H [facility] Last Admin: 06/16/18 06:10 Dose: 10 mg Metoprolol Tartrate (Lopressor) 12.5 mg PO BID [facility] Stop: 06/11/18 23:59 Last Admin: 06/11/18 21:21 Dose: 12.5 mg Metoprolol Tartrate (Lopressor) 12.5 mg PO ONETIME ONE Stop: 06/12/18 06:01 Last Admin: 06/12/18 06:08 Dose: 12.5 mg Metoprolol Tartrate (Lopressor) 5 mg IV Q8H [facility] Last Admin: 06/14/18 04:02 Dose: 5 mg Metoprolol Tartrate (Lopressor) 12.5 mg PO BID [facility] Last Admin: 06/14/18 10:04 Dose: 12.5 mg Naloxone HCl (Narcan) 0.4 mg IVPUSH Q2M PRN PRN Reason: Respiratory Distress Neostigmine Methylsulfate (Neostigmine) Confirm Administered Dose 5 mg .ROUTE .[facility]-MED ONE Stop: 06/12/18 07:45 Transderm Patch (Check Daily) 0 each TOP DAILY [facility] Last Admin: 06/14/18 10:08 Dose: Not Given Brittany 0 each PO Q4H PRN PRN Reason: WITHDRAWAL SYMPTOMS Ondansetron HCl (Zofran) Confirm Administered Dose 4 mg .ROUTE .K-MED ONE Stop: 06/12/18 07:45 Oxycodone HCl (Oxycodone) 5 mg PO Q4H PRN PRN Reason: PAIN Last Admin: 06/16/18 06:09 Dose: 5 mg Pantoprazole Sodium (Protonix) 40 mg PO BID [facility] Last Admin: 06/12/18 12:19 Dose: Not Given Pantoprazole Sodium (Protonix Iv) 40 mg IVPUSH BID [facility] Last Admin: 06/15/18 09:11 Dose: 40 mg Potassium Chloride (Klor-Con M20) 40 meq PO ONETIME ONE Stop: 06/16/18 10:01 Last Admin: 06/16/18 10:31 Dose: 40 meq Potassium Chloride (Klor-Con M20) 40 meq PO ONETIME ONE Stop: 06/16/18 17:01 Last Admin: 06/16/18 17:00 Dose: 40 meq Propofol (Diprivan 20 Ml) Confirm Administered Dose 200 mg .ROUTE .STK-MED ONE Stop: 06/11/18 09:34 Propofol (Diprivan 20 Ml) Confirm Administered Dose 200 mg .ROUTE .STK-MED ONE Stop: 06/12/18 07:45 Propofol (Diprivan 20 Ml) Confirm Administered Dose 200 mg .ROUTE .STK-MED ONE Stop: 06/14/18 07:07 Propofol (Diprivan 20 Ml) Confirm Administered Dose 200 mg .ROUTE .STK-MED ONE Stop: 06/14/18 07:45 Rocuronium [place] (Zemuron) Confirm Administered Dose 50 mg .ROUTE .STK-MED ONE Stop: 06/12/18 07:45 Rocuronium [place] (Zemuron) Confirm Administered Dose 50 mg .ROUTE .STK-MED ONE Stop: 06/12/18 08:19 Scopolamine (Transderm-Scop) 1.5 mg TOP Q72H [facility] Last Admin: 06/12/18 10:59 Dose: 1.5 mg Senna/Docusate Sodium (Senna Plus) 2 tab PO BID [facility] Last Admin: 06/16/18 09:34 Dose: Not Given Succinylcholine Chloride (Quelicin) Confirm Administered Dose 200 mg .ROUTE .STK -MED ONE Stop: 06/12/18 07:45 - Exam Quality Assessment: No: Supplemental Oxygen General: Alert, Oriented, Cooperative, No Acute Distress Lungs: Clear to Auscultation, Normal Respiratory Effort Cardiovascular: Regular Rate, Regular Rhythm GI/Abdominal Exam: Normal Bowel Sounds, Soft, No Distention Extremities: No Pedal Edema Psy/Mental Status: Alert, Normal Affect Consult PN Assessment/Plan Procedures: Procedures AIRWAY INHALATION TREATMENT (10/05/16) ASSAY OF CK (CPK) (09/09/17) ASSAY OF LACTIC ACID (08/18/17) ASSAY OF MAGNESIUM (06/28/17) ASSAY OF NATRIURETIC PEPTIDE (08/06/17) ASSAY OF TROPONIN QUANT (03/30/18) ASSAY THYROID STIM HORMONE (10/05/16) BLOOD GASES ANY COMBINATION (10/05/16) C-REACTIVE PROTEIN (08/18/17) CARDIAC REHAB/MONITOR (11/02/17) CARDIOVASCULAR STRESS TEST (04/14/16) CARDIOVASCULAR STRESS TEST (04/14/16) CHEST X-RAY 1 VIEW FRONTAL (01/02/17) CHEST X-RAY 2VW FRONTAL&LATL (02/02/16) CO/MEMBANE DIFFUSE CAPACITY (10/05/16) COMPLETE CBC AUTOMATED (04/26/18) COMPLETE CBC W/AUTO DIFF WBC (11/03/17) COMPREHEN METABOLIC PANEL (11/03/17) CREATINE MB FRACTION (08/06/17) CT ABD & PELVIS W/O CONTRAST (05/03/16) CT ANGIOGRAPHY CHEST (10/05/16) CT HEAD/BRAIN W/O DYE (11/03/17) ECG/MONITORING AND ANALYSIS (06/28/17) ELECTROCARDIOGRAM REPORT (10/22/13) ELECTROCARDIOGRAM TRACING (11/03/17) EMERGENCY DEPT VISIT (04/26/18) EMERGENCY DEPT VISIT (11/03/17) EMERGENCY DEPT VISIT (08/18/17) EMERGENCY DEPT VISIT (08/06/17) EMERGENCY DEPT VISIT (07/13/17) EMERGENCY DEPT VISIT (07/11/17) EMERGENCY DEPT VISIT (07/08/17) EMERGENCY DEPT VISIT (07/08/17) EMERGENCY DEPT VISIT (01/02/17) EMERGENCY DEPT VISIT (05/06/16) EMERGENCY DEPT VISIT (09/15/15) EMERGENCY DEPT VISIT (09/15/15) EMERGENCY DEPT VISIT (10/22/13) EMERGENCY DEPT VISIT (10/22/13) EVALUATION OF WHEEZING (10/05/16) FIBRIN DEGRADATION QUANT (10/05/16) HT MUSCLE IMAGE SPECT MULT (04/14/16) HYDRATE IV INFUSION ADD-ON (11/03/17) HYDRATION IV INFUSION INIT (01/02/17) METABOLIC PANEL TOTAL CA (04/26/18) MRI BRAIN STEM W/O DYE (10/21/17) MRI LOWER EXTREMITY W/O DYE (03/13/15) POLYSOM 6/> YRS 4/> CORNELIUS (09/21/16) PROTHROMBIN TIME (08/06/17) PT EVAL MOD COMPLEX 30 MIN (10/05/16) RBC SED RATE NONAUTOMATED (10/22/13) REMOTE 30 DAY ECG REV/REPORT (06/28/17) ROUTINE VENIPUNCTURE (04/26/18) THER/PROPH/DIAG INJ IV PUSH (11/03/17) THER/PROPH/DIAG INJ SC/IM (05/06/16) THER/PROPH/DIAG IV INF INIT (10/22/13) THERAPEUTIC ACTIVITIES (10/05/16) THERAPEUTIC EXERCISES (10/05/16) THROMBOPLASTIN TIME PARTIAL (01/02/17) TTE W/DOPPLER COMPLETE (06/28/17) TX/PRO/DX INJ NEW DRUG ADDON (11/03/17) URINALYSIS AUTO W/SCOPE (11/03/17) US EXAM ABDO BACK WALL COMP (01/29/18) US EXAM ABDO BACK WALL RICO (10/05/16) WITHDRAWAL OF ARTERIAL BLOOD (10/05/16) X-RAY EXAM CHEST 1 VIEW (11/03/17) Problem List Initiated/Reviewed/Updated: Yes Plan: ASSESSMENT AND RECOMMENDATIONS STATUS POST PARTIAL COLECTOMY AND RESECTION OF LEFT COLON MASS - Pain control has been very acceptable and seems to be doing well from a surgical standpoint. tolerating diet. -Surgical management per Dr. Carter ACCELERATED HYPERTENSION - blood pressure has improved greatly with diuresis and increase metoprolol. volume status appears appropriate today. -Continue metoprolol at increased dose -Hydralazine as needed for severe hypertension MILD CONFUSION - doing much better in the past few days. He did have behaviors consistent with sundowning 2 nights ago and may have some very early dementia. He is doing very well this morning with no evidence for ongoing confusion. -Melatonin at bedtime CORONARY ARTERY DISEASE - stable with no symptoms. -Continue beta shorty and antiplatelet medications CHRONIC KIDNEY DISEASE STAGE III - kidney function stable. -Closely monitor renal function and urine output during the postoperative course CONGESTIVE HEART FAILURE - well compensated today. -Furosemide as mentioned above -Continue beta shorty COPD - no requirement for supplemental oxygen and doing well. -Monitor closely for evidence of respiratory compromise after surgery -Scheduled duo nebs 4 times daily -As needed albuterol nebs -Vigorous pulmonary toilet Disposition - plan is for discharge to the longterm in the morning Hayder Gutierrez M.D.
[2018-06-17] MEDS: Tamsulosin 0.4 MG Cap.ER PO SCH (21:13)
[2018-06-17] MEDS: Melatonin 3 MG Tab PO SCH (21:14)
[2018-06-18] MEDS: Acetaminophen/HYDROcodone 325-5 MG Tab PO PRN ×3 (02:56→10:26)
[2018-06-18] MEDS: Pantoprazole 40 MG Tab.CR PO SCH (08:26)
--- NOTE | 2018-06-18 08:29 | OR ---
DATE OF PROCEDURE: 06/12/2018 PREOPERATIVE DIAGNOSIS: Mass involving the distal sigmoid colon. POSTOPERATIVE DIAGNOSES: 1. Mass involving the distal sigmoid colon. 2. Incarcerated umbilical and incarcerated epigastric hernias. OPERATIVE PROCEDURES: Exploratory laparotomy with: 1. Rectosigmoid colon resection with coloproctostomy (33350). 2. Repair of incarcerated umbilical hernia (82811). 3. Repair of incarcerated epigastric hernia (84129). 4. Mobilization of omentum into pelvis to displace small bowel away from pelvic sidewalls (79670). ANESTHESIA: General. INDICATION FOR PROCEDURE: The patient presented with a picture of ongoing rectal bleeding. Colonoscopy yesterday revealed a mass involving distal sigmoid colon, likely explaining the patient's bleeding problems and plan is to proceed with a rectosigmoid colon resection. The colon proximal to the mass was not able to be evaluated, so intraoperatively, we will do as best as possible to evaluate the more proximal colon for additional lesions. Potential risks of the procedure including bleeding, infection, leaks from the colorectal anastomosis requiring a temporary colostomy, possibility of missing polyps or other potentially malignant masses proximal to the sigmoid colon mass were gone over along with a remote possibility of cardiopulmonary, septic, or hemorrhagic complications leading to , and the patient and family wished to proceed. DETAILS OF PROCEDURE: The patient was taken to the operating room. After general endotracheal anesthesia was induced, he was converted to a lithotomy position. A Yeager catheter was inserted, and the abdomen prepped and draped. A midline incision which eventually extended from roughly 3 fingerbreadths above the umbilicus to the pubis was made and carried down through the skin and subcutaneous tissue and through the midline fascia. At that point, general exploration was undertaken. The patient was noted to have some palpable nodular lesions within the liver. With the excision extending to the extent outlined above, those could be visualized and appeared to be simple cysts. The patient yesterday did have an ultrasound of the liver, which showed a calcified lesion, but otherwise nothing suggestive of significant pathology. Otherwise, the mass in the distal sigmoid colon could easily be palpated. There was no significant regional periaortic lymphadenopathy. There was no abnormal peritoneal fluid and no evidence of peritoneal seeding by any tumor. At this point, the rectosigmoid was mobilized upward. The rectum was then encircled at a point roughly 10 cm distal to the mass and divided there with a ELAYNE curved stapler. The mid sigmoid colon was then divided with a ELAYNE straight stapler. The wedge of the mesentery underlying this running along the vessels was then sequentially divided with mesenteric and vascular loads of ELAYNE abhishek and the specimen then delivered from the field. At this point, the area was inspected and both ureters were felt to be well away from the field of dissection. The anvil of a 28 mm EEA stapler was then passed through opening of the staple line in the sigmoid colon, which was then re-stapled allowing the anvil to be brought out through the most dependent portion of the staple line. The main body of the EEA stapler was then brought rectally up to the apex of the rectal staple line, where the 2 components were stapler united and a coloproctostomy was thus created. Upon removal of the stapler, double donuts of mucosa were noted within it with the pelvis being flooded with antibiotic-containing saline solution. Colonoscope was then passed up to the level of the anastomosis, which was visualized to be intact with good blood supply in the mucosa visibly evident on both sides of the anastomosis and no air bubbles were seen. The scope was then withdrawn. The colorectal anastomosis was then reinforced with some 3-0 Vicryl seromuscular stitch along with fibrin sealant. A single Yury-Botello drain was then placed through a stab wound in the left mid abdomen and taken down adjacent to the coloproctostomy. The omentum was then mobilized downward in the event that there might be at some point need for follow-up radiation, thus displacing the small bowel away from that area. Another transverse Yury-Botello drain was placed directly in the lower abdomen and at that point, the midline fascia was closed. During the course of the dissection, the patient was noted to have both incarcerated umbilical and epigastric hernias and these were then dissected free and the specimens delivered from the field. The midline fascia was approximated which included repair of those hernias with #2 Vicryl stitch, and the skin and subcutaneous tissue were felt to be high risk for wound infection if the primary closure was undertaken and were therefore packed open for a planned delayed primary closure in 48 hours. The patient was taken to the recovery room in satisfactory condition. There were no evident complications. Kyle Carter MD /[id number]
[2018-06-18 08:30] VITALS: BP 151/92
[2018-06-18] MEDS: Magnesium Oxide 400 MG Tab PO SCH (08:30)
[2018-06-18] MEDS: Clopidogrel 75 MG Tab PO SCH (08:31)
[2018-06-18] MEDS: Aspirin 81 MG Tab.EC PO SCH (08:31)
[2018-06-18] MEDS: Metoprolol Tartrate 25 MG Tab PO SCH (08:31)
--- NOTE | 2018-06-19 00:35 | DISCH ---
ADMISSION DIAGNOSES: Rectal bleeding, gastroesophageal reflux disease, dyslipidemia, benign prostatic hypertrophy, chronic obstructive pulmonary disease, history of coronary artery stent placement, essential hypertension, chronic kidney disease stage 3, physical deconditioning, transient cerebral ischemia, memory change, chronic coronary artery disease and diastolic heart failure. DISCHARGE DIAGNOSES: 1. Colonoscopy 06/11/2018. 2. Exploratory laparotomy: a. Rectosigmoid colon resection with coloproctostomy. b. Repair of umbilical and epigastric hernia and mobilization of omentum into pelvis for mass in the distal sigmoid colon, incarcerated umbilical and epigastric hernia. Date of surgery 06/12/2018. 3. Delayed primary closure for open abdominal incision on 06/14/2018. HISTORY: Ray Damian presented to [facility] for a colonoscopy due to rectal bleeding on 06/11/2018. On his colonoscopy, he was found to have a right mass on his colon. He was admitted to the hospital and had surgery on 06/12/2018. He had no operative complications. On 06/13/2018, he was febrile with temperature spike of 100.4. BNP was elevated at 1900. Creatinine was down to 1.3 from 1.4. He did have some nausea and was distended. He remained to be n.p.o. On 06/14/2018, blood pressures were elevated in the 190s to 200. There was some question of possible alcohol withdrawal. Abdominal x-ray did show gastric distention and abdominal x-ray showed no significant gastric distention. Diet was started. Yeager catheter removed. White count 16,000, hemoglobin 12.5, and BNP 1268. IV continued to run at 100 mL per hour. On 06/15/2018, blood pressures were decreased. He was switched to Lopressor at 25 mg twice a day. Urine output was better. BNP had increased so he was given some IV Lasix and changed to oral pain medication. He was also transferred out of ICU to [address] [place] [address]. On 06/16/2018, he had some bowel stimulation, did have a bowel movement and continued to progress. Vital signs were stable and discharge planning was involved with discharge with family and on 06/18/2018, Ray was able to be discharged to detention for rehabilitation. OBJECTIVE: GENERAL: Ray Damian is an 82-year-old male. VITAL SIGNS: Height is 5 feet 8.11 inches, weight is 190 pounds 12.8 ounces. TPR 96.9, 59, 16 and blood pressure 151/92. HEENT: Negative. NECK: Supple. HEART: Regular rate and rhythm. LUNGS: Clear. ABDOMEN: Stapled incision looks good. Abdominal binder is on. EXTREMITIES: Without peripheral edema. DISPOSITION: Discharged to home. CONDITION: Stable and improving. FOLLOWUP APPOINTMENT: With Kyle Carter MD on 06/23/2018 at 10:00 a.m. HOME MEDICATIONS: 1. [place]ora 5/325 mg one tablet every 3 hours p.r.n. pain. 2. Tylenol 650 mg oral q.4 hours p.r.n. pain. 3. Aspirin 81 mg oral daily. 4. Plavix 75 mg oral daily. 5. Lasix 40 mg as directed. 6. Magnesium oxide 400 mg twice daily. 7. Melatonin 10 mg oral at bedtime. 8. Metoprolol 12.5 mg oral twice daily. 9. Nitrostat 0.4 mg as directed. 10.Protonix 80 mg at bedtime. 11.Flomax 0.4 mg oral daily. DIET: Usual diet as tolerated. Drink 8 to 10 glasses of water a day. ACTIVITY: No lifting greater than 10 pounds for 2 weeks. Other activity, walk at least 6 times daily with walker and assistance. Shower bathing, may shower. DISCHARGE INSTRUCTIONS: Notify provider if any fever, increased pain, nausea, or vomiting. Wound incision care, keep site clean and dry. Wear abdominal binder for 2 weeks and then as tolerated. Use incentive spirometer 10 times every hour while awake.
== END 2018-06-18 10:47 | DRG 330 ==
LOC: JP.MS 07:40 → JP.SDS 07:40 → EDSTATUS 09:00 → JP.MS 15:00 → JP.ICU 06-12 10:27 → JP.MS 06-15 09:45
PROVIDERS: ADMIT Surgery; ATTEND Surgery
PROC: 0DBN8ZX Excision of Sigmoid Colon, Via Natural or Artificial Opening Endoscopic, Diagnostic (ICD-10-PCS; 2018-06-11)
PROC: 0DJD8ZZ Inspection of Lower Intestinal Tract, Via Natural or Artificial Opening Endoscopic (ICD-10-PCS; 2018-06-11)
PROC: 0DBP0ZX Excision of Rectum, Open Approach, Diagnostic (ICD-10-PCS; principal; 2018-06-12)
PROC: 0D1N0ZP Bypass Sigmoid Colon to Rectum, Open Approach (ICD-10-PCS; 2018-06-12)
PROC: 0DBN0ZX Excision of Sigmoid Colon, Open Approach, Diagnostic (ICD-10-PCS; 2018-06-12)
PROC: 0WQF0ZZ Repair Abdominal Wall, Open Approach (ICD-10-PCS; 2018-06-12)
PROC: 0WQF0ZZ Repair Abdominal Wall, Open Approach (ICD-10-PCS; 2018-06-12)
PROC: 0WQF0ZZ Repair Abdominal Wall, Open Approach (ICD-10-PCS; 2018-06-14)
PROC: 3E0T3BZ Introduction of Anesthetic Agent into Peripheral Nerves and Plexi, Percutaneous Approach (ICD-10-PCS; 2018-06-14)
DX: K92.1 Melena (principal); K42.0 Umbilical hernia with obstruction, without gangrene; K43.6 Other and unspecified ventral hernia with obstruction, without gangrene; I13.0 Hypertensive heart and chronic kidney disease with heart failure and stage 1 through stage 4 chronic kidney disease, or unspecified chronic kidney disease; I50.30 Unspecified diastolic (congestive) heart failure; F10.239 Alcohol dependence with withdrawal, unspecified; Z48.1 Encounter for planned postprocedural wound closure; N18.3 Chronic kidney disease, stage 3 (moderate); Z87.891 Personal history of nicotine dependence; I25.10 Atherosclerotic heart disease of native coronary artery without angina pectoris; Z95.5 Presence of coronary angioplasty implant and graft; J44.9 Chronic obstructive pulmonary disease, unspecified; K21.9 Gastro-esophageal reflux disease without esophagitis; N40.0 Benign prostatic hyperplasia without lower urinary tract symptoms; M19.90 Unspecified osteoarthritis, unspecified site; Z86.73 Personal history of transient ischemic attack (TIA), and cerebral infarction without residual deficits; E78.5 Hyperlipidemia, unspecified; Z86.010 Personal history of colon polyps; H54.7 Unspecified visual loss; H91.90 Unspecified hearing loss, unspecified ear; Z79.82 Long term (current) use of aspirin; Z91.041 Radiographic dye allergy status; K63.89 Other specified diseases of intestine
CPT/HCPCS: 36415; 36600; 74018; 74018-26; 76705; 76705-26; 80048; 80053; 82378; 83735; 83880; 84100; 85025; 85027; 85610; 85730; 86850; 86900; 86901; 86920; 86922; 88302; 88305; 88307; 93005; 94640; 94762; 97110-GP; 97163-GP; 97530-GP; 97535-GP; A9270-GY; C9113; J0171; J0295; J0330; J0360; J0694; J1100; J1170; J1940; J2185; J2405; J2704; J2710; J2765; J2795; J3010; J3410; J3475; J3490; J7030; J7040; J7042; J7050; J7120; J7620-GY

== ENCOUNTER 2018-06-26 17:14 | Emergency (ER) | payer MEDICARE, BC ==
--- NOTE | 2018-06-26 18:16 | EDM.PDOC ---
<Madalyn Lugo - Last Filed: 06/26/18 18:09> ED HPI GENERAL MEDICAL PROBLEM - General Chief Complaint: Abdominal Pain Stated Complaint: STOMACH PAIN Time Seen by Provider: 06/26/18 18:04 Source of Information: Reports: Patient, EMS, Family History Limitations: Reports: No Limitations - History of Present Illness INITIAL COMMENTS - FREE TEXT/NARRATIVE: Pt complaints of abdomen pain that comes in 'waves." Rates his pain at a 5-6 during this time. Denies pain when spasms are absent. Pt recently had abdominal surgery and was seen in clinic on the 23 for staple removal. Currently steri strips in place. Incision line does not appear to be infected. Minimal drainage to no drainage is noted on the telfa pad. Currently pt is using pain meds as often as he can have them according to the patient. At this time he is declining medication for pain. Last medicated at 330 pm today. Does state he had a bowel movement this am 'he thinks'. 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 Medication(s) (using pain meds for surgical pain) Lower Abdominal Pain Score (Numeric/FACES): 10 (when seen by provider rates pain 5-6 and declines pain medication) - Related Data Allergies Allergy/AdvReac Type Severity Reaction Status Date / Time Iodinated Contrast- Oral and Allergy Hives Verified 06/26/18 17:23 IV Dye Home Meds: Home Meds Aspirin [Alvin Chewable Aspirin] 81 mg PO DAILY 10/22/13 [History] Clopidogrel [Plavix] 75 mg PO DAILY 10/05/16 [History] Furosemide [Lasix] 40 mg PO ASDIRECTED PRN 06/04/17 [History] Magnesium Oxide [Magnesium] 400 mg PO BID 06/04/17 [History] Nitroglycerin [Nitrostat] 0.4 mg PO ASDIRECTED PRN 06/04/17 [History] Acetaminophen [Tylenol] 650 mg PO Q4H PRN tablet 06/29/17 [Rx] Metoprolol Tartrate 12.5 mg PO BID 11/03/17 [History] Pantoprazole Sodium [Protonix] 80 mg PO BEDTIME 11/03/17 [History] Tamsulosin [Flomax] 0.4 mg PO DAILY 11/03/17 [History] Melatonin 10 mg PO BEDTIME 06/15/18 [History] Acetaminophen/HYDROcodone [Ramsey 325-5 MG] 1 tab PO Q3H PRN #40 tablet 06/18/18 [Rx] Past Medical History HEENT History: Reports: Cataract, Hard of Hearing, Impaired Vision Cardiovascular History: Reports: Angina, CAD, Heart Failure, High Cholesterol, Hypertension, SOB on Exertion, Stents Other Cardiovascular History: stress test indicated stent placement Respiratory History: Reports: COPD, SOB Gastrointestinal History: Reports: Bowel Obstruction, Colon Polyp, GERD Genitourinary History: Reports: BPH, Prostate Disorder, Renal Calculus Other Genitourinary History: 6 times Musculoskeletal History: Reports: Arthritis, Back Pain, Chronic Neurological History: Reports: TIA, Vertigo Psychiatric History: Reports: Depression Endocrine/Metabolic History: Reports: Other (See Below) Other Endocrine/Metabolic History: prediabetic Hematologic History: Reports: Anticoagulation Therapy Dermatologic History: Reports: None - Infectious Disease History Infectious Disease History: Reports: Chicken Pox, Measles, Mumps - Past Surgical History Head Surgeries/Procedures: Reports: None HEENT Surgical History: Reports: Cataract Surgery, Tonsillectomy Cardiovascular Surgical History: Reports: Coronary Artery Stent Other Cardiovascular Surgeries/Procedures: 2016 stent Respiratory Surgical History: Reports: None GI Surgical History: Reports: Colonoscopy, Polypectomy, Small Bowel Male Surgical History: Reports: Kidney Stone Extraction Endocrine Surgical History: Reports: None Neurological Surgical History: Reports: None Musculoskeletal Surgical History: Reports: Other (See Below) Other Musculoskeletal Surgeries/Procedures:: left foot surgery Dermatological Surgical History: Reports: Skin Biopsy Social & Family History - Family History Family Medical History: Noncontributory - Tobacco Use Smoking Status *Q: Former Smoker Used Tobacco, but Quit: Yes Month/Year Tobacco Last Used: 1981 Second Hand Smoke Exposure: No - Caffeine Use Caffeine Use: Reports: Coffee Caffeine Use Comment: rare coffee use - Alcohol Use Days Per Week of Alcohol Use: 7 Number of Drinks Per Day: 1 Total Drinks Per Week: 7 - Recreational Drug Use Recreational Drug Use: No ED ROS GENERAL - Review of Systems Review Of Systems: See Below Constitutional: Reports: Weakness HEENT: Reports: No Symptoms Respiratory: Reports: No Symptoms Cardiovascular: Reports: No Symptoms Endocrine: Reports: No Symptoms GI/Abdominal: Reports: Abdominal Pain. Denies: Flatus : Reports: No Symptoms Musculoskeletal: Reports: No Symptoms Skin: Reports: Wound, Other (surgical wound w/o erythema or s/s of infection - steri strips intact) Neurological: Reports: No Symptoms Psychiatric: Reports: No Symptoms ED EXAM, GENERAL - Physical Exam Exam: See Below Exam Limited By: No Limitations General Appearance: Alert, Mild Distress Respiratory/Chest: No Respiratory Distress Cardiovascular: Regular Rate, Rhythm GI/Abdominal: Soft, Non-Tender, No Abnormal Bruit Neurological: Alert, Oriented Skin Exam: Warm, Dry, Wound/Incision (abdomen surgical wound) Course - Vital Signs Last Recorded V/S: Last Vital Signs Temp 98.8 F 06/26/18 19:13 Pulse 71 06/26/18 19:13 Resp 15 06/26/18 19:13 BP 187/91 H 06/26/18 19:13 Pulse Ox 96 06/26/18 19:13 - Orders/Labs/Meds Orders: Active Orders 24 hr Category Date Time Status Peripheral IV Care [RC] . DIRECTED Care 06/26/18 18:53 Active Abdomen 1V Upright [CR] Stat Exams 06/26/18 18:08 Taken Abdomen Pelvis wo Cont [CT] Stat Exams 06/26/18 19:08 Taken Acetaminophen/HYDROcodone [Ramsey 325-5 MG] Med 06/26/18 20:26 Once 1 tab PO ONETIME ONE Lactated Ringers [Ringers, Lactated] 1,000 ml Med 06/26/18 19:00 Active IV ASDIRECTED Sodium Chloride 0.9% [Saline Flush] Med 06/26/18 18:53 Active 10 ml FLUSH ASDIRECTED PRN Peripheral IV Insertion Adult [OM.PC] Urgent Oth 06/26/18 18:53 Ordered Medication Orders Hydrocodone Bitart/Acetaminophen (Ramsey 325-5 Mg) 1 tab PO ONETIME ONE Stop: 06/26/18 20:27 Lactated Ringer's (Ringers, Lactated) 1,000 mls @ 999 mls/hr IV ASDIRECTED RYDER Last Admin: 06/26/18 19:40 Dose: 999 mls/hr Sodium Chloride (Saline Flush) 10 ml FLUSH ASDIRECTED PRN PRN Reason: Keep Vein Open Last Admin: 06/26/18 19:39 Dose: 10 ml Labs: Laboratory Tests 06/26/18 06/26/18 06/26/18 Range/Units 19:09 19:09 19:09 WBC 9.4 (4.5-11.0) K/uL RBC 4.17 L (4.30-5.90) M/uL Hgb 12.3 (12.0-15.0) g/dL Hct 37.9 L (40.0-54.0) % MCV 91 (80-98) fL MCH 30 (27-31) pg MCHC 33 (32-36) % Plt Count 393 (150-400) K/uL Neut % (Auto) 60 (36-66) % Lymph % (Auto) 25 (24-44) % [place] % (Auto) 12 H (2-6) % Eos % (Auto) 3 (2-4) % Baso % (Auto) 0 (0-1) % Sodium 141 (140-148) mmol/L Potassium 4.3 (3.6-5.2) mmol/L Chloride 106 (100-108) mmol/L Carbon Dioxide 27 (21-32) mmol/L Anion Gap 8.3 (5.0-14.0) mmol/L BUN 17 (7-18) mg/dL Creatinine 1.2 (0.8-1.3) mg/dL Est Cr Clr Drug Dosing 47.46 mL/min Estimated GFR (MDRD) 58 L (>60) Glucose 115 H (74-106) mg/dL Lactic Acid 1.3 (0.4-2.0) mmol/L Calcium 8.7 (8.5-10.1) mg/dL Total Bilirubin 0.3 D (0.2-1.0) mg/dL AST 16 (15-37) U/L ALT 15 (12-78) U/L Alkaline Phosphatase 65 (46-116) U/L Troponin I < 0.017 (0.000-0.056) ng/mL Total Protein 6.0 L (6.4-8.2) g/dL Albumin 2.7 L (3.4-5.0) g/dL Globulin 3.3 (2.3-3.5) g/dL Albumin/Globulin Ratio 0.8 L (1.2-2.2) Lipase 90 (73-393) U/L Urine Color Urine Appearance Urine pH (4.5-8.0) Ur Specific [place] (1.008-1.030) Urine Protein (NEGATIVE) mg/dL Urine Glucose (UA) (NEGATIVE) mg/dL Urine Ketones (NEGATIVE) mg/dL Urine Occult Blood (NEGATIVE) Urine Nitrite (NEGAITVE) Urine Bilirubin (NEGATIVE) Urine Urobilinogen (NORMAL) mg/dL Ur Leukocyte Esterase (NEGATIVE) Urine RBC (0-5) Urine WBC (0-5) Ur Epithelial Cells Amorphous Sediment Urine Bacteria Urine Mucus Urine Other 06/26/18 Range/Units 19:42 WBC (4.5-11.0) K/uL RBC (4.30-5.90) M/uL Hgb (12.0-15.0) g/dL Hct (40.0-54.0) % MCV (80-98) fL MCH (27-31) pg MCHC (32-36) % Plt Count (150-400) K/uL Neut % (Auto) (36-66) % Lymph % (Auto) (24-44) % [place] % (Auto) (2-6) % Eos % (Auto) (2-4) % Baso % (Auto) (0-1) % Sodium (140-148) mmol/L Potassium (3.6-5.2) mmol/L Chloride (100-108) mmol/L Carbon Dioxide (21-32) mmol/L Anion Gap (5.0-14.0) mmol/L BUN (7-18) mg/dL Creatinine (0.8-1.3) mg/dL Est Cr Clr Drug Dosing mL/min Estimated GFR (MDRD) (>60) Glucose (74-106) mg/dL Lactic Acid (0.4-2.0) mmol/L Calcium (8.5-10.1) mg/dL Total Bilirubin (0.2-1.0) mg/dL AST (15-37) U/L ALT (12-78) U/L Alkaline Phosphatase (46-116) U/L Troponin I (0.000-0.056) ng/mL Total Protein (6.4-8.2) g/dL Albumin (3.4-5.0) g/dL Globulin (2.3-3.5) g/dL Albumin/Globulin Ratio (1.2-2.2) Lipase (73-393) U/L Urine Color Yellow Urine Appearance Clear Urine pH 5.0 (4.5-8.0) Ur Specific [place] 1.015 (1.008-1.030) Urine Protein Negative (NEGATIVE) mg/dL Urine Glucose (UA) Normal (NEGATIVE) mg/dL Urine Ketones Negative (NEGATIVE) mg/dL Urine Occult Blood Negative (NEGATIVE) Urine Nitrite Negative (NEGAITVE) Urine Bilirubin Negative (NEGATIVE) Urine Urobilinogen Normal (NORMAL) mg/dL Ur Leukocyte Esterase Negative (NEGATIVE) Urine RBC 0-5 (0-5) Urine WBC 0-5 (0-5) Ur Epithelial Cells Few Amorphous Sediment Rare Urine Bacteria Rare Urine Mucus Rare Urine Other See note Meds: Medications Generic Name Dose Route Start Last Admin Trade Name Freq PRN Reason Stop Dose Admin Hydrocodone Bitart/Acetaminophen 1 tab 06/26/18 20:26 Ramsey 325-5 Mg PO 06/26/18 20:27 ONETIME ONE Lactated Ringer's 1,000 mls @ 999 mls/hr 06/26/18 19:00 06/26/18 19:40 Ringers, Lactated IV 999 mls/hr ASDIRECTED RYDER Administration Sodium Chloride 10 ml 06/26/18 18:53 06/26/18 19:39 Saline Flush FLUSH 10 ml ASDIRECTED PRN Administration Keep Vein Open Departure - Departure Disposition: DC/[facility] to [facility] Clinical Impression: Abdominal pain Qualifiers: Abdominal location: generalized Qualified Code(s): R10.84 - Generalized abdominal pain - Discharge Information Referrals: Lwo Jarquin MD [Primary Care Provider] - Forms: ED Department Discharge Additional Instructions: Try the hydrocodone instead of the oxycodone for pain control, keep your follow- up appointments with general surgery, call return to the emergency department worsening of symptoms - My Orders Last 24 Hours: My Active Orders 06/26/18 18:53 Peripheral IV Care [RC] . DIRECTED Sodium Chloride 0.9% [Saline Flush] 10 ml FLUSH ASDIRECTED PRN Peripheral IV Insertion Adult [OM.PC] Urgent 06/26/18 19:00 Lactated Ringers [Ringers, Lactated] 1,000 ml IV ASDIRECTED 06/26/18 19:08 Abdomen Pelvis wo Cont [CT] Stat 06/26/18 20:26 Acetaminophen/HYDROcodone [Ramsey 325-5 MG] 1 tab PO ONETIME ONE - Assessment/Plan Last 24 Hours: My Active Orders 06/26/18 18:53 Peripheral IV Care [RC] . DIRECTED Sodium Chloride 0.9% [Saline Flush] 10 ml FLUSH ASDIRECTED PRN Peripheral IV Insertion Adult [OM.PC] Urgent 06/26/18 19:00 Lactated Ringers [Ringers, Lactated] 1,000 ml IV ASDIRECTED 06/26/18 19:08 Abdomen Pelvis wo Cont [CT] Stat 06/26/18 20:26 Acetaminophen/HYDROcodone [Ramsey 325-5 MG] 1 tab PO ONETIME ONE <Officer,Joseluis - Last Filed: 06/26/18 20:29> ED EXAM, GENERAL - Physical Exam Respiratory/Chest: No Respiratory Distress, Lungs Clear, Normal Breath Sounds Cardiovascular: Regular Rate, Rhythm, No Murmur GI/Abdominal: Normal Bowel Sounds, Soft, Non-Tender, No Distention. No: Guarding, Rigid, Rebound, Tender Course - Orders/Labs/Meds Labs: Laboratory Tests 06/26/18 06/26/18 06/26/18 Range/Units 19:09 19:09 19:09 WBC 9.4 (4.5-11.0) K/uL RBC 4.17 L (4.30-5.90) M/uL Hgb 12.3 (12.0-15.0) g/dL Hct 37.9 L (40.0-54.0) % MCV 91 (80-98) fL MCH 30 (27-31) pg MCHC 33 (32-36) % Plt Count 393 (150-400) K/uL Neut % (Auto) 60 (36-66) % Lymph % (Auto) 25 (24-44) % [place] % (Auto) 12 H (2-6) % Eos % (Auto) 3 (2-4) % Baso % (Auto) 0 (0-1) % Sodium 141 (140-148) mmol/L Potassium 4.3 (3.6-5.2) mmol/L Chloride 106 (100-108) mmol/L Carbon Dioxide 27 (21-32) mmol/L Anion Gap 8.3 (5.0-14.0) mmol/L BUN 17 (7-18) mg/dL Creatinine 1.2 (0.8-1.3) mg/dL Est Cr Clr Drug Dosing 47.46 mL/min Estimated GFR (MDRD) 58 L (>60) Glucose 115 H (74-106) mg/dL Lactic Acid 1.3 (0.4-2.0) mmol/L Calcium 8.7 (8.5-10.1) mg/dL Total Bilirubin 0.3 D (0.2-1.0) mg/dL AST 16 (15-37) U/L ALT 15 (12-78) U/L Alkaline Phosphatase 65 (46-116) U/L Troponin I < 0.017 (0.000-0.056) ng/mL Total Protein 6.0 L (6.4-8.2) g/dL Albumin 2.7 L (3.4-5.0) g/dL Globulin 3.3 (2.3-3.5) g/dL Albumin/Globulin Ratio 0.8 L (1.2-2.2) Lipase 90 (73-393) U/L Urine Color Urine Appearance Urine pH (4.5-8.0) Ur Specific [place] (1.008-1.030) Urine Protein (NEGATIVE) mg/dL Urine Glucose (UA) (NEGATIVE) mg/dL Urine Ketones (NEGATIVE) mg/dL Urine Occult Blood (NEGATIVE) Urine Nitrite (NEGAITVE) Urine Bilirubin (NEGATIVE) Urine Urobilinogen (NORMAL) mg/dL Ur Leukocyte Esterase (NEGATIVE) Urine RBC (0-5) Urine WBC (0-5) Ur Epithelial Cells Amorphous Sediment Urine Bacteria Urine Mucus Urine Other 06/26/18 Range/Units 19:42 WBC (4.5-11.0) K/uL RBC (4.30-5.90) M/uL Hgb (12.0-15.0) g/dL Hct (40.0-54.0) % MCV (80-98) fL MCH (27-31) pg MCHC (32-36) % Plt Count (150-400) K/uL Neut % (Auto) (36-66) % Lymph % (Auto) (24-44) % [place] % (Auto) (2-6) % Eos % (Auto) (2-4) % Baso % (Auto) (0-1) % Sodium (140-148) mmol/L Potassium (3.6-5.2) mmol/L Chloride (100-108) mmol/L Carbon Dioxide (21-32) mmol/L Anion Gap (5.0-14.0) mmol/L BUN (7-18) mg/dL Creatinine (0.8-1.3) mg/dL Est Cr Clr Drug Dosing mL/min Estimated GFR (MDRD) (>60) Glucose (74-106) mg/dL Lactic Acid (0.4-2.0) mmol/L Calcium (8.5-10.1) mg/dL Total Bilirubin (0.2-1.0) mg/dL AST (15-37) U/L ALT (12-78) U/L Alkaline Phosphatase (46-116) U/L Troponin I (0.000-0.056) ng/mL Total Protein (6.4-8.2) g/dL Albumin (3.4-5.0) g/dL Globulin (2.3-3.5) g/dL Albumin/Globulin Ratio (1.2-2.2) Lipase (73-393) U/L Urine Color Yellow Urine Appearance Clear Urine pH 5.0 (4.5-8.0) Ur Specific [place] 1.015 (1.008-1.030) Urine Protein Negative (NEGATIVE) mg/dL Urine Glucose (UA) Normal (NEGATIVE) mg/dL Urine Ketones Negative (NEGATIVE) mg/dL Urine Occult Blood Negative (NEGATIVE) Urine Nitrite Negative (NEGAITVE) Urine Bilirubin Negative (NEGATIVE) Urine Urobilinogen Normal (NORMAL) mg/dL Ur Leukocyte Esterase Negative (NEGATIVE) Urine RBC 0-5 (0-5) Urine WBC 0-5 (0-5) Ur Epithelial Cells Few Amorphous Sediment Rare Urine Bacteria Rare Urine Mucus Rare Urine Other See note Departure - Departure Time of Disposition: 20:28 Condition: Fair - Assessment/Plan Plan: Assessment Acuity = acute Site and laterality = abdominal pain intermittent complicated in a patient postop 2 weeks from hemicolectomy Etiology = unclear etiology Manifestations = none Location of injury = Home Lab values = CBC, CMP, urinalysis unremarkable CT scan shows no acute process for abdominal pain Plan I did review lab work CT scan results with him and the family elected to try different pain medication therefore hydrocodone 5/325 one tab by mouth 3 times a day when necessary total #10 provided, he will be discharged back to the halfway keep his follow-up appointments with general surgery Joseluis Buitrago MD was personally available for consultation in the ED. I have reviewed the chart and agree with the documentation as recorded by the ASSISTANT CURATOR Student, including the assessment, treatment plan and disposition. Joseluis Buitrago MD personally saw and examined the patient. I have reviewed and agree with the ASSISTANT CURATOR Student's findings. This note was dictated using [employer] voice recognition software please call with any questions on syntax or grammar.
[2018-06-26] MEDS ORDERED: Sodium Chloride 0.9% 10 ML Syringe FLUSH PRN (18:53)
[2018-06-26] MEDS ORDERED: Lactated Ringers 1,000 ML IV SCH (19:00)
[2018-06-26 19:14] VITALS: BP 187/91
[2018-06-26] MEDS ORDERED: Acetaminophen/HYDROcodone 325-5 MG Tab PO ONE (20:26)
--- NOTE | 2018-06-28 09:12 | CR ---
Abdomen 1V Upright CLINICAL HISTORY: Abdominal pain FINDINGS: There are some scattered air-filled loops of small bowel in a nonspecific pattern. There is gas and feces colon. No definite urinary calcifications are seen but these could be obscured by bowel content IMPRESSION: Nonacute intestinal gas pattern
== END 2018-06-26 20:55 ==
LOC: JP.ED 17:14
DX: R10.84 Generalized abdominal pain (principal); I11.0 Hypertensive heart disease with heart failure; I50.9 Heart failure, unspecified; J44.9 Chronic obstructive pulmonary disease, unspecified; I25.10 Atherosclerotic heart disease of native coronary artery without angina pectoris; Z79.82 Long term (current) use of aspirin; Z79.899 Other long term (current) drug therapy; Z91.041 Radiographic dye allergy status; Z87.891 Personal history of nicotine dependence
CPT/HCPCS: 36415; 74018; 74176; 80053; 81001; 83605; 83690; 84484; 85025; 96360; 99285; A9270; J7120; 99284

== ENCOUNTER 2019-04-24 20:25 | Emergency (ER) | payer MEDICARE, BC ==
[2019-04-24 20:38] VITALS: BP 133/63; PULSE 67
--- NOTE | 2019-04-24 21:19 | EDM.PDOC ---
ED HPI GENERAL MEDICAL PROBLEM - General Chief Complaint: General Stated Complaint: SLURRING WORDS, DIZZY Time Seen by Provider: 04/24/19 21:19 Source of Information: Reports: Patient History Limitations: Reports: No Limitations - History of Present Illness INITIAL COMMENTS - FREE TEXT/NARRATIVE: at about 7 pm he had a episode of dizziness and felt so weak he could not stand up. In the last 2 days he has started back on flomax. After pt relaxed her his bp was 105-111 His dizziness disappeared here and he was able to be up to the BR. . Onset: Today, Sudden, Other ( about 7 pm. ) Duration: Hour(s): Location: Reports: Generalized, Other (p hd generalized weakness and dizziness. ) Associated Symptoms: Reports: Weakness, Other (dizziness. ) - Related Data Allergies Allergy/AdvReac Type Severity Reaction Status Date / Time Iodinated Contrast Media Allergy Hives Verified 04/24/19 20:40 Home Meds: Home Meds Aspirin [Alvin Chewable Aspirin] 81 mg PO DAILY 10/22/13 [History] Furosemide [Lasix] 40 mg PO ASDIRECTED PRN 06/04/17 [History] Magnesium Oxide [Magnesium] 400 mg PO BID 06/04/17 [History] Nitroglycerin [Nitrostat] 0.4 mg PO ASDIRECTED PRN 06/04/17 [History] Metoprolol Tartrate 12.5 mg PO BID 11/03/17 [History] Pantoprazole Sodium [Protonix] 40 mg PO BID 11/03/17 [History] Tamsulosin [Flomax] 0.4 mg PO DAILY 11/03/17 [History] Melatonin 10 mg PO BEDTIME 06/15/18 [History] Acetaminophen [Tylenol] 650 mg PO QID 09/27/18 [History] amLODIPine [Norvasc] 2.5 mg PO DAILY 09/27/18 [History] Past Medical History HEENT History: Reports: Cataract, Hard of Hearing, Impaired Vision Cardiovascular History: Reports: Angina, CAD, Heart Failure, High Cholesterol, Hypertension, SOB on Exertion, Stents Other Cardiovascular History: stress test indicated stent placement Respiratory History: Reports: COPD, SOB Gastrointestinal History: Reports: Bowel Obstruction, Colon Polyp, GERD Genitourinary History: Reports: BPH, Prostate Disorder, Renal Calculus Other Genitourinary History: 6 times Musculoskeletal History: Reports: Arthritis, Back Pain, Chronic Neurological History: Reports: TIA, Vertigo Psychiatric History: Reports: Depression Endocrine/Metabolic History: Reports: Other (See Below) Other Endocrine/Metabolic History: prediabetic Hematologic History: Reports: Anticoagulation Therapy Dermatologic History: Reports: None - Infectious Disease History Infectious Disease History: Reports: Chicken Pox, Measles, Mumps - Past Surgical History Head Surgeries/Procedures: Reports: None HEENT Surgical History: Reports: Cataract Surgery, Tonsillectomy Cardiovascular Surgical History: Reports: Coronary Artery Stent Other Cardiovascular Surgeries/Procedures: 2016 stent Respiratory Surgical History: Reports: None GI Surgical History: Reports: Colonoscopy, Polypectomy, Small Bowel Male Surgical History: Reports: Kidney Stone Extraction Endocrine Surgical History: Reports: None Neurological Surgical History: Reports: None Musculoskeletal Surgical History: Reports: Other (See Below) Other Musculoskeletal Surgeries/Procedures:: left foot surgery Dermatological Surgical History: Reports: Skin Biopsy Social & Family History - Family History Family Medical History: Noncontributory - Tobacco Use Smoking Status *Q: Never Smoker - Caffeine Use Caffeine Use: Reports: None Caffeine Use Comment: rare coffee use ED ROS GENERAL - Review of Systems Review Of Systems: See Below Constitutional: Reports: Weakness, Fatigue, Other (pt had a sudden episode of weakness. He also started back on his flomax. 2 or 3 days ago. ) Respiratory: Reports: No Symptoms Cardiovascular: Reports: No Symptoms, Other (pt did not have chest pain) Endocrine: Reports: No Symptoms GI/Abdominal: Reports: No Symptoms : Reports: No Symptoms Musculoskeletal: Reports: No Symptoms Skin: Reports: No Symptoms ED EXAM, GENERAL - Physical Exam Exam: See Below Free Text/Narrative:: pt had an episode of marked weakness.He was dizzy and he did not feel like he could stand up. Exam Limited By: No Limitations General Appearance: Alert, Anxious, Mild Distress, Other (pt was feeling much better when he arrived than when he was at home. pupils equal and reactive. ) Ears: Normal TMs Ear Exam: Right Ear: Canal Normal Nose: Normal Inspection Throat/Mouth: Normal Inspection Head: Atraumatic Neck: Normal Inspection Respiratory/Chest: No Respiratory Distress Cardiovascular: Regular Rate, Rhythm, Other (pt has not had chest pain) GI/Abdominal: Soft, Non-Tender (Male) Exam: Deferred Rectal (Males) Exam: Deferred Back Exam: Normal Inspection Extremities: Normal Inspection Neurological: Alert, Normal Cognition Psychiatric: Anxious Course - Vital Signs Last Recorded V/S: Last Vital Signs Temp 36.8 C 04/24/19 20:46 Pulse 67 04/24/19 20:46 Resp 14 04/24/19 20:46 BP 133/63 04/24/19 20:46 Pulse Ox 96 04/24/19 20:46 Orthostatic Blood Pressure [ 112/59 Standing] Orthostatic Blood Pressure [ 113/49 Supine] - Orders/Labs/Meds Labs: Laboratory Tests 04/24/19 04/24/19 04/24/19 Range/Units 21:05 21:05 22:06 WBC 9.8 (4.5-11.0) K/uL RBC 4.90 (4.30-5.90) M/uL Hgb 14.1 (12.0-15.0) g/dL Hct 43.0 (40.0-54.0) % MCV 88 (80-98) fL MCH 29 (27-31) pg MCHC 33 (32-36) % Plt Count 293 (150-400) K/uL Neut % (Auto) 50 (36-66) % Lymph % (Auto) 32 (24-44) % [place] % (Auto) 16 H (2-6) % Eos % (Auto) 2 (2-4) % Baso % (Auto) 0 (0-1) % Sodium 139 L (140-148) mmol/L Potassium 3.3 L (3.6-5.2) mmol/L Chloride 98 L (100-108) mmol/L Carbon Dioxide 29 (21-32) mmol/L Anion Gap 15.3 H (5.0-14.0) mmol/L BUN 43 H D (7-18) mg/dL Creatinine 1.9 H (0.8-1.3) mg/dL Est Cr Clr Drug Dosing 28.50 mL/min Estimated GFR (MDRD) 34 L (>60) Glucose 136 H (74-106) mg/dL Calcium 8.9 (8.5-10.1) mg/dL Magnesium 1.9 (1.8-2.4) mg/dL Total Bilirubin 0.2 (0.2-1.0) mg/dL AST 17 (15-37) U/L ALT 16 (12-78) U/L Alkaline Phosphatase 87 (46-116) U/L Total Protein 6.6 (6.4-8.2) g/dL Albumin 3.3 L (3.4-5.0) g/dL Globulin 3.3 (2.3-3.5) g/dL Albumin/Globulin Ratio 1.0 L (1.2-2.2) Urine Color (YELLOW) Urine Appearance (CLEAR) Urine pH (5.0-8.0) Ur Specific [place] (1.008-1.030) Urine Protein (NEGATIVE) mg/dL Urine Glucose (UA) (NEGATIVE) mg/dL Urine Ketones (NEGATIVE) mg/dL Urine Occult Blood (NEGATIVE) Urine Nitrite (NEGATIVE) Urine Bilirubin (NEGATIVE) Urine Urobilinogen (0.2-1.0) EU/dL Ur Leukocyte Esterase (NEGATIVE) Urine RBC (0-5) Urine WBC (0-5) Ur Epithelial Cells Amorphous Sediment Urine Bacteria Urine Mucus 04/24/19 Range/Units 22:17 WBC (4.5-11.0) K/uL RBC (4.30-5.90) M/uL Hgb (12.0-15.0) g/dL Hct (40.0-54.0) % MCV (80-98) fL MCH (27-31) pg MCHC (32-36) % Plt Count (150-400) K/uL Neut % (Auto) (36-66) % Lymph % (Auto) (24-44) % [place] % (Auto) (2-6) % Eos % (Auto) (2-4) % Baso % (Auto) (0-1) % Sodium (140-148) mmol/L Potassium (3.6-5.2) mmol/L Chloride (100-108) mmol/L Carbon Dioxide (21-32) mmol/L Anion Gap (5.0-14.0) mmol/L BUN (7-18) mg/dL Creatinine (0.8-1.3) mg/dL Est Cr Clr Drug Dosing mL/min Estimated GFR (MDRD) (>60) Glucose (74-106) mg/dL Calcium (8.5-10.1) mg/dL Magnesium (1.8-2.4) mg/dL Total Bilirubin (0.2-1.0) mg/dL AST (15-37) U/L ALT (12-78) U/L Alkaline Phosphatase (46-116) U/L Total Protein (6.4-8.2) g/dL Albumin (3.4-5.0) g/dL Globulin (2.3-3.5) g/dL Albumin/Globulin Ratio (1.2-2.2) Urine Color Yellow (YELLOW) Urine Appearance Clear (CLEAR) Urine pH 5.5 (5.0-8.0) Ur Specific [place] 1.015 (1.008-1.030) Urine Protein Negative (NEGATIVE) mg/dL Urine Glucose (UA) Negative (NEGATIVE) mg/dL Urine Ketones Negative (NEGATIVE) mg/dL Urine Occult Blood Negative (NEGATIVE) Urine Nitrite Negative (NEGATIVE) Urine Bilirubin Negative (NEGATIVE) Urine Urobilinogen 0.2 (0.2-1.0) EU/dL Ur Leukocyte Esterase Negative (NEGATIVE) Urine RBC Not seen (0-5) Urine WBC Not seen (0-5) Ur Epithelial Cells Not seen Amorphous Sediment Not seen Urine Bacteria Rare Urine Mucus Rare - Re-Assessments/Exams Free Text/Narrative Re-Assessment/Exam: 04/24/19 23:11 pt had a highr bp at first but after he relaxed he had a bp of 105 and up to 11. This is considerably lower than he usually runs. He did not have chest pain. He did start back on the flomax last 2 days, 04/28/19 07:18 Departure - Departure Time of Disposition: 22:58 Disposition: Home, Self-Care 01 Condition: Fair Clinical Impression: Dizziness, Hypotension - Discharge Information Instructions: Hypotension, [id number] Referrals: Low Jarquin MD [Primary Care Provider] - Forms: ED Department Discharge Care Plan Goals: decrease amlodopine to 2.5 mg--1/2 tab daily, continue with flomax, continue other meds the same.
--- NOTE | 2019-04-24 22:45 | CRLCT ---
HISTORY: Dizziness, slurred speech, weakness. TECHNIQUE: Noncontrast head CT. COMPARISON: MRI 11/24/2017. FINDINGS: There is no acute intracranial hemorrhage or acute ischemic infarct. Areas of white matter low attenuation are nonspecific but likely reflect sequelae of chronic small vessel ischemic changes. There is moderate generalized volume loss. Dilatation of the ventricular system likely relates to central white matter volume loss. There is no mass effect or midline shift. No extra-axial collection or hematoma. The mastoid air cells are clear. Paranasal sinuses are clear. No acute skull fracture. IMPRESSION: 1. No acute intracranial disease. 2. Generalized volume loss and chronic small vessel ischemic changes as before. 3. Dilatation of the ventricular system as before may relate to central white matter volume loss. Dictated by Josesito Sanders MD @ 04/24/2019 10:44:57 PM Please note that all CT scans at this facility use dose modulation, iterative reconstruction, and/or weight-based dosing when appropriate to reduce radiation dose to as low as reasonably achievable. Dictated by: Josesito Sanders MD @ 04/24/2019 22:44:58 (Electronically Signed)
== END 2019-04-24 23:07 | disposition home or self-care (01) ==
LOC: JP.ED 20:25
DX: I95.9 Hypotension, unspecified (principal); I25.10 Atherosclerotic heart disease of native coronary artery without angina pectoris; I11.0 Hypertensive heart disease with heart failure; I50.9 Heart failure, unspecified; J44.9 Chronic obstructive pulmonary disease, unspecified; N40.0 Benign prostatic hyperplasia without lower urinary tract symptoms; Z91.041 Radiographic dye allergy status; Z79.82 Long term (current) use of aspirin; Z86.73 Personal history of transient ischemic attack (TIA), and cerebral infarction without residual deficits
CPT/HCPCS: 36415; 70450; 80053; 81001; 83735; 85025; 99285-25

== ENCOUNTER 2019-05-02 09:23 | Day surgery (SDC) | payer MEDICARE, BC ==
[~2019-05-02 09:23] MED LIST: Dextrose 5%-Lactated Ringers 1,000 ML IV SCH; ceFAZolin 2 GM in Premix Bag 1 BAG IV ONE
[2019-05-02] MEDS ORDERED: fentaNYL 100 MCG/2 ML SDV ONE (09:49)
[2019-05-02] MEDS ORDERED: Propofol 200 MG/20 ML SDV ONE ×2 (09:49→13:38)
[2019-05-02] MEDS ORDERED: Midazolam 1 MG/ML 2 ML SDV ONE (09:49)
[2019-05-02] MEDS ORDERED: Metoprolol Tartrate 50 MG Tab PO ONE (09:52)
[2019-05-02] MEDS ORDERED: predniSONE 20 MG Tab PO ONE (10:00)
[2019-05-02] MEDS ORDERED: Lidocaine 1% with EPINEPHrine 1:100,000 50 ML MDV ONE (10:35)
[2019-05-02] MEDS ORDERED: Bacitracin Oint 1 GM U/D Packet ONE (12:30)
[2019-05-02] MEDS ORDERED: Bupivacaine 0.5% 50 ML MDV ONE (13:09)
[2019-05-02] MEDS: ceFAZolin 2 GM in Sodium Chloride 0.9% 50 ML IV ONE ×2 (13:27→13:29)
[2019-05-02 15:15] VITALS: BP 144/70; PULSE 65
[2019-05-03] MEDS ORDERED: predniSONE 20 MG Tab PO SCH (08:00)
--- NOTE | 2019-05-06 11:24 | OR ---
DATE OF PROCEDURE: 05/02/2019 SURGEON: Kyle Carter MD PREOPERATIVE DIAGNOSIS: Rule out temporal arteritis. POSTOPERATIVE DIAGNOSIS: Rule out temporal arteritis. OPERATIVE PROCEDURE: Bilateral temporal artery biopsies ([id number]) x2. ANESTHESIA: Local plus IV sedation. CODING SPECIALIST HOME HEALTH: Tomy Velez MS-3. INDICATION FOR PROCEDURE: This is an 83-year-old, referred for bilateral temporal artery biopsies. He has an elevated sedimentation rate as well as temporal-type headaches. The plan is to proceed with bilateral temporal artery biopsies. Potential risks including bleeding and infection were reviewed, and the patient wishes to proceed. DETAILS OF PROCEDURE: The patient was taken to the operative room and after, initially, some IV sedation administered, the temporal arteries were mapped out, beginning just above the ear bilaterally. This area was then shaved, prepped and draped, and anesthetized with 1% lidocaine mixed with Marcaine. Beginning on the left side, a linear incision over the artery was made and carried down through the skin and subcutaneous tissue. Roughly, 3.5 to 4 cm of the artery was then isolated and then clamped and divided proximally and distally, and excised. The artery was somewhat thickened grossly. The 2 ends were then suture ligated with 4-0 Vicryl stitch. The deeper soft tissues were then approximated with some 4- 0 Vicryl stitch as well, and the skin with a 5-0 Vicryl subcuticular stitch. Some surgical glue was then applied. Following this, an identical procedure on the right side was accomplished. This was slightly smaller in diameter, but also had a slight leathery texture to it. After the glue was applied to this incision, the patient was taken to the recovery room in satisfactory condition. He will be instructed to continue the steroids, and he is to see Internal Medicine this coming . Kyle Carter MD Job #: [id number]
== END 2019-05-02 15:19 | disposition home or self-care (01) ==
LOC: JP.SDS 09:23
PROVIDERS: ATTEND Surgery
DX: R51 Headache (principal); R29.818 Other symptoms and signs involving the nervous system; K21.9 Gastro-esophageal reflux disease without esophagitis; I10 Essential (primary) hypertension; J44.9 Chronic obstructive pulmonary disease, unspecified; Z91.041 Radiographic dye allergy status
CPT/HCPCS: 37609; 88305; 88313; A9270; J0690; J2250; J2704; J3010; J3490; J7042; J7050

== ENCOUNTER 2019-05-15 09:48 | Emergency (ER) | payer MEDICARE, BC ==
--- NOTE | 2019-05-15 10:05 | EDM.PDOC ---
ED HPI GENERAL MEDICAL PROBLEM - General Stated Complaint: CHEST PAIN Time Seen by Provider: 05/15/19 10:00 Source of Information: Reports: Patient, Family History Limitations: Reports: No Limitations - History of Present Illness INITIAL COMMENTS - FREE TEXT/NARRATIVE: 83-year-old male who is currently taking prednisone for temporal arteritis, had biopsies of the temporal arteries two weeks ago was feeling his normal baseline when after breakfast about 1 hour to 1-1/2 hours ago he developed an upper abdominal pressure which extended up the esophagus and substernal area into both ears. He felt like he had to "burp". Some mild increased pressure with deep breath, but no shortness of breath or cough. No radiation of pain into his back. He was very uncomfortable so he came in to be seen, he is now feeling much better without treatment. Onset: Sudden Duration: Hour(s): (About 1-1/2 hours ago) Location: Reports: Neck, Chest, Abdomen Associated Symptoms: Reports: Chest Pain. Denies: Cough, Diaphoresis, Fever/ Chills, Nausea/Vomiting, Shortness of Breath Chest Pain Score (Numeric/FACES): 5 Bilateral Pain Score (Numeric/FACES): 5 - Related Data Allergies Allergy/AdvReac Type Severity Reaction Status Date / Time Iodinated Contrast Media Allergy Hives Verified 05/15/19 10:02 Home Meds: Home Meds Aspirin [Alvin Chewable Aspirin] 81 mg PO DAILY 10/22/13 [History] Magnesium Oxide [Magnesium] 400 mg PO BID 06/04/17 [History] Nitroglycerin [Nitrostat] 0.4 mg PO ASDIRECTED PRN 06/04/17 [History] Pantoprazole Sodium [Protonix] 40 mg PO BID 11/03/17 [History] Tamsulosin [Flomax] 0.4 mg PO DAILY 11/03/17 [History] Melatonin 10 mg PO BEDTIME 06/15/18 [History] Acetaminophen [Tylenol] 650 mg PO QID 09/27/18 [History] Cyclobenzaprine [Flexeril] 5 mg PO TID PRN 04/29/19 [History] Metoprolol Tartrate [Lopressor] 50 mg PO BID 04/29/19 [History] Rosuvastatin [Crestor] 20 mg PO DAILY 04/29/19 [History] Warfarin [Coumadin] 2 mg PO DAILY 04/29/19 [History] predniSONE [Prednisone] 40 mg PO DAILY 04/29/19 [History] Potassium Chloride 20 meq PO DAILY 05/15/19 [History] Past Medical History HEENT History: Reports: Cataract, Hard of Hearing, Impaired Vision Cardiovascular History: Reports: Angina, CAD, Heart Failure, High Cholesterol, Hypertension, SOB on Exertion, Stents Other Cardiovascular History: stress test indicated stent placement Respiratory History: Reports: COPD, SOB Gastrointestinal History: Reports: Bowel Obstruction, Colon Polyp, GERD Genitourinary History: Reports: BPH, Prostate Disorder, Renal Calculus Other Genitourinary History: 6 times Musculoskeletal History: Reports: Arthritis, Back Pain, Chronic Neurological History: Reports: TIA, Vertigo Psychiatric History: Reports: Depression Endocrine/Metabolic History: Reports: Other (See Below) Other Endocrine/Metabolic History: prediabetic Hematologic History: Reports: Anticoagulation Therapy Dermatologic History: Reports: None - Infectious Disease History Infectious Disease History: Reports: Chicken Pox, Measles, Mumps - Past Surgical History Head Surgeries/Procedures: Reports: None HEENT Surgical History: Reports: Cataract Surgery, Tonsillectomy Cardiovascular Surgical History: Reports: Coronary Artery Stent Other Cardiovascular Surgeries/Procedures: 2016 stent Respiratory Surgical History: Reports: None GI Surgical History: Reports: Colonoscopy, Polypectomy, Small Bowel Male Surgical History: Reports: Kidney Stone Extraction Endocrine Surgical History: Reports: None Neurological Surgical History: Reports: None Musculoskeletal Surgical History: Reports: Other (See Below) Other Musculoskeletal Surgeries/Procedures:: left foot surgery Dermatological Surgical History: Reports: Skin Biopsy Social & Family History - Family History Family Medical History: Noncontributory - Caffeine Use Caffeine Use: Reports: Coffee Caffeine Use Comment: rare coffee use ED ROS GENERAL - Review of Systems Review Of Systems: See Below Constitutional: Reports: Malaise. Denies: Fever, Chills HEENT: Reports: Other (Pain radiated up into both ears). Denies: Throat Pain Respiratory: Reports: Pleuritic Chest Pain. Denies: Shortness of Breath, Wheezing Cardiovascular: Reports: Chest Pain (Substernal radiating into the neck and ears ) GI/Abdominal: Reports: Abdominal Pain (Upper abdominal pressure and pain, bloating sensation) : Reports: No Symptoms Neurological: Denies: Headache ED EXAM, GENERAL - Physical Exam Exam: See Below Exam Limited By: No Limitations General Appearance: Alert, No Apparent Distress (Appears to be feeling much better) Throat/Mouth: Normal Inspection Neck: Supple Respiratory/Chest: Lungs Clear Cardiovascular: Irregularly Irregular GI/Abdominal: Soft, Tender (Mild tenderness to palpation across the upper abdomen) Neurological: Alert, Oriented Skin Exam: Warm, Dry EKG INTERPRETATION EKG Interpretation Comments: Patient has significant first-degree block and what appears to be a sinus arrhythmia with frequent PACs. His EKG looks almost identical to [address] elevation or depression. Course - Vital Signs Last Recorded V/S: Last Vital Signs Temp 98.1 F 05/15/19 10:07 Pulse 48 L 05/15/19 10:51 Resp 15 05/15/19 10:51 BP 158/76 H 05/15/19 10:51 Pulse Ox 95 05/15/19 10:51 - Orders/Labs/Meds Orders: Active Orders 24 hr Category Date Time Status EKG Documentation Completion [RC] ASDIRECTED Care 05/15/19 10:14 Active EKG 12 Lead [EK] Routine Ther 05/15/19 10:13 Ordered Labs: Laboratory Tests 05/15/19 05/15/19 Range/Units 10:13 10:13 WBC 16.3 H (4.5-11.0) K/uL RBC 5.02 (4.30-5.90) M/uL Hgb 14.7 (12.0-15.0) g/dL Hct 44.3 (40.0-54.0) % MCV 88 (80-98) fL MCH 29 (27-31) pg MCHC 33 (32-36) % Plt Count 299 (150-400) K/uL Neut % (Auto) 78 H (36-66) % Lymph % (Auto) 13 L (24-44) % [place] % (Auto) 9 H (2-6) % Eos % (Auto) 0 L (2-4) % Baso % (Auto) 0 (0-1) % Sodium 137 L (140-148) mmol/L Potassium 3.7 (3.6-5.2) mmol/L Chloride 100 (100-108) mmol/L Carbon Dioxide 27 (21-32) mmol/L Anion Gap 13.7 (5.0-14.0) mmol/L BUN 25 H (7-18) mg/dL Creatinine 1.4 H (0.8-1.3) mg/dL Est Cr Clr Drug Dosing 39.98 mL/min Estimated GFR (MDRD) 48 L (>60) Glucose 188 H (74-106) mg/dL Calcium 8.0 L (8.5-10.1) mg/dL Total Bilirubin 0.5 D (0.2-1.0) mg/dL AST 17 (15-37) U/L ALT 22 (12-78) U/L Alkaline Phosphatase 75 (46-116) U/L Troponin I < 0.017 (0.000-0.056) ng/mL Total Protein 6.2 L (6.4-8.2) g/dL Albumin 3.1 L (3.4-5.0) g/dL Globulin 3.1 (2.3-3.5) g/dL Albumin/Globulin Ratio 1.0 L (1.2-2.2) Meds: Medications Discontinued Medications Generic Name Dose Route Start Last Admin Trade Name Freq PRN Reason Stop Dose Admin Al Hydroxide/Mg Hydroxide 30 ml 05/15/19 10:10 05/15/19 10:15 Mag-Al Plus PO 05/15/19 10:11 30 ml ONETIME ONE Administration - Re-Assessments/Exams Free Text/Narrative Re-Assessment/Exam: 05/15/19 10:16 Patient symptoms appear to be more GI related than cardiac related, possibly exacerbated by the acute prednisone therapy. EKG was stable from 1 year ago. Patient was given 30 mg of oral Maalox, 1 view chest x-ray obtained, and a CBC, CMP and troponin obtained. 05/15/19 10:20 Went in and visited with the patient to explain the plan, you could hear expiratory wheezes so I offered him a DuoNeb but he refused any further treatment including a nebulizer. 05/15/19 10:59 X-ray returned normal, labs reassuring. He had no further symptoms while in the emergency room. He was anxious to go home. We discussed his prednisone, he is not improving on the prednisone in fact possibly getting side effect so he will discuss with Dr. Jarquin tomorrow whether he can wean off or stop the prednisone. Departure - Departure Time of Disposition: 11:10 Disposition: Home, Self-Care 01 Clinical Impression: GERD (gastroesophageal reflux disease) Qualifiers: Esophagitis presence: esophagitis presence not specified Qualified Code(s): K21.9 - Gastro-esophageal reflux disease without esophagitis Abdominal pain Qualifiers: Abdominal location: epigastric Qualified Code(s): R10.13 - Epigastric pain - Discharge Information Instructions: Abdominal Pain, Adult, [id number] Referrals: Low Jarquin MD [Primary Care Provider] - Forms: ED Department Discharge Care Plan Goals: Continue your current medications as directed by your primary doctor, other than considering taking half dose of prednisone today and discussing tomorrow any further treatment with Dr. Jarquin. Advance diet as tolerated, avoid spices today. Return anytime if worsening or concerns. Sepsis Event Note - Focused Exam Vital Signs: Vital Signs Temp Pulse Resp BP Pulse Ox 05/15/19 10:51 48 L 15 158/76 H 95 05/15/19 10:25 56 L 21 H 155/89 H 96 05/15/19 10:15 57 L 25 H 175/79 H 97 05/15/19 10:07 98.1 F 50 L 11 L 193/81 H 97 05/15/19 10:01 98.1 F 50 L 11 L 193/81 H 97 Date Exam was Performed: 05/15/19 Time Exam was Performed: 11:53 - My Orders Last 24 Hours: My Active Orders 05/15/19 10:13 EKG 12 Lead [EK] Routine 05/15/19 10:14 EKG Documentation Completion [RC] ASDIRECTED - Assessment/Plan Last 24 Hours: My Active Orders 05/15/19 10:13 EKG 12 Lead [EK] Routine 05/15/19 10:14 EKG Documentation Completion [RC] ASDIRECTED
[2019-05-15] MEDS ORDERED: Aluminum Hydroxide/Magnesium Hydroxide/Simethicone Susp 30 ML Cup PO ONE (10:10)
--- NOTE | 2019-05-15 10:53 | CRLCR ---
Indication: Chest pain. Technique: Single AP portable view of the chest. Comparison: July 01, 2018. Findings: Heart is borderline in size. The lungs are clear. The aorta is tortuous. No infiltrate, pleural effusion, pneumothorax identified. Impression: No acute cardiopulmonary process Dictated by Chiquis Bruno MD @ May 15 2019 10:50AM Signed by Dr. Chiquis Bruno @ May 15 2019 10:51AM
[2019-05-15 11:00] VITALS: BP 158/76; PULSE 48
== END 2019-05-15 11:10 | disposition home or self-care (01) ==
LOC: JP.ED 09:48
DX: K21.9 Gastro-esophageal reflux disease without esophagitis (principal); I11.0 Hypertensive heart disease with heart failure; I50.9 Heart failure, unspecified; I25.10 Atherosclerotic heart disease of native coronary artery without angina pectoris; Z86.73 Personal history of transient ischemic attack (TIA), and cerebral infarction without residual deficits; E78.00 Pure hypercholesterolemia, unspecified; J44.9 Chronic obstructive pulmonary disease, unspecified; Z95.0 Presence of cardiac pacemaker; Z91.041 Radiographic dye allergy status; Z79.82 Long term (current) use of aspirin; Z79.01 Long term (current) use of anticoagulants; Z79.899 Other long term (current) drug therapy
CPT/HCPCS: 36415; 71045; 80053; 84484; 85025; 93005; 99283; 99285; A9270; 93010

== ENCOUNTER 2019-11-09 09:26 | Emergency (ER) | payer MEDICARE, BC ==
[2019-11-09 09:56] VITALS: BP 146/71; PULSE 73
[2019-11-09] MEDS ORDERED: Ketorolac 30 MG/ML SDV IM ONE (10:06)
[2019-11-09] MEDS ORDERED: Acetaminophen/oxyCODONE 325-5 MG Tab PO STA (10:07)
--- NOTE | 2019-11-09 10:13 | EDM.PDOC ---
ED HPI GENERAL MEDICAL PROBLEM - General Chief Complaint: Lower Extremity Injury/Pain Stated Complaint: DIFFICULT TIME WALKING Time Seen by Provider: 11/09/19 09:55 Source of Information: Reports: Patient, Family, Old Records, RN History Limitations: Reports: No Limitations - History of Present Illness INITIAL COMMENTS - FREE TEXT/NARRATIVE: 83 yo male is brought in by his /daughter today for progressive L hip pain over the past several days. Today he is struggling with walking so finally the called [facility], Dr. Jarquin for an appt which is tomorrow. They felt they could not wait until tomorrow for the appt so came here to the ER. There has not been any acute injury to this area. Tx at home includes several doses of acetaminophen. No hx of the same. Onset: Gradual Onset Date: 11/03/19 Duration: Week(s): (1), Getting Worse Location: Reports: Lower Extremity, Left Quality: Reports: Ache Severity: Moderate (at rest, severe with touching area or movement.) Improves with: Reports: Rest Worsens with: Reports: Movement Context: Reports: Other (See HPI) Associated Symptoms: Reports: No Other Symptoms Treatments BLOCK FEEDER: Reports: Acetaminophen Left Hip Pain Score (Numeric/FACES): 9 - Related Data Allergies Allergy/AdvReac Type Severity Reaction Status Date / Time Iodinated Contrast Media Allergy Hives Verified 11/09/19 09:49 Home Meds: Home Meds Aspirin [Alvin Chewable Aspirin] 81 mg PO DAILY 10/22/13 [History] Magnesium Oxide [Magnesium] 400 mg PO BID 06/04/17 [History] Nitroglycerin [Nitrostat] 0.4 mg PO ASDIRECTED PRN 06/04/17 [History] Pantoprazole Sodium [Protonix] 40 mg PO BID 11/03/17 [History] Tamsulosin [Flomax] 0.4 mg PO DAILY 11/03/17 [History] Acetaminophen [Tylenol] 650 mg PO QID 09/27/18 [History] Metoprolol Tartrate [Lopressor] 50 mg PO BID 04/29/19 [History] Rosuvastatin [Crestor] 20 mg PO DAILY 04/29/19 [History] Warfarin [Coumadin] 2 mg PO DAILY 04/29/19 [History] Potassium Chloride 20 meq PO DAILY 05/15/19 [History] Finasteride 5 mg PO DAILY 11/09/19 [History] Past Medical History HEENT History: Reports: Cataract, Hard of Hearing, Impaired Vision Cardiovascular History: Reports: Angina, CAD, Heart Failure, High Cholesterol, Hypertension, SOB on Exertion, Stents Other Cardiovascular History: stress test indicated stent placement Respiratory History: Reports: COPD, SOB Gastrointestinal History: Reports: Bowel Obstruction, Colon Polyp, GERD Genitourinary History: Reports: BPH, Prostate Disorder, Renal Calculus Other Genitourinary History: 6 times Musculoskeletal History: Reports: Arthritis, Back Pain, Chronic Neurological History: Reports: TIA, Vertigo Psychiatric History: Reports: Depression Endocrine/Metabolic History: Reports: Other (See Below) Other Endocrine/Metabolic History: prediabetic Hematologic History: Reports: Anticoagulation Therapy Dermatologic History: Reports: None - Infectious Disease History Infectious Disease History: Reports: Chicken Pox, Measles, Mumps - Past Surgical History Head Surgeries/Procedures: Reports: None HEENT Surgical History: Reports: Cataract Surgery, Tonsillectomy Cardiovascular Surgical History: Reports: Coronary Artery Stent Other Cardiovascular Surgeries/Procedures: 2016 stent Respiratory Surgical History: Reports: None GI Surgical History: Reports: Colonoscopy, Polypectomy, Small Bowel Male Surgical History: Reports: Kidney Stone Extraction Endocrine Surgical History: Reports: None Neurological Surgical History: Reports: None Musculoskeletal Surgical History: Reports: Other (See Below) Other Musculoskeletal Surgeries/Procedures:: left foot surgery Dermatological Surgical History: Reports: Skin Biopsy Social & Family History - Family History Family Medical History: Noncontributory - Tobacco Use Smoking Status *Q: Former Smoker Used Tobacco, but Quit: Yes Month/Year Tobacco Last Used: 40 years ago - Caffeine Use Caffeine Use: Reports: None Caffeine Use Comment: rare coffee use - Alcohol Use Days Per Week of Alcohol Use: 7 Number of Drinks Per Day: 1 Total Drinks Per Week: 7 - Recreational Drug Use Recreational Drug Use: No Review of Systems - Review of Systems Review Of Systems: See Below Constitutional: Reports: No Symptoms Musculoskeletal: Reports: Joint Pain (L hip area). Denies: Joint Swelling Skin: Reports: No Symptoms Neurological: Reports: No Symptoms ED EXAM, GENERAL - Physical Exam Exam: See Below Exam Limited By: No Limitations General Appearance: Alert, WD/WN, No Apparent Distress Extremities: Normal Inspection, Normal Range of Motion (but is increasing painful with ROM testing.). No: Non-Tender, No Pedal Edema, Pedal Edema, Limited Range of Motion, Increased Warmth, Redness Neurological: Alert, Oriented, CN II-XII Intact, Normal Cognition, No Motor/ Sensory Deficits Psychiatric: Normal Affect, Normal Mood Skin Exam: Warm, Dry, Intact, Normal Color, No Rash Course - Vital Signs Last Recorded V/S: Last Vital Signs Temp 36.6 C 11/09/19 09:56 Pulse 73 11/09/19 09:56 Resp 18 11/09/19 09:56 BP 146/71 H 11/09/19 09:56 Pulse Ox 93 L 11/09/19 09:56 - Orders/Labs/Meds Orders: Active Orders 24 hr Category Date Time Status Hip Min 2V or 3V Lt [CR] Stat Exams 11/09/19 10:07 Taken Meds: Medications Discontinued Medications Generic Name Dose Route Start Last Admin Trade Name Freq PRN Reason Stop Dose Admin Ketorolac Tromethamine 30 mg 11/09/19 10:06 11/09/19 10:20 Toradol IM 11/09/19 10:07 30 mg ONETIME ONE Administration Oxycodone/Acetaminophen 1 tab 11/09/19 10:07 11/09/19 10:19 Percocet 325-5 Mg PO 11/09/19 10:08 1 tab ONETIME STA Administration - Radiology Interpretation Free Text/Narrative:: L hip X-ray-degen changes noted Departure - Departure Time of Disposition: 11:15 Disposition: Home, Self-Care 01 Condition: Fair Clinical Impression: Trochanteric bursitis, left hip Osteoarthritis of left hip Qualifiers: Osteoarthritis type: primary Qualified Code(s): M16.12 - Unilateral primary osteoarthritis, left hip - Discharge Information *PRESCRIPTION DRUG MONITORING PROGRAM REVIEWED*: No *COPY OF PRESCRIPTION DRUG MONITORING REPORT IN PATIENT GLORIA: No Referrals: Low Jarquin MD [Primary Care Provider] - Forms: ED Department Discharge Additional Instructions: Use acetaminophen for mild pain as currently. Use Percocet 1 every 4 hrs as needed for more severe pain. Use your walker to assist with walking. You may apply ice to the lateral hip to help reduce the inflammation of your bursitis. Follow up with orthopedics as as scheduled. Sepsis Event Note (ED) - Evaluation Sepsis Screening Result: No Definite Risk - Focused Exam Vital Signs: Vital Signs Temp Pulse Resp BP Pulse Ox 11/09/19 09:56 36.6 C 73 18 146/71 H 93 L 11/09/19 09:54 36.6 C 73 18 146/71 H 93 L - My Orders Last 24 Hours: My Active Orders 11/09/19 10:07 Hip Min 2V or 3V Lt [CR] Stat - Assessment/Plan Last 24 Hours: My Active Orders 11/09/19 10:07 Hip Min 2V or 3V Lt [CR] Stat
--- NOTE | 2019-11-09 11:38 | CR ---
Hip Min 2V or 3V Lt CLINICAL HISTORY: Left hip pain FINDINGS: There is mild joint space narrowing. There is mild acetabular spurring. There is a convexity along the lateral subcapital region of the femur. This is exaggerated on the lateral adduction view. There is no fracture or dislocation. 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
== END 2019-11-09 11:26 | disposition home or self-care (01) ==
LOC: JP.ED 09:26
DX: M16.12 Unilateral primary osteoarthritis, left hip (principal); M70.62 Trochanteric bursitis, left hip; I11.0 Hypertensive heart disease with heart failure; I50.9 Heart failure, unspecified; I25.10 Atherosclerotic heart disease of native coronary artery without angina pectoris; E78.00 Pure hypercholesterolemia, unspecified; J44.9 Chronic obstructive pulmonary disease, unspecified; K21.9 Gastro-esophageal reflux disease without esophagitis; M19.90 Unspecified osteoarthritis, unspecified site; Z95.5 Presence of coronary angioplasty implant and graft; Z79.82 Long term (current) use of aspirin; Z79.899 Other long term (current) drug therapy; Z91.041 Radiographic dye allergy status; Z86.73 Personal history of transient ischemic attack (TIA), and cerebral infarction without residual deficits; Z87.891 Personal history of nicotine dependence
CPT/HCPCS: 73502; 96372; 99283; A9270; J1885

== ENCOUNTER 2019-12-20 09:31 | Emergency (ER) | payer MEDICARE, BC ==
[2019-12-20 09:45] VITALS: BP 164/87; PULSE 62
--- NOTE | 2019-12-20 10:00 | EDM.PDOC ---
ED HPI GENERAL MEDICAL PROBLEM - General Chief Complaint: Neuro Symptoms/Deficits Stated Complaint: POSSIBLE STROKE Time Seen by Provider: 12/20/19 09:45 Source of Information: Reports: Patient, Family History Limitations: Reports: No Limitations - History of Present Illness INITIAL COMMENTS - FREE TEXT/NARRATIVE: 84-year-old male who is especially weak this morning, difficulty ambulating and was slightly dysarthric and his was concerned that he may be having a stroke. He was already feeling somewhat "off" when he woke up at 630 this morning. Daily headaches, not bad today. He seems to be improving now. Onset: Unknown/Unsure Associated Symptoms: Reports: Malaise. Denies: Confusion, Chest Pain, Cough, Fever/Chills, Headaches, Nausea/Vomiting, Shortness of Breath Headache Pain Score (Numeric/FACES): 1 - Related Data Allergies Allergy/AdvReac Type Severity Reaction Status Date / Time Iodinated Contrast Media Allergy Hives Verified 11/09/19 09:49 Home Meds: Home Meds Aspirin [Alvin Chewable Aspirin] 81 mg PO DAILY 10/22/13 [History] Magnesium Oxide [Magnesium] 400 mg PO BID 06/04/17 [History] Nitroglycerin [Nitrostat] 0.4 mg PO ASDIRECTED PRN 06/04/17 [History] Pantoprazole Sodium [Protonix] 40 mg PO BID 11/03/17 [History] Tamsulosin [Flomax] 0.4 mg PO DAILY 11/03/17 [History] Acetaminophen [Tylenol] 650 mg PO QID 09/27/18 [History] Metoprolol Tartrate [Lopressor] 50 mg PO BID 04/29/19 [History] Rosuvastatin [Crestor] 20 mg PO DAILY 04/29/19 [History] Warfarin [Coumadin] 2 mg PO DAILY 04/29/19 [History] Potassium Chloride 20 meq PO DAILY 05/15/19 [History] Finasteride 5 mg PO DAILY 11/09/19 [History] Past Medical History HEENT History: Reports: Cataract, Hard of Hearing, Impaired Vision Cardiovascular History: Reports: Angina, CAD, Heart Failure, High Cholesterol, Hypertension, SOB on Exertion, Stents Other Cardiovascular History: stress test indicated stent placement Respiratory History: Reports: COPD, SOB Gastrointestinal History: Reports: Bowel Obstruction, Colon Polyp, GERD Genitourinary History: Reports: BPH, Prostate Disorder, Renal Calculus Other Genitourinary History: 6 times Musculoskeletal History: Reports: Arthritis, Back Pain, Chronic, Other (See Belo w) Other Musculoskeletal History: left hip pain Neurological History: Reports: TIA, Vertigo Psychiatric History: Reports: Depression Endocrine/Metabolic History: Reports: Other (See Below) Other Endocrine/Metabolic History: prediabetic Hematologic History: Reports: Anticoagulation Therapy Dermatologic History: Reports: None - Infectious Disease History Infectious Disease History: Reports: Chicken Pox, Measles, Mumps - Past Surgical History Head Surgeries/Procedures: Reports: None HEENT Surgical History: Reports: Cataract Surgery, Tonsillectomy Cardiovascular Surgical History: Reports: Coronary Artery Stent Other Cardiovascular Surgeries/Procedures: 2016 stent Respiratory Surgical History: Reports: None GI Surgical History: Reports: Colonoscopy, Polypectomy, Small Bowel Male Surgical History: Reports: Kidney Stone Extraction Endocrine Surgical History: Reports: None Neurological Surgical History: Reports: None Musculoskeletal Surgical History: Reports: Other (See Below) Other Musculoskeletal Surgeries/Procedures:: left foot surgery Dermatological Surgical History: Reports: Skin Biopsy Social & Family History - Family History Family Medical History: Noncontributory - Caffeine Use Caffeine Use: Reports: None Caffeine Use Comment: rare coffee use ED ROS GENERAL - Review of Systems Review Of Systems: See Below Constitutional: Reports: Malaise. Denies: Fever, Chills HEENT: Denies: Vision Change Respiratory: Denies: Shortness of Breath Cardiovascular: Denies: Chest Pain GI/Abdominal: Denies: Abdominal Pain, Nausea, Vomiting Musculoskeletal: Denies: Neck Pain Skin: Reports: Bruising (Bruises easily, on blood thinners) Neurological: Reports: Headache (Chronic daily), Trouble Speaking, Weakness. Denies: Confusion, Dizziness ED EXAM, NEURO - Physical Exam Exam: See Below Exam Limited By: No Limitations General Appearance: Alert, No Apparent Distress Eye Exam: Bilateral Eye: Normal Inspection Throat/Mouth: Normal Inspection, Other (No facial asymmetry) Head Exam: Atraumatic Neck: Supple, Non-Tender Respiratory/Chest: No Respiratory Distress Neurological: Alert, No Motor/Sensory Deficits, Oriented x 3 Extremities: Normal Inspection, Other (He has a little bit more trouble holding his right leg up against gravity compared to the left but otherwise strength is symmetric, sensation is intact) Psychiatric: Normal Affect, Normal Mood Skin Exam: Warm, Dry Course - Vital Signs Last Recorded V/S: Last Vital Signs Temp 98.4 F 12/20/19 09:43 Pulse 62 12/20/19 09:43 Resp 19 12/20/19 09:43 BP 164/87 H 12/20/19 09:43 Pulse Ox 97 12/20/19 09:43 - Re-Assessments/Exams Free Text/Narrative Re-Assessment/Exam: 12/20/19 09:59 Reassured the patient and his that this may have been a TIA but he is covered with anticoagulants. A CT of the head without contrast was ordered and we will decide on treatment pending the result. 12/20/19 10:45 CT shows stable microvascular changes and atrophy but no acute findings. Patient was able to get up and use a walker with assistance but was still very weak, no asymmetry. He refused admission or transfer. He will consider rechecking in the next few days if not improving satisfactorily. Departure - Departure Time of Disposition: 10:47 Disposition: Home, Self-Care 01 Clinical Impression: Weakness, Difficulty walking - Discharge Information Instructions: Weakness Referrals: Low Jarquin MD [Primary Care Provider] - Forms: ED Department Discharge Care Plan Goals: Continue your current medications, increase activity as tolerated and consider rechecking in the next few days if not improving. Sepsis Event Note (ED) - Evaluation Sepsis Screening Result: No Definite Risk - Focused Exam Vital Signs: Vital Signs Temp Pulse Resp BP Pulse Ox 12/20/19 09:43 98.4 F 62 19 164/87 H 97 12/20/19 09:41 98.4 F 62 19 164/87 H 97
--- NOTE | 2019-12-20 10:30 | CT ---
Head wo Cont CLINICAL HISTORY: Weakness, dysarthria COMPARISON: 2019 TECHNIQUE: Transverse scans were obtained from the base of the skull through the vertex without IV contrast on a multislice, multidetector CT scanner. Auto dosage reduction and iterative reconstruction techniques employed. FINDINGS: There is moderate periventricular and subcortical lucency throughout both hemispheres. This is similar to a study from April 2019. This likely represents advanced chronic ischemic microvascular change. A small early infarct would be difficult to exclude. There is no mass effect, hemorrhage, or extraaxial collection. The basal cisterns and sulci over the convexities are prominent. The ventricles are prominent. IMPRESSION: Advanced atrophic change Advanced chronic ischemic microvascular changes in the periventricular and subcortical white matter No definite acute intracranial process is identified but subtle early ischemic infarct would be difficult to completely exclude
== END 2019-12-20 10:54 | disposition home or self-care (01) ==
LOC: JP.ED 09:31
DX: R53.1 Weakness (principal); R26.2 Difficulty in walking, not elsewhere classified; I11.0 Hypertensive heart disease with heart failure; I50.9 Heart failure, unspecified; I25.10 Atherosclerotic heart disease of native coronary artery without angina pectoris; E78.00 Pure hypercholesterolemia, unspecified; K21.9 Gastro-esophageal reflux disease without esophagitis; N40.0 Benign prostatic hyperplasia without lower urinary tract symptoms; M19.90 Unspecified osteoarthritis, unspecified site; Z91.041 Radiographic dye allergy status; Z79.82 Long term (current) use of aspirin; Z79.01 Long term (current) use of anticoagulants; Z79.899 Other long term (current) drug therapy
CPT/HCPCS: 70450; 70450-26; 99285-25

== ENCOUNTER 2020-02-15 15:42 | Emergency (ER) | payer MEDICARE, BC ==
--- NOTE | 2020-02-15 17:48 | EDM.PDOC ---
<SusanZee M - Last Filed: 02/15/20 17:48> ED HPI GENERAL MEDICAL PROBLEM - General Chief Complaint: General Stated Complaint: MEDICAL Time Seen by Provider: 02/15/20 17:15 Source of Information: Reports: Patient, Family, Old Records, RN, RN Notes Reviewed History Limitations: Reports: No Limitations - History of Present Illness INITIAL COMMENTS - FREE TEXT/NARRATIVE: Pt here with daughter in ER. Was at OT or PT today for vertigo. They indicated PT should come to ER right away as pt was sleepy and low energy and wanted to sleep. Pt was in PCP office 02-14-20 for f/u. Labs reviewed from yesterday look good. Pt does not want blood work done. Pt has a low heart from 43-57. Med list indicates Metoprolol is 50 mg BID. Daughter prepares meds and says she "cuts them in half and they come from [place]". Onset: Unknown/Unsure - Related Data Allergies Allergy/AdvReac Type Severity Reaction Status Date / Time Iodinated Contrast Media Allergy Hives Verified 02/15/20 17:13 Home Meds: Home Meds Aspirin [Alvin Chewable Aspirin] 81 mg PO DAILY 10/22/13 [History] Magnesium Oxide [Magnesium] 400 mg PO BID 06/04/17 [History] Nitroglycerin [Nitrostat] 0.4 mg PO ASDIRECTED PRN 06/04/17 [History] Pantoprazole Sodium [Protonix] 40 mg PO BID 11/03/17 [History] Tamsulosin [Flomax] 0.4 mg PO DAILY 11/03/17 [History] Acetaminophen [Tylenol] 650 mg PO QID 09/27/18 [History] Metoprolol Tartrate [Lopressor] 50 mg PO BID 04/29/19 [History] Rosuvastatin [Crestor] 20 mg PO DAILY 04/29/19 [History] Warfarin [Coumadin] 2 mg PO ASDIRECTED 04/29/19 [History] Potassium Chloride 20 meq PO DAILY 05/15/19 [History] Finasteride 5 mg PO DAILY 11/09/19 [History] methylPREDNISolone [Methylprednisolone] 32 mg PO ASDIRECTED 02/15/20 [History] Past Medical History HEENT History: Reports: Cataract, Hard of Hearing, Impaired Vision Cardiovascular History: Reports: Angina, CAD, Heart Failure, High Cholesterol, Hypertension, SOB on Exertion, Stents Other Cardiovascular History: stress test indicated stent placement Respiratory History: Reports: COPD, SOB Gastrointestinal History: Reports: Bowel Obstruction, Colon Polyp, GERD Genitourinary History: Reports: BPH, Prostate Disorder, Renal Calculus Other Genitourinary History: 6 times Musculoskeletal History: Reports: Arthritis, Back Pain, Chronic, Other (See Below) Other Musculoskeletal History: left hip pain Neurological History: Reports: TIA, Vertigo Psychiatric History: Reports: Depression Endocrine/Metabolic History: Reports: Other (See Below) Other Endocrine/Metabolic History: prediabetic Hematologic History: Reports: Anticoagulation Therapy Dermatologic History: Reports: None - Infectious Disease History Infectious Disease History: Reports: Chicken Pox, Measles, Mumps - Past Surgical History Head Surgeries/Procedures: Reports: None HEENT Surgical History: Reports: Cataract Surgery, Tonsillectomy Cardiovascular Surgical History: Reports: Coronary Artery Stent Other Cardiovascular Surgeries/Procedures: 2016 stent Respiratory Surgical History: Reports: None GI Surgical History: Reports: Colonoscopy, Polypectomy, Small Bowel Male Surgical History: Reports: Kidney Stone Extraction Endocrine Surgical History: Reports: None Neurological Surgical History: Reports: None Musculoskeletal Surgical History: Reports: Other (See Below) Other Musculoskeletal Surgeries/Procedures:: left foot surgery Dermatological Surgical History: Reports: Skin Biopsy Social & Family History - Family History Family Medical History: Noncontributory - Caffeine Use Caffeine Use: Reports: None Caffeine Use Comment: rare coffee use ED ROS GENERAL - Review of Systems Review Of Systems: See Below Constitutional: Reports: Malaise, Fatigue HEENT: Reports: No Symptoms Respiratory: Reports: No Symptoms Cardiovascular: Reports: Lightheadedness Endocrine: Reports: No Symptoms GI/Abdominal: Reports: Other (Indicates "black or dark stools for 6-12 months") Musculoskeletal: Reports: Other (Gait issues with walking. Getting fitted for new walker oper PCP notes. Pt also temporal arteritis and small vessel disease) Skin: Reports: No Symptoms Neurological: Reports: Other (Vertigo like symptoms) Psychiatric: Reports: No Symptoms Hematologic/Lymphatic: Reports: No Symptoms Immunologic: Reports: No Symptoms ED EXAM, GENERAL - Physical Exam Exam: See Below Exam Limited By: No Limitations General Appearance: Alert, WD/WN, No Apparent Distress Head: Normocephalic Neck: Normal Inspection Respiratory/Chest: No Respiratory Distress, Lungs Clear, Normal Breath Sounds, No Accessory Muscle Use, Chest Non-Tender Cardiovascular: Normal Peripheral Pulses, Regular Rate, Rhythm, No Murmur, No Rub Peripheral Pulses: 2+: Radial (L), Radial (R), Dorsalis Pedis (L), Dorsalis Pedis (R) (Male) Exam: Deferred Rectal (Males) Exam: Deferred Extremities: Normal Inspection, Normal Range of Motion Neurological: Alert, Oriented, CN II-XII Intact, Normal Cognition Psychiatric: Normal Affect, Normal Mood Skin Exam: Warm, Dry Departure - Departure Time of Disposition: 17:51 Disposition: Home, Self-Care 01 Condition: Good Clinical Impression: Bradycardia - Discharge Information *PRESCRIPTION DRUG MONITORING PROGRAM REVIEWED*: Not Applicable *COPY OF PRESCRIPTION DRUG MONITORING REPORT IN PATIENT GLORIA: Not Applicable Instructions: Bradycardia, Adult Referrals: Low Jarquin MD [Primary Care Provider] - Forms: ED Department Discharge Additional Instructions: Please check dose of Metoprolol when you get home and cut that dose in half. The current medication list indicates 50 mg 2 times daily. Please take HALF that amount until you see your provider. IF THE HEART RATE IS 60 BEATS PER MINUTE OR LESS DO NOT TAKE SCHEDULED DOSE. Please make appointment with provider to discuss the low heart rate of 43-57 beats per minute. Please seek medical care or call 911 if any immediate changes. - Problem List & Annotations (1) Bradycardia SNOMED Code(s): 20023521 Code(s): R00.1 - BRADYCARDIA, UNSPECIFIED Status: Acute Priority: High Current Visit: Yes - Problem List Review Problem List Initiated/Reviewed/Updated: Yes - Assessment/Plan Assessment:: Please check dose of Metoprolol when you get home and cut that dose in half. The current medication list indicates 50 mg 2 times daily. Please take HALF that amount until you see your provider. IF THE HEART RATE IS 60 BEATS PER MINUTE OR LESS DO NOT TAKE SCHEDULED DOSE. Please make appointment with provider to discuss the low heart rate of 43-57 beats per minute. Please seek medical care or call 911 if any immediate changes. <BrittanierJoseluis - Last Filed: 02/15/20 18:00> ED ROS GENERAL - Review of Systems Review Of Systems: See Below (Agree with below) GI/Abdominal: Reports: Other ED EXAM, GENERAL - Physical Exam Exam: See Below (agree with below) Course - Vital Signs Last Recorded V/S: Last Vital Signs Temp 98.2 F 02/15/20 16:27 Pulse 49 L 02/15/20 17:48 Resp 18 02/15/20 17:06 BP 174/72 H 02/15/20 17:48 Pulse Ox 95 02/15/20 17:06 Sepsis Event Note (ED) - Focused Exam Vital Signs: Vital Signs Temp Pulse Resp BP Pulse Ox 02/15/20 17:48 49 L 174/72 H 02/15/20 17:06 52 L 18 163/86 H 95 02/15/20 16:27 98.2 F 56 L 18 181/84 H 95 - Assessment/Plan Assessment:: Patient declined any further work-up in the emergency department Joseluis Buitrago MD was personally available for consultation in the ED. I have reviewed the chart and agree with the documentation as recorded by the DRESSAGE JUDGE Student, including the assessment, treatment plan and disposition. Joseluis Buitrago MD personally saw and examined the patient. I have reviewed and agree with the DRESSAGE JUDGE Student's findings.
[2020-02-15 17:49] VITALS: BP 174/72; PULSE 49
== END 2020-02-15 18:26 | disposition home or self-care (01) ==
LOC: JP.ED 15:42
DX: R00.1 Bradycardia, unspecified (principal); I25.10 Atherosclerotic heart disease of native coronary artery without angina pectoris; I11.0 Hypertensive heart disease with heart failure; I50.9 Heart failure, unspecified; E78.00 Pure hypercholesterolemia, unspecified; J44.9 Chronic obstructive pulmonary disease, unspecified; M19.90 Unspecified osteoarthritis, unspecified site; F32.9 Major depressive disorder, single episode, unspecified; Z88.8 Allergy status to other drugs, medicaments and biological substances; Z79.82 Long term (current) use of aspirin; Z79.899 Other long term (current) drug therapy
CPT/HCPCS: 99283

== ENCOUNTER 2020-06-25 07:00 | Day surgery (SDC) | payer MEDICARE, BC ==
[2020-06-25] MEDS ORDERED: fentaNYL 100 MCG/2 ML SDV ONE (07:10)
[2020-06-25] MEDS ORDERED: Propofol 200 MG/20 ML SDV ONE (07:10)
[2020-06-25] MEDS ORDERED: Midazolam 1 MG/ML 2 ML SDV ONE (07:10)
[2020-06-25] MEDS: Lidocaine 1% with EPINEPHrine 1:100,000 50 ML MDV ONE ×2 (07:40→09:14)
[2020-06-25] MEDS: Bupivacaine 0.5% 50 ML MDV ONE ×2 (07:40→09:14)
[2020-06-25] MEDS ORDERED: Dextrose 5%-Lactated Ringers 1,000 ML IV SCH (07:45)
[2020-06-25] MEDS ORDERED: Acetaminophen 500 MG Tab PO ONE (07:45)
[2020-06-25] MEDS ORDERED: Meropenem 500 MG in Sodium Chloride 0.9% 50 ML IV ONE (08:15)
[2020-06-25 10:15] VITALS: BP 125/68; PULSE 59
--- NOTE | 2020-07-07 10:09 | OR ---
DATE OF PROCEDURE: 06/25/2020 SURGEON: Kyle Carter MD PREOPERATIVE DIAGNOSIS: Infected epidermoid cyst, upper back. POSTOPERATIVE DIAGNOSIS: Infected epidermoid cyst, upper back. OPERATIVE PROCEDURE: Excision of infected epidermoid cyst, upper back ([id number]). ANESTHESIA: Local plus IV sedation. INDICATION FOR PROCEDURE: An 84-year-old male presenting with a large infected epidermoid cyst located in the upper back, somewhat to the right of the midline. Plan to proceed with excision of this. Most likely would plan to leave this open as it is likely we will get this closed satisfactorily without any subsequent infection. The potential risks of the procedure were reviewed with the patient and , and they wished to proceed. DETAILS OF PROCEDURE: The patient was taken to the operating room and placed in a prone position. IV sedation was administered, after which the upper back and surrounding areas were prepped and draped. The area in the right upper back was anesthetized with 1% lidocaine mixed with Marcaine. Elliptical incision over the lesion was made, carried down through the skin and subcutaneous tissue. The extent of the incision and margin was 7 cm. This was continued down to the level of the fascia where the cyst was removed in an otherwise intact manner and then delivered from the field. The wound at this point was inspected and hemostasis was established with electrocautery and the wound packed open with some iodoform gauze and a dressing overlying this was applied. The patient was taken to the recovery room in satisfactory condition. I am going to have the patient be seen with his with the surgery nurses in order to review direct dressing change protocol and technique. Kyle Carter MD /[id number]
== END 2020-06-25 11:25 | disposition home or self-care (01) ==
LOC: JP.SDS 07:00
PROVIDERS: ATTEND Surgery
DX: L72.0 Epidermal cyst (principal); I13.0 Hypertensive heart and chronic kidney disease with heart failure and stage 1 through stage 4 chronic kidney disease, or unspecified chronic kidney disease; I50.9 Heart failure, unspecified; I25.10 Atherosclerotic heart disease of native coronary artery without angina pectoris; E11.22 Type 2 diabetes mellitus with diabetic chronic kidney disease; N18.9 Chronic kidney disease, unspecified; I48.91 Unspecified atrial fibrillation; Z91.041 Radiographic dye allergy status
CPT/HCPCS: 11406; 36415; 85610; 87070; 87075; 87205; 88304; A9270; J2185; J2250; J2704; J3010; J3490; J7121

== ENCOUNTER 2021-03-11 12:41 | Emergency (ER) | payer MEDICARE, BC ==
--- NOTE | 2021-03-11 13:30 | EDM.PDOC ---
ED HPI GENERAL MEDICAL PROBLEM - General Chief Complaint: Cardiovascular Problem Stated Complaint: HIGH BP Time Seen by Provider: 03/11/21 13:15 Source of Information: Reports: Patient, Old Records, RN History Limitations: Reports: Other (no one called the ER to discuss reason patient was being referred to the ER) - History of Present Illness INITIAL COMMENTS - FREE TEXT/NARRATIVE: 85 yo male had just completed a presumed routine EST and had BP higher than was desired so he was referred to the ER for eval. He had no CP during his test. He feels fine now. He states his BP meds were weaned off about 6 weeks ago for low BP and so he is not on anything for HTN now. He denies CP, SOB, BERGERON, or stroke- like sx's. Onset: Today Onset Date: 03/11/21 Duration: Minutes: Location: Reports: Generalized Quality: Reports: Other (no pain) Severity: Moderate Improves with: Reports: Rest Worsens with: Reports: Other (? exercise) Context: Reports: Other (See HPI) Associated Symptoms: Denies: Confusion, Chest Pain, Diaphoresis, Nausea/Vomiting, Shortness of Breath, Syncope Treatments [employer]GRAM[employer]: Reports: Other (see below) (none) - Related Data Allergies Allergy/AdvReac Type Severity Reaction Status Date / Time Iodinated Contrast Media Allergy Hives Verified 03/11/21 13:10 Home Meds: Home Meds Aspirin [Alvin Chewable Aspirin] 81 mg PO DAILY 10/22/13 [History] Magnesium Oxide [Magnesium] 400 mg PO BID 06/04/17 [History] Nitroglycerin [Nitrostat] 0.4 mg PO ASDIRECTED PRN 06/04/17 [History] Pantoprazole Sodium [Protonix] 40 mg PO BID 11/03/17 [History] Tamsulosin [Flomax] 0.4 mg PO DAILY 11/03/17 [History] Acetaminophen [Tylenol] 650 mg PO QID 09/27/18 [History] Rosuvastatin [Crestor] 20 mg PO DAILY 04/29/19 [History] Warfarin [Coumadin] 1 mg PO ASDIRECTED 04/29/19 [History] Finasteride 5 mg PO DAILY 11/09/19 [History] Potassium Citrate [Urocit-K] 20 meq PO DAILY 06/22/20 [History] diphenhydrAMINE [Benadryl] 50 mg PO BEDTIME PRN 06/22/20 [History] metFORMIN [Glucophage XR] 500 mg PO DAILY 06/22/20 [History] Meclizine [Antivert] 25 mg PO TID PRN 03/08/21 [History] Past Medical History HEENT History: Reports: Cataract, Hard of Hearing, Impaired Vision Cardiovascular History: Reports: Angina, Arrhythmia, CAD, Heart Failure, High Cholesterol, Hypertension, SOB on Exertion, Stents Other Cardiovascular History: stress test indicated stent placement Respiratory History: Reports: COPD, SOB Gastrointestinal History: Reports: Bowel Obstruction, Colon Polyp, GERD Genitourinary History: Reports: BPH, Prostate Disorder, Renal Calculus Other Genitourinary History: 6 times Musculoskeletal History: Reports: Arthritis, Back Pain, Chronic, Other (See Below) Other Musculoskeletal History: left hip pain Neurological History: Reports: TIA, Vertigo Psychiatric History: Reports: Depression Endocrine/Metabolic History: Reports: Other (See Below) Other Endocrine/Metabolic History: prediabetic Hematologic History: Reports: Anticoagulation Therapy Dermatologic History: Reports: None - Infectious Disease History Infectious Disease History: Reports: Chicken Pox, Measles, Mumps - Past Surgical History Head Surgeries/Procedures: Reports: None HEENT Surgical History: Reports: Cataract Surgery, Tonsillectomy Cardiovascular Surgical History: Reports: Coronary Artery Stent Other Cardiovascular Surgeries/Procedures: 2016 stent Respiratory Surgical History: Reports: None GI Surgical History: Reports: Colonoscopy, Polypectomy, Small Bowel Male Surgical History: Reports: Kidney Stone Extraction Endocrine Surgical History: Reports: None Neurological Surgical History: Reports: None Musculoskeletal Surgical History: Reports: Other (See Below) Other Musculoskeletal Surgeries/Procedures:: left foot surgery Dermatological Surgical History: Reports: Skin Biopsy Social & Family History - Family History Family Medical History: No Pertinent Family History - Tobacco Use Tobacco Use Status *Q: Never Tobacco User - Caffeine Use Caffeine Use: Reports: Coffee Caffeine Use Comment: rare coffee use - Recreational Drug Use Recreational Drug Use: No ED ROS GENERAL - Review of Systems Review Of Systems: See Below Constitutional: Reports: No Symptoms HEENT: Reports: No Symptoms Respiratory: Reports: No Symptoms Cardiovascular: Reports: No Symptoms GI/Abdominal: Reports: No Symptoms Skin: Reports: No Symptoms Neurological: Reports: No Symptoms ED EXAM, GENERAL - Physical Exam Exam: See Below Exam Limited By: No Limitations General Appearance: Alert, WD/WN, No Apparent Distress Eye Exam: Bilateral Eye: Normal Inspection Ears: Normal External Exam, Normal Canal, Hearing Grossly Normal Ear Exam: Bilateral Ear: Auricle Normal, Canal Normal Nose: Normal Inspection, No Blood Throat/Mouth: Normal Inspection, Normal Lips, Normal Oropharynx, Normal Voice, No Airway Compromise Head: Atraumatic, Normocephalic Neck: Normal Inspection Respiratory/Chest: No Respiratory Distress, Lungs Clear, Normal Breath Sounds, No Accessory Muscle Use Cardiovascular: Regular Rate, Rhythm, No Edema GI/Abdominal: Soft, Non-Tender Extremities: Normal Inspection, No Pedal Edema. No: Non-Tender, Kurtis's Sign Neurological: Alert, Oriented, CN II-XII Intact, Normal Cognition, No Motor/Sensory Deficits Psychiatric: Normal Affect, Normal Mood Skin Exam: Warm, Dry, Intact, Normal Color, No Rash Course - Vital Signs Last Recorded V/S: Last Vital Signs Temp 36.2 C 03/11/21 13:16 Pulse 78 03/11/21 13:16 Resp 18 03/11/21 13:16 BP 183/90 H 03/11/21 13:16 Pulse Ox 97 03/11/21 13:16 - Re-Assessments/Exams Free Text/Narrative Re-Assessment/Exam: 03/11/21 13:29 BP came down into the mid 130's in the ER with rest. Departure - Departure Time of Disposition: 13:30 Disposition: Home, Self-Care 01 Condition: Good Clinical Impression: Transient elevated blood pressure Instructions: Hypertension, Adult, [id number] Referrals: Low Jarquin MD [Primary Care Provider] - Additional Instructions: Follow up with Dr. Jarquin as needed. Return as needed. Sepsis Event Note (ED) - Evaluation Sepsis Screening Result: No Definite Risk - Focused Exam Vital Signs: Vital Signs Temp Pulse Resp BP Pulse Ox 03/11/21 13:16 36.2 C 78 18 183/90 H 97 03/11/21 13:10 36.2 C 78 18 183/90 H 97
[2021-03-11 13:37] VITALS: BP 137/78; PULSE 71
== END 2021-03-11 13:55 | disposition home or self-care (01) ==
LOC: JP.ED 12:41
DX: I11.0 Hypertensive heart disease with heart failure (principal); I50.9 Heart failure, unspecified; E78.00 Pure hypercholesterolemia, unspecified; I25.10 Atherosclerotic heart disease of native coronary artery without angina pectoris; J44.9 Chronic obstructive pulmonary disease, unspecified; K21.9 Gastro-esophageal reflux disease without esophagitis; Z79.01 Long term (current) use of anticoagulants; Z79.82 Long term (current) use of aspirin; Z79.899 Other long term (current) drug therapy
CPT/HCPCS: 99283

== ENCOUNTER 2021-12-05 00:17 | Emergency (ER) | payer MEDICARE, BC ==
[2021-12-05] MEDS ORDERED: HYDROmorphone 0.5 MG/0.5 ML Syringe IVPUSH ONE (00:42)
[2021-12-05 00:50] LABS: ESTIMATED GFR 49 mL/min (>60)
[2021-12-05] MEDS ORDERED: LIDOCAINE 1% IM ONE ×2 (01:16)
[2021-12-05] MEDS ORDERED: CEFTRIAXONE 500 GM IM ONE ×2 (01:16)
[2021-12-05] MEDS ORDERED: cefTRIAXone 500 MG Vial ONE (01:29)
[2021-12-05] MEDS ORDERED: cefTRIAXone 500 MG, Lidocaine 1% 1 ML IM ONE ×2 (01:31)
[2021-12-05 01:46] VITALS: BP 143/83; PULSE 74
== END 2021-12-05 02:01 | disposition home or self-care (01) ==
LOC: JP.ED 00:17
DX: N45.1 Epididymitis (principal); I25.119 Atherosclerotic heart disease of native coronary artery with unspecified angina pectoris; I11.0 Hypertensive heart disease with heart failure; I50.9 Heart failure, unspecified; E78.00 Pure hypercholesterolemia, unspecified; J44.9 Chronic obstructive pulmonary disease, unspecified; Z86.73 Personal history of transient ischemic attack (TIA), and cerebral infarction without residual deficits; Z91.041 Radiographic dye allergy status; Z79.82 Long term (current) use of aspirin; Z79.899 Other long term (current) drug therapy; Z20.822 Contact with and (suspected) exposure to COVID-19
CPT/HCPCS: 36415; 80053; 85025; 93975; 96372; 96374; 99284; J0696; J1170; U0002

== ENCOUNTER 2022-04-20 23:09 | Emergency (ER) | payer MEDICARE, BC ==
[2022-04-20 23:43] VITALS: BP 149/86; PULSE 74
[2022-04-20] MEDS ORDERED: Sodium Chloride 0.9% 10 ML Syringe FLUSH PRN (23:55)
[2022-04-20] MEDS ORDERED: Sodium Chloride 0.9% 1,000 ML IV STA (23:55)
[2022-04-21 00:34] LABS: ESTIMATED GFR 45 mL/min (>60); TROPONIN I HIGH SENSITIVITY 10.4 pg/mL (<=60.3)
== END 2022-04-21 01:35 | disposition home or self-care (01) ==
LOC: JP.ED 23:09
DX: R10.33 Periumbilical pain (principal); I11.0 Hypertensive heart disease with heart failure; I50.9 Heart failure, unspecified; I25.10 Atherosclerotic heart disease of native coronary artery without angina pectoris; J44.9 Chronic obstructive pulmonary disease, unspecified; Z91.041 Radiographic dye allergy status; Z79.82 Long term (current) use of aspirin; Z79.899 Other long term (current) drug therapy; Z79.01 Long term (current) use of anticoagulants
CPT/HCPCS: 36415; 74176; 80053; 83605; 83690; 84484; 85025; 99284

== ENCOUNTER 2022-09-10 11:40 | Emergency (ER) | payer BC, MEDICARE ==
[2022-09-10 13:50] VITALS: BP 147/95; PULSE 83
== END 2022-09-10 13:16 | disposition home or self-care (01) ==
LOC: JP.ED 11:40
DX: S00.03XA Contusion of scalp, initial encounter (principal); J44.9 Chronic obstructive pulmonary disease, unspecified; I48.20 Chronic atrial fibrillation, unspecified; I25.119 Atherosclerotic heart disease of native coronary artery with unspecified angina pectoris; I11.0 Hypertensive heart disease with heart failure; I50.9 Heart failure, unspecified; E78.00 Pure hypercholesterolemia, unspecified; K21.9 Gastro-esophageal reflux disease without esophagitis; N40.0 Benign prostatic hyperplasia without lower urinary tract symptoms; Z86.73 Personal history of transient ischemic attack (TIA), and cerebral infarction without residual deficits; Z95.5 Presence of coronary angioplasty implant and graft; Z91.041 Radiographic dye allergy status; Z79.82 Long term (current) use of aspirin; Z79.01 Long term (current) use of anticoagulants; Z79.899 Other long term (current) drug therapy; W19.XXXA Unspecified fall, initial encounter
CPT/HCPCS: 70450; 70450-26; 99283

== ENCOUNTER 2023-02-05 02:39 | Emergency (ER) | payer MEDICARE ==
[2023-02-05 02:52] LABS: BASOPHILS PERCENT AUTO 0.1 % (0.1-1.3); EOSINOPHILS PERCENT AUTO 0.1 % (0.0-5.4); HEMATOCRIT 46.7 % (38.4-49.7); HEMOGLOBIN 15.3 g/dL (12.9-16.9); IMMATURE GRAN ABSOLUTE AUTO 0.16 K/uL (0.00-0.23); LYMPHOCYTES ABSOLUTE AUTO 2.71 K/uL (0.8-3.3); LYMPHOCYTES PERCENT AUTO 16.6 % (11.4-47.7); MEAN CORPUSCULAR HEMOGLOBIN 30.5 pg (31.6-35.5); MEAN CORPUSCULAR HGB CONC 32.8 g/dL (31.6-35.5); MEAN CORPUSCULAR VOLUME 93.2 fL (81.4-99.0); MONOCYTES ABSOLUTE AUTO 1.39 K/uL (0.20-0.90); MONOCYTES PERCENT AUTO 8.5 % (3.3-12.6); NEUTROPHILS ABSOLUTE AUTO 12.05 K/uL (1.0-7.6); NEUTROPHILS PERCENT AUTO 73.7 % (40.0-78.1); PLATELET COUNT,PLT 281 K/uL (130-375); RED BLOOD CELL COUNT 5.01 M/uL (4.14-5.76); WHITE BLOOD CELL COUNT,WBC 16.4 K/uL (3.2-11.0)
[2023-02-05 02:53] LABS: BASOPHILS ABSOLUTE AUTO 0.02 K/uL (0.00-0.10); EOSINOPHILS ABSOLUTE AUTO 0.02 K/uL (0.00-0.40)
[2023-02-05] MEDS ORDERED: Aspirin 81 MG Tab.Chew PO ONE (02:57)
[2023-02-05] MEDS ORDERED: Nitroglycerin 0.4 MG Tab.SL SL PRN (02:58)
[2023-02-05 03:03] LABS: PROTHROMBIN TIME 56.9 sec (9.2-10.6)
[2023-02-05 03:07] LABS: A/G RATIO 1.2 (1.2-2.2); ALANINE AMINOTRANSFERASE,ALT 25 U/L (12-78); ALBUMIN 3.4 g/dL (3.4-5.0); ALKALINE PHOSPHATASE 85 U/L (46-116); ANION GAP 11.5 mmol/L (5.0-14.0); ASPARTATE AMNIOTRANSFERASE,AST 17 U/L (15-37); BILIRUBIN TOTAL 0.5 mg/dL (0.2-1.0); BLOOD UREA NITROGEN,BUN 30 mg/dL (7-18); CALCIUM 8.5 mg/dL (8.5-10.1); CARBON DIOXIDE,CO2 30 mmol/L (21-32); CHLORIDE,CL 99 mmol/L (100-108); CREATININE 1.5 mg/dL (0.8-1.3); EST CRCL DRUG DOSING (CG) 33.57 mL/min; ESTIMATED GFR 45 mL/min (>60); GLUCOSE RANDOM 103 mg/dL (74-106); INR 6.3; POTASSIUM,K 4.5 mmol/L (3.6-5.2); PROTEIN TOTAL,TP 6.2 g/dL (6.4-8.2); SODIUM,NA 136 mmol/L (140-148)
[2023-02-05] MEDS ORDERED: Phytonadione 3 MG in Sodium Chloride 0.9% 50 ML IV ONE (03:12)
[2023-02-05] MEDS ORDERED: HYDROmorphone 0.5 MG/0.5 ML Syringe IVPUSH ONE (03:19)
[2023-02-05] MEDS ORDERED: Acetaminophen 325 MG Tab PO ONE (05:34)
[2023-02-05 06:28] VITALS: BP 153/96; PULSE 93
== END 2023-02-05 06:00 | disposition home or self-care (01) ==
LOC: JP.ED 02:39
DX: R07.89 Other chest pain (principal); I25.119 Atherosclerotic heart disease of native coronary artery with unspecified angina pectoris; I11.0 Hypertensive heart disease with heart failure; I50.9 Heart failure, unspecified; E78.00 Pure hypercholesterolemia, unspecified; J44.9 Chronic obstructive pulmonary disease, unspecified; K21.9 Gastro-esophageal reflux disease without esophagitis; Z86.73 Personal history of transient ischemic attack (TIA), and cerebral infarction without residual deficits; Z91.041 Radiographic dye allergy status; Z79.82 Long term (current) use of aspirin; Z79.899 Other long term (current) drug therapy
CPT/HCPCS: 36415; 71045; 80053; 83605; 83735; 84484; 85025; 85610; 93005; 96365; 96375; 99285; A9270; J1170; J3430; J3490; 93010; 99283

== ENCOUNTER 2023-08-26 06:02 | Emergency (ER) | payer MEDICARE ==
[2023-08-26 06:37] LABS: BASOPHILS ABSOLUTE AUTO 0.05 K/uL (0.00-0.10); BASOPHILS PERCENT AUTO 0.5 % (0.1-1.3); EOSINOPHILS ABSOLUTE AUTO 0.19 K/uL (0.00-0.40); EOSINOPHILS PERCENT AUTO 1.8 % (0.0-5.4); HEMATOCRIT 41.7 % (38.4-49.7); HEMOGLOBIN 13.9 g/dL (12.9-16.9); IMMATURE GRAN ABSOLUTE AUTO 0.05 K/uL (0.00-0.23); IMMATURE GRAN PERCENT AUTO 0.5 % (0.0-0.7); LYMPHOCYTES ABSOLUTE AUTO 1.84 K/uL (0.8-3.3); LYMPHOCYTES PERCENT AUTO 17.6 % (11.4-47.7); MEAN CORPUSCULAR HEMOGLOBIN 30.4 pg (31.6-35.5); MEAN CORPUSCULAR HGB CONC 33.3 g/dL (31.6-35.5); MEAN CORPUSCULAR VOLUME 91.2 fL (81.4-99.0); MONOCYTES ABSOLUTE AUTO 1.14 K/uL (0.20-0.90); MONOCYTES PERCENT AUTO 10.9 % (3.3-12.6); NEUTROPHILS ABSOLUTE AUTO 7.16 K/uL (1.0-7.6); NEUTROPHILS PERCENT AUTO 68.7 % (40.0-78.1); PLATELET COUNT,PLT 254 K/uL (130-375); RED BLOOD CELL COUNT 4.57 M/uL (4.14-5.76); WHITE BLOOD CELL COUNT,WBC 10.4 K/uL (3.2-11.0)
[2023-08-26 07:01] LABS: ANION GAP 16.9 mmol/L (5.0-14.0); CALCIUM 8.7 mg/dL (8.5-10.1); CREATININE 1.5 mg/dL (0.8-1.3); EST CRCL DRUG DOSING (CG) 31.31 mL/min; POTASSIUM,K 4.9 mmol/L (3.6-5.2)
[2023-08-26] MEDS: Ketorolac 30 MG/ML SDV IM ONE (08:24)
[2023-08-26 08:36] VITALS: BP 257/83; PULSE 71
== END 2023-08-26 09:55 | disposition home or self-care (01) ==
LOC: JP.ED 06:02
DX: R07.89 Other chest pain (principal); I11.0 Hypertensive heart disease with heart failure; I50.9 Heart failure, unspecified; I25.10 Atherosclerotic heart disease of native coronary artery without angina pectoris; Z91.041 Radiographic dye allergy status; Z79.82 Long term (current) use of aspirin; Z79.84 Long term (current) use of oral hypoglycemic drugs; Z79.01 Long term (current) use of anticoagulants; Z79.899 Other long term (current) drug therapy; W07.XXXA Fall from chair, initial encounter
CPT/HCPCS: 36415; 71101-26-RT; 71101-RT; 80048; 85025; 96372; 99284; 99285; J1885

== ENCOUNTER 2023-08-28 09:06 | Inpatient (IN) | payer MEDICARE ==
[2023-08-28] MEDS: Ketorolac 15 MG/ML SDV IVPUSH ONE (09:30)
[2023-08-28] MEDS: Morphine 4 MG/ML Syringe IVPUSH ONE ×2 (09:31→13:21)
[2023-08-28] MEDS: Ondansetron 4 MG/2 ML SDV IVPUSH ONE (09:37)
[2023-08-28 11:14] LABS: BASOPHILS ABSOLUTE AUTO 0.03 K/uL (0.00-0.10); BASOPHILS PERCENT AUTO 0.2 % (0.1-1.3); EOSINOPHILS PERCENT AUTO 0.2 % (0.0-5.4); HEMATOCRIT 41.1 % (38.4-49.7); IMMATURE GRAN ABSOLUTE AUTO 0.06 K/uL (0.00-0.23); IMMATURE GRAN PERCENT AUTO 0.5 % (0.0-0.7); LYMPHOCYTES ABSOLUTE AUTO 1.06 K/uL (0.8-3.3); LYMPHOCYTES PERCENT AUTO 8.2 % (11.4-47.7); MEAN CORPUSCULAR HEMOGLOBIN 31.1 pg (31.6-35.5); MEAN CORPUSCULAR HGB CONC 34.1 g/dL (31.6-35.5); MEAN CORPUSCULAR VOLUME 91.3 fL (81.4-99.0); MONOCYTES ABSOLUTE AUTO 1.23 K/uL (0.20-0.90); MONOCYTES PERCENT AUTO 9.6 % (3.3-12.6); NEUTROPHILS ABSOLUTE AUTO 10.47 K/uL (1.0-7.6); NEUTROPHILS PERCENT AUTO 81.3 % (40.0-78.1); PLATELET COUNT,PLT 246 K/uL (130-375); WHITE BLOOD CELL COUNT,WBC 12.9 K/uL (3.2-11.0)
[2023-08-28 11:15] LABS: EOSINOPHILS ABSOLUTE AUTO 0.02 K/uL (0.00-0.40)
[2023-08-28 11:31] LABS: INR 3.5; PROTHROMBIN TIME 32.8 sec (9.2-10.6)
[2023-08-28 11:35] LABS: A/G RATIO 1.1 (1.2-2.2); ALANINE AMINOTRANSFERASE,ALT 11 U/L (12-78); ALBUMIN 3.3 g/dL (3.4-5.0); ALKALINE PHOSPHATASE 66 U/L (46-116); ASPARTATE AMNIOTRANSFERASE,AST 14 U/L (15-37); BLOOD UREA NITROGEN,BUN 27 mg/dL (7-18); CALCIUM 8.6 mg/dL (8.5-10.1); CARBON DIOXIDE,CO2 26 mmol/L (21-32); CHLORIDE,CL 101 mmol/L (100-108); CREATININE 1.3 mg/dL (0.8-1.3); EST CRCL DRUG DOSING (CG) 37.43 mL/min; ESTIMATED GFR 53 mL/min (>60); GLUCOSE RANDOM 115 mg/dL (74-106); PROTEIN TOTAL,TP 6.4 g/dL (6.4-8.2); SODIUM,NA 136 mmol/L (140-148)
[2023-08-28] MEDS: Factor IX Complex Human 500 UNIT VIAL IVPUSH ONE (14:51)
[2023-08-28] MEDS: Phytonadione 5 MG in Sodium Chloride 0.9% 50 ML IV ONE (15:08)
[2023-08-28 15:21] LABS: CORONAVIRUS COVID-19 NAA NEGATIVE (NEGATIVE); INFLUENZA A NAA NEGATIVE (NEGATIVE); INFLUENZA B NAA NEGATIVE (NEGATIVE); RESPIRATORY SYNCYTIAL VIR NAA NEGATIVE (NEGATIVE)
[2023-08-28 16:36] LABS: INR 1.1; PROTHROMBIN TIME 10.9 sec (9.2-10.6)
[2023-08-28] MEDS ORDERED: Propofol 200 MG/20 ML SDV ONE (17:04)
[2023-08-28] MEDS: ceFAZolin 2 GM in Sodium Chloride 0.9% 50 ML IV ONE (18:06)
[2023-08-28] MEDS: Lidocaine 1% with EPINEPHrine 1:100,000 20 ML MDV INJECT ONE (18:07)
[2023-08-28] MEDS: hydrALAZINE 20 MG/ML SDV IVPUSH ONE (18:09)
[2023-08-28] MEDS: Bacitracin Oint 1 GM U/D Packet TOP ONE (18:22)
[2023-08-28] MEDS ORDERED: Polyethylene Glycol 3350 Powder 17 GM Packet PO PRN (18:53)
[2023-08-28] MEDS ORDERED: Glucose Gel 15 GM in 37.5 GM Tube PO PRN (18:53)
[2023-08-28] MEDS ORDERED: 50% Dextrose in Water 50 ML Syringe IV PRN (18:53)
[2023-08-28] MEDS ORDERED: Ondansetron 4 MG/2 ML SDV IV PRN (18:53)
[2023-08-28] MEDS ORDERED: Sodium Chloride 0.9% 10 ML Syringe FLUSH PRN (18:53)
[2023-08-28] MEDS ORDERED: Albuterol 0.083% 2.5 MG/3 ML Neb Soln NEB PRN (18:53)
[2023-08-28] MEDS: hydrALAZINE 20 MG/ML SDV IVPUSH PRN (19:04)
[2023-08-28] MEDS: oxyCODONE 5 MG Tab PO PRN (19:07)
[2023-08-28] MEDS: Acetaminophen 325 MG Tab PO PRN (19:47)
[2023-08-28] MEDS: Melatonin 3 MG Tab PO SCH (20:06)
[2023-08-28] MEDS: Pantoprazole 40 MG Tab.CR PO SCH (20:06)
[2023-08-28] MEDS: Magnesium Oxide 400 MG Tab PO SCH (20:06)
[2023-08-28] MEDS: Insulin Lispro 100 Unit/ML 3 ML KwikPen SUBCUT SCH (20:10)
[2023-08-28] MEDS: Haloperidol Lactate 5 MG/ML SDV IVPUSH PRN (20:11)
[2023-08-29 05:59] LABS: HEMOGLOBIN 13.6 g/dL (12.9-16.9); MEAN CORPUSCULAR HEMOGLOBIN 30.4 pg (31.6-35.5); MEAN CORPUSCULAR HGB CONC 32.4 g/dL (31.6-35.5); RED BLOOD CELL COUNT 4.47 M/uL (4.14-5.76); WHITE BLOOD CELL COUNT,WBC 10.7 K/uL (3.2-11.0)
[2023-08-29 06:14] LABS: PROTHROMBIN TIME 10.6 sec (9.2-10.6)
[2023-08-29 06:20] LABS: CALCIUM 9.1 mg/dL (8.5-10.1); CREATININE 1.5 mg/dL (0.8-1.3); EST CRCL DRUG DOSING (CG) 32.44 mL/min; MAGNESIUM 1.9 mg/dL (1.8-2.4); PHOSPHORUS 4.7 mg/dL (2.5-4.9); POTASSIUM,K 4.9 mmol/L (3.6-5.2)
[2023-08-29 06:23] LABS: ANION GAP 13.9 mmol/L (5.0-14.0)
[2023-08-29] MEDS: Citalopram 20 MG Tab PO SCH (08:20)
[2023-08-29] MEDS: Aspirin 81 MG Tab.Chew PO SCH (08:20)
[2023-08-29] MEDS: Tamsulosin 0.4 MG Cap.ER PO SCH ×2 (08:21→21:02)
[2023-08-29] MEDS: Rosuvastatin 10 MG Tab PO SCH (08:21)
[2023-08-29] MEDS: Isosorbide Mononitrate 30 MG Tab.ER PO SCH (08:22)
[2023-08-29] MEDS: Potassium Chloride 20 MEQ Tab.ER PO SCH (08:22)
[2023-08-29] MEDS: Lisinopril 10 MG Tab PO SCH (08:22)
[2023-08-29] MEDS: Finasteride 5 MG Tab PO SCH (08:23)
[2023-08-29] MEDS ORDERED: Non-Formulary Medication 1 Each (Potassium Citrate [Urocit-K] 10 MEQ Tablet.Er) PO SCH (09:00)
[2023-08-29] MEDS: Tiotropium Bromide 4 GM Inhalation Spray (2.5mcg/1 dose; 10 doses) INH SCH (09:15)
[2023-08-29] MEDS: Acetaminophen 1,000 MG in Premix Bag 1 BAG IV SCH (13:18)
[2023-08-29] MEDS: BISOPROLOL FUMARATE 5 MG PO SCH (13:20)
[2023-08-30 05:07] LABS: HEMATOCRIT 40.4 % (38.4-49.7); HEMOGLOBIN 13.5 g/dL (12.9-16.9); MEAN CORPUSCULAR HGB CONC 33.4 g/dL (31.6-35.5); MEAN CORPUSCULAR VOLUME 92.9 fL (81.4-99.0); RED BLOOD CELL COUNT 4.35 M/uL (4.14-5.76); WHITE BLOOD CELL COUNT,WBC 12.9 K/uL (3.2-11.0)
[2023-08-30 05:28] LABS: CALCIUM 8.8 mg/dL (8.5-10.1); CREATININE 1.4 mg/dL (0.8-1.3); EST CRCL DRUG DOSING (CG) 34.75 mL/min; MAGNESIUM 1.7 mg/dL (1.8-2.4); PHOSPHORUS 3.2 mg/dL (2.5-4.9); POTASSIUM,K 4.5 mmol/L (3.6-5.2)
[2023-08-30 05:31] LABS: ANION GAP 13.5 mmol/L (5.0-14.0)
[2023-08-30] MEDS: Magnesium Sulfate/Water 2 GM in Premix Bag 1 BAG IV SCH (09:18)
[2023-08-31 07:14] LABS: HEMOGLOBIN 12.8 g/dL (12.9-16.9); MEAN CORPUSCULAR HEMOGLOBIN 30.7 pg (31.6-35.5); MEAN CORPUSCULAR HGB CONC 33.7 g/dL (31.6-35.5); MEAN CORPUSCULAR VOLUME 91.1 fL (81.4-99.0); RED BLOOD CELL COUNT 4.17 M/uL (4.14-5.76); WHITE BLOOD CELL COUNT,WBC 11.7 K/uL (3.2-11.0)
[2023-08-31 07:30] LABS: PROTHROMBIN TIME 10.4 sec (9.2-10.6)
[2023-08-31 07:32] LABS: CALCIUM 9.2 mg/dL (8.5-10.1); CREATININE 1.3 mg/dL (0.8-1.3); EST CRCL DRUG DOSING (CG) 37.43 mL/min; PHOSPHORUS 2.8 mg/dL (2.5-4.9); POTASSIUM,K 4.7 mmol/L (3.6-5.2)
[2023-08-31 07:39] LABS: ANION GAP 14.7 mmol/L (5.0-14.0)
[2023-08-31] MEDS ORDERED: Bupivacaine 0.5% 30 ML SDV ONE (15:57)
[2023-08-31] MEDS: Magnesium Hydroxide 400 MG/5 ML Susp 30 ML Cup PO PRN (17:33)
[2023-08-31] MEDS: metFORMIN 500 MG Tab PO SCH (18:14)
[2023-09-01 04:50] LABS: HEMATOCRIT 37.6 % (38.4-49.7); HEMOGLOBIN 12.8 g/dL (12.9-16.9); MEAN CORPUSCULAR HEMOGLOBIN 31.1 pg (31.6-35.5); MEAN CORPUSCULAR VOLUME 91.3 fL (81.4-99.0); RED BLOOD CELL COUNT 4.12 M/uL (4.14-5.76)
[2023-09-01 05:08] LABS: CALCIUM 9.2 mg/dL (8.5-10.1); CREATININE 1.2 mg/dL (0.8-1.3); EST CRCL DRUG DOSING (CG) 40.55 mL/min; POTASSIUM,K 4.9 mmol/L (3.6-5.2)
[2023-09-01 05:37] LABS: ANION GAP 13.9 mmol/L (5.0-14.0)
[2023-09-01] MEDS ORDERED: traMADol 50 MG Tab PO PRN (12:09)
[2023-09-01] MEDS ORDERED: Lidocaine 4% 1 each Patch TOP SCH (12:15)
[2023-09-01] MEDS: Acetaminophen 500 MG Tab PO SCH (14:01)
[2023-09-01] MEDS: Lidocaine 4% 1 each Patch TOP SCH (14:02)
[2023-09-01] MEDS: Haloperidol Lactate 5 MG/ML SDV IVPUSH PRN (16:09)
[2023-09-01] MEDS: Ibuprofen 600 MG Tab PO PRN (18:06)
[2023-09-02 05:38] LABS: HEMATOCRIT 41.1 % (38.4-49.7); HEMOGLOBIN 13.9 g/dL (12.9-16.9); MEAN CORPUSCULAR HEMOGLOBIN 30.8 pg (31.6-35.5); MEAN CORPUSCULAR HGB CONC 33.8 g/dL (31.6-35.5); MEAN CORPUSCULAR VOLUME 90.9 fL (81.4-99.0); RED BLOOD CELL COUNT 4.52 M/uL (4.14-5.76); WHITE BLOOD CELL COUNT,WBC 11.4 K/uL (3.2-11.0)
[2023-09-02 05:51] LABS: CALCIUM 9.6 mg/dL (8.5-10.1); CREATININE 1.4 mg/dL (0.8-1.3); EST CRCL DRUG DOSING (CG) 34.75 mL/min; POTASSIUM,K 4.5 mmol/L (3.6-5.2)
[2023-09-02 06:02] LABS: ANION GAP 13.5 mmol/L (5.0-14.0)
[2023-09-02] MEDS: Bisacodyl 10 MG Supp ONE (08:06)
[2023-09-02] MEDS: Bisacodyl 5 MG Tab PO ONE (08:13)
[2023-09-02] MEDS: Warfarin 5 MG Tab PO SCH (13:46)
[2023-09-03 05:42] LABS: HEMATOCRIT 38.7 % (38.4-49.7); HEMOGLOBIN 13.1 g/dL (12.9-16.9); MEAN CORPUSCULAR HEMOGLOBIN 30.5 pg (31.6-35.5); MEAN CORPUSCULAR HGB CONC 33.9 g/dL (31.6-35.5); MEAN CORPUSCULAR VOLUME 90.2 fL (81.4-99.0); RED BLOOD CELL COUNT 4.29 M/uL (4.14-5.76); WHITE BLOOD CELL COUNT,WBC 10.6 K/uL (3.2-11.0)
[2023-09-03 05:53] LABS: INR 1.7; PROTHROMBIN TIME 16.4 sec (9.2-10.6)
[2023-09-03 05:54] LABS: CREATININE 1.4 mg/dL (0.8-1.3); EST CRCL DRUG DOSING (CG) 34.75 mL/min; POTASSIUM,K 4.4 mmol/L (3.6-5.2)
[2023-09-03 05:57] LABS: ANION GAP 12.4 mmol/L (5.0-14.0)
[2023-09-03] MEDS: Haloperidol 1 MG Tab PO PRN (21:13)
[2023-09-04 05:26] LABS: CALCIUM 9.4 mg/dL (8.5-10.1); CREATININE 1.6 mg/dL (0.8-1.3); EST CRCL DRUG DOSING (CG) 30.41 mL/min; POTASSIUM,K 4.7 mmol/L (3.6-5.2)
[2023-09-04 05:33] LABS: ANION GAP 12.7 mmol/L (5.0-14.0); INR 2.7; PROTHROMBIN TIME 25.7 sec (9.2-10.6)
[2023-09-04 11:14] VITALS: BP 135/69; PULSE 70
== END 2023-09-04 11:35 | DRG 199 ==
LOC: JP.ED 09:06 → JP.ICU 14:18
PROVIDERS: ADMIT Hospitalist; ATTEND Internal Medicine
PROC: 0W9930Z Drainage of Right Pleural Cavity with Drainage Device, Percutaneous Approach (ICD-10-PCS; principal; 2023-08-28)
PROC: 0T9B70Z Drainage of Bladder with Drainage Device, Via Natural or Artificial Opening (ICD-10-PCS; 2023-08-31)
PROC: 3E0T3BZ Introduction of Anesthetic Agent into Peripheral Nerves and Plexi, Percutaneous Approach (ICD-10-PCS; 2023-09-02)
DX: S22.41XA Multiple fractures of ribs, right side, initial encounter for closed fracture (principal); S27.0XXA Traumatic pneumothorax, initial encounter; J96.01 Acute respiratory failure with hypoxia; J93.9 Pneumothorax, unspecified; F02.B3 Dementia in other diseases classified elsewhere, moderate, with mood disturbance; F02.B11 Dementia in other diseases classified elsewhere, moderate, with agitation; F02.B4 Dementia in other diseases classified elsewhere, moderate, with anxiety; I50.30 Unspecified diastolic (congestive) heart failure; J98.11 Atelectasis; Z66 Do not resuscitate; S22.41XD Multiple fractures of ribs, right side, subsequent encounter for fracture with routine healing; I25.10 Atherosclerotic heart disease of native coronary artery without angina pectoris; N40.1 Benign prostatic hyperplasia with lower urinary tract symptoms; K21.9 Gastro-esophageal reflux disease without esophagitis; R91.8 Other nonspecific abnormal finding of lung field; D72.829 Elevated white blood cell count, unspecified; I11.0 Hypertensive heart disease with heart failure; M19.90 Unspecified osteoarthritis, unspecified site; H91.90 Unspecified hearing loss, unspecified ear; E78.00 Pure hypercholesterolemia, unspecified; R39.14 Feeling of incomplete bladder emptying; W19.XXXD Unspecified fall, subsequent encounter; G30.1 Alzheimer's disease with late onset; R33.9 Retention of urine, unspecified; I48.91 Unspecified atrial fibrillation; J43.9 Emphysema, unspecified; H54.7 Unspecified visual loss; M54.9 Dorsalgia, unspecified; G89.29 Other chronic pain; R73.03 Prediabetes; Z95.0 Presence of cardiac pacemaker; Z91.041 Radiographic dye allergy status; Z79.82 Long term (current) use of aspirin; Z86.010 Personal history of colon polyps; Z90.89 Acquired absence of other organs; Z87.442 Personal history of urinary calculi; Z98.890 Other specified postprocedural states; Z79.899 Other long term (current) drug therapy; Z87.891 Personal history of nicotine dependence; Z79.01 Long term (current) use of anticoagulants; Z98.49 Cataract extraction status, unspecified eye; Z79.84 Long term (current) use of oral hypoglycemic drugs; Z95.5 Presence of coronary angioplasty implant and graft; Z86.73 Personal history of transient ischemic attack (TIA), and cerebral infarction without residual deficits
CPT/HCPCS: 0241U; 36415; 51702; 70450; 71045; 71046; 71250; 72125; 76377; 80048; 80053; 82947; 83735; 84100; 85025; 85027; 85610; 86850; 86900; 86901; 93005; 94640; 96374; 96375; 96376; 97116; 97161; 97530; 99223; 99233; 99239; 99285; A9270-GY; J0131; J0360; J0665; J0690; J1630; J1815; J1885; J2270; J2405; J2704; J3430; J3475; J3490; J7168; U0002

== ENCOUNTER 2024-07-28 20:59 | Emergency (ER) | payer MEDICARE ==
[2024-07-28 21:13] LABS: BASOPHILS PERCENT AUTO 0.2 % (0.1-1.3); EOSINOPHILS ABSOLUTE AUTO 0.12 K/uL (0.00-0.40); EOSINOPHILS PERCENT AUTO 1.2 % (0.0-5.4); HEMATOCRIT 40.8 % (38.4-49.7); IMMATURE GRAN ABSOLUTE AUTO 0.05 K/uL (0.00-0.23); IMMATURE GRAN PERCENT AUTO 0.5 % (0.0-0.7); LYMPHOCYTES ABSOLUTE AUTO 2.39 K/uL (0.8-3.3); LYMPHOCYTES PERCENT AUTO 23.3 % (11.4-47.7); MEAN CORPUSCULAR HGB CONC 34.3 g/dL (31.6-35.5); MEAN CORPUSCULAR VOLUME 90.5 fL (81.4-99.0); MONOCYTES ABSOLUTE AUTO 1.17 K/uL (0.20-0.90); MONOCYTES PERCENT AUTO 11.4 % (3.3-12.6); NEUTROPHILS ABSOLUTE AUTO 6.51 K/uL (1.0-7.6); NEUTROPHILS PERCENT AUTO 63.4 % (40.0-78.1); PLATELET COUNT,PLT 269 K/uL (130-375); RED BLOOD CELL COUNT 4.51 M/uL (4.14-5.76); WHITE BLOOD CELL COUNT,WBC 10.3 K/uL (3.2-11.0)
[2024-07-28 21:23] LABS: BASOPHILS ABSOLUTE AUTO 0.02 K/uL (0.00-0.10)
[2024-07-28 21:29] LABS: PROTHROMBIN TIME 19.6 sec (9.2-10.6)
[2024-07-28 21:36] LABS: ANION GAP 13.1 mmol/L (5.0-14.0); BLOOD UREA NITROGEN,BUN 18 mg/dL (7-18); CARBON DIOXIDE,CO2 27 mmol/L (21-32); CHLORIDE,CL 94 mmol/L (100-108); CREATININE 1.2 mg/dL (0.8-1.3); ESTIMATED GFR 58 mL/min (>60); GLUCOSE RANDOM 90 mg/dL (74-106); POTASSIUM,K 4.1 mmol/L (3.6-5.2); SODIUM,NA 130 mmol/L (140-148); TROPONIN I HIGH SENSITIVITY 11.1 pg/mL (<=60.3)
[2024-07-28] MEDS ORDERED: Lidocaine 1% with EPINEPHrine 1:100,000 20 ML MDV INJECT ONE (21:50)
[2024-07-28 22:01] VITALS: BP 155/80
[2024-07-28 22:33] VITALS: PULSE 65
== END 2024-07-28 23:14 | disposition home or self-care (01) ==
LOC: JP.ED 20:59
DX: S01.01XA Laceration without foreign body of scalp, initial encounter (principal); I25.10 Atherosclerotic heart disease of native coronary artery without angina pectoris; I11.0 Hypertensive heart disease with heart failure; I50.9 Heart failure, unspecified; E78.00 Pure hypercholesterolemia, unspecified; J44.9 Chronic obstructive pulmonary disease, unspecified; K21.9 Gastro-esophageal reflux disease without esophagitis; M19.90 Unspecified osteoarthritis, unspecified site; E11.9 Type 2 diabetes mellitus without complications; Z86.73 Personal history of transient ischemic attack (TIA), and cerebral infarction without residual deficits; Z91.041 Radiographic dye allergy status; Z79.82 Long term (current) use of aspirin; Z79.84 Long term (current) use of oral hypoglycemic drugs; Z79.01 Long term (current) use of anticoagulants; Z79.899 Other long term (current) drug therapy; W01.198A Fall on same level from slipping, tripping and stumbling with subsequent striking against other object, initial encounter; Y92.019 Unspecified place in single-family (private) house as the place of occurrence of the external cause
CPT/HCPCS: 12002; 36415; 70450; 80048; 84484; 85025; 85610; 93005; 99284

== ENCOUNTER 2024-08-02 21:06 | Inpatient (IN) | payer MEDICARE ==
[2024-08-02] MEDS: HYDROmorphone 1 MG/ML Syringe IM ONE (21:47)
[2024-08-02] MEDS: Ondansetron 4 MG Tab.DIS PO ONE (21:56)
[2024-08-02 22:51] LABS: BASOPHILS ABSOLUTE AUTO 0.06 K/uL (0.00-0.10); BASOPHILS PERCENT AUTO 0.4 % (0.1-1.3); EOSINOPHILS ABSOLUTE AUTO 0.07 K/uL (0.00-0.40); EOSINOPHILS PERCENT AUTO 0.4 % (0.0-5.4); HEMATOCRIT 34.5 % (38.4-49.7); HEMOGLOBIN 11.8 g/dL (12.9-16.9); IMMATURE GRAN ABSOLUTE AUTO 0.09 K/uL (0.00-0.23); IMMATURE GRAN PERCENT AUTO 0.6 % (0.0-0.7); LYMPHOCYTES ABSOLUTE AUTO 1.22 K/uL (0.8-3.3); LYMPHOCYTES PERCENT AUTO 7.7 % (11.4-47.7); MEAN CORPUSCULAR HEMOGLOBIN 31.4 pg (31.6-35.5); MEAN CORPUSCULAR HGB CONC 34.2 g/dL (31.6-35.5); MEAN CORPUSCULAR VOLUME 91.8 fL (81.4-99.0); MONOCYTES ABSOLUTE AUTO 1.24 K/uL (0.20-0.90); MONOCYTES PERCENT AUTO 7.8 % (3.3-12.6); NEUTROPHILS ABSOLUTE AUTO 13.21 K/uL (1.0-7.6); NEUTROPHILS PERCENT AUTO 83.1 % (40.0-78.1); PLATELET COUNT,PLT 319 K/uL (130-375); RED BLOOD CELL COUNT 3.76 M/uL (4.14-5.76); WHITE BLOOD CELL COUNT,WBC 15.9 K/uL (3.2-11.0)
[2024-08-02 23:08] LABS: EST CRCL DRUG DOSING (CG) 24.7 mL/min; POTASSIUM,K 4.8 mmol/L (3.6-5.2)
[2024-08-02 23:11] LABS: ANION GAP 15.8 mmol/L (5.0-14.0)
[2024-08-02 23:12] LABS: INR 3.9; PROTHROMBIN TIME 37.3 sec (9.2-10.6)
[2024-08-02] MEDS ORDERED: traMADol 50 MG Tab PO PRN (23:26)
[2024-08-03] MEDS: Ketorolac 15 MG/ML SDV IVPUSH ONE (00:03)
[2024-08-03] MEDS: Acetaminophen 325 MG Tab PO SCH (00:04)
[2024-08-03] MEDS ORDERED: Naloxone 0.4 MG/ML SDV IVPUSH PRN (00:24)
[2024-08-03] MEDS ORDERED: Albuterol 0.083% 2.5 MG/3 ML Neb Soln NEB PRN (00:24)
[2024-08-03] MEDS ORDERED: Acetaminophen 325 MG Tab PO PRN (00:24)
[2024-08-03] MEDS: HYDROmorphone 0.5 MG/0.5 ML Syringe IVPUSH PRN (00:50)
[2024-08-03] MEDS: Albuterol/Ipratropium 3.0-0.5 MG/3 ML Neb Soln NEB SCH ×2 (05:18→10:34)
[2024-08-03 05:46] LABS: HEMATOCRIT 32.3 % (38.4-49.7); HEMOGLOBIN 10.6 g/dL (12.9-16.9); MEAN CORPUSCULAR HEMOGLOBIN 30.5 pg (31.6-35.5); MEAN CORPUSCULAR HGB CONC 32.8 g/dL (31.6-35.5); MEAN CORPUSCULAR VOLUME 93.1 fL (81.4-99.0); RED BLOOD CELL COUNT 3.47 M/uL (4.14-5.76); WHITE BLOOD CELL COUNT,WBC 14.7 K/uL (3.2-11.0)
[2024-08-03 06:02] LABS: CALCIUM 8.6 mg/dL (8.5-10.1); CREATININE 2.4 mg/dL (0.8-1.3); EST CRCL DRUG DOSING (CG) 20.58 mL/min; POTASSIUM,K 5.1 mmol/L (3.6-5.2)
[2024-08-03 06:03] LABS: PROTHROMBIN TIME 39.5 sec (9.2-10.6)
[2024-08-03 06:04] LABS: ANION GAP 13.1 mmol/L (5.0-14.0)
[2024-08-03 06:07] LABS: INR 4.1
[2024-08-03] MEDS: Pantoprazole 40 MG Tab.CR PO SCH (07:58)
[2024-08-03] MEDS: Acetaminophen 500 MG Tab PO SCH (09:38)
[2024-08-03] MEDS: Magnesium Oxide 400 MG Tab PO SCH (09:39)
[2024-08-03] MEDS: Lidocaine 4% Patch TOP SCH (09:39)
[2024-08-03] MEDS: oxyCODONE 5 MG Tab PO PRN (10:26)
[2024-08-03] MEDS: Sodium Chloride 0.9% 1,000 ML IV SCH (11:11)
[2024-08-03] MEDS ORDERED: Acetaminophen 325 MG Tab PO SCH (12:00)
[2024-08-03] MEDS: Rosuvastatin 10 MG Tab PO SCH (12:22)
[2024-08-03] MEDS: Citalopram 20 MG Tab PO SCH (12:22)
[2024-08-03] MEDS: Isosorbide Mononitrate 30 MG Tab.ER PO SCH (12:23)
[2024-08-03] MEDS: Finasteride 5 MG Tab PO SCH (12:23)
[2024-08-03] MEDS: Lisinopril 10 MG Tab PO SCH (12:23)
[2024-08-03] MEDS: Phytonadione 5 MG Tab PO ONE (12:28)
[2024-08-03] MEDS: Bisoprolol 5 MG Tab PO SCH (12:28)
[2024-08-03] MEDS: metFORMIN 500 MG Tab PO SCH (12:31)
[2024-08-03] MEDS: Ondansetron 4 MG/2 ML SDV IV PRN (15:09)
[2024-08-03] MEDS: Tamsulosin 0.4 MG Cap.ER PO SCH (20:57)
[2024-08-04 06:01] LABS: HEMATOCRIT 26.9 % (38.4-49.7); HEMOGLOBIN 8.9 g/dL (12.9-16.9); MEAN CORPUSCULAR HEMOGLOBIN 31.1 pg (31.6-35.5); MEAN CORPUSCULAR HGB CONC 33.1 g/dL (31.6-35.5); MEAN CORPUSCULAR VOLUME 94.1 fL (81.4-99.0); RED BLOOD CELL COUNT 2.86 M/uL (4.14-5.76); WHITE BLOOD CELL COUNT,WBC 13.7 K/uL (3.2-11.0)
[2024-08-04 06:11] LABS: CALCIUM 8.4 mg/dL (8.5-10.1); CREATININE 2.6 mg/dL (0.8-1.3)
[2024-08-04 06:23] LABS: PROTHROMBIN TIME 29.1 sec (9.2-10.6)
[2024-08-04 06:38] LABS: APPEARANCE,URINE CLEAR (CLEAR); BILIRUBIN,URINE NEGATIVE (NEGATIVE); COLOR,URINE YELLOW (YELLOW); GLUCOSE,URINE NEGATIVE (NEGATIVE); KETONES,URINE NEGATIVE (NEGATIVE); LEUKOCYTE ESTERASE,URINE NEGATIVE (NEGATIVE); NITRITE,URINE NEGATIVE (NEGATIVE); OCCULT BLOOD,URINE NEGATIVE (NEGATIVE); PROTEIN,URINE TRACE mg/dL (NEGATIVE); UROBILINOGEN,URINE 0.2 EU/dL (0.2-1.0)
[2024-08-04 06:46] LABS: AMORPHOUS SEDIMENT,URINE FEW; BACTERIA,URINE FEW; EPITHELIAL CELLS,URINE FEW; MUCUS,URINE NOT SEEN; RBC,URINE 0-5 (0-5); WBC,URINE 0-5 (0-5)
[2024-08-04] MEDS: POTASSIUM CITRATE 10 MEQ PO SCH (12:29)
[2024-08-04] MEDS: Sodium Chloride 0.9% 1,000 ML IV SCH (16:01)
[2024-08-04] MEDS: HYDROmorphone 2 MG Tab PO PRN (19:36)
[2024-08-04] MEDS: Sennosides/Docusate Sodium 50-8.6 MG Tab PO PRN (21:19)
[2024-08-05 05:53] LABS: HEMATOCRIT 23.8 % (38.4-49.7); HEMOGLOBIN 7.9 g/dL (12.9-16.9); MEAN CORPUSCULAR HEMOGLOBIN 31.5 pg (31.6-35.5); MEAN CORPUSCULAR HGB CONC 33.2 g/dL (31.6-35.5); MEAN CORPUSCULAR VOLUME 94.8 fL (81.4-99.0); RED BLOOD CELL COUNT 2.51 M/uL (4.14-5.76); WHITE BLOOD CELL COUNT,WBC 11.3 K/uL (3.2-11.0)
[2024-08-05 06:11] LABS: CALCIUM 8.5 mg/dL (8.5-10.1); EST CRCL DRUG DOSING (CG) 24.7 mL/min; POTASSIUM,K 4.9 mmol/L (3.6-5.2)
[2024-08-05 06:12] LABS: INR 1.5; PROTHROMBIN TIME 14.9 sec (9.2-10.6)
[2024-08-05 06:20] LABS: ANION GAP 10.9 mmol/L (5.0-14.0)
[2024-08-05] MEDS: traMADol 50 MG Tab PO PRN (15:07)
[2024-08-05] MEDS: Haloperidol 5 MG Tab PO PRN (18:17)
[2024-08-05] MEDS: Melatonin 3 MG Tab PO PRN (20:50)
[2024-08-06] MEDS: Haloperidol Lactate 5 MG/ML SDV ONE (00:53)
[2024-08-06] MEDS: Haloperidol Lactate 5 MG/ML SDV IVPUSH ONE (01:00)
[2024-08-06 05:40] LABS: HEMATOCRIT 22.7 % (38.4-49.7); HEMOGLOBIN 7.6 g/dL (12.9-16.9); MEAN CORPUSCULAR HEMOGLOBIN 31.3 pg (31.6-35.5); MEAN CORPUSCULAR HGB CONC 33.5 g/dL (31.6-35.5); MEAN CORPUSCULAR VOLUME 93.4 fL (81.4-99.0); RED BLOOD CELL COUNT 2.43 M/uL (4.14-5.76); WHITE BLOOD CELL COUNT,WBC 10.9 K/uL (3.2-11.0)
[2024-08-06 06:00] LABS: CALCIUM 8.5 mg/dL (8.5-10.1); CREATININE 1.6 mg/dL (0.8-1.3); EST CRCL DRUG DOSING (CG) 30.88 mL/min; POTASSIUM,K 4.7 mmol/L (3.6-5.2)
[2024-08-06 06:01] LABS: ANION GAP 10.7 mmol/L (5.0-14.0)
[2024-08-06] MEDS: Polyethylene Glycol 3350 Powder 17 GM Packet PO ONE ×2 (11:59→12:00)
[2024-08-06] MEDS: Melatonin 3 MG Tab PO SCH (20:42)
[2024-08-07] MEDS: Warfarin 5 MG Tab PO ONE (14:15)
[2024-08-07] MEDS: Magnesium Hydroxide 400 MG/5 ML Susp 30 ML Cup PO ONE (17:11)
[2024-08-07] MEDS: traMADol 50 MG Tab PO PRN (20:29)
[2024-08-08] MEDS: Ondansetron 4 MG Tab.DIS PO PRN (03:25)
[2024-08-08] MEDS: Bisacodyl 10 MG Supp RECTAL PRN (04:22)
[2024-08-08 05:47] LABS: HEMATOCRIT 31.7 % (38.4-49.7); HEMOGLOBIN 10.9 g/dL (12.9-16.9); MEAN CORPUSCULAR HEMOGLOBIN 31.6 pg (31.6-35.5); MEAN CORPUSCULAR HGB CONC 34.4 g/dL (31.6-35.5); MEAN CORPUSCULAR VOLUME 91.9 fL (81.4-99.0); RED BLOOD CELL COUNT 3.45 M/uL (4.14-5.76); WHITE BLOOD CELL COUNT,WBC 12.2 K/uL (3.2-11.0)
[2024-08-08 05:48] VITALS: PULSE 83
[2024-08-08 05:52] VITALS: BP 168/91
[2024-08-08 06:04] LABS: CALCIUM 9.1 mg/dL (8.5-10.1); CREATININE 1.2 mg/dL (0.8-1.3); EST CRCL DRUG DOSING (CG) 41.17 mL/min; POTASSIUM,K 4.7 mmol/L (3.6-5.2)
[2024-08-08 06:05] LABS: ANION GAP 17.7 mmol/L (5.0-14.0); INR 1.4
[2024-08-08] MEDS ORDERED: Warfarin 2.5 MG Tab PO SCH (13:00)
[2024-08-08] MEDS ORDERED: Warfarin** 1 MG TABLET PO SCH (13:00)
== END 2024-08-08 10:30 | DRG 89 ==
LOC: JP.ED 21:06 → JP.MS 23:33 → JP.ED 08-03 00:07 → OBSVTOIN 08-03 10:54
PROVIDERS: ADMIT Registered Nurse; ATTEND Internal Medicine
PROC: 0HQ0XZZ Repair Scalp Skin, External Approach (ICD-10-PCS; principal; 2024-08-02)
PROC: 30233N1 Transfusion of Nonautologous Red Blood Cells into Peripheral Vein, Percutaneous Approach (ICD-10-PCS; 2024-08-06)
DX: S06.0X0A Concussion without loss of consciousness, initial encounter (principal); D62 Acute posthemorrhagic anemia; I50.32 Chronic diastolic (congestive) heart failure; I13.0 Hypertensive heart and chronic kidney disease with heart failure and stage 1 through stage 4 chronic kidney disease, or unspecified chronic kidney disease; I11.0 Hypertensive heart disease with heart failure; I50.9 Heart failure, unspecified; N17.9 Acute kidney failure, unspecified; F02.B4 Dementia in other diseases classified elsewhere, moderate, with anxiety; E11.9 Type 2 diabetes mellitus without complications; S70.12XA Contusion of left thigh, initial encounter; S76.011A Strain of muscle, fascia and tendon of right hip, initial encounter; S01.01XA Laceration without foreign body of scalp, initial encounter; R29.6 Repeated falls; I48.91 Unspecified atrial fibrillation; W19.XXXA Unspecified fall, initial encounter; W22.8XXA Striking against or struck by other objects, initial encounter; H26.9 Unspecified cataract; H91.90 Unspecified hearing loss, unspecified ear; H54.7 Unspecified visual loss; I25.10 Atherosclerotic heart disease of native coronary artery without angina pectoris; E78.00 Pure hypercholesterolemia, unspecified; J44.9 Chronic obstructive pulmonary disease, unspecified; K21.9 Gastro-esophageal reflux disease without esophagitis; N40.0 Benign prostatic hyperplasia without lower urinary tract symptoms; M19.90 Unspecified osteoarthritis, unspecified site; G89.29 Other chronic pain; F32.A Depression, unspecified; F15.90 Other stimulant use, unspecified, uncomplicated; G30.9 Alzheimer's disease, unspecified; J43.9 Emphysema, unspecified; N18.32 Chronic kidney disease, stage 3b; Z66 Do not resuscitate; R53.81 Other malaise; E11.40 Type 2 diabetes mellitus with diabetic neuropathy, unspecified; E11.22 Type 2 diabetes mellitus with diabetic chronic kidney disease; Z79.01 Long term (current) use of anticoagulants; Z91.041 Radiographic dye allergy status; Z79.82 Long term (current) use of aspirin; Z79.899 Other long term (current) drug therapy; Z79.02 Long term (current) use of antithrombotics/antiplatelets; Z95.0 Presence of cardiac pacemaker; Z95.5 Presence of coronary angioplasty implant and graft; Z87.442 Personal history of urinary calculi; Z86.73 Personal history of transient ischemic attack (TIA), and cerebral infarction without residual deficits; Z79.84 Long term (current) use of oral hypoglycemic drugs; Z79.1 Long term (current) use of non-steroidal anti-inflammatories (NSAID); Z98.49 Cataract extraction status, unspecified eye; Z90.89 Acquired absence of other organs; Z86.19 Personal history of other infectious and parasitic diseases; Z98.890 Other specified postprocedural states
CPT/HCPCS: 12002; 36415 ×2; 70450; 72192; 76377; 80048 ×2; 85025; 85027; 85610 ×2; 94640 ×2; 96372; 96374; 99223; 99285 ×2; A9270 ×8; J1171; J1885; Q0162; 36430; 81001; 86850; 86900; 86901; 86920; 86922; 96375; 96376; 97110-GP; 97161-GP; 97165-GO; 97530-GP; 99232; 99233; 99239; G0378; J1630; J2405; J7030; P9016

== ENCOUNTER 2025-01-18 19:59 | Emergency (ER) | payer MEDICARE ==
[2025-01-18 20:16] VITALS: PULSE 71
[2025-01-18] MEDS: fentaNYL 50 MCG/ML SDV IM ONE (20:48)
[2025-01-18 22:04] VITALS: BP 179/94
== END 2025-01-18 22:51 | disposition home or self-care (01) ==
LOC: JP.ED 19:59
DX: S20.229A Contusion of unspecified back wall of thorax, initial encounter (principal); S00.01XA Abrasion of scalp, initial encounter; I11.0 Hypertensive heart disease with heart failure; I50.9 Heart failure, unspecified; E78.00 Pure hypercholesterolemia, unspecified; K21.9 Gastro-esophageal reflux disease without esophagitis; E11.9 Type 2 diabetes mellitus without complications; Z91.041 Radiographic dye allergy status; Z79.82 Long term (current) use of aspirin; Z79.84 Long term (current) use of oral hypoglycemic drugs; Z79.01 Long term (current) use of anticoagulants; Z79.899 Other long term (current) drug therapy; W19.XXXA Unspecified fall, initial encounter; Y92.009 Unspecified place in unspecified non-institutional (private) residence as the place of occurrence of the external cause
CPT/HCPCS: 70450; 71250; 72125; 76377; 93005; 96372; 99285; J3010; 93010; 99283

== ENCOUNTER 2025-01-25 19:23 | Emergency (ER) | payer MEDICARE ==
[2025-01-25 19:31] VITALS: BP 187/87; PULSE 72
[2025-01-25 20:11] LABS: BASOPHILS ABSOLUTE AUTO 0.06 K/uL (0.00-0.10); BASOPHILS PERCENT AUTO 0.7 % (0.1-1.3); EOSINOPHILS ABSOLUTE AUTO 0.08 K/uL (0.00-0.40); EOSINOPHILS PERCENT AUTO 0.9 % (0.0-5.4); IMMATURE GRAN ABSOLUTE AUTO 0.04 K/uL (0.00-0.23); IMMATURE GRAN PERCENT AUTO 0.5 % (0.0-0.7); LYMPHOCYTES ABSOLUTE AUTO 1.88 K/uL (0.8-3.3); LYMPHOCYTES PERCENT AUTO 22.0 % (11.4-47.7); MONOCYTES ABSOLUTE AUTO 0.78 K/uL (0.20-0.90); MONOCYTES PERCENT AUTO 9.1 % (3.3-12.6); NEUTROPHILS ABSOLUTE AUTO 5.70 K/uL (1.0-7.6); NEUTROPHILS PERCENT AUTO 66.8 % (40.0-78.1); PLATELET COUNT,PLT 262 K/uL (130-375); RED BLOOD CELL COUNT 4.08 M/uL (4.14-5.76); WHITE BLOOD CELL COUNT,WBC 8.5 K/uL (3.2-11.0)
[2025-01-25 20:42] LABS: A/G RATIO 1.2 (1.2-2.2); ALANINE AMINOTRANSFERASE,ALT 14 U/L (12-78); ASPARTATE AMNIOTRANSFERASE,AST 14 U/L (15-37); BILIRUBIN TOTAL 0.4 mg/dL (0.2-1.0); BLOOD UREA NITROGEN,BUN 21 mg/dL (7-18); CARBON DIOXIDE,CO2 27 mmol/L (21-32); CHLORIDE,CL 102 mmol/L (100-108); CREATININE 1.2 mg/dL (0.8-1.3); EST CRCL DRUG DOSING (CG) 41.73 mL/min; ESTIMATED GFR 58 mL/min (>60); GLUCOSE RANDOM 155 mg/dL (74-106); POTASSIUM,K 3.9 mmol/L (3.6-5.2); PROTEIN TOTAL,TP 6.1 g/dL (6.4-8.2); SODIUM,NA 137 mmol/L (140-148); TROPONIN I HIGH SENSITIVITY 12.3 pg/mL (<=60.3)
[2025-01-25] MEDS ORDERED: Sodium Chloride 0.9% 10 ML Syringe FLUSH PRN (21:06)
[2025-01-25] MEDS: Sodium Chloride 0.9% 10 ML Syringe FLUSH PRN (21:24)
[2025-01-25] MEDS: Ketorolac 30 MG/ML SDV IVPUSH ONE (21:53)
== END 2025-01-25 22:53 | disposition home or self-care (01) ==
LOC: JP.ED 19:23
DX: R07.89 Other chest pain (principal); S51.812A Laceration without foreign body of left forearm, initial encounter; I48.91 Unspecified atrial fibrillation; I25.10 Atherosclerotic heart disease of native coronary artery without angina pectoris; E78.00 Pure hypercholesterolemia, unspecified; J44.9 Chronic obstructive pulmonary disease, unspecified; E11.9 Type 2 diabetes mellitus without complications; I11.0 Hypertensive heart disease with heart failure; I50.9 Heart failure, unspecified; Z86.73 Personal history of transient ischemic attack (TIA), and cerebral infarction without residual deficits; Z91.041 Radiographic dye allergy status; Z79.82 Long term (current) use of aspirin; Z79.899 Other long term (current) drug therapy; Z79.84 Long term (current) use of oral hypoglycemic drugs; Z79.01 Long term (current) use of anticoagulants; W18.39XA Other fall on same level, initial encounter
CPT/HCPCS: 36415; 71045; 80053; 83605; 83690; 84484; 85025; 93005; 96361; 96374; 99284; J1885; J7030